=== PATIENT | female | born 1930 | race Asian ===

== ENCOUNTER 2016-11-26 03:41 | Inpatient (IN) | payer MEDICARE, OTHER ==
[2016-11-26] VITALS (13 sets, daily range): BP systolic 96–208; BP diastolic 40–76
[~2016-11-26] VITALS: Ht 144.8 cm; Wt 47.6 kg
[~2016-11-26 03:41] MED LIST: AMLO10TA4 PO; ASPI-630 PO; CARV12.52 PO; DULO30CA2 PO; FAMO20TA5 PO; FERR159T3 PO; HYDR-2762 PO; INSU100V31 SQ; INSU100V8 SQ; MULT-18 PO; Nitrofurantoin Monohyd/M-Cryst PO; OXYC10TA57 PO; SIMV20TA3 PO
[2016-11-26] MEDS ORDERED: HYDROmorphone 2 MG/ML VIAL IV ONE (04:30)
[2016-11-26] MEDS ORDERED: ONDANSETRON PF 4 MG/2 ML VIAL. IV ONE (04:30)
[2016-11-26] MEDS ORDERED: IV NORMAL SALINE 1000ML BAG 1,000 ML IV ONE (04:30)
[2016-11-26] MEDS ORDERED: ONDANSETRON PF 4 MG/2 ML VIAL. IV PRN ×2 (04:45→09:45)
[2016-11-26] MEDS: MORPHINE SULFATE 4 MG/ML DISP.SYRIN. IV PRN ×2 (05:22→07:47)
--- NOTE | 2016-11-26 05:45 | PHYS DOC ---
Past Medical History Past Medical History: Cancer, CHF, Diabetes-Type II, High Cholesterol, Hypertension, FL, TIA Additional Past Medical Histor: Breast CA; carotid artery occlusion; crushed vertebrae Past Surgical History: Appendectomy, Cholecystectomy, Coronary Bypass Surgery, Other Additional Past Surgical Histo: left mastectomy; carotid sx Alcohol Use: None Drug Use: None Adult General Chief Complaint Chief Complaint: MECHANICAL FALL HPI HPI Patient is a 86 year old [f__sex] who presents with [] Review of Systems Review of Systems Constitutional: Denies fever or chills [] Eyes: Denies change in visual acuity, redness, or eye pain [] HENT: Denies nasal congestion or sore throat [] Respiratory: Denies cough or shortness of breath [] Cardiovascular: No additional information not addressed in HPI [] GI: Denies abdominal pain, nausea, vomiting, bloody stools or diarrhea [] : Denies dysuria or hematuria [] Musculoskeletal: Denies back pain or joint pain [] Integument: Denies rash or skin lesions [] Neurologic: Denies headache, focal weakness or sensory changes [] Endocrine: Denies polyuria or polydipsia [] Allergies Allergies Allergies Coded Allergies Type Severity Reaction Last Updated Verified fentanyl Allergy Intermediate 11/26/16 No Physical Exam Physical Exam Constitutional: Well developed, well nourished, no acute distress, non-toxic appearance. [] HENT: Normocephalic, atraumatic, bilateral external ears normal, oropharynx moist, no oral exudates, nose normal. [] Eyes: PERRLA, EOMI, conjunctiva normal, no discharge. [] Neck: Normal range of motion, no tenderness, supple, no stridor. [] Cardiovascular:Heart rate regular rhythm, no murmur [] Lungs & Thorax: Bilateral breath sounds clear to auscultation [] Abdomen: Bowel sounds normal, soft, no tenderness, no masses, no pulsatile masses. [] Skin: Warm, dry, no erythema, no rash. [] Back: No tenderness, no CVA tenderness. [] Extremities: No tenderness, no cyanosis, no clubbing, ROM intact, no edema. [] Neurologic: Alert and oriented X 3, normal motor function, normal sensory function, no focal deficits noted. [] Psychologic: Affect normal, judgement normal, mood normal. [] Current Patient Data Vital Signs Vital Signs Date Time Temp Pulse Resp B/P (MAP) Pulse Ox O2 Delivery O2 Flow Rate FiO2 11/26/16 03:44 98.0 64 16 197/84 (121) 93 Room Air 98.0 EKG EKG [] Radiology/Procedures Radiology/Procedures [] Course & Med Decision Making Course & Med Decision Making Pertinent Labs and Imaging studies reviewed. (See chart for details) [] Dragon Disclaimer Dragon Disclaimer This electronic medical record was generated, in whole or in part, using a voice recognition dictation system. Departure Departure Impression: Primary Impression: Closed right hip fracture Disposition: ADMITTED INPATIENT Admitting Physician: Other (reusch) Condition: STABLE Referrals: LUCY RASMUSSEN APRN (PCP) Problem Qualifiers Primary Impression: Closed right hip fracture Encounter type: initial encounter Qualified Codes: S72.001A - Fracture of unspecified part of neck of right femur, initial encounter for closed fracture MIKEY DE LEON MD Nov 26, 2016 05:45
[2016-11-26 05:52] LABS: BASO # 0.1 x10^3/uL (0.0-0.2); BASO % 1 % (0-3); EOS % 2 % (0-3); HEMATOCRIT 31.5 % (36.0-47.0); HEMOGLOBIN 10.8 g/dL (12.0-15.5); LYMPH # 1.2 x10^3/uL (1.0-4.8); LYMPH % 8 % (24-48); MEAN CORPUSCULAR HEMOGLOBIN 33 pg (25-35); MEAN CORPUSCULAR HGB CONC 34 g/dL (31-37); MEAN CORPUSCULAR VOLUME 96 fL (79-100); MONO % 5 % (0-9); NEUT % 85 % (31-73); PLATELET COUNT 222 x10^3/uL (140-400); RED BLOOD COUNT 3.29 x10^6/uL (3.50-5.40); RED CELL DISTRIBUTION WIDTH 14.1 % (11.5-14.5); WHITE BLOOD COUNT 15.5 x10^3/uL (4.0-11.0)
[2016-11-26 06:04] LABS: CALCIUM 9.2 mg/dL (8.5-10.1); CREATININE 1.2 mg/dL (0.6-1.0); GFR 42.8; POTASSIUM 4.1 mmol/L (3.5-5.1)
[2016-11-26 06:09] LABS: ALBUMIN 3.3 g/dL (3.4-5.0); ALBUMIN/GLOBULIN RATIO 0.9 (1.0-1.7); TOTAL BILIRUBIN 0.3 mg/dL (0.2-1.0); TOTAL PROTEIN 6.9 g/dL (6.4-8.2)
--- NOTE | 2016-11-26 06:27 | ACF ---
Admit Criteria Forms Admit Criteria Forms Admit Criteria Forms MUSCULOSKELETAL DISEASE GRG Clinical Indications for Admission to Inpatient Care (Place 'X' for any and all applicable criteria): Hospital admission is needed for appropriate care of the patient because of 1 or more of the following: [X]I. Fracture, dislocation, or other musculoskeletal injury requiring inpatient care(medical) as indicated by 1 or more of the following(4)(5)(6)(7) [ ]a) Vertebral fracture requiring observation for instability or neurologic compromise (8) [ ]b) Compartment syndrome (proven or cannot be ruled out during observation level of care) (9) [ ]c) Limb-threatening injury [ ]d) Major injury requiring inpatient stabilization such as traction initiation or external fixation before internal fixation or closure of complex or open fracture [ ]e) Major injury requiring inpatient treatment after emergency or observation level care (as appropriate) [X]f) Severe pain requiring acute inpatient management [ ]g) Injury with suspicion of abuse or neglect (eg., child, dependent elderly) [ ]II. Newly diagnosed or suspected bone, joint, or orthopedic device infection (e.g., osteomyelitis, septic arthritis) needing 1 or more of the following(1)(2)(3) [ ]a) IV antibiotics that cannot be initiated in other than inpatient setting (e.g., patient too unstable or home infusion not available) [ ]b) Device removal or replacement [ ]c) Bone or soft tissue debridement [ ]d) Joint drainage (drain placement or repetitive aspirations) [ ]III. Severe rheumatologic disease (e.g., systemic lupus erythematosus, rheumatoid arthritis) with complications or comorbidities (Also use Optimal Recovery Care Criteria or General Recovery Criteria as appropriate on the basis of predominant condition), including 1 or more of the following( 10)(11)(12)(13) [ ]a) Severe infection (e.g., EQUIPMENT SERVICE TECHNICIAN infection, sepsis) (14) [ ]b) Respiratory complications, including 1 or more of the following : [ ]i) Pleural effusion with respiratory compromise [ ]ii) Pulmonary hypertension with congestive failure [ ]iii) Respiratory failure [ ]iv) Pulmonary hemorrhage (15) [ ]c) Hematologic disease, including 1 or more of the following: [ ]i) Coagulopathy with bleeding [ ]ii) Thrombosis with hypercoagulable state [ ]iii) Thrombotic thrombocytopenic purpura [ ]d) Cerebritis with seizures, psychosis, or other severe abnormalities [ ]e) Vertebral destruction with monitoring needed for cervical myelopathy& possible respiratory compromise [ ]f) Exacerbation that requires inpatient treatment (e.g., intravenous immunosuppression) (16) [ ]g) Acute renal failure [ ]h) Cerebritis with seizures, psychosis, Altered mental status, or other neurologic abnormalities [ ]i) Pericardial effusion with tamponade [ ]j) Vertebral destruction, with monitoring needed for cervical myelopathy and possible respiratory compromise [ ]IV. Severe vasculitis with complications or comorbidities (Also use Optimal Recovery Care Criteria General Recovery Criteria as appropriate on the basis of predominant condition), including 1 or more of the following(11)(12)(17)(18)(19)(20) [ ]a) Exacerbation that requires inpatient treatment (e.g., intravenous immunosuppression) (19)(21) [ ]b) Pulmonary hemorrhage (15) [ ]c) EQUIPMENT SERVICE TECHNICIAN vasculitis with seizures, psychosis, Altered mental status that is severe or persistent, or other severe abnormalities (22) [ ]d) Cerebral infarction [ ]e) Gastrointestinal ischemia [ ]f) Gangrene or threatened amputation [ ]g) Renal failure (16) [ ]h) Other significant complications of vasculitis ( eg., tissue or organ ischemia, organ dysfunction ) [ ]V. Severe myopathy as indicated by 1 or more of the following (28)(29) [ ]a) New onset of airway compromise or inability to swallow [ ]b) Respiratory deterioration with observation needed for impending respiratory failure [ ]c) Exacerbation that requires inpatient treatment (e.g., intravenous immunosuppression) [ ]. Severe crystal gout (arthropathy) indicated by 1 or more of the following (23)(24) [ ]a) Severe pain requiring acute inpatient management [ ]b) Exacerbation that requires inpatient treatment (e.g., intravenous treatment) [ ]VII.Rhabdomyolysis and 1 or more of the following (25)(26)(27) [ ]a) Acute renal failure [ ]b) Need for intravenous hydration after emergency or observation level care (as appropriate) [ ]c) Inability to maintain oral hydration [ ]d) Change in mental status [ ]e) Electrolyte abnormality that remains after emergency or observation level care (as appropriate) [ ]VIII Post amputation complication, as indicated by ANY ONE of the following [ ]a) Infection [ ]b) Dehiscence [ ]c) Myodesis failure [ ]IX. Severe pain requiring acute inpatient management due to musculoskeletal condition [ ]X. Musculoskeletal Disease and ALL of the following: [ ]a) Symptom or finding for which emergency and observation care have failed or are not considered appropriate (Use General Criteria: Observation Care as appropriate) [ ]b) Presence of ANY ONE of the following [ ]i) A General Admission Criteria [ ]ii) A Pediatric General Admission Criteria The original [facility] content created by [facility] has been revised. The portions of the content which have been revised are identified through the use of italic text or in bold, and [facility] has neither reviewed nor approved the modified material. All other unmodified content is copyright [facility]. Please see references footnoted in the original [facility] edition 2016 JODY ROWE Nov 26, 2016 06:26
[2016-11-26] MEDS ORDERED: CALC1TAB75 PO (06:28)
[2016-11-26] MEDS ORDERED: HYDR40TA PO (06:28)
[2016-11-26] MEDS ORDERED: DOCU-150 PO (06:28)
[2016-11-26] MEDS ORDERED: FAMO20TA5 PO (06:28)
--- NOTE | 2016-11-26 07:25 | RAD ---
EXAM: Chest one view. HISTORY: Trauma, chest pain. COMPARISON: 06/21/2014. FINDINGS: A frontal view of the chest is obtained. There is a mass or focal infiltrate in the left suprahilar region measuring 4.3 x 3.1 cm. This was not seen previously. Linear opacities in the bases indicate atelectasis or scarring. There are changes of coronary artery bypass grafting. There are changes of left axillary lymph node dissection. Surgical clips are also seen in the right upper quadrant. Vertebroplasty changes are noted at multiple levels. There are atherosclerotic calcifications of the aorta. There is no pneumothorax or pleural effusion. The heart is not enlarged. IMPRESSION: 1. 4.3 cm left suprahilar mass versus focal infiltrate. CT of the chest could further evaluate if the diagnosis is not already known.
--- NOTE | 2016-11-26 07:31 | RAD ---
EXAM: Frontal pelvis with 2V right hip. HISTORY: Right hip pain after trauma. COMPARISON: None. FINDINGS: There is a medially angulated comminuted fracture of the intertrochanteric femur. The femoral head remains located. Joint spaces are maintained. More distally, there are changes of internal fixation of a chronic healed distal femoral fracture with a lateral plate fixed by screws. On the left, there is coxa vara which may be developmental reflect a chronic insufficiency lesion. Joint spaces of the left hip are maintained. Osteopenia is moderate to severe. There is a superior plate compression fracture at L5. Sacroiliac osteoarthritis is mild to moderate on the right greater than left. There is a stent in the right superficial femoral artery. Another is suspected in the left common iliac artery. Atherosclerotic calcifications are noted. IMPRESSION: 1. Medially angulated comminuted right intertrochanteric femur. 2. L5 superior plate compression fracture 3. Correlate for a chronic insufficiency lesion resulting in coxa vara on the left left.
[2016-11-26] MEDS: CALCIUM CARB/VIT D3 500/200 TABLET. PO SCH ×2 (08:00→17:00)
--- NOTE | 2016-11-26 08:09 | RAD ---
EXAM: Right femur 2 views. HISTORY: Fracture. COMPARISON: 03/07/2010. FINDINGS: Refer to the pelvis/hip examination for description of the right intertrochanteric fracture. More distally, there are changes of chronic healed distal femoral metaphyseal fracture fixed by a lateral plate and screws. There are multiple nonunified small butterfly fragments about the old fracture defect. Multiple screw tracks project within the more proximal diaphysis. There is chondrocalcinosis of the medial meniscus. The joint spaces of the right knee appear maintained for patient age. Osteopenia is at least moderate. A stent is noted in the superficial femoral artery. Vascular clips and atherosclerotic calcifications are also noted. IMPRESSION: 1. Medially angulated comminuted fracture of the right intertrochanteric femur. 2. Internal fixation of a chronic healed distal femoral fracture.
[2016-11-26] MEDS: CARVEDILOL 12.5 MG TABLET. PO SCH ×2 (08:13→17:00)
[2016-11-26] MEDS: INSULIN ASPART 300 UNITS/3 ML INSULN.PEN SQ SCH ×3 (08:20→17:00)
[2016-11-26] MEDS: DULoxetine HCL 30 MG CAPSULE.DR PO SCH (08:29)
[2016-11-26] MEDS: ASPIRIN CHEWABLE 81 MG TABLET. PO SCH (08:29)
[2016-11-26] MEDS ORDERED: IV RINGERS,LACTATED 1000ML 1,000 ML IV SCH (09:44)
[2016-11-26] MEDS ORDERED: MORPHINE SULFATE 2 MG/ML DISP.SYRIN. IV PRN (09:45)
[2016-11-26] MEDS ORDERED: PROCHLORPERAZINE 10 MG/2 ML VIAL. IV PRN (09:45)
[2016-11-26] MEDS ORDERED: HYDROmorphone 2 MG/ML VIAL IV PRN (09:45)
[2016-11-26] MEDS ORDERED: LIDOCAINE 1% 1 ML SYRINGE. ID PRN (09:45)
[2016-11-26] MEDS ORDERED: CONTRAST GIVEN MC PRN (11:15)
[2016-11-26] MEDS ORDERED: IOHEXOL 300 MG/ML 75 ML VIAL IV ONE ×2 (11:30)
[2016-11-26] MEDS: DOCUSATE SODIUM 100 MG CAPSULE. PO SCH (11:46)
[2016-11-26] MEDS ORDERED: HYDROCODONE BITARTRATE PO SCH (12:00)
--- NOTE | 2016-11-26 12:12 | RAD ---
EXAM: CT OF THE CHEST WITH INTRAVENOUS CONTRAST. HISTORY: Lung mass. TECHNIQUE: Computed tomography of the chest was performed after the intravenous administration of 75 mL Omnipaque 300. COMPARISON: 02/21/2010. FINDINGS: Images of the upper abdomen reveal changes of cholecystectomy. The common duct is moderately dilated at 13 mm. There is no clear distal obstructing lesion. An inferior vena cava filter is noted. A small cyst is noted in the left kidney. Bone windows reveal no suspicious lesions. There are multiple chronic right rib fractures. There are multiple vertebroplasty changes. Retropulsion at L1 results in at least mild central canal stenosis. There is a mass in the suprahilar left upper lobe that measures 4.2 x 2.8 cm. This is concerning for primary bronchogenic carcinoma. Uncalcified nodules measure 4 mm in the right lower lobe and 3 mm in the left lower lobe. The right lower lobe nodule has been stable chronically and is benign. The left lower lobe nodule is indeterminate. There is mild atelectasis/scarring elsewhere. There are no pathologically enlarged mediastinal or axillary lymph nodes. Changes of left axillary lymph node dissection and mastectomy are noted. There is no pleural or pericardial effusion. The heart is not enlarged. There are atherosclerotic calcifications of the coronary arteries. Aortic valve calcifications are noted. There is mild distal esophageal wall thickening. IMPRESSION: 1. 4.2 cm left upper lobe mass concerning for primary bronchogenic carcinoma. No evidence of metastatic disease. 2. A 3 mm uncalcified nodule in the left lower lobe is indeterminate. 3. Moderate extrahepatic biliary dilatation status post cholecystectomy. Correlate for cholestasis to assess significance. 4. Correlate for distal esophagitis. *One or more of the following individualized dose reduction techniques were utilized for this examination: 1. Automated exposure control. 2. Adjustment of the mA and/or kV according to patient size. 3. Use of iterative reconstruction technique.
--- NOTE | 2016-11-26 13:14 | PDOC2 ---
PIERRE AHN 11/26/16 1314: CONSULT Date of Consult Date of Consult DATE: 11/26/16 TIME: 12:30 Reason for Consult Reason for Consult: right hip fracture Referring Physician Referring Physician: Dr. Hopper Identification/Chief Complaint Chief Complaint right hip pain Source Source: Chart review, Patient History of Present Illness Reason for Visit: Mrs. Serrano is an 86 year old female patient admitted with a right hip fracture. She is a very poor historian and can't quite tell me what happened. She says she was holding her cat yesterday and somehow fell. She is now complaining of right hip pain with any movement. She cannot provide an accurate medical history , so the chart was reviewed. Past Medical History Cardiovascular: CAD, HTN, FL, Hyperlipidemia, Other Pulmonary: COPD CENTRAL NERVOUS SYSTEM: TIA GI: Constipation Heme/Onc: Anemia NOS, Cancer (breast) Psych: No pertinent hx Musculoskeletal: low back pain, Osteoarthritis, Other Rheumatologic: No pertinent hx Infectious disease: No pertinent hx Renal/: Chronic renal insuff Endocrine: Diabetes, Hyperparathyroidism, Osteoporosis, Other Past Surgical History Past Surgical History: Appendectomy, Cholecystectomy, CABG, Mastectomy (left), Hysterectomy, Other (carotid sx) Family History Family History: Coronary Artery Disease Social History No ALCOHOL: none Drugs: None Lives: with Family Domestic Violence: Neg Current Problem List Problem List Problems Medical Problems: (1) Closed right hip fracture Status: Acute Current Medications Current Medications Current Medications Ondansetron HCl (Zofran) 4 mg 1X ONCE IV Last administered on 11/26/16 04:30 ; Start 11/26/16 at 04:30; Stop 11/26/16 at 04:31; Status DC Sodium Chloride 1,000 ml @ 1,000 mls/hr 1X ONCE IV Last administered on 04:30; Start 11/26/16 at 04:30; Stop 11/26/16 at 05:29; Status DC Hydromorphone HCl (Dilaudid) 0.5 mg 1X ONCE IV Last administered on 11/26/16 04:30; Start 11/26/16 at 04:30; Stop 11/26/16 at 04:31; Status DC Ondansetron HCl (Zofran) 4 mg PRN Q8HRS PRN IV NAUSEA/VOMITING; Start 11/26/16 at 04:45; Stop 11/27/16 at 04:44 Morphine Sulfate 4 mg PRN Q2HR PRN IV SEVERE PAIN Last administered on 07:47; Start 11/26/16 at 04:45; Stop 11/27/16 at 04:44 Aspirin (Children'S Aspirin) 81 mg DAILY PO ; Start 11/26/16 at 09:00 Carvedilol (Coreg) 12.5 mg BIDWMEALS PO Last administered on 11/26/16 08:13; Start 11/26/16 at 08:00 Docusate Sodium (Colace) 100 mg DAILYWLUN PO ; Start 11/26/16 at 12:00 Duloxetine HCl (Cymbalta) 30 mg DAILY PO ; Start 11/26/16 at 09:00 Famotidine (Pepcid) 20 mg HS PO ; Start 11/26/16 at 21:00 Insulin Aspart (NovoLOG) 8 units TIDAC SQ Last administered on 11/26/16 08:20 ; Start 11/26/16 at 08:00 Simvastatin (Zocor) 20 mg QHS PO ; Start 11/26/16 at 21:00 Calcium/Vitamin D (Oscal D 500mg/ 200uts) 1 tab BIDWMEALS PO ; Start 11/26/16 at 08:00 Non-Formulary Medication 50 mg DAILYWLUN PO ; Start 11/26/16 at 12:00; Status UNV Ondansetron HCl (Zofran) 4 mg PRN Q6HRS PRN IV NAUSEA/VOMITING; Start 11/26/16 at 09:45; Stop 11/27/16 at 09:44 Morphine Sulfate 1 mg PRN Q10MIN PRN IV SEVERE PAIN; Start 11/26/16 at 09:45; Stop 11/27/16 at 09:44 Ringer's Solution 1,000 ml @ 30 mls/hr Q24H IV ; Start 11/26/16 at 09:44; Stop 11/26/16 at 21:43 Lidocaine HCl 2 ml PRN 1X PRN ID PRIOR TO IV START; Start 11/26/16 at 09:45; Stop 11/27/16 at 09:44 Hydromorphone HCl (Dilaudid) 0.5 mg PRN Q10MIN PRN IV SEV PAIN, Second choice; Start 11/26/16 at 09:45; Stop 11/27/16 at 09:44 Prochlorperazine Edisylate (Compazine) 5 mg PACU PRN PRN IV NAUSEA, MRX1; Start 11/26/16 at 09:45; Stop 11/27/16 at 09:44 Iohexol (Omnipaque 300 Mg/ml) 50 ml 1X ONCE IV ; Start 11/26/16 at 11:30; Stop 11/26/16 at 11:31; Status DC Iohexol (Omnipaque 300 Mg/ml) 60 ml 1X ONCE IV Last administered on 11/26/16t 11:28; Start 11/26/16 at 11:30; Stop 11/26/16 at 11:31; Status DC Info (Do NOT chart on this entry -- for MONITORING) 1 each PRN DAILY PRN MC SEE COMMENTS; Start 11/26/16 at 11:15; Stop 11/28/16 at 11:14 Active Scripts Active Reported Stool Softener (Docusate Sodium) 100 Mg Capsule 100 Mg PO DAILYWLUN Hysingla ER (Hydrocodone Bitartrate) 40 Mg Tab.er.24h 50 Mg PO DAILYWLUN Famotidine 20 Mg Tablet 20 Mg PO HS Calcium 600 + Vit D 200 Tablet (Calcium Carbonate/Vitamin D3) 1 Each Tablet 1 Each PO BID Novolog (Insulin Aspart) 100 Unit/1 Ml Vial 8 Unit SQ PRN PRN Simvastatin 20 Mg Tablet 1 Tab PO QHS Daily Vitamin (Multivitamin) 1 Each Tablet 1 Each PO Lantus (Insulin Glargine,Hum.rec.anlog) 100 Unit/1 Ml Vial 10 Unit SQ Cymbalta (Duloxetine Hcl) 30 Mg Capsule.dr 1 Cap PO DAILY Carvedilol 12.5 Mg Tablet 1 Tab PO BID Aspirin 81 Mg Tab.chew 1 Tab PO DAILY Allergies Allergies: Coded Allergies: fentanyl (Unverified Allergy, Intermediate, 11/26/16) Physical Exam General: Alert, Oriented X3, Cooperative, No acute distress HEENT: Atraumatic, EOMI Lungs: Normal air movement Heart: Regular rate Abdomen: Soft Extremities: No clubbing, No cyanosis, Normal pulses Skin: No breakdown, No significant lesion Neuro: Sensation intact, Other Psych/Mental Status: Mood NL, Other (poor historian) MUSCULOSKELETAL: Abnormal exam of right (hip), Other (No abrasion, lesion, or ecchymosis over right hip. Right hip is tender to palpation over fracture. The leg is shortened and externally rotate. No tenderness at the knee. Calf soft and nontender with a negative Ayad's sign. Good dorsiflexion and plantarflexion with no sign of neurovascular injury. Peripheral pulses and light touch sensation intact.) Vitals VITALS Vital Signs Date Time Temp Pulse Resp B/P (MAP) Pulse Ox O2 Delivery O2 Flow Rate FiO2 11/26/16 11:00 98.3 82 18 182/61 (101) 100 Nasal Cannula 2.0 98.3 Labs Labs Laboratory Tests Test 11/26/16 05:15 11/26/16 07:56 White Blood Count 15.5 x10^3/uL (4.0-11.0) Red Blood Count 3.29 x10^6/uL (3.50-5.40) Hemoglobin 10.8 g/dL (12.0-15.5) Hematocrit 31.5 % (36.0-47.0) Mean Corpuscular Volume 96 fL (79-100) Mean Corpuscular Hemoglobin 33 pg (25-35) Mean Corpuscular Hemoglobin Concent 34 g/dL (31-37) Red Cell Distribution Width 14.1 % (11.5-14.5) Platelet Count 222 x10^3/uL (140-400) Neutrophils (%) (Auto) 85 % (31-73) Lymphocytes (%) (Auto) 8 % (24-48) Monocytes (%) (Auto) 5 % (0-9) Eosinophils (%) (Auto) 2 % (0-3) Basophils (%) (Auto) 1 % (0-3) Neutrophils # (Auto) 13.2 x10^3uL (1.8-7.7) Lymphocytes # (Auto) 1.2 x10^3/uL (1.0-4.8) Monocytes # (Auto) 0.7 x10^3/uL (0.0-1.1) Eosinophils # (Auto) 0.2 x10^3/uL (0.0-0.7) Basophils # (Auto) 0.1 x10^3/uL (0.0-0.2) Prothrombin Time 13.0 SEC (11.7-14.0) Prothromb Time International Ratio 1.0 (0.8-1.1) Sodium Level 136 mmol/L (136-145) Potassium Level 4.1 mmol/L (3.5-5.1) Chloride Level 102 mmol/L (98-107) Carbon Dioxide Level 25 mmol/L (21-32) Anion Gap 9 (6-14) Blood Urea Nitrogen 44 mg/dL (7-20) Creatinine 1.2 mg/dL (0.6-1.0) Estimated GFR (Cockcroft-Gault) 42.8 BUN/Creatinine Ratio 37 (6-20) Glucose Level 236 mg/dL (70-99) Calcium Level 9.2 mg/dL (8.5-10.1) Total Bilirubin 0.3 mg/dL (0.2-1.0) Aspartate Amino Transf (AST/SGOT) 25 U/L (15-37) Alanine Aminotransferase (ALT/SGPT) 25 U/L (14-59) Alkaline Phosphatase 60 U/L (46-116) Total Protein 6.9 g/dL (6.4-8.2) Albumin 3.3 g/dL (3.4-5.0) Albumin/Globulin Ratio 0.9 (1.0-1.7) Glucose (Fingerstick) 251 mg/dL (70-99) Laboratory Tests Test 11/26/16 05:15 11/26/16 07:56 White Blood Count 15.5 x10^3/uL (4.0-11.0) Red Blood Count 3.29 x10^6/uL (3.50-5.40) Hemoglobin 10.8 g/dL (12.0-15.5) Hematocrit 31.5 % (36.0-47.0) Mean Corpuscular Volume 96 fL (79-100) Mean Corpuscular Hemoglobin 33 pg (25-35) Mean Corpuscular Hemoglobin Concent 34 g/dL (31-37) Red Cell Distribution Width 14.1 % (11.5-14.5) Platelet Count 222 x10^3/uL (140-400) Neutrophils (%) (Auto) 85 % (31-73) Lymphocytes (%) (Auto) 8 % (24-48) Monocytes (%) (Auto) 5 % (0-9) Eosinophils (%) (Auto) 2 % (0-3) Basophils (%) (Auto) 1 % (0-3) Neutrophils # (Auto) 13.2 x10^3uL (1.8-7.7) Lymphocytes # (Auto) 1.2 x10^3/uL (1.0-4.8) Monocytes # (Auto) 0.7 x10^3/uL (0.0-1.1) Eosinophils # (Auto) 0.2 x10^3/uL (0.0-0.7) Basophils # (Auto) 0.1 x10^3/uL (0.0-0.2) Prothrombin Time 13.0 SEC (11.7-14.0) Prothromb Time International Ratio 1.0 (0.8-1.1) Sodium Level 136 mmol/L (136-145) Potassium Level 4.1 mmol/L (3.5-5.1) Chloride Level 102 mmol/L (98-107) Carbon Dioxide Level 25 mmol/L (21-32) Anion Gap 9 (6-14) Blood Urea Nitrogen 44 mg/dL (7-20) Creatinine 1.2 mg/dL (0.6-1.0) Estimated GFR (Cockcroft-Gault) 42.8 BUN/Creatinine Ratio 37 (6-20) Glucose Level 236 mg/dL (70-99) Calcium Level 9.2 mg/dL (8.5-10.1) Total Bilirubin 0.3 mg/dL (0.2-1.0) Aspartate Amino Transf (AST/SGOT) 25 U/L (15-37) Alanine Aminotransferase (ALT/SGPT) 25 U/L (14-59) Alkaline Phosphatase 60 U/L (46-116) Total Protein 6.9 g/dL (6.4-8.2) Albumin 3.3 g/dL (3.4-5.0) Albumin/Globulin Ratio 0.9 (1.0-1.7) Glucose (Fingerstick) 251 mg/dL (70-99) Images Images Right hip and leg xrays reviewed. There is a right intertrochanteric femur fracture seen. There is an old, healed distal femoral fracture with plate and screw fixation. Joint spaces maintained. Compression fracture at L5. Stent in right femoral artery. Assessment/Plan Assessment/Plan Right intertrochanteric femur fracture. Dr. Walden recommended right hip gamma nail. I explained the procedure and risks and benefits of surgery to the patient. Due to patient's mental status, she is unable to give consent. Her , Meng, is her DPOA and will be here this afternoon to give consent. NPO. Plan for surgery today at 3pm. GAYATRI WALDEN MD 11/26/16 2016: CONSULT Allergies Allergies: Coded Allergies: fentanyl (Unverified Allergy, Intermediate, 11/26/16) Assessment/Plan Assessment/Plan Agree with above. I saw and examined the patient myself. Her rle was shortened and externally rotated. She did not speak to me, the history was obtained from her . She appeared comfortable. grossly moved her toes. Plan for gamma nail right hip. PIERRE AHN Nov 26, 2016 13:14 GAYATRI WALDEN MD Nov 26, 2016 20:16
[2016-11-26] MEDS ORDERED: DEXTROSE 50% 25 GM / 50ML DISP.SYRIN. IV PRN (13:15)
--- NOTE | 2016-11-26 13:41 | PDOC1 ---
History and Physical Date of Admission Date of Admission 11/25/16 Identification/Chief Complaint Chief Complaint fall Problems: Source Source: Caregiver, Chart review, Patient History of Present Illness History of Present Illness 86yo F, mild dementia. was sent yesterday by EMS post fall. Pt is demented, not easy to get history, and son at bedside to contribute history. Pt uses a walker to walk, tried to hold up her cat from the floor of her bedroom yesterday. The cat knocked her down to the ground. denies syncope. Pt could not get up and called EMS. PT FEEls RIGHT HIP pain, otherwise no fever, chills, sob, cough. said she has been sleeping a lot recently. CXR showed a lung mass, right hip fx and L5 fx on XR. Past Medical History Cardiovascular: CAD, HTN, DE, Hyperlipidemia, Other Pulmonary: COPD CENTRAL NERVOUS SYSTEM: TIA GI: Constipation Heme/Onc: Anemia NOS, Cancer Psych: No pertinent hx Rheumatologic: No pertinent hx Infectious disease: No pertinent hx Renal/: Chronic renal insuff Endocrine: Diabetes, Hyperparathyroidism, Osteoporosis, Other Past Surgical History Past Surgical History: Appendectomy, Cholecystectomy, CABG, Mastectomy, Hysterectomy, Other Family History Family History: Coronary Artery Disease Social History Smoke: No ALCOHOL: none Drugs: None Current Problem List Problem List Problems Medical Problems: (1) Closed right hip fracture Status: Acute Current Medications Current Medications Current Medications Medications (Trade) Dose Ordered Sig/Deisy Start Time Stop Time Status Last Admin Dose Admin Aspirin (Children'S Aspirin) 81 mg DAILY 11/26/16 09:00 Calcium/Vitamin D (Oscal D 500mg/ 200uts) 1 tab BIDWMEALS 11/26/16 08:00 Carvedilol (Coreg) 12.5 mg BIDWMEALS 11/26/16 08:00 11/26/16 08:13 12.5 MG Docusate Sodium (Colace) 100 mg DAILYWLUN 11/26/16 12:00 Duloxetine HCl (Cymbalta) 30 mg DAILY 11/26/16 09:00 Famotidine (Pepcid) 20 mg HS 11/26/16 21:00 Hydromorphone HCl (Dilaudid) 0.5 mg PRN Q10MIN PRN 11/26/16 09:45 11/27/16 09:44 Info (Do NOT chart on this entry -- for MONITORING) 1 each PRN DAILY PRN 11/26/16 11:15 11/28/16 11:14 Insulin Aspart (NovoLOG) 8 units TIDAC 11/26/16 08:00 11/26/16 08:20 8 UNITS Iohexol (Omnipaque 300 Mg/ml) 60 ml 1X ONCE 11/26/16 11:30 11/26/16 11:31 DC 11/26/16 11:28 60 ML Lidocaine HCl 2 ml PRN 1X PRN 11/26/16 09:45 11/27/16 09:44 Morphine Sulfate 1 mg PRN Q10MIN PRN 11/26/16 09:45 11/27/16 09:44 Non-Formulary Medication 50 mg DAILYWLUN 11/26/16 12:00 UNV Ondansetron HCl (Zofran) 4 mg PRN Q6HRS PRN 11/26/16 09:45 11/27/16 09:44 Prochlorperazine Edisylate (Compazine) 5 mg PACU PRN PRN 11/26/16 09:45 11/27/16 09:44 Ringer's Solution 1,000 ml @ 30 mls/hr Q24H 11/26/16 09:44 11/26/16 21:43 Simvastatin (Zocor) 20 mg QHS 11/26/16 21:00 Sodium Chloride 1,000 ml @ 1,000 mls/hr 1X ONCE 11/26/16 04:30 11/26/16 05:29 DC 11/26/16 04:30 1,000 MLS/HR Allergies Allergies Allergies Coded Allergies Type Severity Reaction Last Updated Verified fentanyl Allergy Intermediate 11/26/16 No ROS Review of System CONSTITUTIONAL: No fever or chills EYES: No recent changes SKIN: No rash or itching CARDIOVASCULAR: No chest pain, syncope, palpitations, or edema RESPIRATORY: No SOB or cough GASTROINTESTINAL: No nausea, vomiting or abdominal pain NEUROLOGICAL: No headaches or weakness ENDOCRINE: No cold or heat intolerance GENITOURINARY: No urgency or frequency of urination MUSCULOSKELETAL: No back pain or joint pain LYMPHATICS: No enlarged lymph nodes PSYCHIATRIC: No anxiety or depression Physical Exam Physical Exam GEN.: No apparent distress. Alert and oriented x2, to person, kept saying in [place]. HEENT: Head is normocephalic, atraumatic NECK: Supple. LUNGS: Clear to auscultation. HEART: RRR, S1, S2 present. Peripheral pulses intact ABDOMEN: Soft, nontender. Positive bowel sounds. EXTREMITIES: Without any cyanosis. NEUROLOGIC: Normal speech, normal tone PSYCHIATRIC: Normal affect, normal mood. SKIN: No ulcerations Vitals Vitals Vital Signs Date Time Temp Pulse Resp B/P (MAP) Pulse Ox O2 Delivery O2 Flow Rate FiO2 11/26/16 11:00 98.3 82 18 182/61 (101) 100 Nasal Cannula 2.0 98.3 Labs Labs Laboratory Tests Test 11/26/16 05:15 11/26/16 07:56 White Blood Count 15.5 x10^3/uL (4.0-11.0) Red Blood Count 3.29 x10^6/uL (3.50-5.40) Hemoglobin 10.8 g/dL (12.0-15.5) Hematocrit 31.5 % (36.0-47.0) Mean Corpuscular Volume 96 fL (79-100) Mean Corpuscular Hemoglobin 33 pg (25-35) Mean Corpuscular Hemoglobin Concent 34 g/dL (31-37) Red Cell Distribution Width 14.1 % (11.5-14.5) Platelet Count 222 x10^3/uL (140-400) Neutrophils (%) (Auto) 85 % (31-73) Lymphocytes (%) (Auto) 8 % (24-48) Monocytes (%) (Auto) 5 % (0-9) Eosinophils (%) (Auto) 2 % (0-3) Basophils (%) (Auto) 1 % (0-3) Neutrophils # (Auto) 13.2 x10^3uL (1.8-7.7) Lymphocytes # (Auto) 1.2 x10^3/uL (1.0-4.8) Monocytes # (Auto) 0.7 x10^3/uL (0.0-1.1) Eosinophils # (Auto) 0.2 x10^3/uL (0.0-0.7) Basophils # (Auto) 0.1 x10^3/uL (0.0-0.2) Prothrombin Time 13.0 SEC (11.7-14.0) Prothromb Time International Ratio 1.0 (0.8-1.1) Sodium Level 136 mmol/L (136-145) Potassium Level 4.1 mmol/L (3.5-5.1) Chloride Level 102 mmol/L (98-107) Carbon Dioxide Level 25 mmol/L (21-32) Anion Gap 9 (6-14) Blood Urea Nitrogen 44 mg/dL (7-20) Creatinine 1.2 mg/dL (0.6-1.0) Estimated GFR (Cockcroft-Gault) 42.8 BUN/Creatinine Ratio 37 (6-20) Glucose Level 236 mg/dL (70-99) Calcium Level 9.2 mg/dL (8.5-10.1) Total Bilirubin 0.3 mg/dL (0.2-1.0) Aspartate Amino Transf (AST/SGOT) 25 U/L (15-37) Alanine Aminotransferase (ALT/SGPT) 25 U/L (14-59) Alkaline Phosphatase 60 U/L (46-116) Total Protein 6.9 g/dL (6.4-8.2) Albumin 3.3 g/dL (3.4-5.0) Albumin/Globulin Ratio 0.9 (1.0-1.7) Glucose (Fingerstick) 251 mg/dL (70-99) Laboratory Tests Test 11/26/16 05:15 11/26/16 07:56 White Blood Count 15.5 x10^3/uL (4.0-11.0) Red Blood Count 3.29 x10^6/uL (3.50-5.40) Hemoglobin 10.8 g/dL (12.0-15.5) Hematocrit 31.5 % (36.0-47.0) Mean Corpuscular Volume 96 fL (79-100) Mean Corpuscular Hemoglobin 33 pg (25-35) Mean Corpuscular Hemoglobin Concent 34 g/dL (31-37) Red Cell Distribution Width 14.1 % (11.5-14.5) Platelet Count 222 x10^3/uL (140-400) Neutrophils (%) (Auto) 85 % (31-73) Lymphocytes (%) (Auto) 8 % (24-48) Monocytes (%) (Auto) 5 % (0-9) Eosinophils (%) (Auto) 2 % (0-3) Basophils (%) (Auto) 1 % (0-3) Neutrophils # (Auto) 13.2 x10^3uL (1.8-7.7) Lymphocytes # (Auto) 1.2 x10^3/uL (1.0-4.8) Monocytes # (Auto) 0.7 x10^3/uL (0.0-1.1) Eosinophils # (Auto) 0.2 x10^3/uL (0.0-0.7) Basophils # (Auto) 0.1 x10^3/uL (0.0-0.2) Prothrombin Time 13.0 SEC (11.7-14.0) Prothromb Time International Ratio 1.0 (0.8-1.1) Sodium Level 136 mmol/L (136-145) Potassium Level 4.1 mmol/L (3.5-5.1) Chloride Level 102 mmol/L (98-107) Carbon Dioxide Level 25 mmol/L (21-32) Anion Gap 9 (6-14) Blood Urea Nitrogen 44 mg/dL (7-20) Creatinine 1.2 mg/dL (0.6-1.0) Estimated GFR (Cockcroft-Gault) 42.8 BUN/Creatinine Ratio 37 (6-20) Glucose Level 236 mg/dL (70-99) Calcium Level 9.2 mg/dL (8.5-10.1) Total Bilirubin 0.3 mg/dL (0.2-1.0) Aspartate Amino Transf (AST/SGOT) 25 U/L (15-37) Alanine Aminotransferase (ALT/SGPT) 25 U/L (14-59) Alkaline Phosphatase 60 U/L (46-116) Total Protein 6.9 g/dL (6.4-8.2) Albumin 3.3 g/dL (3.4-5.0) Albumin/Globulin Ratio 0.9 (1.0-1.7) Glucose (Fingerstick) 251 mg/dL (70-99) VTE Prophylaxis Ordered VTE Prophylaxis Devices: No VTE Pharmacological Prophylaxi: Yes Assessment/Plan Assessment/Plan 1. traumatic closed right hip fx post fall 2. left lung Mass 3. h/o CAD with CABG 4. THN 5. DM2 6. HLD 7. H/O BCa post mastectomy , chemo, and RT 8. leukocytosis, reactive 9. normacytic anemia 10. CKD3 11. mild malnution plan: will get sx from ortho will get CT chest , pulm consult cont home meds PAT consult dr. trent consult levemir 10u qhs, SSI PTOT dvt ppx from EMMIE Lima MD Nov 26, 2016 13:41
[2016-11-26] MEDS ORDERED: BUPIVACAINE-EPI 0.25%-1:200000 50 ML VIAL. ONE (16:10)
--- NOTE | 2016-11-26 16:28 | PDOC ---
PULMONARY PROGRESS NOTES Vitals Vital Signs Date Time Temp Pulse Resp B/P (MAP) Pulse Ox O2 Delivery O2 Flow Rate FiO2 11/26/16 11:00 98.3 82 18 182/61 (101) 100 Nasal Cannula 2.0 98.3 Labs Laboratory Tests Test 11/26/16 05:15 11/26/16 06:00 11/26/16 07:56 White Blood Count 15.5 x10^3/uL (4.0-11.0) Red Blood Count 3.29 x10^6/uL (3.50-5.40) Hemoglobin 10.8 g/dL (12.0-15.5) Hematocrit 31.5 % (36.0-47.0) Mean Corpuscular Volume 96 fL (79-100) Mean Corpuscular Hemoglobin 33 pg (25-35) Mean Corpuscular Hemoglobin Concent 34 g/dL (31-37) Red Cell Distribution Width 14.1 % (11.5-14.5) Platelet Count 222 x10^3/uL (140-400) Neutrophils (%) (Auto) 85 % (31-73) Lymphocytes (%) (Auto) 8 % (24-48) Monocytes (%) (Auto) 5 % (0-9) Eosinophils (%) (Auto) 2 % (0-3) Basophils (%) (Auto) 1 % (0-3) Neutrophils # (Auto) 13.2 x10^3uL (1.8-7.7) Lymphocytes # (Auto) 1.2 x10^3/uL (1.0-4.8) Monocytes # (Auto) 0.7 x10^3/uL (0.0-1.1) Eosinophils # (Auto) 0.2 x10^3/uL (0.0-0.7) Basophils # (Auto) 0.1 x10^3/uL (0.0-0.2) Prothrombin Time 13.0 SEC (11.7-14.0) Prothromb Time International Ratio 1.0 (0.8-1.1) Sodium Level 136 mmol/L (136-145) Potassium Level 4.1 mmol/L (3.5-5.1) Chloride Level 102 mmol/L (98-107) Carbon Dioxide Level 25 mmol/L (21-32) Anion Gap 9 (6-14) Blood Urea Nitrogen 44 mg/dL (7-20) Creatinine 1.2 mg/dL (0.6-1.0) Estimated GFR (Cockcroft-Gault) 42.8 BUN/Creatinine Ratio 37 (6-20) Glucose Level 236 mg/dL (70-99) Calcium Level 9.2 mg/dL (8.5-10.1) Total Bilirubin 0.3 mg/dL (0.2-1.0) Aspartate Amino Transf (AST/SGOT) 25 U/L (15-37) Alanine Aminotransferase (ALT/SGPT) 25 U/L (14-59) Alkaline Phosphatase 60 U/L (46-116) Total Protein 6.9 g/dL (6.4-8.2) Albumin 3.3 g/dL (3.4-5.0) Albumin/Globulin Ratio 0.9 (1.0-1.7) Nasal Screen MRSA (PCR) Negative (Negative) Glucose (Fingerstick) 251 mg/dL (70-99) Laboratory Tests Test 11/26/16 05:15 11/26/16 06:00 11/26/16 07:56 White Blood Count 15.5 x10^3/uL (4.0-11.0) Red Blood Count 3.29 x10^6/uL (3.50-5.40) Hemoglobin 10.8 g/dL (12.0-15.5) Hematocrit 31.5 % (36.0-47.0) Mean Corpuscular Volume 96 fL (79-100) Mean Corpuscular Hemoglobin 33 pg (25-35) Mean Corpuscular Hemoglobin Concent 34 g/dL (31-37) Red Cell Distribution Width 14.1 % (11.5-14.5) Platelet Count 222 x10^3/uL (140-400) Neutrophils (%) (Auto) 85 % (31-73) Lymphocytes (%) (Auto) 8 % (24-48) Monocytes (%) (Auto) 5 % (0-9) Eosinophils (%) (Auto) 2 % (0-3) Basophils (%) (Auto) 1 % (0-3) Neutrophils # (Auto) 13.2 x10^3uL (1.8-7.7) Lymphocytes # (Auto) 1.2 x10^3/uL (1.0-4.8) Monocytes # (Auto) 0.7 x10^3/uL (0.0-1.1) Eosinophils # (Auto) 0.2 x10^3/uL (0.0-0.7) Basophils # (Auto) 0.1 x10^3/uL (0.0-0.2) Prothrombin Time 13.0 SEC (11.7-14.0) Prothromb Time International Ratio 1.0 (0.8-1.1) Sodium Level 136 mmol/L (136-145) Potassium Level 4.1 mmol/L (3.5-5.1) Chloride Level 102 mmol/L (98-107) Carbon Dioxide Level 25 mmol/L (21-32) Anion Gap 9 (6-14) Blood Urea Nitrogen 44 mg/dL (7-20) Creatinine 1.2 mg/dL (0.6-1.0) Estimated GFR (Cockcroft-Gault) 42.8 BUN/Creatinine Ratio 37 (6-20) Glucose Level 236 mg/dL (70-99) Calcium Level 9.2 mg/dL (8.5-10.1) Total Bilirubin 0.3 mg/dL (0.2-1.0) Aspartate Amino Transf (AST/SGOT) 25 U/L (15-37) Alanine Aminotransferase (ALT/SGPT) 25 U/L (14-59) Alkaline Phosphatase 60 U/L (46-116) Total Protein 6.9 g/dL (6.4-8.2) Albumin 3.3 g/dL (3.4-5.0) Albumin/Globulin Ratio 0.9 (1.0-1.7) Nasal Screen MRSA (PCR) Negative (Negative) Glucose (Fingerstick) 251 mg/dL (70-99) Medications Active Scripts Medications Dose Route/Sig Max Daily Dose Days Date Category Stool Softener (Docusate Sodium) 100 Mg Capsule 100 Mg PO DAILYWLUN 11/26/16 Reported Hysingla ER (Hydrocodone Bitartrate) 40 Mg Tab.er.24h 50 Mg PO DAILYWLUN 11/26/16 Reported Famotidine 20 Mg Tablet 20 Mg PO HS 11/26/16 Reported Calcium 600 + Vit D 200 Tablet (Calcium Carbonate/Vitamin D3) 1 Each Tablet 1 Each PO BID 11/26/16 Reported Novolog (Insulin Aspart) 100 Unit/1 Ml Vial 8 Unit SQ PRN PRN 06/20/14 Reported Simvastatin 20 Mg Tablet 1 Tab PO QHS 06/20/14 Reported Daily Vitamin (Multivitamin) 1 Each Tablet 1 Each PO 06/20/14 Reported Lantus (Insulin Glargine,Hum.rec.anlog) 100 Unit/1 Ml Vial 10 Unit SQ 06/20/14 Reported Cymbalta (Duloxetine Hcl) 30 Mg Capsule.dr 1 Cap PO DAILY 06/20/14 Reported Carvedilol 12.5 Mg Tablet 1 Tab PO BID 06/20/14 Reported Aspirin 81 Mg Tab.chew 1 Tab PO DAILY 06/20/14 Reported Impression . NOTE DICTATED FNA IN FUTURE MADHURI CARRERA MD Nov 26, 2016 16:28
[2016-11-26] MEDS ORDERED: LIDOCAINE 2% PF Vial for OR 5 ML VIAL. ONE (17:45)
[2016-11-26] MEDS ORDERED: DEXAMETHASONE SOD PHOS 20 MG/5 ML VIAL. ONE (17:45)
[2016-11-26] MEDS ORDERED: PROPOFOL 20 ML IV ONE (17:45)
[2016-11-26] MEDS ORDERED: SEVOFLURANE > 120 MINUTES. IH ONE (17:45)
[2016-11-26] MEDS ORDERED: ONDANSETRON PF 4 MG/2 ML VIAL. ONE (17:45)
[2016-11-26] MEDS ORDERED: PHENYLEPHRINE in 0.9% NACL PF 1 MG/10 ML DISP.SYRIN. IV ONE (19:34)
[2016-11-26] MEDS ORDERED: LABETALOL 20 MG/4 ML DISP.SYRIN. ONE (20:21)
--- NOTE | 2016-11-26 20:21 | PDOC ---
BRIEF OPERATIVE NOTE Date: Nov 26, 2016 Pre-Op Diagnosis Right IT FX Post-Op Diagnosis Right IT FX Procedure Performed Right IM Nail Surgeon Bibi Walden M.D. Field Appraiser Iron Rowland PA-C Blood Loss 50cc Findings None Complications None Additional Remarks None [facility] Nov 26, 2016 20:21
--- NOTE | 2016-11-26 20:22 | PDOC4 ---
Operative Note Operative Note DATE OF PROCEDURE: 11/26/2016 PRE-OP~DIAGNOSIS: Closed Right Intertrochanteric hip fracture, S72.921A POST-OP~DIAGNOSIS: same Operative Procedure performed: Treatment of right intertrochanteric femur fracture with an intramedullary nail, CPT 74955 SURGEON: Bibi Franks MD MEDICAL PHYSICIST: Gene Rowland ANESTHESIA: general ESTIMATED BLOOD LOSS: 50 cc SPECIMENS OBTAINED: none IMPLANTS: Joel gamma 3 trochanteric nail 11 x 180 mm x 120 degrees, 10.5 x 70 mm lag screw, 5 x 40 mm distal locking screw. COMPLICATIONS: none INDICATIONS: The patient is an 86 year old female who fell sustaining an intertrochanteric hip fracture. The patient and I and the patient's family discussed the risks and benefits and alternatives of treatment. The alternative for treatment is bedrest until the fracture feels well, which is generally not well tolerated due to the risks of bedsores, blood clots, pneumonia, and deconditioning. I recommended intramedullary nailing, and I talked to them about the potential risks of this including risks of bleeding, infection, blood clots, malunion, nonunion, hardware failure, or other potential surgical or anesthetic complications. All of their questions were answered about surgery and they desired to proceed. A written consent was obtained. OPERATIVE PROCEDURE: The patient was identified in the preoperative holding area. The correct hip was marked by myself. The patient was taken to the operating room, where they were placed under general anesthesia. Preoperative antibiotics were given IV. The HANA table was used and the well leg was placed in a padded lithotomy leg quintero, while the foot of the fractured leg was placed in a well padded traction foot boot. My surveyor's assistant was essential for positioning. A time-out procedure was performed. The image intensifier was used, and a preliminary reduction was obtained at the fracture site. The hip area was prepped and draped in the normal sterile fashion with chloraprep and an ioban shower curtain style drape. 4 blue sterile OR towels were applied to the leg with krystle prior to the ioban drape being placed. An incision was made over the superior aspect of the greater trochanter. A guide pin was placed at the tip of the greater trochanter and a starting awl was used to open the proximal canal. A ball tipped guidewire was then placed in the canal, and the fracture remained adequately reduced. The femur was reamed 2 mm over the size of the nail to a 13 mm reamer to approximately the level of the femur just past the lesser trochanter. The proximal piece was reamed with the 15 mm opening reamer. The intramedullary nail was attached to a guide and then was placed down the canal and positioned appropriately using the image intensifier. The nail ended just proximal to the first screw for the distal femoral locking plate. Using the targeting guide, a second incision was placed on the lateral aspect of the femur and a guide pin was placed into the center of the femoral head under fluoroscopic guidance. The guide wire was measured and the tunnel was reamed for an appropriate length lag screw under fluoroscopy , ensuring not to puncture the femoral head. The lag screw was placed, and approximately 10mm of compression was obtained after releasing traction from the HANA table, watching the fracture compress under image intensification. A proximal locking screw was then placed in the lag screw. Finally, a distal cross lock screw was placed using the triple sleeve device through the guide. Screw position and length were confirmed with the image intensifier. Satisfactory reduction and fixation were confirmed using the image intensifier in multiple planes. Copius irrigation was used and the incision was closed in layers with 0-vicryl for the fascia where possible, and 3-0 monocryl interrupted buried for skin. 30 cc of 0.25% marcaine with epi was injected for pain relief into the incisions. A sterile dressing was applied and the patient was gently transferred from the fracture table back to the OR bed. The patient' s leg length and rotation were checked prior to extubation. The patient was awaken in the OR and was transferred to the PACU in stable condition. Plan: The patient can be wbat on her rle PT/OT dvt ppx pain control bowel regimen BIBI FRANKS MD Nov 26, 2016 20:22
[2016-11-26] MEDS: SIMVASTATIN 20 MG TABLET PO SCH (21:00)
[2016-11-26] MEDS: FAMOTIDINE 20 MG TABLET. PO SCH (21:00)
[2016-11-26] MEDS: INSULIN DETEMIR 300 UNITS/3 ML INSULN.PEN. SQ SCH (23:24)
[2016-11-26] MEDS: traMADol 50 MG TABLET PO PRN (23:30)
[2016-11-26] MEDS: ACETAMINOPHEN 325 MG TABLET. PO PRN (23:30)
[2016-11-27] VITALS (28 sets, daily range): BP systolic 88–165; BP diastolic 29–88
[2016-11-27] MEDS: MORPHINE SULFATE 2 MG/ML DISP.SYRIN. IV PRN ×2 (01:59→19:10)
--- NOTE | 2016-11-27 05:37 | CONS ---
DATE OF CONSULTATION: 11/26/2016 ATTENDING PHYSICIAN: Dr. Pastor. REASON FOR CONSULTATION: The patient is seen in pulmonary consultation at the request of Dr. Pastor for abnormal chest x-ray. HISTORY OF PRESENT ILLNESS: The patient is an 86-year-old that presented after a fall at home. She is currently scheduled for repair of a right intertrochanteric femur fracture. Portable workup included a chest x-ray, which revealed a mass. The mass was confirmed with a CT of the chest, I personally reviewed the CT, there was a 4.2 cm left upper lobe mass, there was a 3 mm ____ nodule in the left lower lobe. The patient reports no progressive dyspnea, tachypnea. She reports no hemoptysis. She smoked in the past. PAST MEDICAL HISTORY: Remarkable for coronary artery disease, hypertension, myocardial infarction, hyperlipidemia, COPD, breast cancer, osteoporosis, diabetes, hyperparathyroidism. PAST SURGICAL HISTORY: Status post appendectomy, cholecystectomy, CABG, mastectomy on the left, hysterectomy. FAMILY HISTORY: Coronary artery disease. SOCIAL HISTORY: She quit smoking approximately 10 years ago. REVIEW OF SYSTEMS: As indicated above. Otherwise, other systems were reviewed and negative. PHYSICAL EXAMINATION: GENERAL: The patient was in no respiratory distress. VITAL SIGNS: Stable. O2 saturation was greater than 92%, currently on 2 liters. HEENT: Eyes, the sclerae were nonicteric. NECK: Jugular venous distention was not elevated. No lymphadenopathy. CHEST: Full expansion. LUNGS: Adequate airway flow, no wheezes. CARDIOVASCULAR: Regular rate and rhythm with S1, S2, no S3. ABDOMEN: Soft, nontender, nondistended. EXTREMITIES: No clubbing or cyanosis. No pitting edema. NEUROLOGIC: The patient was awake, alert, following commands. A detailed neuro exam was not performed. LABORATORY DATA: Reviewed. White count is 15,000, hemoglobin 10, hematocrit of 31, platelet count was noted. Chest x-ray and CT as indicated above. INR was 1.0. Electrolytes were noted. BUN and creatinine were elevated. IMPRESSION: 1. Left upper lobe mass. 2. Recent fall suffering a fracture of the right intertrochanteric area. 3. Coronary artery disease with previous coronary artery bypass grafting. 4. History of breast cancer. 5. Tobacco dependence in remission. 6. Underlying chronic obstructive pulmonary disease. 7. Multiple other comorbidities as indicated above. PLAN: The patient is scheduled to undergo repair of her hip, I have discussed the findings of the left upper lobe mass with both the patient and the family, they wished to proceed with a diagnostic fine needle aspiration. We will consult interventional radiologist. There is certainly the risk of a pneumothorax. I do appreciate the privilege in sharing in the patient's care. MADHURI CARRERA MD DR: PHILLIP/danny JOB#: [id number] / [id number]
[2016-11-27 05:51] LABS: BASO % 1 % (0-3); EOS % 0 % (0-3); HEMOGLOBIN 7.6 g/dL (12.0-15.5); LYMPH # 0.5 x10^3/uL (1.0-4.8); LYMPH % 8 % (24-48); MEAN CORPUSCULAR HEMOGLOBIN 32 pg (25-35); MEAN CORPUSCULAR HGB CONC 33 g/dL (31-37); MEAN CORPUSCULAR VOLUME 98 fL (79-100); MONO % 3 % (0-9); NEUT % 89 % (31-73); PLATELET COUNT 146 x10^3/uL (140-400); RED BLOOD COUNT 2.35 x10^6/uL (3.50-5.40); RED CELL DISTRIBUTION WIDTH 14.4 % (11.5-14.5); WHITE BLOOD COUNT 7.2 x10^3/uL (4.0-11.0)
[2016-11-27 06:08] LABS: CALCIUM 8.6 mg/dL (8.5-10.1); CREATININE 1.2 mg/dL (0.6-1.0); GFR 42.8; POTASSIUM 4.3 mmol/L (3.5-5.1)
[2016-11-27] MEDS: CALCIUM CARB/VIT D3 500/200 TABLET. PO SCH ×2 (08:00→17:00)
[2016-11-27] MEDS: CARVEDILOL 12.5 MG TABLET. PO SCH (08:00)
[2016-11-27] MEDS: INSULIN ASPART 300 UNITS/3 ML INSULN.PEN SQ SCH ×3 (08:00→17:00)
--- NOTE | 2016-11-27 08:42 | RAD ---
EXAM: Right hip 2 views. HISTORY: Fracture fixation. COMPARISON: None. FINDINGS: There are changes of internal fixation of a right femoral intertrochanteric fracture with antegrade intramedullary nail fixed proximally by an angulated screw in the femoral neck and distally traversing a screw. Alignment is near-anatomic. The joint spaces of the right hip are maintained. Soft tissue gas is noted. There are also changes of internal fixation of a chronic healed distal femoral fracture. A right superficial femoral artery stent and atherosclerotic calcifications are noted. Another stent in the left external iliac artery is partially visualized. IMPRESSION: 1. Internal fixation of a right femoral intertrochanteric fracture in near-anatomic alignment.
[2016-11-27] MEDS: ASPIRIN CHEWABLE 81 MG TABLET. PO SCH (09:00)
[2016-11-27] MEDS: DULoxetine HCL 30 MG CAPSULE.DR PO SCH (09:00)
--- NOTE | 2016-11-27 09:37 | EKG ---
[facility] [address] [place] [address] Test Date: 2016-11-26 Test Time: 04:46:45 Pat Name: CONCETTA GAMBLE Department: Room: Gender: F Car Runner: : 1930 Requested By: MIKEY DE LEON Order Number: [id number] Reading MD: Roddy Manuel Measurements Intervals [place] Rate: 68 P: 59 CT: 178 QRS: 51 QRSD: 82 T: 73 QT: 432 QTc: 465 Interpretive Statements SINUS RHYTHM CONSISTENT WITH ANTEROSEPTAL INFARCT Electronically Signed On 11-27-2016 9:36:39 CDT by Roddy Manuel
--- NOTE | 2016-11-27 09:59 | PDOC ---
PULMONARY PROGRESS NOTES Subjective WEAK NO SOA Vitals Vital Signs Date Time Temp Pulse Resp B/P (MAP) Pulse Ox O2 Delivery O2 Flow Rate FiO2 11/27/16 07:00 98.2 66 16 88/33 (51) 97 Nasal Cannula 2.0 98.2 General: Alert Lungs: Clear Cardiovascular: S1 Abdomen: Soft Neuro Exam: Alert Extremities: No Edema Labs Laboratory Tests Test 11/26/16 05:15 11/26/16 06:00 11/26/16 07:56 11/26/16 12:15 White Blood Count 15.5 x10^3/uL (4.0-11.0) Red Blood Count 3.29 x10^6/uL (3.50-5.40) Hemoglobin 10.8 g/dL (12.0-15.5) Hematocrit 31.5 % (36.0-47.0) Mean Corpuscular Volume 96 fL (79-100) Mean Corpuscular Hemoglobin 33 pg (25-35) Mean Corpuscular Hemoglobin Concent 34 g/dL (31-37) Red Cell Distribution Width 14.1 % (11.5-14.5) Platelet Count 222 x10^3/uL (140-400) Neutrophils (%) (Auto) 85 % (31-73) Lymphocytes (%) (Auto) 8 % (24-48) Monocytes (%) (Auto) 5 % (0-9) Eosinophils (%) (Auto) 2 % (0-3) Basophils (%) (Auto) 1 % (0-3) Neutrophils # (Auto) 13.2 x10^3uL (1.8-7.7) Lymphocytes # (Auto) 1.2 x10^3/uL (1.0-4.8) Monocytes # (Auto) 0.7 x10^3/uL (0.0-1.1) Eosinophils # (Auto) 0.2 x10^3/uL (0.0-0.7) Basophils # (Auto) 0.1 x10^3/uL (0.0-0.2) Prothrombin Time 13.0 SEC (11.7-14.0) Prothromb Time International Ratio 1.0 (0.8-1.1) Sodium Level 136 mmol/L (136-145) Potassium Level 4.1 mmol/L (3.5-5.1) Chloride Level 102 mmol/L (98-107) Carbon Dioxide Level 25 mmol/L (21-32) Anion Gap 9 (6-14) Blood Urea Nitrogen 44 mg/dL (7-20) Creatinine 1.2 mg/dL (0.6-1.0) Estimated GFR (Cockcroft-Gault) 42.8 BUN/Creatinine Ratio 37 (6-20) Glucose Level 236 mg/dL (70-99) Calcium Level 9.2 mg/dL (8.5-10.1) Total Bilirubin 0.3 mg/dL (0.2-1.0) Aspartate Amino Transf (AST/SGOT) 25 U/L (15-37) Alanine Aminotransferase (ALT/SGPT) 25 U/L (14-59) Alkaline Phosphatase 60 U/L (46-116) Total Protein 6.9 g/dL (6.4-8.2) Albumin 3.3 g/dL (3.4-5.0) Albumin/Globulin Ratio 0.9 (1.0-1.7) Nasal Screen MRSA (PCR) Negative (Negative) Glucose (Fingerstick) 251 mg/dL (70-99) 93 mg/dL (70-99) Test 11/26/16 16:27 11/26/16 20:22 11/26/16 22:30 11/27/16 05:00 Glucose (Fingerstick) 90 mg/dL (70-99) 141 mg/dL (70-99) 205 mg/dL (70-99) White Blood Count 7.2 x10^3/uL (4.0-11.0) Red Blood Count 2.35 x10^6/uL (3.50-5.40) Hemoglobin 7.6 g/dL (12.0-15.5) Hematocrit 23.0 % (36.0-47.0) Mean Corpuscular Volume 98 fL (79-100) Mean Corpuscular Hemoglobin 32 pg (25-35) Mean Corpuscular Hemoglobin Concent 33 g/dL (31-37) Red Cell Distribution Width 14.4 % (11.5-14.5) Platelet Count 146 x10^3/uL (140-400) Neutrophils (%) (Auto) 89 % (31-73) Lymphocytes (%) (Auto) 8 % (24-48) Monocytes (%) (Auto) 3 % (0-9) Eosinophils (%) (Auto) 0 % (0-3) Basophils (%) (Auto) 1 % (0-3) Neutrophils # (Auto) 6.4 x10^3uL (1.8-7.7) Lymphocytes # (Auto) 0.5 x10^3/uL (1.0-4.8) Monocytes # (Auto) 0.2 x10^3/uL (0.0-1.1) Eosinophils # (Auto) 0.0 x10^3/uL (0.0-0.7) Basophils # (Auto) 0.0 x10^3/uL (0.0-0.2) Sodium Level 139 mmol/L (136-145) Potassium Level 4.3 mmol/L (3.5-5.1) Chloride Level 106 mmol/L (98-107) Carbon Dioxide Level 24 mmol/L (21-32) Anion Gap 9 (6-14) Blood Urea Nitrogen 31 mg/dL (7-20) Creatinine 1.2 mg/dL (0.6-1.0) Estimated GFR (Cockcroft-Gault) 42.8 Glucose Level 220 mg/dL (70-99) Calcium Level 8.6 mg/dL (8.5-10.1) Test 11/27/16 07:06 Glucose (Fingerstick) 204 mg/dL (70-99) Laboratory Tests Test 11/26/16 12:15 11/26/16 16:27 11/26/16 20:22 11/26/16 22:30 Glucose (Fingerstick) 93 mg/dL (70-99) 90 mg/dL (70-99) 141 mg/dL (70-99) 205 mg/dL (70-99) Test 11/27/16 05:00 11/27/16 07:06 White Blood Count 7.2 x10^3/uL (4.0-11.0) Red Blood Count 2.35 x10^6/uL (3.50-5.40) Hemoglobin 7.6 g/dL (12.0-15.5) Hematocrit 23.0 % (36.0-47.0) Mean Corpuscular Volume 98 fL (79-100) Mean Corpuscular Hemoglobin 32 pg (25-35) Mean Corpuscular Hemoglobin Concent 33 g/dL (31-37) Red Cell Distribution Width 14.4 % (11.5-14.5) Platelet Count 146 x10^3/uL (140-400) Neutrophils (%) (Auto) 89 % (31-73) Lymphocytes (%) (Auto) 8 % (24-48) Monocytes (%) (Auto) 3 % (0-9) Eosinophils (%) (Auto) 0 % (0-3) Basophils (%) (Auto) 1 % (0-3) Neutrophils # (Auto) 6.4 x10^3uL (1.8-7.7) Lymphocytes # (Auto) 0.5 x10^3/uL (1.0-4.8) Monocytes # (Auto) 0.2 x10^3/uL (0.0-1.1) Eosinophils # (Auto) 0.0 x10^3/uL (0.0-0.7) Basophils # (Auto) 0.0 x10^3/uL (0.0-0.2) Sodium Level 139 mmol/L (136-145) Potassium Level 4.3 mmol/L (3.5-5.1) Chloride Level 106 mmol/L (98-107) Carbon Dioxide Level 24 mmol/L (21-32) Anion Gap 9 (6-14) Blood Urea Nitrogen 31 mg/dL (7-20) Creatinine 1.2 mg/dL (0.6-1.0) Estimated GFR (Cockcroft-Gault) 42.8 Glucose Level 220 mg/dL (70-99) Calcium Level 8.6 mg/dL (8.5-10.1) Glucose (Fingerstick) 204 mg/dL (70-99) Medications Active Scripts Medications Dose Route/Sig Max Daily Dose Days Date Category Stool Softener (Docusate Sodium) 100 Mg Capsule 100 Mg PO DAILYWLUN 11/26/16 Reported Hysingla ER (Hydrocodone Bitartrate) 40 Mg Tab.er.24h 50 Mg PO DAILYWLUN 11/26/16 Reported Famotidine 20 Mg Tablet 20 Mg PO HS 11/26/16 Reported Calcium 600 + Vit D 200 Tablet (Calcium Carbonate/Vitamin D3) 1 Each Tablet 1 Each PO BID 11/26/16 Reported Novolog (Insulin Aspart) 100 Unit/1 Ml Vial 8 Unit SQ PRN PRN 06/20/14 Reported Simvastatin 20 Mg Tablet 1 Tab PO QHS 06/20/14 Reported Daily Vitamin (Multivitamin) 1 Each Tablet 1 Each PO 06/20/14 Reported Lantus (Insulin Glargine,Hum.rec.anlog) 100 Unit/1 Ml Vial 10 Unit SQ 06/20/14 Reported Cymbalta (Duloxetine Hcl) 30 Mg Capsule. 1 Cap PO DAILY 06/20/14 Reported Carvedilol 12.5 Mg Tablet 1 Tab PO BID 06/20/14 Reported Aspirin 81 Mg Tab.chew 1 Tab PO DAILY 06/20/14 Reported Impression . 1. Large Left upper lobe mass. 2. Recent fall suffering a fracture of the right intertrochanteric area. 3. Coronary artery disease with previous coronary artery bypass grafting. 4. History of breast cancer. 5. Tobacco dependence in remission. 6. Underlying chronic obstructive pulmonary disease. 7. Multiple other comorbidities as indicated above. Plan . 1. s/p repair of her right hip, 2. Dr Villatoro have discussed the findings of the left upper lobe mass with both the patient and the family, 3. Family want to proceed with biopsy 4. interventional radiologist consulted. There is certainly the risk of a pneumothorax. SHON ELY MD Nov 27, 2016 09:59
[2016-11-27] MEDS: DOCUSATE SODIUM 100 MG CAPSULE. PO SCH (12:00)
[2016-11-27] MEDS ORDERED: LIDOCAINE 1% / SOD BICARB 8.4% 20 ML VIAL. IJ ONE ×2 (12:19→13:30)
[2016-11-27] MEDS ORDERED: fentaNYL PF VIAL 100 MCG/2 ML VIAL ONE (12:30)
[2016-11-27] MEDS ORDERED: MIDAZOLAM HCL/PF 2 MG/2 ML VIAL. ONE (12:30)
--- NOTE | 2016-11-27 13:00 | PDOC ---
PROGRESS NOTES Chief Complaint Chief Complaint 1. traumatic closed right hip fx post fall S/P NAIL fixation on 11/26 2. left lung Mass on CT 3. h/o CAD with CABG 4. HTN 5. DM2 6. HLD 7. H/O BCa post mastectomy , chemo, and RT 8. leukocytosis, reactive 9. normacytic anemia. worse post op 10. CKD3 11. mild malnution plan: fu with pulm, ortho. IR for lung mass bx 11/27 ct chest done cont home meds PAT consult pending dr. trent consult levemir 10u qhs, SSI PTOT dvt ppx from tmr SW for rehab 2u PRBC on 11/27 History of Present Illness History of Present Illness feels tired, not good Hb 7.6 post op IR today for lung mass bx Vitals Vitals Vital Signs Date Time Temp Pulse Resp B/P (MAP) Pulse Ox O2 Delivery O2 Flow Rate FiO2 11/27/16 11:00 98.0 64 16 107/35 (59) 100 Nasal Cannula 2.0 98.0 Physical Exam General: Alert, Oriented X3, Cooperative, No acute distress Heart: Regular rate Lungs: Clear Abdomen: Soft Extremities: No clubbing, No cyanosis, Normal pulses Skin: No breakdown, No significant lesion Labs LABS Laboratory Tests Test 11/26/16 16:27 11/26/16 20:22 11/26/16 22:30 11/27/16 05:00 Glucose (Fingerstick) 90 mg/dL (70-99) 141 mg/dL (70-99) 205 mg/dL (70-99) White Blood Count 7.2 x10^3/uL (4.0-11.0) Red Blood Count 2.35 x10^6/uL (3.50-5.40) Hemoglobin 7.6 g/dL (12.0-15.5) Hematocrit 23.0 % (36.0-47.0) Mean Corpuscular Volume 98 fL (79-100) Mean Corpuscular Hemoglobin 32 pg (25-35) Mean Corpuscular Hemoglobin Concent 33 g/dL (31-37) Red Cell Distribution Width 14.4 % (11.5-14.5) Platelet Count 146 x10^3/uL (140-400) Neutrophils (%) (Auto) 89 % (31-73) Lymphocytes (%) (Auto) 8 % (24-48) Monocytes (%) (Auto) 3 % (0-9) Eosinophils (%) (Auto) 0 % (0-3) Basophils (%) (Auto) 1 % (0-3) Neutrophils # (Auto) 6.4 x10^3uL (1.8-7.7) Lymphocytes # (Auto) 0.5 x10^3/uL (1.0-4.8) Monocytes # (Auto) 0.2 x10^3/uL (0.0-1.1) Eosinophils # (Auto) 0.0 x10^3/uL (0.0-0.7) Basophils # (Auto) 0.0 x10^3/uL (0.0-0.2) Sodium Level 139 mmol/L (136-145) Potassium Level 4.3 mmol/L (3.5-5.1) Chloride Level 106 mmol/L (98-107) Carbon Dioxide Level 24 mmol/L (21-32) Anion Gap 9 (6-14) Blood Urea Nitrogen 31 mg/dL (7-20) Creatinine 1.2 mg/dL (0.6-1.0) Estimated GFR (Cockcroft-Gault) 42.8 Glucose Level 220 mg/dL (70-99) Calcium Level 8.6 mg/dL (8.5-10.1) Test 11/27/16 07:06 11/27/16 11:48 Glucose (Fingerstick) 204 mg/dL (70-99) 164 mg/dL (70-99) Review of Systems Review of Systems no fever, chills, sob or chest pain Assessment and Plan Assessmemt and Plan Problems Medical Problems: (1) Closed right hip fracture Status: Acute Problems: Comment Review of Relevant I have reviewed the following items alysha (where applicable) has been applied. Labs Laboratory Tests Test 11/26/16 05:15 11/26/16 06:00 11/26/16 07:56 11/26/16 12:15 White Blood Count 15.5 x10^3/uL (4.0-11.0) Red Blood Count 3.29 x10^6/uL (3.50-5.40) Hemoglobin 10.8 g/dL (12.0-15.5) Hematocrit 31.5 % (36.0-47.0) Mean Corpuscular Volume 96 fL (79-100) Mean Corpuscular Hemoglobin 33 pg (25-35) Mean Corpuscular Hemoglobin Concent 34 g/dL (31-37) Red Cell Distribution Width 14.1 % (11.5-14.5) Platelet Count 222 x10^3/uL (140-400) Neutrophils (%) (Auto) 85 % (31-73) Lymphocytes (%) (Auto) 8 % (24-48) Monocytes (%) (Auto) 5 % (0-9) Eosinophils (%) (Auto) 2 % (0-3) Basophils (%) (Auto) 1 % (0-3) Neutrophils # (Auto) 13.2 x10^3uL (1.8-7.7) Lymphocytes # (Auto) 1.2 x10^3/uL (1.0-4.8) Monocytes # (Auto) 0.7 x10^3/uL (0.0-1.1) Eosinophils # (Auto) 0.2 x10^3/uL (0.0-0.7) Basophils # (Auto) 0.1 x10^3/uL (0.0-0.2) Prothrombin Time 13.0 SEC (11.7-14.0) Prothromb Time International Ratio 1.0 (0.8-1.1) Sodium Level 136 mmol/L (136-145) Potassium Level 4.1 mmol/L (3.5-5.1) Chloride Level 102 mmol/L (98-107) Carbon Dioxide Level 25 mmol/L (21-32) Anion Gap 9 (6-14) Blood Urea Nitrogen 44 mg/dL (7-20) Creatinine 1.2 mg/dL (0.6-1.0) Estimated GFR (Cockcroft-Gault) 42.8 BUN/Creatinine Ratio 37 (6-20) Glucose Level 236 mg/dL (70-99) Calcium Level 9.2 mg/dL (8.5-10.1) Total Bilirubin 0.3 mg/dL (0.2-1.0) Aspartate Amino Transf (AST/SGOT) 25 U/L (15-37) Alanine Aminotransferase (ALT/SGPT) 25 U/L (14-59) Alkaline Phosphatase 60 U/L (46-116) Total Protein 6.9 g/dL (6.4-8.2) Albumin 3.3 g/dL (3.4-5.0) Albumin/Globulin Ratio 0.9 (1.0-1.7) Nasal Screen MRSA (PCR) Negative (Negative) Glucose (Fingerstick) 251 mg/dL (70-99) 93 mg/dL (70-99) Test 11/26/16 16:27 11/26/16 20:22 11/26/16 22:30 11/27/16 05:00 Glucose (Fingerstick) 90 mg/dL (70-99) 141 mg/dL (70-99) 205 mg/dL (70-99) White Blood Count 7.2 x10^3/uL (4.0-11.0) Red Blood Count 2.35 x10^6/uL (3.50-5.40) Hemoglobin 7.6 g/dL (12.0-15.5) Hematocrit 23.0 % (36.0-47.0) Mean Corpuscular Volume 98 fL (79-100) Mean Corpuscular Hemoglobin 32 pg (25-35) Mean Corpuscular Hemoglobin Concent 33 g/dL (31-37) Red Cell Distribution Width 14.4 % (11.5-14.5) Platelet Count 146 x10^3/uL (140-400) Neutrophils (%) (Auto) 89 % (31-73) Lymphocytes (%) (Auto) 8 % (24-48) Monocytes (%) (Auto) 3 % (0-9) Eosinophils (%) (Auto) 0 % (0-3) Basophils (%) (Auto) 1 % (0-3) Neutrophils # (Auto) 6.4 x10^3uL (1.8-7.7) Lymphocytes # (Auto) 0.5 x10^3/uL (1.0-4.8) Monocytes # (Auto) 0.2 x10^3/uL (0.0-1.1) Eosinophils # (Auto) 0.0 x10^3/uL (0.0-0.7) Basophils # (Auto) 0.0 x10^3/uL (0.0-0.2) Sodium Level 139 mmol/L (136-145) Potassium Level 4.3 mmol/L (3.5-5.1) Chloride Level 106 mmol/L (98-107) Carbon Dioxide Level 24 mmol/L (21-32) Anion Gap 9 (6-14) Blood Urea Nitrogen 31 mg/dL (7-20) Creatinine 1.2 mg/dL (0.6-1.0) Estimated GFR (Cockcroft-Gault) 42.8 Glucose Level 220 mg/dL (70-99) Calcium Level 8.6 mg/dL (8.5-10.1) Test 11/27/16 07:06 11/27/16 11:48 Glucose (Fingerstick) 204 mg/dL (70-99) 164 mg/dL (70-99) Laboratory Tests Test 11/26/16 16:27 11/26/16 20:22 11/26/16 22:30 11/27/16 05:00 Glucose (Fingerstick) 90 mg/dL (70-99) 141 mg/dL (70-99) 205 mg/dL (70-99) White Blood Count 7.2 x10^3/uL (4.0-11.0) Red Blood Count 2.35 x10^6/uL (3.50-5.40) Hemoglobin 7.6 g/dL (12.0-15.5) Hematocrit 23.0 % (36.0-47.0) Mean Corpuscular Volume 98 fL (79-100) Mean Corpuscular Hemoglobin 32 pg (25-35) Mean Corpuscular Hemoglobin Concent 33 g/dL (31-37) Red Cell Distribution Width 14.4 % (11.5-14.5) Platelet Count 146 x10^3/uL (140-400) Neutrophils (%) (Auto) 89 % (31-73) Lymphocytes (%) (Auto) 8 % (24-48) Monocytes (%) (Auto) 3 % (0-9) Eosinophils (%) (Auto) 0 % (0-3) Basophils (%) (Auto) 1 % (0-3) Neutrophils # (Auto) 6.4 x10^3uL (1.8-7.7) Lymphocytes # (Auto) 0.5 x10^3/uL (1.0-4.8) Monocytes # (Auto) 0.2 x10^3/uL (0.0-1.1) Eosinophils # (Auto) 0.0 x10^3/uL (0.0-0.7) Basophils # (Auto) 0.0 x10^3/uL (0.0-0.2) Sodium Level 139 mmol/L (136-145) Potassium Level 4.3 mmol/L (3.5-5.1) Chloride Level 106 mmol/L (98-107) Carbon Dioxide Level 24 mmol/L (21-32) Anion Gap 9 (6-14) Blood Urea Nitrogen 31 mg/dL (7-20) Creatinine 1.2 mg/dL (0.6-1.0) Estimated GFR (Cockcroft-Gault) 42.8 Glucose Level 220 mg/dL (70-99) Calcium Level 8.6 mg/dL (8.5-10.1) Test 11/27/16 07:06 11/27/16 11:48 Glucose (Fingerstick) 204 mg/dL (70-99) 164 mg/dL (70-99) Medications Current Medications Ondansetron HCl (Zofran) 4 mg 1X ONCE IV Last administered on 11/26/16 04:30 ; Start 11/26/16 at 04:30; Stop 11/26/16 at 04:31; Status DC Sodium Chloride 1,000 ml @ 1,000 mls/hr 1X ONCE IV Last administered on 04:30; Start 11/26/16 at 04:30; Stop 11/26/16 at 05:29; Status DC Hydromorphone HCl (Dilaudid) 0.5 mg 1X ONCE IV Last administered on 11/26/16 04:30; Start 11/26/16 at 04:30; Stop 11/26/16 at 04:31; Status DC Ondansetron HCl (Zofran) 4 mg PRN Q8HRS PRN IV NAUSEA/VOMITING; Start 11/26/16 at 04:45; Stop 11/27/16 at 04:44; Status DC Morphine Sulfate 4 mg PRN Q2HR PRN IV SEVERE PAIN Last administered on 07:47; Start 11/26/16 at 04:45; Stop 11/27/16 at 04:44; Status DC Aspirin (Children'S Aspirin) 81 mg DAILY PO ; Start 11/26/16 at 09:00 Carvedilol (Coreg) 12.5 mg BIDWMEALS PO Last administered on 11/26/16 08:13; Start 11/26/16 at 08:00; Stop 11/27/16 at 09:53; Status DC Docusate Sodium (Colace) 100 mg DAILYWLUN PO ; Start 11/26/16 at 12:00 Duloxetine HCl (Cymbalta) 30 mg DAILY PO ; Start 11/26/16 at 09:00 Famotidine (Pepcid) 20 mg HS PO ; Start 11/26/16 at 21:00 Insulin Aspart (NovoLOG) 8 units TIDAC SQ Last administered on 11/26/16 08:20 ; Start 11/26/16 at 08:00; Stop 11/26/16 at 13:16; Status DC Simvastatin (Zocor) 20 mg QHS PO ; Start 11/26/16 at 21:00 Calcium/Vitamin D (Oscal D 500mg/ 200uts) 1 tab BIDWMEALS PO ; Start 11/26/16 at 08:00 Non-Formulary Medication 50 mg DAILYWLUN PO ; Start 11/26/16 at 12:00; Stop 06/02 at 17:18; Status DC Ondansetron HCl (Zofran) 4 mg PRN Q6HRS PRN IV NAUSEA/VOMITING; Start 11/26/16 at 09:45; Stop 11/27/16 at 09:44; Status DC Morphine Sulfate 1 mg PRN Q10MIN PRN IV SEVERE PAIN Last administered on 21:12; Start 11/26/16 at 09:45; Stop 11/27/16 at 09:44; Status DC Ringer's Solution 1,000 ml @ 30 mls/hr Q24H IV Last administered on 11/26/16 16:41; Start 11/26/16 at 09:44; Stop 11/26/16 at 21:43; Status DC Lidocaine HCl 2 ml PRN 1X PRN ID PRIOR TO IV START; Start 11/26/16 at 09:45; Stop 11/27/16 at 09:44; Status DC Hydromorphone HCl (Dilaudid) 0.5 mg PRN Q10MIN PRN IV SEV PAIN, Second choice; Start 11/26/16 at 09:45; Stop 11/27/16 at 09:44; Status DC Prochlorperazine Edisylate (Compazine) 5 mg PACU PRN PRN IV NAUSEA, MRX1; Start 11/26/16 at 09:45; Stop 11/27/16 at 09:44; Status DC Iohexol (Omnipaque 300 Mg/ml) 50 ml 1X ONCE IV ; Start 11/26/16 at 11:30; Stop 11/26/16 at 11:31; Status DC Iohexol (Omnipaque 300 Mg/ml) 60 ml 1X ONCE IV Last administered on 11/26/16 11:28; Start 11/26/16 at 11:30; Stop 11/26/16 at 11:31; Status DC Info (Do NOT chart on this entry -- for MONITORING) 1 each PRN DAILY PRN MC SEE COMMENTS; Start 11/26/16 at 11:15; Stop 11/28/16 at 11:14 Insulin Detemir (Levemir) 10 units QHS SQ Last administered on 11/26/16 23:24 ; Start 11/26/16 at 21:00 Insulin Aspart (NovoLOG) 0-9 UNITS TIDWMEALS SQ ; Start 11/26/16 at 17:00 Dextrose (Dextrose 50%-Water Syringe) 12.5 gm PRN Q15MIN PRN IV SEE COMMENTS; Start 11/26/16 at 13:15 Acetaminophen (Tylenol) 650 mg PRN Q6HRS PRN PO FEVER Last administered on 11/26 23:30; Start 11/26/16 at 13:15 Ondansetron HCl (Zofran) 4 mg PRN Q6HRS PRN IV NAUSEA/VOMITING; Start 11/26/16 at 13:15 Morphine Sulfate 2 mg PRN Q2HR PRN IV PAIN Last administered on 11/27/16 01:59 ; Start 11/26/16 at 13:15 Tramadol HCl (Ultram) 50 mg PRN Q6HRS PRN PO PAIN Last administered on 23:30; Start 11/26/16 at 13:15 Hydralazine HCl (Apresoline) 10 mg PRN Q4HRS PRN IVP ELEVATED BP, SEE COMMENTS ; Start 11/26/16 at 13:15 Docusate Sodium (Colace) 100 mg PRN DAILY PRN PO CONSTIPATION; Start 11/26/16 at 13:15 Bupivacaine HCl/ Epinephrine Bitart (Marcaine-Epi 0.25%-[id number]) 50 ml STK-MED ONCE .ROUTE Last administered on 11/26/16t 19:25; Start 11/26/16 at 16:10; Stop 11/26/16 at 16:11; Status DC Sevoflurane (Ultane) 90 ml STK-MED ONCE IH ; Start 11/26/16 at 17:45; Stop 11/26 at 17:46; Status DC Propofol 20 ml @ As Directed STK-MED ONCE IV ; Start 11/26/16 at 17:45; Stop 06/02 at 17:46; Status DC Dexamethasone Sodium Phosphate (Decadron) 20 mg STK-MED ONCE .ROUTE ; Start 06/02 at 17:45; Stop 11/26/16 at 17:46; Status DC Ondansetron HCl (Zofran) 4 mg STK-MED ONCE .ROUTE ; Start 11/26/16 at 17:45; Stop 11/26/16 at 17:46; Status DC Lidocaine HCl (Lidocaine Pf 2% Vial) 5 ml STK-MED ONCE .ROUTE ; Start 11/26/16 at 17:45; Stop 11/26/16 at 17:46; Status DC Cefazolin Sodium 50 ml @ As Directed STK-MED ONCE IV ; Start 11/26/16 at 18:40; Stop 11/26/16 at 18:41; Status DC Phenylephrine HCl 1 mg STK-MED ONCE IV ; Start 11/26/16 at 19:34; Stop 11/26/16 at 19:35; Status DC Labetalol HCl (Normodyne) 20 mg STK-MED ONCE .ROUTE ; Start 11/26/16 at 20:21; Stop 11/26/16 at 20:22; Status DC Carvedilol (Coreg) 3.125 mg BIDWMEALS PO ; Start 11/27/16 at 17:00 Lidocaine/Sodium Bicarbonate (Buffered Lidocaine 1%) 20 ml STK-MED ONCE IJ ; Start 11/27/16 at 12:19; Stop 11/27/16 at 12:20; Status DC Fentanyl Citrate (Fentanyl 2ml Vial) 100 mcg STK-MED ONCE .ROUTE ; Start at 12:30; Stop 11/27/16 at 12:31; Status DC Midazolam HCl (Versed) 2 mg STK-MED ONCE .ROUTE ; Start 11/27/16 at 12:30; Stop 11/27/16 at 12:31; Status DC Active Scripts Active Reported Stool Softener (Docusate Sodium) 100 Mg Capsule 100 Mg PO DAILYWLUN Hysingla ER (Hydrocodone Bitartrate) 40 Mg Tab.er.24h 50 Mg PO DAILYWLUN Famotidine 20 Mg Tablet 20 Mg PO HS Calcium 600 + Vit D 200 Tablet (Calcium Carbonate/Vitamin D3) 1 Each Tablet 1 Each PO BID Novolog (Insulin Aspart) 100 Unit/1 Ml Vial 8 Unit SQ PRN PRN Simvastatin 20 Mg Tablet 1 Tab PO QHS Daily Vitamin (Multivitamin) 1 Each Tablet 1 Each PO Lantus (Insulin Glargine,Hum.rec.anlog) 100 Unit/1 Ml Vial 10 Unit SQ Cymbalta (Duloxetine Hcl) 30 Mg Capsule.dr 1 Cap PO DAILY Carvedilol 12.5 Mg Tablet 1 Tab PO BID Aspirin 81 Mg Tab.chew 1 Tab PO DAILY Vitals/I & O Vital Sign - Last 24 Hours 11/26/16 11/26/16 11/26/16 11/26/16 15:00 16:29 20:17 20:17 Temp 98.3 99.1 98.9 98.3 99.1 98.9 Pulse 76 74 67 Resp 18 12 12 B/P (MAP) 96/40 (58) 117/48 176/72 Pulse Ox 100 100 100 O2 Delivery Nasal Cannula Nasal Cannula Mask Simple Mask O2 Flow Rate 2.0 2 10 10 11/26/16 11/26/16 11/26/16 11/26/16 20:32 20:47 20:55 21:10 Pulse 66 70 69 70 Resp 14 18 18 16 B/P (MAP) 185/67 193/67 186/63 193/68 Pulse Ox 100 100 100 100 O2 Delivery Simple Mask Nasal Cannula Nasal Cannula Nasal Cannula O2 Flow Rate 10 2 2 2 11/26/16 11/26/16 11/26/16 11/26/16 21:12 21:15 21:32 21:43 Pulse 71 75 Resp 18 16 B/P (MAP) 165/62 141/57 (85) Pulse Ox 100 100 100 O2 Delivery Nasal Cannula Nasal Cannula Room Air O2 Flow Rate 2.0 2 11/26/16 11/26/16 11/26/16 11/26/16 21:56 21:58 22:13 22:32 Pulse 77 79 79 B/P (MAP) 166/63 (97) 169/55 (93) 139/54 (82) Pulse Ox 100 O2 Delivery Room Air 11/26/16 11/26/16 11/26/16 11/27/16 22:58 23:00 23:28 00:28 Pulse 76 75 76 72 Resp 16 B/P (MAP) 129/49 (75) 139/54 (82) 113/51 (71) 102/42 (62) Pulse Ox 100 O2 Delivery Room Air 11/27/16 11/27/16 11/27/16 11/27/16 00:53 01:28 01:59 03:00 Temp 96.3 96.3 Pulse 71 74 Resp 16 16 B/P (MAP) 104/43 (63) 105/43 (63) Pulse Ox 100 O2 Delivery Room Air Nasal Cannula O2 Flow Rate 2.0 11/27/16 11/27/16 11/27/16 11/27/16 03:02 07:00 08:00 11:00 Temp 98.2 98.0 98.2 98.0 Pulse 66 64 Resp 18 16 16 B/P (MAP) 88/33 (51) 107/35 (59) Pulse Ox 97 100 O2 Delivery Nasal Cannula Nasal Cannula Nasal Cannula Nasal Cannula O2 Flow Rate 2.0 2.0 2.0 2.0 Intake and Output 11/26/16 11/26/16 11/27/16 15:00 23:00 07:00 Intake Total 0 ml Output Total 775 ml Balance -775 ml 0 ml EMMIE PIZANO MD Nov 27, 2016 12:59
[2016-11-27] MEDS ORDERED: MORPHINE SULFATE 10 MG/ML VIAL. ONE (13:07)
[2016-11-27 13:13] LABS: PLT ESTIMATE ADEQUATE (ADEQUATE)
[2016-11-27] MEDS ORDERED: MIDAZOLAM HCL/PF 2 MG/2 ML VIAL. IV ONE ×2 (13:30→15:30)
[2016-11-27] MEDS ORDERED: MORPHINE SULFATE 10 MG/ML VIAL. IV ONE ×2 (13:30→15:30)
--- NOTE | 2016-11-27 13:45 | PDOC ---
MODERATE SEDATION ASSESSMENT RISKS/ALTERNATIVES Risks/Alternatives Risks and alternatives of this type of sedation and procedure discussed with: RISK/ALTERNATIVES: Patient H & P ON CHART H & P H & P on chart and reviewed for co-morbid conditions and appropriate labs. H&P ON CHART: Yes STATUS PREG STATUS ASSESSED: N/A MEDS/ALLERGIES REVIEWED Meds/Allergies Reviewed Medications and Allergies including time and route of recently administered narcotics and sedatives. MEDS/ALLERGIES REVIEWED: Yes ASA RATING ASA RATING: III AIRWAY ASSESSMENT Airway Assessment Airway patency, oral function limitations, presence of caps, crowns, dentures, partials, and ability to extend neck assessed. AIRWAY ASSESSMENT: Yes MALLAMPATI SCORE MALLAMPATI SCORE: II PRE-SEDATION ASSESSMENT PRE-SEDATION ASSESSMENT: Yes WESLEY MCKEON MD Nov 27, 2016 13:45
--- NOTE | 2016-11-27 13:51 | PDOC ---
Exam Division Human Resources Manager Division Human Resources Manager Meghna Ui Lead Developer Ui Lead Developer Kvng Ramsey Pre-Procedure Diagnosis Pre-Procedure Diagnosis 86 YO smoker with COPD and with large, 4 cm noncalcific left upper lobe lung mass---? bronchogenic carcinoma Post-Procedure Diagnosis Post-Procedure Diagnosis Same Procedure Performed Procedure Performed CT guided left lung mass bx Type of Anesthesia Type of Anesthesia Local + mod sedation Estimated Blood Loss EBL: Trace Specimens Specimans 4 18G core bx to path in formalin Condition of Patient Condition of Patient Stable. Immediate post bx CT images revealed post bx contusion + very minimal, asymptomatic post bx Ptx. Disposition Disposition From IR/CT return to [facility] for recovery. 1 hr post bx insp/exp CXR requested to exclude Ptx progression. F/u with [facility] and Pulmonary. Full report to follow. WESLEY MCKEON MD Nov 27, 2016 13:51
--- NOTE | 2016-11-27 15:04 | RAD ---
Portable AP inspiration and expiration chest radiograph 11/27/2016 Clinical history: Post left lung biopsy. Portable AP erect inspiration and expiration digital chest radiographs were obtained. Comparison is made to the patient's CT scan of the chest dated 11/26/2016. The patient is status post CABG procedure. Surgical clips overlie the left axilla. Multilevel kyphoplasty is seen involving the thoracic and visualized lumbar vertebral bodies. A 4 cm mass is seen involving the left upper lobe, unchanged. There is a small to moderate sized left pneumothorax. No acute pulmonary infiltrate or pleural effusion is seen. The cardiac silhouette is borderline enlarged. Atherosclerotic calcification of the thoracic aorta is seen. The osseous structures are unchanged. Impression: Small to moderate sized left pneumothorax.
[2016-11-27] MEDS ORDERED: LIDOCAINE 2% 20 ML VIAL. IJ ONE (15:30)
--- NOTE | 2016-11-27 16:07 | PDOC ---
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 Type of Anesthesia Type of Anesthesia Local + Mod sedation. Estimated Blood Loss EBL: Trace Drain/Tubes Drains/Tubes 10F locking pigtail left chest tube---to PleurEvac Condition of Patient Condition of Patient No change. No apparent complication. Disposition Disposition From IR return to 430. Left chest tube to wall suction at -20 cm H2O. Repeat Insp/exp CXR in AM. Chest tube management per Dr Melgoza. Full report to follow. WESLEY MCKEON MD Nov 27, 2016 16:07
--- NOTE | 2016-11-27 16:47 | RAD ---
CT-guided left lung mass biopsy Indication: 86-year-old female smoker with COPD and with a large, noncalcified left upper lobe lung mass. 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 Image guided lung mass biopsy has been requested by pulmonary. Anesthesia: 20 minutes moderate sedation was provided utilizing a total of 1 mg Versed and 1 mg morphine sulfate. The patient was appropriately monitored by a qualified independent observer throughout the time of moderate sedation. Consent: The procedure was explained in its entirety to the patient and/or the patient's designated disability representative by a member of the treatment team. This included a discussion of risks and benefits and acceptable alternatives to the procedure, as well as expected consequences of no treatment at all. Discussion of risks included, but was not limited to, those that are most frequent and those that are rare, but possibly severe or life-threatening, as well as the possibility of unforeseen complications. Procedure: Informed consent was obtained from the patient. She was placed supine on the CT scanner. Preliminary noncontrast CT images confirmed the presence of a lobulated, noncalcified, 4 cm lung mass within left upper lobe. A left anterior skin site suitable for CT-guided biopsy was selected and marked. That area was prepped and draped in the usual sterile fashion. Conscious sedation was provided with IV Versed and morphine sulfate. Using aseptic technique, local anesthesia, and CT guidance, a 17-gauge guide needle was successfully introduced into the patient's left upper lobe lung mass. A total of 4 18-gauge core biopsy samples were then obtained. Biopsy material was submitted in formalin to pathology. The biopsy guide needle was removed and a sterile dressing was applied. Patient tolerated the procedure well without apparent complication, apart from a very minimal, asymptomatic immediate postbiopsy pneumothorax identified on completion CT images. A follow-up aspiration/expiration chest x-ray will be obtained to confirm or exclude pneumothorax progression. Impression: CT-guided left lung mass biopsy, as described. Minimal immediate postbiopsy asymptomatic pneumothorax. A 1 hour post biopsy inspiration/expiration chest x-ray will be obtained to confirm or exclude progression in pneumothorax. If significant pneumothorax progression is demonstrated, the patient will be returned to IR for CT-guided chest tube insertion.. PQRS Compliance Statement: One or more of the following individualized dose reduction techniques was utilized for this procedure: 1. Automated exposure control. 2. Adjustment of MA and/or KV according to patient size. 3. Iterative reconstruction technique.
--- NOTE | 2016-11-27 16:54 | RAD ---
CT-guided left chest tube insertion Indication: Enlarging post lung biopsy left pneumothorax, identified on inspiration/expiration chest x-ray. Referring head and neck surgeon was contacted. Chest tube insertion was considered indicated. Anesthesia: 22 minutes moderate sedation was provided utilizing a total of 2 mg Versed and 3 mg morphine sulfate. The patient was appropriately monitored by a qualified independent observer throughout the time of moderate sedation. Consent: The procedure was explained in its entirety to the patient and/or the patient's designated risk control representative by a member of the treatment team. This included a discussion of risks and benefits and acceptable alternatives to the procedure, as well as expected consequences of no treatment at all. Discussion of risks included, but was not limited to, those that are most frequent and those that are rare, but possibly severe or life-threatening, as well as the possibility of unforeseen complications. Procedure: Informed consent was obtained from the patient. She was placed supine on the CT scanner. Preliminary noncontrast CT images confirmed the presence of a moderate left pneumothorax, with significant progression since immediate postbiopsy CT images. A skin site suitable for CT-guided chest tube insertion was selected and marked along lateral aspect of lower left hemithorax. That area was prepped and draped in usual sterile fashion. Moderate sedation was provided with IV Versed and morphine sulfate. Using aseptic technique, local anesthesia, and CT guidance, a small micropuncture sheath was successfully introduced into low left lateral pleural space. The micropuncture sheath was removed over a guidewire. The percutaneous tract was dilated and a 10 [place] locking pigtail chest tube was easily introduced. Completion CT images documented satisfactory position of the chest tube, which was connected to Pleur-evac, and was secured at the skin exit site utilizing suture and sterile dressing. Patient tolerated the procedure well without apparent complication. Impression: Successful, uneventful CT-guided insertion of a 10 Mohawk locking pigtail left thoracostomy tube, as described. PQRS Compliance Statement: One or more of the following individualized dose reduction techniques was utilized for this procedure: 1. Automated exposure control. 2. Adjustment of MA and/or KV according to patient size. 3. Iterative reconstruction technique.
[2016-11-27] MEDS: CARVEDILOL 3.125 MG TABLET. PO SCH (17:00)
--- NOTE | 2016-11-27 17:01 | PDOC ---
PROGRESS NOTES Subjective Subjective Problems overnight: No acute issues Objective Vital Signs Vital Signs Date Time Temp Pulse Resp B/P (MAP) Pulse Ox O2 Delivery O2 Flow Rate FiO2 11/27/16 15:50 78 14 100 Nasal Cannula 2.0 11/27/16 14:55 97.8 121/44 97.8 Physical Exam Patient is alert today. Her right hip dressings are intact although there is a new approx 2cm superficial laceration anterior and proximal to the surgical site which is no longer bleeding. There is no erythema or drainage from surgical sites. Patient DNVI and pedal pulses equal. Labs Laboratory Tests Test 11/26/16 05:15 11/26/16 06:00 11/26/16 07:56 11/26/16 12:15 White Blood Count 15.5 x10^3/uL (4.0-11.0) Red Blood Count 3.29 x10^6/uL (3.50-5.40) Hemoglobin 10.8 g/dL (12.0-15.5) Hematocrit 31.5 % (36.0-47.0) Mean Corpuscular Volume 96 fL (79-100) Mean Corpuscular Hemoglobin 33 pg (25-35) Mean Corpuscular Hemoglobin Concent 34 g/dL (31-37) Red Cell Distribution Width 14.1 % (11.5-14.5) Platelet Count 222 x10^3/uL (140-400) Neutrophils (%) (Auto) 85 % (31-73) Lymphocytes (%) (Auto) 8 % (24-48) Monocytes (%) (Auto) 5 % (0-9) Eosinophils (%) (Auto) 2 % (0-3) Basophils (%) (Auto) 1 % (0-3) Neutrophils # (Auto) 13.2 x10^3uL (1.8-7.7) Lymphocytes # (Auto) 1.2 x10^3/uL (1.0-4.8) Monocytes # (Auto) 0.7 x10^3/uL (0.0-1.1) Eosinophils # (Auto) 0.2 x10^3/uL (0.0-0.7) Basophils # (Auto) 0.1 x10^3/uL (0.0-0.2) Prothrombin Time 13.0 SEC (11.7-14.0) Prothromb Time International Ratio 1.0 (0.8-1.1) Sodium Level 136 mmol/L (136-145) Potassium Level 4.1 mmol/L (3.5-5.1) Chloride Level 102 mmol/L (98-107) Carbon Dioxide Level 25 mmol/L (21-32) Anion Gap 9 (6-14) Blood Urea Nitrogen 44 mg/dL (7-20) Creatinine 1.2 mg/dL (0.6-1.0) Estimated GFR (Cockcroft-Gault) 42.8 BUN/Creatinine Ratio 37 (6-20) Glucose Level 236 mg/dL (70-99) Calcium Level 9.2 mg/dL (8.5-10.1) Total Bilirubin 0.3 mg/dL (0.2-1.0) Aspartate Amino Transf (AST/SGOT) 25 U/L (15-37) Alanine Aminotransferase (ALT/SGPT) 25 U/L (14-59) Alkaline Phosphatase 60 U/L (46-116) Total Protein 6.9 g/dL (6.4-8.2) Albumin 3.3 g/dL (3.4-5.0) Albumin/Globulin Ratio 0.9 (1.0-1.7) Nasal Screen MRSA (PCR) Negative (Negative) Glucose (Fingerstick) 251 mg/dL (70-99) 93 mg/dL (70-99) Test 11/26/16 16:27 11/26/16 20:22 11/26/16 22:30 11/27/16 05:00 Glucose (Fingerstick) 90 mg/dL (70-99) 141 mg/dL (70-99) 205 mg/dL (70-99) White Blood Count 7.2 x10^3/uL (4.0-11.0) Red Blood Count 2.35 x10^6/uL (3.50-5.40) Hemoglobin 7.6 g/dL (12.0-15.5) Hematocrit 23.0 % (36.0-47.0) Mean Corpuscular Volume 98 fL (79-100) Mean Corpuscular Hemoglobin 32 pg (25-35) Mean Corpuscular Hemoglobin Concent 33 g/dL (31-37) Red Cell Distribution Width 14.4 % (11.5-14.5) Platelet Count 146 x10^3/uL (140-400) Neutrophils (%) (Auto) 89 % (31-73) Lymphocytes (%) (Auto) 8 % (24-48) Monocytes (%) (Auto) 3 % (0-9) Eosinophils (%) (Auto) 0 % (0-3) Basophils (%) (Auto) 1 % (0-3) Neutrophils # (Auto) 6.4 x10^3uL (1.8-7.7) Lymphocytes # (Auto) 0.5 x10^3/uL (1.0-4.8) Monocytes # (Auto) 0.2 x10^3/uL (0.0-1.1) Eosinophils # (Auto) 0.0 x10^3/uL (0.0-0.7) Basophils # (Auto) 0.0 x10^3/uL (0.0-0.2) Segmented Neutrophils % 82 % (35-66) Band Neutrophils % 8 % (0-9) Lymphocytes % 9 % (24-48) Monocytes % 1 % (0-10) Platelet Estimate Adequate (ADEQUATE) Sodium Level 139 mmol/L (136-145) Potassium Level 4.3 mmol/L (3.5-5.1) Chloride Level 106 mmol/L (98-107) Carbon Dioxide Level 24 mmol/L (21-32) Anion Gap 9 (6-14) Blood Urea Nitrogen 31 mg/dL (7-20) Creatinine 1.2 mg/dL (0.6-1.0) Estimated GFR (Cockcroft-Gault) 42.8 Glucose Level 220 mg/dL (70-99) Calcium Level 8.6 mg/dL (8.5-10.1) 25-Hydroxy Vitamin D Total 45.2 ng/mL (30.0-100.0) Test 11/27/16 07:06 11/27/16 11:48 Glucose (Fingerstick) 204 mg/dL (70-99) 164 mg/dL (70-99) Laboratory Tests Test 11/26/16 20:22 11/26/16 22:30 11/27/16 05:00 11/27/16 07:06 Glucose (Fingerstick) 141 mg/dL (70-99) 205 mg/dL (70-99) 204 mg/dL (70-99) White Blood Count 7.2 x10^3/uL (4.0-11.0) Red Blood Count 2.35 x10^6/uL (3.50-5.40) Hemoglobin 7.6 g/dL (12.0-15.5) Hematocrit 23.0 % (36.0-47.0) Mean Corpuscular Volume 98 fL (79-100) Mean Corpuscular Hemoglobin 32 pg (25-35) Mean Corpuscular Hemoglobin Concent 33 g/dL (31-37) Red Cell Distribution Width 14.4 % (11.5-14.5) Platelet Count 146 x10^3/uL (140-400) Neutrophils (%) (Auto) 89 % (31-73) Lymphocytes (%) (Auto) 8 % (24-48) Monocytes (%) (Auto) 3 % (0-9) Eosinophils (%) (Auto) 0 % (0-3) Basophils (%) (Auto) 1 % (0-3) Neutrophils # (Auto) 6.4 x10^3uL (1.8-7.7) Lymphocytes # (Auto) 0.5 x10^3/uL (1.0-4.8) Monocytes # (Auto) 0.2 x10^3/uL (0.0-1.1) Eosinophils # (Auto) 0.0 x10^3/uL (0.0-0.7) Basophils # (Auto) 0.0 x10^3/uL (0.0-0.2) Segmented Neutrophils % 82 % (35-66) Band Neutrophils % 8 % (0-9) Lymphocytes % 9 % (24-48) Monocytes % 1 % (0-10) Platelet Estimate Adequate (ADEQUATE) Sodium Level 139 mmol/L (136-145) Potassium Level 4.3 mmol/L (3.5-5.1) Chloride Level 106 mmol/L (98-107) Carbon Dioxide Level 24 mmol/L (21-32) Anion Gap 9 (6-14) Blood Urea Nitrogen 31 mg/dL (7-20) Creatinine 1.2 mg/dL (0.6-1.0) Estimated GFR (Cockcroft-Gault) 42.8 Glucose Level 220 mg/dL (70-99) Calcium Level 8.6 mg/dL (8.5-10.1) 25-Hydroxy Vitamin D Total 45.2 ng/mL (30.0-100.0) Test 11/27/16 11:48 Glucose (Fingerstick) 164 mg/dL (70-99) Assessment Assessment POD# 1, S/P Right IT fracture nailing Problems: (1) Closed right hip fracture Plan Plan of Care Continue with SCDs as well as plan for PT/OT. Ackerman may be removed. Will place nursing order to provide care for new superficial laceration. Problem Qualifiers (1) Closed right hip fracture: Encounter type: subsequent encounter Fracture healing: with routine healing Qualified Codes: S72.001D - Fracture of unspecified part of neck of right femur , subsequent encounter for closed fracture with routine healing IRON RUIZ PAC Nov 27, 2016 17:01
[2016-11-27] MEDS: traMADol 50 MG TABLET PO PRN (19:34)
[2016-11-27] MEDS: SIMVASTATIN 20 MG TABLET PO SCH (22:00)
[2016-11-27] MEDS: FAMOTIDINE 20 MG TABLET. PO SCH (22:00)
[2016-11-27] MEDS: ACETAMINOPHEN 325 MG TABLET. PO PRN (22:00)
[2016-11-27] MEDS: INSULIN DETEMIR 300 UNITS/3 ML INSULN.PEN. SQ SCH (22:05)
[2016-11-28] MEDS: MORPHINE SULFATE 2 MG/ML DISP.SYRIN. IV PRN ×4 (00:38→17:04)
--- NOTE | 2016-11-28 01:29 | CONS ---
DATE OF CONSULTATION: 11/27/2016 ATTENDING PHYSICIAN: Dr. Page. The patient was seen at the request of Dr. Pastor for rehab evaluation. She is in room 430. HISTORY OF PRESENT ILLNESS: This is an 86-year-old female with mild dementia, was admitted through the Emergency Room after she fell at home using a walker and tried to hold up her cat from the floor of her bedroom yesterday, cat ____ her down to the ground. The patient could not get up and she was found with intertrochanteric fracture right femur and had a right hip nailing done on 11/26/2016 and she complains of pain in her right hip area, refuses any therapy. Follow up this morning, the patient was also scheduled for lung biopsy as chest x-ray and CT scans revealed lung mass. The patient with known coronary artery disease, hypertension, myocardial infarction, hyperlipidemia, chronic obstructive pulmonary disease, transient ischemic attack, chronic constipation, anemia, carcinoma, chronic renal insufficiency, diabetes mellitus, hyperparathyroidism, osteoporosis, status post appendectomy, cholecystectomy, coronary artery bypass graft, mastectomy, hysterectomy. Family history of coronary artery disease. SOCIAL HISTORY: The patient lives with her family. The patient apparently has been sleeping a lot recently as per her . ALLERGIES: SHE IS KNOWN ALLERGIC TO [place]. PHYSICAL EXAMINATION: Today revealed an elderly female, she is alert, oriented to place and person, follows commands appropriately, moves all 4 extremities voluntarily. The patient had edema of her right hip and thigh area, dressing in place, no discharge noted. She complains of pain with any attempt at movement of her right hip. She had surgical scar over both knees. The patient had overall 4/5 grade muscle strength and deep tendon reflexes are absent at both knees and ankles and she had equal perception of touch and pinprick sensation bilaterally. No significant tenderness to palpation over thoracic or lumbar spine area or sacroiliac joint area. She requires help with bed mobility. I have not tested her ambulation skills at present time. ASSESSMENT: Mobility and self-care limitation in a patient with a recent fall, onset 11/25/2016 with fracture intertrochanteric of the right femur, status post nailing with postop pain. The patient also with lung mass being evaluated also with history of coronary artery disease, hypertension, myocardial infarction, hyperlipidemia, chronic obstructive pulmonary disease, carcinoma of breast; status post mastectomy, coronary artery bypass graft, bilateral knee surgeries, cholecystectomy, appendectomy, hysterectomy, diabetes mellitus, peripheral neuropathy, hyperparathyroidism, osteoporosis, chronic renal insufficiency. RECOMMENDATIONS: Agree with the plan for physical therapy and occupational therapy to get her up as she can tolerate and to longterm care unit when she is medically stable. Dr. Pastor, I appreciate asking me to participate in the care of this interesting patient. I will be glad to follow her with you as needed for her rehabilitation. OZZY KENDALL MD DR: JR/danny JOB#: [id number] / [id number]
[2016-11-28 03:45] VITALS: BP 103/39
[2016-11-28 06:53] LABS: BASO % 1 % (0-3); EOS % 2 % (0-3); HEMATOCRIT 31.5 % (36.0-47.0); HEMOGLOBIN 10.8 g/dL (12.0-15.5); LYMPH # 1.2 x10^3/uL (1.0-4.8); LYMPH % 14 % (24-48); MEAN CORPUSCULAR HEMOGLOBIN 31 pg (25-35); MEAN CORPUSCULAR HGB CONC 34 g/dL (31-37); MEAN CORPUSCULAR VOLUME 92 fL (79-100); MONO % 9 % (0-9); NEUT % 75 % (31-73); PLATELET COUNT 133 x10^3/uL (140-400); RED BLOOD COUNT 3.44 x10^6/uL (3.50-5.40); RED CELL DISTRIBUTION WIDTH 16.9 % (11.5-14.5); WHITE BLOOD COUNT 8.8 x10^3/uL (4.0-11.0)
[2016-11-28 07:00] VITALS: BP 136/54
[2016-11-28 07:25] LABS: CALCIUM 8.6 mg/dL (8.5-10.1); CREATININE 1.1 mg/dL (0.6-1.0); GFR 47.3; POTASSIUM 3.6 mmol/L (3.5-5.1)
[2016-11-28] MEDS: INSULIN ASPART 300 UNITS/3 ML INSULN.PEN SQ SCH ×3 (07:34→16:58)
[2016-11-28] MEDS: ASPIRIN CHEWABLE 81 MG TABLET. PO SCH (08:21)
[2016-11-28] MEDS: CALCIUM CARB/VIT D3 500/200 TABLET. PO SCH ×2 (08:21→17:04)
[2016-11-28] MEDS: DULoxetine HCL 30 MG CAPSULE.DR PO SCH (08:21)
[2016-11-28] MEDS: CARVEDILOL 3.125 MG TABLET. PO SCH ×2 (08:22→17:03)
[2016-11-28 11:00] VITALS: BP 132/48
--- NOTE | 2016-11-28 11:00 | PDOC ---
PROGRESS NOTES Subjective Subjective She admits continued pain right hip with movement. Objective Objective Vital Signs Date Time Temp Pulse Resp B/P (MAP) Pulse Ox O2 Delivery O2 Flow Rate FiO2 11/28/16 08:22 84 136/54 11/28/16 08:17 16 Room Air 11/28/16 07:00 97.9 92 2.0 97.9 Intake and Output 11/28/16 07:00 Intake Total 520 ml Output Total 1160 ml Balance -640 ml Intake Oral 450 ml Blood Product IV Normal Saline Flush 70 ml Output Urine Total 1145 ml Chest Tube Drainage Total 15 ml Physical Exam Physical Exam She is supine in bed and seems to be more awake and comfortable but still protecting her right hip and she had chest tube in place after lung biopsy. Assessment Assessment Problems Medical Problems: (1) Closed right hip fracture Status: Acute Plan Plan of Care To continue present physical and occupational therapy follow up as tolerated. Comment Review of Relevant I have reviewed the following items alysha (where applicable) has been applied. Labs Laboratory Tests Test 11/26/16 12:15 11/26/16 16:27 11/26/16 20:22 11/26/16 22:30 Glucose (Fingerstick) 93 mg/dL (70-99) 90 mg/dL (70-99) 141 mg/dL (70-99) 205 mg/dL (70-99) Test 11/27/16 05:00 11/27/16 07:06 11/27/16 11:48 11/27/16 17:07 White Blood Count 7.2 x10^3/uL (4.0-11.0) Red Blood Count 2.35 x10^6/uL (3.50-5.40) Hemoglobin 7.6 g/dL (12.0-15.5) Hematocrit 23.0 % (36.0-47.0) Mean Corpuscular Volume 98 fL (79-100) Mean Corpuscular Hemoglobin 32 pg (25-35) Mean Corpuscular Hemoglobin Concent 33 g/dL (31-37) Red Cell Distribution Width 14.4 % (11.5-14.5) Platelet Count 146 x10^3/uL (140-400) Neutrophils (%) (Auto) 89 % (31-73) Lymphocytes (%) (Auto) 8 % (24-48) Monocytes (%) (Auto) 3 % (0-9) Eosinophils (%) (Auto) 0 % (0-3) Basophils (%) (Auto) 1 % (0-3) Neutrophils # (Auto) 6.4 x10^3uL (1.8-7.7) Lymphocytes # (Auto) 0.5 x10^3/uL (1.0-4.8) Monocytes # (Auto) 0.2 x10^3/uL (0.0-1.1) Eosinophils # (Auto) 0.0 x10^3/uL (0.0-0.7) Basophils # (Auto) 0.0 x10^3/uL (0.0-0.2) Segmented Neutrophils % 82 % (35-66) Band Neutrophils % 8 % (0-9) Lymphocytes % 9 % (24-48) Monocytes % 1 % (0-10) Platelet Estimate Adequate (ADEQUATE) Sodium Level 139 mmol/L (136-145) Potassium Level 4.3 mmol/L (3.5-5.1) Chloride Level 106 mmol/L (98-107) Carbon Dioxide Level 24 mmol/L (21-32) Anion Gap 9 (6-14) Blood Urea Nitrogen 31 mg/dL (7-20) Creatinine 1.2 mg/dL (0.6-1.0) Estimated GFR (Cockcroft-Gault) 42.8 Glucose Level 220 mg/dL (70-99) Calcium Level 8.6 mg/dL (8.5-10.1) 25-Hydroxy Vitamin D Total 45.2 ng/mL (30.0-100.0) Glucose (Fingerstick) 204 mg/dL (70-99) 164 mg/dL (70-99) 129 mg/dL (70-99) Test 11/28/16 05:50 11/28/16 07:02 White Blood Count 8.8 x10^3/uL (4.0-11.0) Red Blood Count 3.44 x10^6/uL (3.50-5.40) Hemoglobin 10.8 g/dL (12.0-15.5) Hematocrit 31.5 % (36.0-47.0) Mean Corpuscular Volume 92 fL (79-100) Mean Corpuscular Hemoglobin 31 pg (25-35) Mean Corpuscular Hemoglobin Concent 34 g/dL (31-37) Red Cell Distribution Width 16.9 % (11.5-14.5) Platelet Count 133 x10^3/uL (140-400) Neutrophils (%) (Auto) 75 % (31-73) Lymphocytes (%) (Auto) 14 % (24-48) Monocytes (%) (Auto) 9 % (0-9) Eosinophils (%) (Auto) 2 % (0-3) Basophils (%) (Auto) 1 % (0-3) Neutrophils # (Auto) 6.6 x10^3uL (1.8-7.7) Lymphocytes # (Auto) 1.2 x10^3/uL (1.0-4.8) Monocytes # (Auto) 0.8 x10^3/uL (0.0-1.1) Eosinophils # (Auto) 0.2 x10^3/uL (0.0-0.7) Basophils # (Auto) 0.0 x10^3/uL (0.0-0.2) Sodium Level 138 mmol/L (136-145) Potassium Level 3.6 mmol/L (3.5-5.1) Chloride Level 106 mmol/L (98-107) Carbon Dioxide Level 26 mmol/L (21-32) Anion Gap 6 (6-14) Blood Urea Nitrogen 27 mg/dL (7-20) Creatinine 1.1 mg/dL (0.6-1.0) Estimated GFR (Cockcroft-Gault) 47.3 Glucose Level 96 mg/dL (70-99) Calcium Level 8.6 mg/dL (8.5-10.1) Glucose (Fingerstick) 90 mg/dL (70-99) Laboratory Tests Test 11/27/16 11:48 11/27/16 17:07 11/28/16 05:50 11/28/16 07:02 Glucose (Fingerstick) 164 mg/dL (70-99) 129 mg/dL (70-99) 90 mg/dL (70-99) White Blood Count 8.8 x10^3/uL (4.0-11.0) Red Blood Count 3.44 x10^6/uL (3.50-5.40) Hemoglobin 10.8 g/dL (12.0-15.5) Hematocrit 31.5 % (36.0-47.0) Mean Corpuscular Volume 92 fL (79-100) Mean Corpuscular Hemoglobin 31 pg (25-35) Mean Corpuscular Hemoglobin Concent 34 g/dL (31-37) Red Cell Distribution Width 16.9 % (11.5-14.5) Platelet Count 133 x10^3/uL (140-400) Neutrophils (%) (Auto) 75 % (31-73) Lymphocytes (%) (Auto) 14 % (24-48) Monocytes (%) (Auto) 9 % (0-9) Eosinophils (%) (Auto) 2 % (0-3) Basophils (%) (Auto) 1 % (0-3) Neutrophils # (Auto) 6.6 x10^3uL (1.8-7.7) Lymphocytes # (Auto) 1.2 x10^3/uL (1.0-4.8) Monocytes # (Auto) 0.8 x10^3/uL (0.0-1.1) Eosinophils # (Auto) 0.2 x10^3/uL (0.0-0.7) Basophils # (Auto) 0.0 x10^3/uL (0.0-0.2) Sodium Level 138 mmol/L (136-145) Potassium Level 3.6 mmol/L (3.5-5.1) Chloride Level 106 mmol/L (98-107) Carbon Dioxide Level 26 mmol/L (21-32) Anion Gap 6 (6-14) Blood Urea Nitrogen 27 mg/dL (7-20) Creatinine 1.1 mg/dL (0.6-1.0) Estimated GFR (Cockcroft-Gault) 47.3 Glucose Level 96 mg/dL (70-99) Calcium Level 8.6 mg/dL (8.5-10.1) Medications Current Medications Ondansetron HCl (Zofran) 4 mg 1X ONCE IV Last administered on 11/26/16 04:30 ; Start 11/26/16 at 04:30; Stop 11/26/16 at 04:31; Status DC Sodium Chloride 1,000 ml @ 1,000 mls/hr 1X ONCE IV Last administered on 04:30; Start 11/26/16 at 04:30; Stop 11/26/16 at 05:29; Status DC Hydromorphone HCl (Dilaudid) 0.5 mg 1X ONCE IV Last administered on 11/26/16 04:30; Start 11/26/16 at 04:30; Stop 11/26/16 at 04:31; Status DC Ondansetron HCl (Zofran) 4 mg PRN Q8HRS PRN IV NAUSEA/VOMITING; Start 11/26/16 at 04:45; Stop 11/27/16 at 04:44; Status DC Morphine Sulfate 4 mg PRN Q2HR PRN IV SEVERE PAIN Last administered on 07:47; Start 11/26/16 at 04:45; Stop 11/27/16 at 04:44; Status DC Aspirin (Children'S Aspirin) 81 mg DAILY PO Last administered on 11/28/16 08: 21; Start 11/26/16 at 09:00 Carvedilol (Coreg) 12.5 mg BIDWMEALS PO Last administered on 11/26/16 08:13; Start 11/26/16 at 08:00; Stop 11/27/16 at 09:53; Status DC Docusate Sodium (Colace) 100 mg DAILYWLUN PO ; Start 11/26/16 at 12:00 Duloxetine HCl (Cymbalta) 30 mg DAILY PO Last administered on 11/28/16 08:21; Start 11/26/16 at 09:00 Famotidine (Pepcid) 20 mg HS PO Last administered on 11/27/16 22:00; Start 06/02 at 21:00 Insulin Aspart (NovoLOG) 8 units TIDAC SQ Last administered on 11/26/16 08:20 ; Start 11/26/16 at 08:00; Stop 11/26/16 at 13:16; Status DC Simvastatin (Zocor) 20 mg QHS PO Last administered on 11/27/16 22:00; Start at 21:00 Calcium/Vitamin D (Oscal D 500mg/ 200uts) 1 tab BIDWMEALS PO Last administered on 11/28/16 08:21; Start 11/26/16 at 08:00 Non-Formulary Medication 50 mg DAILYWLUN PO ; Start 11/26/16 at 12:00; Stop 06/02 at 17:18; Status DC Ondansetron HCl (Zofran) 4 mg PRN Q6HRS PRN IV NAUSEA/VOMITING; Start 11/26/16 at 09:45; Stop 11/27/16 at 09:44; Status DC Morphine Sulfate 1 mg PRN Q10MIN PRN IV SEVERE PAIN Last administered on 21:12; Start 11/26/16 at 09:45; Stop 11/27/16 at 09:44; Status DC Ringer's Solution 1,000 ml @ 30 mls/hr Q24H IV Last administered on 11/26/16 16:41; Start 11/26/16 at 09:44; Stop 11/26/16 at 21:43; Status DC Lidocaine HCl 2 ml PRN 1X PRN ID PRIOR TO IV START; Start 11/26/16 at 09:45; Stop 11/27/16 at 09:44; Status DC Hydromorphone HCl (Dilaudid) 0.5 mg PRN Q10MIN PRN IV SEV PAIN, Second choice; Start 11/26/16 at 09:45; Stop 11/27/16 at 09:44; Status DC Prochlorperazine Edisylate (Compazine) 5 mg PACU PRN PRN IV NAUSEA, MRX1; Start 11/26/16 at 09:45; Stop 11/27/16 at 09:44; Status DC Iohexol (Omnipaque 300 Mg/ml) 50 ml 1X ONCE IV ; Start 11/26/16 at 11:30; Stop 11/26/16 at 11:31; Status DC Iohexol (Omnipaque 300 Mg/ml) 60 ml 1X ONCE IV Last administered on 11/26/16 11:28; Start 11/26/16 at 11:30; Stop 11/26/16 at 11:31; Status DC Info (Do NOT chart on this entry -- for MONITORING) 1 each PRN DAILY PRN MC SEE COMMENTS; Start 11/26/16 at 11:15; Stop 11/28/16 at 11:14 Insulin Detemir (Levemir) 10 units QHS SQ Last administered on 11/27/16 22:05 ; Start 11/26/16 at 21:00 Insulin Aspart (NovoLOG) 0-9 UNITS TIDWMEALS SQ ; Start 11/26/16 at 17:00 Dextrose (Dextrose 50%-Water Syringe) 12.5 gm PRN Q15MIN PRN IV SEE COMMENTS; Start 11/26/16 at 13:15 Acetaminophen (Tylenol) 650 mg PRN Q6HRS PRN PO FEVER Last administered on 11/27 22:00; Start 11/26/16 at 13:15 Ondansetron HCl (Zofran) 4 mg PRN Q6HRS PRN IV NAUSEA/VOMITING; Start 11/26/16 at 13:15 Morphine Sulfate 2 mg PRN Q2HR PRN IV PAIN Last administered on 11/28/16 08:17 ; Start 11/26/16 at 13:15 Tramadol HCl (Ultram) 50 mg PRN Q6HRS PRN PO PAIN Last administered on 19:34; Start 11/26/16 at 13:15 Hydralazine HCl (Apresoline) 10 mg PRN Q4HRS PRN IVP ELEVATED BP, SEE COMMENTS ; Start 11/26/16 at 13:15 Docusate Sodium (Colace) 100 mg PRN DAILY PRN PO CONSTIPATION; Start 11/26/16 at 13:15 Bupivacaine HCl/ Epinephrine Bitart (Marcaine-Epi 0.25%-[id number]) 50 ml STK-MED ONCE .ROUTE Last administered on 11/26/16 19:25; Start 11/26/16 at 16:10; Stop 11/26/16 at 16:11; Status DC Sevoflurane (Ultane) 90 ml STK-MED ONCE IH ; Start 11/26/16 at 17:45; Stop 11/26 at 17:46; Status DC Propofol 20 ml @ As Directed STK-MED ONCE IV ; Start 11/26/16 at 17:45; Stop 06/02 at 17:46; Status DC Dexamethasone Sodium Phosphate (Decadron) 20 mg STK-MED ONCE .ROUTE ; Start 06/02 at 17:45; Stop 11/26/16 at 17:46; Status DC Ondansetron HCl (Zofran) 4 mg STK-MED ONCE .ROUTE ; Start 11/26/16 at 17:45; Stop 11/26/16 at 17:46; Status DC Lidocaine HCl (Lidocaine Pf 2% Vial) 5 ml STK-MED ONCE .ROUTE ; Start 11/26/16 at 17:45; Stop 11/26/16 at 17:46; Status DC Cefazolin Sodium 50 ml @ As Directed STK-MED ONCE IV ; Start 11/26/16 at 18:40; Stop 11/26/16 at 18:41; Status DC Phenylephrine HCl 1 mg STK-MED ONCE IV ; Start 11/26/16 at 19:34; Stop 11/26/16 at 19:35; Status DC Labetalol HCl (Normodyne) 20 mg STK-MED ONCE .ROUTE ; Start 11/26/16 at 20:21; Stop 11/26/16 at 20:22; Status DC Carvedilol (Coreg) 3.125 mg BIDWMEALS PO Last administered on 11/28/16 08:22; Start 11/27/16 at 17:00 Lidocaine/Sodium Bicarbonate (Buffered Lidocaine 1%) 20 ml STK-MED ONCE IJ ; Start 11/27/16 at 12:19; Stop 11/27/16 at 12:20; Status DC Fentanyl Citrate (Fentanyl 2ml Vial) 100 mcg STK-MED ONCE .ROUTE ; Start at 12:30; Stop 11/27/16 at 12:31; Status DC Midazolam HCl (Versed) 2 mg STK-MED ONCE .ROUTE ; Start 11/27/16 at 12:30; Stop 11/27/16 at 12:31; Status DC Enoxaparin Sodium (Lovenox 30mg Syringe) 30 mg Q24H SQ ; Start 11/28/16 at 10:00 Morphine Sulfate 10 mg STK-MED ONCE .ROUTE ; Start 11/27/16 at 13:07; Stop 11/27 at 13:08; Status DC Lidocaine/Sodium Bicarbonate (Buffered Lidocaine 1%) 20 ml 1X ONCE IJ Last administered on 11/27/16 13:29; Start 11/27/16 at 13:30; Stop 11/27/16 at 13:31 ; Status DC Midazolam HCl (Versed) 2 mg 1X ONCE IV Last administered on 11/27/16 13:30; Start 11/27/16 at 13:30; Stop 11/27/16 at 13:31; Status DC Morphine Sulfate 10 mg 1X ONCE IV Last administered on 11/27/16 13:30; Start 11/27/16 at 13:30; Stop 11/27/16 at 13:31; Status DC Midazolam HCl (Versed) 2 mg 1X ONCE IV Last administered on 11/27/16 15:30; Start 11/27/16 at 15:30; Stop 11/27/16 at 15:34; Status DC Lidocaine HCl 20 ml 1X ONCE IJ Last administered on 11/27/16 15:30; Start at 15:30; Stop 11/27/16 at 15:34; Status DC Morphine Sulfate 10 mg 1X ONCE IV Last administered on 11/27/16 15:30; Start 11/27/16 at 15:30; Stop 11/27/16 at 15:34; Status DC Active Scripts Active Reported Stool Softener (Docusate Sodium) 100 Mg Capsule 100 Mg PO DAILYWLUN Hysingla ER (Hydrocodone Bitartrate) 40 Mg Tab.er.24h 50 Mg PO DAILYWLUN Famotidine 20 Mg Tablet 20 Mg PO HS Calcium 600 + Vit D 200 Tablet (Calcium Carbonate/Vitamin D3) 1 Each Tablet 1 Each PO BID Novolog (Insulin Aspart) 100 Unit/1 Ml Vial 8 Unit SQ PRN PRN Simvastatin 20 Mg Tablet 1 Tab PO QHS Daily Vitamin (Multivitamin) 1 Each Tablet 1 Each PO Lantus (Insulin Glargine,Hum.rec.anlog) 100 Unit/1 Ml Vial 10 Unit SQ Cymbalta (Duloxetine Hcl) 30 Mg Capsule.dr 1 Cap PO DAILY Carvedilol 12.5 Mg Tablet 1 Tab PO BID Aspirin 81 Mg Tab.chew 1 Tab PO DAILY Vitals/I & O Vital Sign - Last 24 Hours 11/27/16 11/27/16 11/27/16 11/27/16 11:00 13:10 13:15 13:20 Temp 98.0 98.0 Pulse 64 72 70 72 Resp 16 16 14 14 B/P (MAP) 107/35 (59) Pulse Ox 100 98 96 100 O2 Delivery Nasal Cannula Nasal Cannula Nasal Cannula Nasal Cannula O2 Flow Rate 2.0 2.0 2.0 2.0 11/27/16 11/27/16 11/27/16 11/27/16 13:30 13:31 14:55 15:10 Temp 97.8 98.0 97.8 98.0 Pulse 75 69 70 Resp 16 16 16 16 B/P (MAP) 121/44 108/38 Pulse Ox 100 100 O2 Delivery Nasal Cannula Nasal Cannula O2 Flow Rate 2.0 2.0 11/27/16 11/27/16 11/27/16 11/27/16 15:28 15:30 15:33 15:38 Pulse 78 78 62 Resp 16 16 16 16 Pulse Ox 100 97 97 O2 Delivery Nasal Cannula Nasal Cannula Nasal Cannula O2 Flow Rate 2.0 2.0 2.0 11/27/16 11/27/16 11/27/16 11/27/16 15:50 16:10 16:15 16:30 Temp 97.7 97.7 97.7 97.7 Pulse 78 83 75 83 Resp 14 18 18 18 B/P (MAP) 127/31 127/44 (71) 127/31 (63) Pulse Ox 100 100 99 O2 Delivery Nasal Cannula Nasal Cannula Room Air O2 Flow Rate 2.0 2.0 11/27/16 11/27/16 11/27/16 11/27/16 16:45 17:00 17:10 17:30 Temp 97.7 97.9 98.1 97.7 97.9 98.1 Pulse 78 75 75 78 Resp 18 18 18 18 B/P (MAP) 114/40 (64) 100/32 (54) 127/44 119/29 (59) Pulse Ox 95 100 100 O2 Delivery Nasal Cannula Nasal Cannula Nasal Cannula O2 Flow Rate 2.0 2.0 2.0 11/27/16 11/27/16 11/27/16 11/27/16 18:00 18:30 18:44 19:00 Temp 97.7 98.0 98.1 97.7 98.0 98.1 Pulse 77 78 74 100 Resp 18 18 18 18 B/P (MAP) 113/37 (62) 113/37 108/33 101/44 Pulse Ox 100 O2 Delivery Nasal Cannula 11/27/16 11/27/16 11/27/16 11/27/16 19:10 20:00 20:00 21:25 Temp 98.2 98.2 Pulse 74 Resp 18 18 18 B/P (MAP) 165/88 O2 Delivery Nasal Cannula Room Air Nasal Cannula O2 Flow Rate 2.0 1.0 11/27/16 11/28/16 11/28/16 11/28/16 23:08 00:38 01:15 03:45 Temp 98.2 98.3 98.2 98.3 Pulse 81 73 Resp 18 18 18 18 B/P (MAP) 122/43 (69) 103/39 (60) Pulse Ox 96 91 O2 Delivery Room Air Room Air Room Air Room Air 11/28/16 11/28/16 11/28/16 11/28/16 07:00 07:50 08:17 08:22 Temp 97.9 97.9 Pulse 84 84 Resp 18 16 B/P (MAP) 136/54 (81) 136/54 Pulse Ox 92 O2 Delivery Nasal Cannula Room Air Room Air O2 Flow Rate 2.0 Intake and Output 11/27/16 11/27/16 11/28/16 15:00 23:00 07:00 Intake Total 10 ml 60 ml 450 ml Output Total 245 ml 915 ml Balance 10 ml -185 ml -465 ml OZZY KENDALL MD Nov 28, 2016 11:00
--- NOTE | 2016-11-28 11:51 | PDOC ---
PROGRESS NOTES Chief Complaint Chief Complaint 1. traumatic closed right hip fx post fall S/P NAIL fixation on 11/26 2. left lung Mass on CT, bx 11/27. path pending 3. h/o CAD with CABG 4. HTN 5. DM2 6. HLD 7. H/O BCa post mastectomy , chemo, and RT 8. leukocytosis, reactive 9. normacytic anemia. worse post op 10. CKD3 11. mild malnution 12. left side pneumothorax post ct guided bx on 11/27, chest tube placed plan: fu with pulm, ortho. IR for lung mass bx 11/27, then chest tube ct chest done cont home meds PAT consult pending dr. trent consulted, no intervention for L5 fx levemir 10u qhs, SSI PTOT dvt ppx from tmr SW for rehab 2u PRBC on 11/27 History of Present Illness History of Present Illness Hb 7.6 post op, 2u PRBC 11/27 IR 11/27 for lung mass bx, GOT Pneumothorax and then chest tube in feels better on 11/28 Vitals Vitals Vital Signs Date Time Temp Pulse Resp B/P (MAP) Pulse Ox O2 Delivery O2 Flow Rate FiO2 11/28/16 08:22 84 136/54 11/28/16 08:17 16 Room Air 11/28/16 07:00 97.9 92 2.0 97.9 Physical Exam Physical Exam left side pigtail chest tube, mild drainage, no air leaking General: Alert, Oriented X3, Cooperative, No acute distress Heart: Regular rate Lungs: Clear Abdomen: Soft Extremities: No clubbing, No cyanosis, Normal pulses Skin: No breakdown, No significant lesion Labs LABS Laboratory Tests Test 11/27/16 17:07 11/28/16 05:50 11/28/16 07:02 Glucose (Fingerstick) 129 mg/dL (70-99) 90 mg/dL (70-99) White Blood Count 8.8 x10^3/uL (4.0-11.0) Red Blood Count 3.44 x10^6/uL (3.50-5.40) Hemoglobin 10.8 g/dL (12.0-15.5) Hematocrit 31.5 % (36.0-47.0) Mean Corpuscular Volume 92 fL (79-100) Mean Corpuscular Hemoglobin 31 pg (25-35) Mean Corpuscular Hemoglobin Concent 34 g/dL (31-37) Red Cell Distribution Width 16.9 % (11.5-14.5) Platelet Count 133 x10^3/uL (140-400) Neutrophils (%) (Auto) 75 % (31-73) Lymphocytes (%) (Auto) 14 % (24-48) Monocytes (%) (Auto) 9 % (0-9) Eosinophils (%) (Auto) 2 % (0-3) Basophils (%) (Auto) 1 % (0-3) Neutrophils # (Auto) 6.6 x10^3uL (1.8-7.7) Lymphocytes # (Auto) 1.2 x10^3/uL (1.0-4.8) Monocytes # (Auto) 0.8 x10^3/uL (0.0-1.1) Eosinophils # (Auto) 0.2 x10^3/uL (0.0-0.7) Basophils # (Auto) 0.0 x10^3/uL (0.0-0.2) Sodium Level 138 mmol/L (136-145) Potassium Level 3.6 mmol/L (3.5-5.1) Chloride Level 106 mmol/L (98-107) Carbon Dioxide Level 26 mmol/L (21-32) Anion Gap 6 (6-14) Blood Urea Nitrogen 27 mg/dL (7-20) Creatinine 1.1 mg/dL (0.6-1.0) Estimated GFR (Cockcroft-Gault) 47.3 Glucose Level 96 mg/dL (70-99) Calcium Level 8.6 mg/dL (8.5-10.1) Review of Systems Review of Systems no fever, chills, sob or chest pain Assessment and Plan Assessmemt and Plan Problems Medical Problems: (1) Closed right hip fracture Status: Acute Problems: Comment Review of Relevant I have reviewed the following items alysha (where applicable) has been applied. Labs Laboratory Tests Test 11/26/16 12:15 11/26/16 16:27 11/26/16 20:22 11/26/16 22:30 Glucose (Fingerstick) 93 mg/dL (70-99) 90 mg/dL (70-99) 141 mg/dL (70-99) 205 mg/dL (70-99) Test 11/27/16 05:00 11/27/16 07:06 11/27/16 11:48 11/27/16 17:07 White Blood Count 7.2 x10^3/uL (4.0-11.0) Red Blood Count 2.35 x10^6/uL (3.50-5.40) Hemoglobin 7.6 g/dL (12.0-15.5) Hematocrit 23.0 % (36.0-47.0) Mean Corpuscular Volume 98 fL (79-100) Mean Corpuscular Hemoglobin 32 pg (25-35) Mean Corpuscular Hemoglobin Concent 33 g/dL (31-37) Red Cell Distribution Width 14.4 % (11.5-14.5) Platelet Count 146 x10^3/uL (140-400) Neutrophils (%) (Auto) 89 % (31-73) Lymphocytes (%) (Auto) 8 % (24-48) Monocytes (%) (Auto) 3 % (0-9) Eosinophils (%) (Auto) 0 % (0-3) Basophils (%) (Auto) 1 % (0-3) Neutrophils # (Auto) 6.4 x10^3uL (1.8-7.7) Lymphocytes # (Auto) 0.5 x10^3/uL (1.0-4.8) Monocytes # (Auto) 0.2 x10^3/uL (0.0-1.1) Eosinophils # (Auto) 0.0 x10^3/uL (0.0-0.7) Basophils # (Auto) 0.0 x10^3/uL (0.0-0.2) Segmented Neutrophils % 82 % (35-66) Band Neutrophils % 8 % (0-9) Lymphocytes % 9 % (24-48) Monocytes % 1 % (0-10) Platelet Estimate Adequate (ADEQUATE) Sodium Level 139 mmol/L (136-145) Potassium Level 4.3 mmol/L (3.5-5.1) Chloride Level 106 mmol/L (98-107) Carbon Dioxide Level 24 mmol/L (21-32) Anion Gap 9 (6-14) Blood Urea Nitrogen 31 mg/dL (7-20) Creatinine 1.2 mg/dL (0.6-1.0) Estimated GFR (Cockcroft-Gault) 42.8 Glucose Level 220 mg/dL (70-99) Calcium Level 8.6 mg/dL (8.5-10.1) 25-Hydroxy Vitamin D Total 45.2 ng/mL (30.0-100.0) Glucose (Fingerstick) 204 mg/dL (70-99) 164 mg/dL (70-99) 129 mg/dL (70-99) Test 11/28/16 05:50 11/28/16 07:02 White Blood Count 8.8 x10^3/uL (4.0-11.0) Red Blood Count 3.44 x10^6/uL (3.50-5.40) Hemoglobin 10.8 g/dL (12.0-15.5) Hematocrit 31.5 % (36.0-47.0) Mean Corpuscular Volume 92 fL (79-100) Mean Corpuscular Hemoglobin 31 pg (25-35) Mean Corpuscular Hemoglobin Concent 34 g/dL (31-37) Red Cell Distribution Width 16.9 % (11.5-14.5) Platelet Count 133 x10^3/uL (140-400) Neutrophils (%) (Auto) 75 % (31-73) Lymphocytes (%) (Auto) 14 % (24-48) Monocytes (%) (Auto) 9 % (0-9) Eosinophils (%) (Auto) 2 % (0-3) Basophils (%) (Auto) 1 % (0-3) Neutrophils # (Auto) 6.6 x10^3uL (1.8-7.7) Lymphocytes # (Auto) 1.2 x10^3/uL (1.0-4.8) Monocytes # (Auto) 0.8 x10^3/uL (0.0-1.1) Eosinophils # (Auto) 0.2 x10^3/uL (0.0-0.7) Basophils # (Auto) 0.0 x10^3/uL (0.0-0.2) Sodium Level 138 mmol/L (136-145) Potassium Level 3.6 mmol/L (3.5-5.1) Chloride Level 106 mmol/L (98-107) Carbon Dioxide Level 26 mmol/L (21-32) Anion Gap 6 (6-14) Blood Urea Nitrogen 27 mg/dL (7-20) Creatinine 1.1 mg/dL (0.6-1.0) Estimated GFR (Cockcroft-Gault) 47.3 Glucose Level 96 mg/dL (70-99) Calcium Level 8.6 mg/dL (8.5-10.1) Glucose (Fingerstick) 90 mg/dL (70-99) Laboratory Tests Test 11/27/16 17:07 11/28/16 05:50 11/28/16 07:02 Glucose (Fingerstick) 129 mg/dL (70-99) 90 mg/dL (70-99) White Blood Count 8.8 x10^3/uL (4.0-11.0) Red Blood Count 3.44 x10^6/uL (3.50-5.40) Hemoglobin 10.8 g/dL (12.0-15.5) Hematocrit 31.5 % (36.0-47.0) Mean Corpuscular Volume 92 fL (79-100) Mean Corpuscular Hemoglobin 31 pg (25-35) Mean Corpuscular Hemoglobin Concent 34 g/dL (31-37) Red Cell Distribution Width 16.9 % (11.5-14.5) Platelet Count 133 x10^3/uL (140-400) Neutrophils (%) (Auto) 75 % (31-73) Lymphocytes (%) (Auto) 14 % (24-48) Monocytes (%) (Auto) 9 % (0-9) Eosinophils (%) (Auto) 2 % (0-3) Basophils (%) (Auto) 1 % (0-3) Neutrophils # (Auto) 6.6 x10^3uL (1.8-7.7) Lymphocytes # (Auto) 1.2 x10^3/uL (1.0-4.8) Monocytes # (Auto) 0.8 x10^3/uL (0.0-1.1) Eosinophils # (Auto) 0.2 x10^3/uL (0.0-0.7) Basophils # (Auto) 0.0 x10^3/uL (0.0-0.2) Sodium Level 138 mmol/L (136-145) Potassium Level 3.6 mmol/L (3.5-5.1) Chloride Level 106 mmol/L (98-107) Carbon Dioxide Level 26 mmol/L (21-32) Anion Gap 6 (6-14) Blood Urea Nitrogen 27 mg/dL (7-20) Creatinine 1.1 mg/dL (0.6-1.0) Estimated GFR (Cockcroft-Gault) 47.3 Glucose Level 96 mg/dL (70-99) Calcium Level 8.6 mg/dL (8.5-10.1) Medications Current Medications Ondansetron HCl (Zofran) 4 mg 1X ONCE IV Last administered on 11/26/16 04:30 ; Start 11/26/16 at 04:30; Stop 11/26/16 at 04:31; Status DC Sodium Chloride 1,000 ml @ 1,000 mls/hr 1X ONCE IV Last administered on 04:30; Start 11/26/16 at 04:30; Stop 11/26/16 at 05:29; Status DC Hydromorphone HCl (Dilaudid) 0.5 mg 1X ONCE IV Last administered on 11/26/16 04:30; Start 11/26/16 at 04:30; Stop 11/26/16 at 04:31; Status DC Ondansetron HCl (Zofran) 4 mg PRN Q8HRS PRN IV NAUSEA/VOMITING; Start 11/26/16 at 04:45; Stop 11/27/16 at 04:44; Status DC Morphine Sulfate 4 mg PRN Q2HR PRN IV SEVERE PAIN Last administered on 07:47; Start 11/26/16 at 04:45; Stop 11/27/16 at 04:44; Status DC Aspirin (Children'S Aspirin) 81 mg DAILY PO Last administered on 11/28/16 08: 21; Start 11/26/16 at 09:00 Carvedilol (Coreg) 12.5 mg BIDWMEALS PO Last administered on 11/26/16 08:13; Start 11/26/16 at 08:00; Stop 11/27/16 at 09:53; Status DC Docusate Sodium (Colace) 100 mg DAILYWLUN PO ; Start 11/26/16 at 12:00 Duloxetine HCl (Cymbalta) 30 mg DAILY PO Last administered on 11/28/16 08:21; Start 11/26/16 at 09:00 Famotidine (Pepcid) 20 mg HS PO Last administered on 11/27/16 22:00; Start 06/02 at 21:00 Insulin Aspart (NovoLOG) 8 units TIDAC SQ Last administered on 11/26/16 08:20 ; Start 11/26/16 at 08:00; Stop 11/26/16 at 13:16; Status DC Simvastatin (Zocor) 20 mg QHS PO Last administered on 11/27/16 22:00; Start at 21:00 Calcium/Vitamin D (Oscal D 500mg/ 200uts) 1 tab BIDWMEALS PO Last administered on 11/28/16 08:21; Start 11/26/16 at 08:00 Non-Formulary Medication 50 mg DAILYWLUN PO ; Start 11/26/16 at 12:00; Stop 06/02 at 17:18; Status DC Ondansetron HCl (Zofran) 4 mg PRN Q6HRS PRN IV NAUSEA/VOMITING; Start 11/26/16 at 09:45; Stop 11/27/16 at 09:44; Status DC Morphine Sulfate 1 mg PRN Q10MIN PRN IV SEVERE PAIN Last administered on 21:12; Start 11/26/16 at 09:45; Stop 11/27/16 at 09:44; Status DC Ringer's Solution 1,000 ml @ 30 mls/hr Q24H IV Last administered on 11/26/16 16:41; Start 11/26/16 at 09:44; Stop 11/26/16 at 21:43; Status DC Lidocaine HCl 2 ml PRN 1X PRN ID PRIOR TO IV START; Start 11/26/16 at 09:45; Stop 11/27/16 at 09:44; Status DC Hydromorphone HCl (Dilaudid) 0.5 mg PRN Q10MIN PRN IV SEV PAIN, Second choice; Start 11/26/16 at 09:45; Stop 11/27/16 at 09:44; Status DC Prochlorperazine Edisylate (Compazine) 5 mg PACU PRN PRN IV NAUSEA, MRX1; Start 11/26/16 at 09:45; Stop 11/27/16 at 09:44; Status DC Iohexol (Omnipaque 300 Mg/ml) 50 ml 1X ONCE IV ; Start 11/26/16 at 11:30; Stop 11/26/16 at 11:31; Status DC Iohexol (Omnipaque 300 Mg/ml) 60 ml 1X ONCE IV Last administered on 11/26/16 11:28; Start 11/26/16 at 11:30; Stop 11/26/16 at 11:31; Status DC Info (Do NOT chart on this entry -- for MONITORING) 1 each PRN DAILY PRN MC SEE COMMENTS; Start 11/26/16 at 11:15; Stop 11/28/16 at 11:14; Status DC Insulin Detemir (Levemir) 10 units QHS SQ Last administered on 11/27/16 22:05 ; Start 11/26/16 at 21:00 Insulin Aspart (NovoLOG) 0-9 UNITS TIDWMEALS SQ ; Start 11/26/16 at 17:00 Dextrose (Dextrose 50%-Water Syringe) 12.5 gm PRN Q15MIN PRN IV SEE COMMENTS; Start 11/26/16 at 13:15 Acetaminophen (Tylenol) 650 mg PRN Q6HRS PRN PO FEVER Last administered on 11/27 22:00; Start 11/26/16 at 13:15 Ondansetron HCl (Zofran) 4 mg PRN Q6HRS PRN IV NAUSEA/VOMITING; Start 11/26/16 at 13:15 Morphine Sulfate 2 mg PRN Q2HR PRN IV PAIN Last administered on 11/28/16 08:17 ; Start 11/26/16 at 13:15 Tramadol HCl (Ultram) 50 mg PRN Q6HRS PRN PO PAIN Last administered on 19:34; Start 11/26/16 at 13:15 Hydralazine HCl (Apresoline) 10 mg PRN Q4HRS PRN IVP ELEVATED BP, SEE COMMENTS ; Start 11/26/16 at 13:15 Docusate Sodium (Colace) 100 mg PRN DAILY PRN PO CONSTIPATION; Start 11/26/16 at 13:15 Bupivacaine HCl/ Epinephrine Bitart (Marcaine-Epi 0.25%-[id number]) 50 ml STK-MED ONCE .ROUTE Last administered on 6/12/17at 19:25; Start 11/26/16 at 16:10; Stop 11/26/16 at 16:11; Status DC Sevoflurane (Ultane) 90 ml STK-MED ONCE IH ; Start 11/26/16 at 17:45; Stop 11/26 at 17:46; Status DC Propofol 20 ml @ As Directed STK-MED ONCE IV ; Start 11/26/16 at 17:45; Stop 06/02 at 17:46; Status DC Dexamethasone Sodium Phosphate (Decadron) 20 mg STK-MED ONCE .ROUTE ; Start 06/02 at 17:45; Stop 11/26/16 at 17:46; Status DC Ondansetron HCl (Zofran) 4 mg STK-MED ONCE .ROUTE ; Start 11/26/16 at 17:45; Stop 11/26/16 at 17:46; Status DC Lidocaine HCl (Lidocaine Pf 2% Vial) 5 ml STK-MED ONCE .ROUTE ; Start 11/26/16 at 17:45; Stop 11/26/16 at 17:46; Status DC Cefazolin Sodium 50 ml @ As Directed STK-MED ONCE IV ; Start 11/26/16 at 18:40; Stop 11/26/16 at 18:41; Status DC Phenylephrine HCl 1 mg STK-MED ONCE IV ; Start 11/26/16 at 19:34; Stop 11/26/16 at 19:35; Status DC Labetalol HCl (Normodyne) 20 mg STK-MED ONCE .ROUTE ; Start 11/26/16 at 20:21; Stop 11/26/16 at 20:22; Status DC Carvedilol (Coreg) 3.125 mg BIDWMEALS PO Last administered on 11/28/16t 08:22; Start 11/27/16 at 17:00 Lidocaine/Sodium Bicarbonate (Buffered Lidocaine 1%) 20 ml STK-MED ONCE IJ ; Start 11/27/16 at 12:19; Stop 11/27/16 at 12:20; Status DC Fentanyl Citrate (Fentanyl 2ml Vial) 100 mcg STK-MED ONCE .ROUTE ; Start at 12:30; Stop 11/27/16 at 12:31; Status DC Midazolam HCl (Versed) 2 mg STK-MED ONCE .ROUTE ; Start 11/27/16 at 12:30; Stop 11/27/16 at 12:31; Status DC Enoxaparin Sodium (Lovenox 30mg Syringe) 30 mg Q24H SQ ; Start 11/28/16 at 10:00 Morphine Sulfate 10 mg STK-MED ONCE .ROUTE ; Start 11/27/16 at 13:07; Stop 11/27 at 13:08; Status DC Lidocaine/Sodium Bicarbonate (Buffered Lidocaine 1%) 20 ml 1X ONCE IJ Last administered on 11/27/16 13:29; Start 11/27/16 at 13:30; Stop 11/27/16 at 13:31 ; Status DC Midazolam HCl (Versed) 2 mg 1X ONCE IV Last administered on 11/27/16 13:30; Start 11/27/16 at 13:30; Stop 11/27/16 at 13:31; Status DC Morphine Sulfate 10 mg 1X ONCE IV Last administered on 11/27/16 13:30; Start 11/27/16 at 13:30; Stop 11/27/16 at 13:31; Status DC Midazolam HCl (Versed) 2 mg 1X ONCE IV Last administered on 11/27/16 15:30; Start 11/27/16 at 15:30; Stop 11/27/16 at 15:34; Status DC Lidocaine HCl 20 ml 1X ONCE IJ Last administered on 11/27/16 15:30; Start at 15:30; Stop 11/27/16 at 15:34; Status DC Morphine Sulfate 10 mg 1X ONCE IV Last administered on 11/27/16 15:30; Start 11/27/16 at 15:30; Stop 11/27/16 at 15:34; Status DC Active Scripts Active Reported Stool Softener (Docusate Sodium) 100 Mg Capsule 100 Mg PO DAILYWLUN Hysingla ER (Hydrocodone Bitartrate) 40 Mg Tab.er.24h 50 Mg PO DAILYWLUN Famotidine 20 Mg Tablet 20 Mg PO HS Calcium 600 + Vit D 200 Tablet (Calcium Carbonate/Vitamin D3) 1 Each Tablet 1 Each PO BID Novolog (Insulin Aspart) 100 Unit/1 Ml Vial 8 Unit SQ PRN PRN Simvastatin 20 Mg Tablet 1 Tab PO QHS Daily Vitamin (Multivitamin) 1 Each Tablet 1 Each PO Lantus (Insulin Glargine,Hum.rec.anlog) 100 Unit/1 Ml Vial 10 Unit SQ Cymbalta (Duloxetine Hcl) 30 Mg Capsule.dr 1 Cap PO DAILY Carvedilol 12.5 Mg Tablet 1 Tab PO BID Aspirin 81 Mg Tab.chew 1 Tab PO DAILY Vitals/I & O Vital Sign - Last 24 Hours 11/27/16 11/27/16 11/27/16 11/27/16 13:10 13:15 13:20 13:30 Pulse 72 70 72 Resp 16 14 14 16 Pulse Ox 98 96 100 100 O2 Delivery Nasal Cannula Nasal Cannula Nasal Cannula Nasal Cannula O2 Flow Rate 2.0 2.0 2.0 2.0 11/27/16 11/27/16 11/27/16 11/27/16 13:31 14:55 15:10 15:28 Temp 97.8 98.0 97.8 98.0 Pulse 75 69 70 78 Resp 16 16 16 16 B/P (MAP) 121/44 108/38 Pulse Ox 100 O2 Delivery Nasal Cannula O2 Flow Rate 2.0 11/27/16 11/27/16 11/27/16 11/27/16 15:30 15:33 15:38 15:50 Pulse 78 62 78 Resp 16 16 16 14 Pulse Ox 100 97 97 100 O2 Delivery Nasal Cannula Nasal Cannula Nasal Cannula Nasal Cannula O2 Flow Rate 2.0 2.0 2.0 2.0 11/27/16 11/27/16 11/27/16 11/27/16 16:10 16:15 16:30 16:45 Temp 97.7 97.7 97.7 97.7 97.7 97.7 Pulse 83 75 83 78 Resp 18 18 18 18 B/P (MAP) 127/31 127/44 (71) 127/31 (63) 114/40 (64) Pulse Ox 100 99 95 O2 Delivery Nasal Cannula Room Air Nasal Cannula O2 Flow Rate 2.0 2.0 11/27/16 11/27/16 11/27/16 11/27/16 17:00 17:10 17:30 18:00 Temp 97.9 98.1 97.9 98.1 Pulse 75 75 78 77 Resp 18 18 18 18 B/P (MAP) 100/32 (54) 127/44 119/29 (59) 113/37 (62) Pulse Ox 100 100 100 O2 Delivery Nasal Cannula Nasal Cannula Nasal Cannula O2 Flow Rate 2.0 2.0 11/27/16 11/27/16 11/27/16 11/27/16 18:30 18:44 19:00 19:10 Temp 97.7 98.0 98.1 97.7 98.0 98.1 Pulse 78 74 100 Resp 18 18 18 18 B/P (MAP) 113/37 108/33 101/44 O2 Delivery Nasal Cannula O2 Flow Rate 2.0 11/27/16 11/27/16 11/27/16 11/27/16 20:00 20:00 21:25 23:08 Temp 98.2 98.2 98.2 98.2 Pulse 74 81 Resp 18 B/P (MAP) 165/88 122/43 (69) Pulse Ox 96 O2 Delivery Room Air Nasal Cannula Room Air O2 Flow Rate 1.0 11/28/16 11/28/16 11/28/16 11/28/16 00:38 01:15 03:45 07:00 Temp 98.3 97.9 98.3 97.9 Pulse 73 84 Resp 18 B/P (MAP) 103/39 (60) 136/54 (81) Pulse Ox 91 92 O2 Delivery Room Air Room Air Room Air Nasal Cannula O2 Flow Rate 2.0 11/28/16 11/28/16 11/28/16 07:50 08:17 08:22 Pulse 84 Resp 16 B/P (MAP) 136/54 O2 Delivery Room Air Room Air Intake and Output 11/27/16 11/27/16 11/28/16 15:00 23:00 07:00 Intake Total 10 ml 60 ml 450 ml Output Total 245 ml 915 ml Balance 10 ml -185 ml -465 ml EMMIE PIZANO MD Nov 28, 2016 11:51
[2016-11-28] MEDS: ENOXAPARIN 30 MG/0.3 ML SYRINGE. SQ SCH (11:55)
[2016-11-28] MEDS: DOCUSATE SODIUM 100 MG CAPSULE. PO PRN (11:55)
--- NOTE | 2016-11-28 11:56 | PDOC ---
PULMONARY PROGRESS NOTES Subjective S/P CT GUIDED LEFT LUNG BIOPSY SMALL LEFT PTX, CHEST TUBE IN PLACE NO SOA Vitals Vital Signs Date Time Temp Pulse Resp B/P (MAP) Pulse Ox O2 Delivery O2 Flow Rate FiO2 11/28/16 08:22 84 136/54 11/28/16 08:17 16 Room Air 11/28/16 07:00 97.9 92 2.0 97.9 General: Alert, No acute distress Lungs: Other (decrease bs) Cardiovascular: S1 Abdomen: Soft Neuro Exam: Alert Extremities: No Edema Labs Laboratory Tests Test 11/26/16 12:15 11/26/16 16:27 11/26/16 20:22 11/26/16 22:30 Glucose (Fingerstick) 93 mg/dL (70-99) 90 mg/dL (70-99) 141 mg/dL (70-99) 205 mg/dL (70-99) Test 11/27/16 05:00 11/27/16 07:06 11/27/16 11:48 11/27/16 17:07 White Blood Count 7.2 x10^3/uL (4.0-11.0) Red Blood Count 2.35 x10^6/uL (3.50-5.40) Hemoglobin 7.6 g/dL (12.0-15.5) Hematocrit 23.0 % (36.0-47.0) Mean Corpuscular Volume 98 fL (79-100) Mean Corpuscular Hemoglobin 32 pg (25-35) Mean Corpuscular Hemoglobin Concent 33 g/dL (31-37) Red Cell Distribution Width 14.4 % (11.5-14.5) Platelet Count 146 x10^3/uL (140-400) Neutrophils (%) (Auto) 89 % (31-73) Lymphocytes (%) (Auto) 8 % (24-48) Monocytes (%) (Auto) 3 % (0-9) Eosinophils (%) (Auto) 0 % (0-3) Basophils (%) (Auto) 1 % (0-3) Neutrophils # (Auto) 6.4 x10^3uL (1.8-7.7) Lymphocytes # (Auto) 0.5 x10^3/uL (1.0-4.8) Monocytes # (Auto) 0.2 x10^3/uL (0.0-1.1) Eosinophils # (Auto) 0.0 x10^3/uL (0.0-0.7) Basophils # (Auto) 0.0 x10^3/uL (0.0-0.2) Segmented Neutrophils % 82 % (35-66) Band Neutrophils % 8 % (0-9) Lymphocytes % 9 % (24-48) Monocytes % 1 % (0-10) Platelet Estimate Adequate (ADEQUATE) Sodium Level 139 mmol/L (136-145) Potassium Level 4.3 mmol/L (3.5-5.1) Chloride Level 106 mmol/L (98-107) Carbon Dioxide Level 24 mmol/L (21-32) Anion Gap 9 (6-14) Blood Urea Nitrogen 31 mg/dL (7-20) Creatinine 1.2 mg/dL (0.6-1.0) Estimated GFR (Cockcroft-Gault) 42.8 Glucose Level 220 mg/dL (70-99) Calcium Level 8.6 mg/dL (8.5-10.1) 25-Hydroxy Vitamin D Total 45.2 ng/mL (30.0-100.0) Glucose (Fingerstick) 204 mg/dL (70-99) 164 mg/dL (70-99) 129 mg/dL (70-99) Test 11/28/16 05:50 11/28/16 07:02 White Blood Count 8.8 x10^3/uL (4.0-11.0) Red Blood Count 3.44 x10^6/uL (3.50-5.40) Hemoglobin 10.8 g/dL (12.0-15.5) Hematocrit 31.5 % (36.0-47.0) Mean Corpuscular Volume 92 fL (79-100) Mean Corpuscular Hemoglobin 31 pg (25-35) Mean Corpuscular Hemoglobin Concent 34 g/dL (31-37) Red Cell Distribution Width 16.9 % (11.5-14.5) Platelet Count 133 x10^3/uL (140-400) Neutrophils (%) (Auto) 75 % (31-73) Lymphocytes (%) (Auto) 14 % (24-48) Monocytes (%) (Auto) 9 % (0-9) Eosinophils (%) (Auto) 2 % (0-3) Basophils (%) (Auto) 1 % (0-3) Neutrophils # (Auto) 6.6 x10^3uL (1.8-7.7) Lymphocytes # (Auto) 1.2 x10^3/uL (1.0-4.8) Monocytes # (Auto) 0.8 x10^3/uL (0.0-1.1) Eosinophils # (Auto) 0.2 x10^3/uL (0.0-0.7) Basophils # (Auto) 0.0 x10^3/uL (0.0-0.2) Sodium Level 138 mmol/L (136-145) Potassium Level 3.6 mmol/L (3.5-5.1) Chloride Level 106 mmol/L (98-107) Carbon Dioxide Level 26 mmol/L (21-32) Anion Gap 6 (6-14) Blood Urea Nitrogen 27 mg/dL (7-20) Creatinine 1.1 mg/dL (0.6-1.0) Estimated GFR (Cockcroft-Gault) 47.3 Glucose Level 96 mg/dL (70-99) Calcium Level 8.6 mg/dL (8.5-10.1) Glucose (Fingerstick) 90 mg/dL (70-99) Laboratory Tests Test 11/27/16 17:07 11/28/16 05:50 11/28/16 07:02 Glucose (Fingerstick) 129 mg/dL (70-99) 90 mg/dL (70-99) White Blood Count 8.8 x10^3/uL (4.0-11.0) Red Blood Count 3.44 x10^6/uL (3.50-5.40) Hemoglobin 10.8 g/dL (12.0-15.5) Hematocrit 31.5 % (36.0-47.0) Mean Corpuscular Volume 92 fL (79-100) Mean Corpuscular Hemoglobin 31 pg (25-35) Mean Corpuscular Hemoglobin Concent 34 g/dL (31-37) Red Cell Distribution Width 16.9 % (11.5-14.5) Platelet Count 133 x10^3/uL (140-400) Neutrophils (%) (Auto) 75 % (31-73) Lymphocytes (%) (Auto) 14 % (24-48) Monocytes (%) (Auto) 9 % (0-9) Eosinophils (%) (Auto) 2 % (0-3) Basophils (%) (Auto) 1 % (0-3) Neutrophils # (Auto) 6.6 x10^3uL (1.8-7.7) Lymphocytes # (Auto) 1.2 x10^3/uL (1.0-4.8) Monocytes # (Auto) 0.8 x10^3/uL (0.0-1.1) Eosinophils # (Auto) 0.2 x10^3/uL (0.0-0.7) Basophils # (Auto) 0.0 x10^3/uL (0.0-0.2) Sodium Level 138 mmol/L (136-145) Potassium Level 3.6 mmol/L (3.5-5.1) Chloride Level 106 mmol/L (98-107) Carbon Dioxide Level 26 mmol/L (21-32) Anion Gap 6 (6-14) Blood Urea Nitrogen 27 mg/dL (7-20) Creatinine 1.1 mg/dL (0.6-1.0) Estimated GFR (Cockcroft-Gault) 47.3 Glucose Level 96 mg/dL (70-99) Calcium Level 8.6 mg/dL (8.5-10.1) Medications Active Scripts Medications Dose Route/Sig Max Daily Dose Days Date Category Stool Softener (Docusate Sodium) 100 Mg Capsule 100 Mg PO DAILYWLUN 11/26/16 Reported Hysingla ER (Hydrocodone Bitartrate) 40 Mg Tab.er.24h 50 Mg PO DAILYWLUN 11/26/16 Reported Famotidine 20 Mg Tablet 20 Mg PO HS 11/26/16 Reported Calcium 600 + Vit D 200 Tablet (Calcium Carbonate/Vitamin D3) 1 Each Tablet 1 Each PO BID 11/26/16 Reported Novolog (Insulin Aspart) 100 Unit/1 Ml Vial 8 Unit SQ PRN PRN 06/20/14 Reported Simvastatin 20 Mg Tablet 1 Tab PO QHS 06/20/14 Reported Daily Vitamin (Multivitamin) 1 Each Tablet 1 Each PO 06/20/14 Reported Lantus (Insulin Glargine,Hum.rec.anlog) 100 Unit/1 Ml Vial 10 Unit SQ 06/20/14 Reported Cymbalta (Duloxetine Hcl) 30 Mg Capsule.dr 1 Cap PO DAILY 06/20/14 Reported Carvedilol 12.5 Mg Tablet 1 Tab PO BID 06/20/14 Reported Aspirin 81 Mg Tab.chew 1 Tab PO DAILY 06/20/14 Reported Impression . 1. Large Left upper lobe mass. s/p ct guided biopsy 2. Recent fall suffering a fracture of the right intertrochanteric area. 3. Coronary artery disease with previous coronary artery bypass grafting. 4. History of breast cancer. 5. Tobacco dependence in remission. 6. Underlying chronic obstructive pulmonary disease. 7. Multiple other comorbidities as indicated above. 8. PTX, post biopsy. s/p left chest tube Plan . 1. s/p repair of her right hip, 2. d/w path. 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 Poor performance status. will consult opinion from medical/radiation oncology 4. follow cxr. no air leak. may take chest tube out in am d/w [facility] SHON ELY MD Nov 28, 2016 11:56
--- NOTE | 2016-11-28 12:27 | PATHOLOGY ---
PATHOLOGY REPORT * * * * * * * * FINAL DIAGNOSIS: Lung tissue, left lung mass, CT-guided biopsy: - POORLY DIFFERENTIATED SQUAMOUS CELL CARCINOMA. SEE COMMENT. COMMENT: Sections of the left lung mass CT-guided biopsy show extensive replacement of lung parenchyma by a malignant epithelial neoplasm. The malignant cells are present in irregular solid nests within a chronically inflamed and reactive desmoplastic stroma focally containing bronchial cartilage and bronchial mucosa.. The malignant cells have a polygonal shape with fairly well demarcated cell borders. The malignant cells have variable amounts of pale eosinophilic cytoplasm, and possess enlarged, rounded to ovoid hyperchromatic nuclei sometimes containing prominent nucleoli. There is focal marked nuclear pleomorphism. Tumor cells focally contain more abundant amounts of densely eosinophilic keratinized cytoplasm. There are focal dyskeratotic cells. Mitotic figures are present. The morphologic findings are supportive of the diagnosis of poorly differentiated squamous cell carcinoma. The case is also examined by Dr. Aniket Young, who concurs with the diagnosis. The results are reported to on 11/28/2016 at 10:11 a.m. REPORT ELECTRONICALLY SIGNED BY: Juanito Jaimes M.D. DATE/TIME: 11/28/2016 12:22 * * * * * * * * GROSS PATHOLOGY: Received in formalin labeled "Concetta Gamble, left lung biopsy," are multiple fragmented needle cores of hernandez soft tissue ranging from 0.3 to 1.4 cm in length, which are submitted entirely in cassette A1. ([facility]; 11/27/16) INITIAL CPT CODE(S): A; 41258 Professional services performed by [facility] at [address] [address] Technical services performed by [facility] at [address] [place] [address]. SPECIMEN(S) RECEIVED: A.Left lung mass CLINICAL HISTORY: Large 4cm left lung mass, smoker, ? bronch ca? PATIENT: CONCETTA GAMBLE /AGE: 3 1930 (Age: 86) PATIENT #: [id number] ALT CASE #: SPECIMEN COLLECTION DATE: 11/27/2016 SPECIMEN RECEIVED DATE: 11/27/2016 [facility] - [address] [place] [address] - PHONE: [phone] * * * END OF REPORT * * *
--- NOTE | 2016-11-28 13:31 | PDOC ---
PROGRESS NOTES Subjective Subjective Problems overnight: None. Patient does complain of more pain today than yesterday. Objective Vital Signs Vital Signs Date Time Temp Pulse Resp B/P (MAP) Pulse Ox O2 Delivery O2 Flow Rate FiO2 11/28/16 11:56 18 Room Air 11/28/16 11:00 97.7 92 132/48 (76) 90 97.7 11/28/16 07:00 2.0 Physical Exam Dressings clean dry and intact, steri strips in place. Distal pulses full and equal. Distal sensation intact and grossly moves feet and toes. Labs Laboratory Tests Test 11/26/16 16:27 11/26/16 20:22 11/26/16 22:30 11/27/16 05:00 Glucose (Fingerstick) 90 mg/dL (70-99) 141 mg/dL (70-99) 205 mg/dL (70-99) White Blood Count 7.2 x10^3/uL (4.0-11.0) Red Blood Count 2.35 x10^6/uL (3.50-5.40) Hemoglobin 7.6 g/dL (12.0-15.5) Hematocrit 23.0 % (36.0-47.0) Mean Corpuscular Volume 98 fL (79-100) Mean Corpuscular Hemoglobin 32 pg (25-35) Mean Corpuscular Hemoglobin Concent 33 g/dL (31-37) Red Cell Distribution Width 14.4 % (11.5-14.5) Platelet Count 146 x10^3/uL (140-400) Neutrophils (%) (Auto) 89 % (31-73) Lymphocytes (%) (Auto) 8 % (24-48) Monocytes (%) (Auto) 3 % (0-9) Eosinophils (%) (Auto) 0 % (0-3) Basophils (%) (Auto) 1 % (0-3) Neutrophils # (Auto) 6.4 x10^3uL (1.8-7.7) Lymphocytes # (Auto) 0.5 x10^3/uL (1.0-4.8) Monocytes # (Auto) 0.2 x10^3/uL (0.0-1.1) Eosinophils # (Auto) 0.0 x10^3/uL (0.0-0.7) Basophils # (Auto) 0.0 x10^3/uL (0.0-0.2) Segmented Neutrophils % 82 % (35-66) Band Neutrophils % 8 % (0-9) Lymphocytes % 9 % (24-48) Monocytes % 1 % (0-10) Platelet Estimate Adequate (ADEQUATE) Sodium Level 139 mmol/L (136-145) Potassium Level 4.3 mmol/L (3.5-5.1) Chloride Level 106 mmol/L (98-107) Carbon Dioxide Level 24 mmol/L (21-32) Anion Gap 9 (6-14) Blood Urea Nitrogen 31 mg/dL (7-20) Creatinine 1.2 mg/dL (0.6-1.0) Estimated GFR (Cockcroft-Gault) 42.8 Glucose Level 220 mg/dL (70-99) Calcium Level 8.6 mg/dL (8.5-10.1) 25-Hydroxy Vitamin D Total 45.2 ng/mL (30.0-100.0) Test 11/27/16 07:06 11/27/16 11:48 11/27/16 17:07 11/28/16 05:50 Glucose (Fingerstick) 204 mg/dL (70-99) 164 mg/dL (70-99) 129 mg/dL (70-99) White Blood Count 8.8 x10^3/uL (4.0-11.0) Red Blood Count 3.44 x10^6/uL (3.50-5.40) Hemoglobin 10.8 g/dL (12.0-15.5) Hematocrit 31.5 % (36.0-47.0) Mean Corpuscular Volume 92 fL (79-100) Mean Corpuscular Hemoglobin 31 pg (25-35) Mean Corpuscular Hemoglobin Concent 34 g/dL (31-37) Red Cell Distribution Width 16.9 % (11.5-14.5) Platelet Count 133 x10^3/uL (140-400) Neutrophils (%) (Auto) 75 % (31-73) Lymphocytes (%) (Auto) 14 % (24-48) Monocytes (%) (Auto) 9 % (0-9) Eosinophils (%) (Auto) 2 % (0-3) Basophils (%) (Auto) 1 % (0-3) Neutrophils # (Auto) 6.6 x10^3uL (1.8-7.7) Lymphocytes # (Auto) 1.2 x10^3/uL (1.0-4.8) Monocytes # (Auto) 0.8 x10^3/uL (0.0-1.1) Eosinophils # (Auto) 0.2 x10^3/uL (0.0-0.7) Basophils # (Auto) 0.0 x10^3/uL (0.0-0.2) Sodium Level 138 mmol/L (136-145) Potassium Level 3.6 mmol/L (3.5-5.1) Chloride Level 106 mmol/L (98-107) Carbon Dioxide Level 26 mmol/L (21-32) Anion Gap 6 (6-14) Blood Urea Nitrogen 27 mg/dL (7-20) Creatinine 1.1 mg/dL (0.6-1.0) Estimated GFR (Cockcroft-Gault) 47.3 Glucose Level 96 mg/dL (70-99) Calcium Level 8.6 mg/dL (8.5-10.1) Test 11/28/16 07:02 11/28/16 11:57 Glucose (Fingerstick) 90 mg/dL (70-99) 206 mg/dL (70-99) Laboratory Tests Test 11/27/16 17:07 11/28/16 05:50 11/28/16 07:02 11/28/16 11:57 Glucose (Fingerstick) 129 mg/dL (70-99) 90 mg/dL (70-99) 206 mg/dL (70-99) White Blood Count 8.8 x10^3/uL (4.0-11.0) Red Blood Count 3.44 x10^6/uL (3.50-5.40) Hemoglobin 10.8 g/dL (12.0-15.5) Hematocrit 31.5 % (36.0-47.0) Mean Corpuscular Volume 92 fL (79-100) Mean Corpuscular Hemoglobin 31 pg (25-35) Mean Corpuscular Hemoglobin Concent 34 g/dL (31-37) Red Cell Distribution Width 16.9 % (11.5-14.5) Platelet Count 133 x10^3/uL (140-400) Neutrophils (%) (Auto) 75 % (31-73) Lymphocytes (%) (Auto) 14 % (24-48) Monocytes (%) (Auto) 9 % (0-9) Eosinophils (%) (Auto) 2 % (0-3) Basophils (%) (Auto) 1 % (0-3) Neutrophils # (Auto) 6.6 x10^3uL (1.8-7.7) Lymphocytes # (Auto) 1.2 x10^3/uL (1.0-4.8) Monocytes # (Auto) 0.8 x10^3/uL (0.0-1.1) Eosinophils # (Auto) 0.2 x10^3/uL (0.0-0.7) Basophils # (Auto) 0.0 x10^3/uL (0.0-0.2) Sodium Level 138 mmol/L (136-145) Potassium Level 3.6 mmol/L (3.5-5.1) Chloride Level 106 mmol/L (98-107) Carbon Dioxide Level 26 mmol/L (21-32) Anion Gap 6 (6-14) Blood Urea Nitrogen 27 mg/dL (7-20) Creatinine 1.1 mg/dL (0.6-1.0) Estimated GFR (Cockcroft-Gault) 47.3 Glucose Level 96 mg/dL (70-99) Calcium Level 8.6 mg/dL (8.5-10.1) Imaging Plain films reveal post operative right hip nailing in good placement. Assessment Assessment POD# 2, S/P Right hip intertrochanteric nailing Problems: (1) Closed right hip fracture Plan Plan of Care Continue post operative care as planned with pain control, DVT prophylaxis with SCDs, bowel regimen and get patient moving with physical therapy/ot. Problem Qualifiers (1) Closed right hip fracture: Encounter type: initial encounter Qualified Codes: S72.001A - Fracture of unspecified part of neck of right femur, initial encounter for closed fracture IRON RUIZ PAC Nov 28, 2016 13:31
--- NOTE | 2016-11-28 13:35 | RAD ---
Portable chest, 2 views, 11/28/2016: History: Pleural drain placement Inspiration and expiration AP views of the chest were obtained and compared to a study from 11/27/2016. A pigtail pleural drain has been placed on the left. The previously seen left-sided pneumothorax has decreased in size. There is a small residual pneumothorax in the left apex. The patient's known left mid lung mass is unchanged. There are scattered parenchymal scars. There is no evidence of pleural fluid. The heart size is normal. IMPRESSION: 1. The left-sided pneumothorax has decreased in size status post left pleural drain placement. 2. No other significant interval change.
[2016-11-28] MEDS ORDERED: IOHEXOL 300 MG/ML 75 ML VIAL IV ONE ×2 (14:00→15:15)
[2016-11-28] MEDS ORDERED: CONTRAST GIVEN MC PRN ×2 (14:00→15:15)
[2016-11-28 15:00] VITALS: BP 177/76
--- NOTE | 2016-11-28 15:56 | PDOC ---
Provider Note Provider Note Onc consult dictated- [id number] SCCa of LATOYA, noncalcified nodule in LLL unclear etiology, incidentally noted on preoperative CXR, asymptomatic R femur fx s/p repair Unclear baseline functional status Plan: - Stage CT A/P, head - If localized disease, defer surgical candidacy to CTS, consideration of RT w/ Dr. Lim if PS improves - Chemo not recommended due to toxicity, low benefit. She does not want it anyway. D/W Dr. Lim. JANN ALATORRE DO Nov 28, 2016 15:56
--- NOTE | 2016-11-28 16:01 | RAD ---
CT of the head with and without contrast, 11/28/2016: History: Lung cancer staging Multidetector CT imaging was performed prior to and following an IV bolus injection of iodinated contrast material. There is moderate cerebral and cerebellar atrophy. There is a small old infarct in the left frontoparietal region. There are mild deep white matter lucencies bilaterally compatible with chronic ischemic change. There is no evidence of intracranial hemorrhage or mass effect. The postcontrast scans show no area of abnormal enhancement. IMPRESSION: 1. Cerebral and cerebellar atrophy. 2. Small left frontal lobe infarct. 3. Mild chronic ischemic change in the deep white matter bilaterally. 4. No CT evidence of intracranial metastatic disease. PQRS Compliance Statement: One or more of the following individualized dose reduction techniques were utilized for this examination: 1. Automated exposure control 2. Adjustment of the mA and/or kV according to patient size 3. Use of iterative reconstruction technique
--- NOTE | 2016-11-28 16:14 | RAD ---
CT of the abdomen and pelvis with contrast, 11/28/2016: History: Cancer staging Multidetector CT imaging was performed following an IV bolus injection of iodinated contrast material. No oral contrast material was administered as requested. Comparison is made to a study from 06/20/2014. A left pleural drain is in place. There is mild atelectasis in the posterior costophrenic angles bilaterally. The gallbladder is surgically absent. There is mild prominence of the central intrahepatic bile ducts and the common bile duct, presumably on a postcholecystectomy basis. No hepatic mass is identified. The pancreas is unremarkable. The spleen is not enlarged. There is bilateral renal cortical scarring. There appear to be 2 small probable cysts in the left kidney, although not clearly defined due to streak artifacts related to the patient's arms. The kidneys show no evidence of obstruction. No adrenal abnormality is detected. There is extensive aortoiliac calcific plaquing. Coronary artery calcifications are also present. An inferior vena cava filter is in place. No abdominal or pelvic adenopathy is seen. A Ackerman catheter is present in the collapsed urinary bladder. Artifacts arising from a right hip fixation device degrade image quality in the lower pelvis. The bowel loops are not dilated. No free fluid or free air is evident in the abdomen or pelvis. There are multiple old lumbar and lower thoracic vertebral compression fractures with vertebroplasty changes at multiple levels. There are postsurgical changes at the right hip with moderate streaky edema and gas collections in the soft tissues secondary to the recent hip pinning. IMPRESSION: 1. Miscellaneous chronic findings as described above. 2. Recent right hip pinning. 3. No CT evidence of metastatic disease in the abdomen or pelvis. PQRS Compliance Statement: One or more of the following individualized dose reduction techniques were utilized for this examination: 1. Automated exposure control 2. Adjustment of the mA and/or kV according to patient size 3. Use of iterative reconstruction technique
--- NOTE | 2016-11-28 18:13 | PDOC2 ---
PALLIATIVE CARE Palliative Care Note Palliative Care Patient seen at [address] Pastor to address Code Status Diagnosis; R hip fracture; post hip nailing. Lung mass --bx. squamous cell carcinoma. Received permission from patient to meet with and son to discuss plan of care Met with patient's Meng, emeka Brenner. patient has 2 children . Discussed above diagnosis; Family would like to wait on decisions about code status until they have all the information/alternatives concerning lung cancer Will meet again when more information available. EDWIN PHILLIPS Nov 28, 2016 18:13
[2016-11-28 19:00] VITALS: BP 151/65
[2016-11-28] MEDS: SIMVASTATIN 20 MG TABLET PO SCH (21:00)
[2016-11-28] MEDS: INSULIN DETEMIR 300 UNITS/3 ML INSULN.PEN. SQ SCH (21:00)
[2016-11-28] MEDS: FAMOTIDINE 20 MG TABLET. PO SCH (21:00)
[2016-11-28 23:32] VITALS: BP 172/68
[2016-11-29] VITALS (8 sets, daily range): BP systolic 153–230; BP diastolic 63–117
[2016-11-29] MEDS: traMADol 50 MG TABLET PO PRN ×2 (03:33→18:41)
--- NOTE | 2016-11-29 03:43 | CONS ---
DATE OF CONSULTATION: 11/28/2016 REFERRING PROVIDER: Dr. Melgoza. REASON FOR CONSULTATION: Lung cancer. HISTORY OF PRESENT ILLNESS: The patient is an 86-year-old female who recently fell when she was apparently tripped by her cat. She presented with a right hip fracture and has since undergone surgical repair; however, preoperative chest x-ray revealed a left-sided lung mass. CT of chest confirmed a 4.2-cm left upper lung mass with no other obvious adenopathy. There was also a 3-mm noncalcified left lower lung nodule as well. The of the larger mass biopsy did confirm poorly-differentiated squamous cell carcinoma. She is a very poor historian, but it sounds like she was asymptomatic from this preoperatively. She has had some chronic intermittent headaches. I cannot gain an accurate assessment of her baseline functional status. Per family, sometimes she can sleep for multiple days, but then have more energy and be reasonably active at home. PAST MEDICAL HISTORY: Heart disease, status post PA, hypertension, hyperlipidemia, COPD, possible dementia, TIA, diabetes, osteoporosis, breast cancer in the 1980s, hyperparathyroidism. PAST SURGICAL HISTORY: Appendectomy, cholecystectomy, CABG, left mastectomy, hysterectomy, chest tube placement. FAMILY HISTORY: Heart disease. SOCIAL HISTORY: . She previously smoked for 50 plus years, several packs a day and quit possibly 10 years ago, though she and her family cannot decide on these statistics. ALLERGIES: FENTANYL. CURRENT MEDICATIONS: Lovenox, Coreg, Levemir, simvastatin, Pepcid, NovoLog, Colace, hydralazine, tramadol, Zofran, morphine, Tylenol, Cymbalta, Children's Aspirin, Os-Arthur plus D. REVIEW OF SYSTEMS: Very difficult to obtain in this patient. Ten-point review of systems attempted and significant mostly for headaches, occasional cough, but nothing significant. New right hip pain following her recent fracture and repair. PHYSICAL EXAMINATION: VITAL SIGNS: Temperature 98.2, pulse 90, respiratory rate 18, blood pressure 177/76, O2 95% on room air. GENERAL: She is alert and oriented. She is not in any distress at this time. HEENT: Extraocular muscles are intact. Sclerae are without icterus. Mucous membranes are moist. CARDIOVASCULAR: Heart is regular in rhythm and rate. LUNGS: Clear to auscultation bilaterally. ABDOMEN: Soft and nontender. EXTREMITIES: No edema. Dressings in place on right femur. NEUROLOGIC: Very poor historian, but no focal deficits. IMAGING AND LABORATORY DATA: Hip x-ray did confirm a fracture of her right femur. Chest x-ray and CT of chest with a left lung mass as reviewed above. CBC relatively overall unremarkable in addition to unremarkable CMP. ASSESSMENT AND PLAN: The patient is an 86-year-old female with the following medical problems: 1. Incidentally-noted poorly-differentiated squamous cell of the left upper lung, possibly [id number]; however, if the left lower lung nodule appears to be involved, she may have more advanced stage 3 disease. I defer surgical candidacy to Dr. Breen, Cardiothoracic Surgery. However, I cannot gather that she has an excellent performance status at this time fit for surgery. I have discussed her case with Dr. Lim. We agree that she needs to recover first from her recent hip fracture surgery and see how well her performance status is in the future. She will be a very poor candidate for chemotherapy and I recommend against this. We should get baseline CT of abdomen/pelvis and CT of head scans for further staging. If not a surgical candidate, Dr. Lim plans to consider radiation if she does prove to have localized disease and improves her performance status. Otherwise, he would follow with ongoing CT imaging. Overall, it appears she was asymptomatic from this incidentally-noted lung cancer, and therefore, given her advanced age, questionable performance status, and comorbidities, a conservative approach would likely be most warranted. 2. Recent right hip fracture, status post repair. 3. Possible baseline dementia. She is indeed an extremely poor historian and I cannot gather that she has a very good performance status. We will certainly need to declare herself fit for future treatment in the future. She and her family voiced understanding. Thank you for allowing me to participate in her care. Discussed with Dr. Lim. ADDENDUM: CT A/P and head returned negative for metastatic disease. JANN ALATORRE DO DR: JAZZMINE/danny JOB#: [id number] / [id number] AKOSUA
[2016-11-29] MEDS: ONDANSETRON PF 4 MG/2 ML VIAL. IV PRN ×2 (05:18→11:18)
[2016-11-29] MEDS: hydrALAZINE 20 MG/ML VIAL. IVP PRN ×2 (05:20→12:10)
[2016-11-29 07:42] LABS: BASO % 0 % (0-3); EOS % 0 % (0-3); HEMATOCRIT 36.2 % (36.0-47.0); HEMOGLOBIN 11.9 g/dL (12.0-15.5); LYMPH # 0.7 x10^3/uL (1.0-4.8); LYMPH % 5 % (24-48); MEAN CORPUSCULAR HEMOGLOBIN 30 pg (25-35); MEAN CORPUSCULAR HGB CONC 33 g/dL (31-37); MEAN CORPUSCULAR VOLUME 92 fL (79-100); MONO % 4 % (0-9); NEUT % 91 % (31-73); PLATELET COUNT 172 x10^3/uL (140-400); RED BLOOD COUNT 3.93 x10^6/uL (3.50-5.40); RED CELL DISTRIBUTION WIDTH 16.2 % (11.5-14.5); WHITE BLOOD COUNT 14.4 x10^3/uL (4.0-11.0)
[2016-11-29 07:56] LABS: CALCIUM 8.8 mg/dL (8.5-10.1); GFR 52.8; POTASSIUM 3.5 mmol/L (3.5-5.1)
[2016-11-29] MEDS: DULoxetine HCL 30 MG CAPSULE.DR PO SCH (08:38)
[2016-11-29] MEDS: CALCIUM CARB/VIT D3 500/200 TABLET. PO SCH ×2 (08:38→18:41)
[2016-11-29] MEDS: CARVEDILOL 12.5 MG TABLET. PO SCH ×2 (08:38→18:41)
[2016-11-29] MEDS: ASPIRIN CHEWABLE 81 MG TABLET. PO SCH (08:38)
[2016-11-29] MEDS: ENOXAPARIN 30 MG/0.3 ML SYRINGE. SQ SCH (08:39)
[2016-11-29] MEDS: INSULIN ASPART 300 UNITS/3 ML INSULN.PEN SQ SCH ×3 (08:51→18:44)
--- NOTE | 2016-11-29 08:51 | RAD ---
Portable chest, 11/29/2016: History: Follow-up pneumothorax Comparison is made to yesterday's study. A left pleural drain remains in place. There is a small left apical pneumothorax which has decreased in size since yesterday's study. Again noted is a left upper chest mass. There are scattered parenchymal scars. No new pulmonary abnormality is seen. No significant pleural fluid is evident. The heart size is unchanged. IMPRESSION: Interval decrease in size of the small left apical pneumothorax.
--- NOTE | 2016-11-29 08:53 | PDOC ---
PULMONARY PROGRESS NOTES Subjective S/P CT GUIDED LEFT LUNG BIOPSY SMALL LEFT PTX, CHEST TUBE IN PLACE NO SOA Vitals Vital Signs Date Time Temp Pulse Resp B/P (MAP) Pulse Ox O2 Delivery O2 Flow Rate FiO2 11/29/16 05:58 72 188/74 (112) 11/29/16 04:35 90 Room Air 11/29/16 03:00 98.5 18 98.5 11/28/16 07:00 2.0 General: Alert, No acute distress Lungs: Other (decrease bs) Cardiovascular: S1 Abdomen: Soft Neuro Exam: Alert Extremities: No Edema Labs Laboratory Tests Test 11/27/16 11:48 11/27/16 17:07 11/28/16 05:50 11/28/16 07:02 Glucose (Fingerstick) 164 mg/dL (70-99) 129 mg/dL (70-99) 90 mg/dL (70-99) White Blood Count 8.8 x10^3/uL (4.0-11.0) Red Blood Count 3.44 x10^6/uL (3.50-5.40) Hemoglobin 10.8 g/dL (12.0-15.5) Hematocrit 31.5 % (36.0-47.0) Mean Corpuscular Volume 92 fL (79-100) Mean Corpuscular Hemoglobin 31 pg (25-35) Mean Corpuscular Hemoglobin Concent 34 g/dL (31-37) Red Cell Distribution Width 16.9 % (11.5-14.5) Platelet Count 133 x10^3/uL (140-400) Neutrophils (%) (Auto) 75 % (31-73) Lymphocytes (%) (Auto) 14 % (24-48) Monocytes (%) (Auto) 9 % (0-9) Eosinophils (%) (Auto) 2 % (0-3) Basophils (%) (Auto) 1 % (0-3) Neutrophils # (Auto) 6.6 x10^3uL (1.8-7.7) Lymphocytes # (Auto) 1.2 x10^3/uL (1.0-4.8) Monocytes # (Auto) 0.8 x10^3/uL (0.0-1.1) Eosinophils # (Auto) 0.2 x10^3/uL (0.0-0.7) Basophils # (Auto) 0.0 x10^3/uL (0.0-0.2) Sodium Level 138 mmol/L (136-145) Potassium Level 3.6 mmol/L (3.5-5.1) Chloride Level 106 mmol/L (98-107) Carbon Dioxide Level 26 mmol/L (21-32) Anion Gap 6 (6-14) Blood Urea Nitrogen 27 mg/dL (7-20) Creatinine 1.1 mg/dL (0.6-1.0) Estimated GFR (Cockcroft-Gault) 47.3 Glucose Level 96 mg/dL (70-99) Calcium Level 8.6 mg/dL (8.5-10.1) Test 11/28/16 11:57 11/28/16 16:34 11/28/16 20:47 11/29/16 07:30 Glucose (Fingerstick) 206 mg/dL (70-99) 133 mg/dL (70-99) 190 mg/dL (70-99) White Blood Count 14.4 x10^3/uL (4.0-11.0) Red Blood Count 3.93 x10^6/uL (3.50-5.40) Hemoglobin 11.9 g/dL (12.0-15.5) Hematocrit 36.2 % (36.0-47.0) Mean Corpuscular Volume 92 fL (79-100) Mean Corpuscular Hemoglobin 30 pg (25-35) Mean Corpuscular Hemoglobin Concent 33 g/dL (31-37) Red Cell Distribution Width 16.2 % (11.5-14.5) Platelet Count 172 x10^3/uL (140-400) Neutrophils (%) (Auto) 91 % (31-73) Lymphocytes (%) (Auto) 5 % (24-48) Monocytes (%) (Auto) 4 % (0-9) Eosinophils (%) (Auto) 0 % (0-3) Basophils (%) (Auto) 0 % (0-3) Neutrophils # (Auto) 13.1 x10^3uL (1.8-7.7) Lymphocytes # (Auto) 0.7 x10^3/uL (1.0-4.8) Monocytes # (Auto) 0.5 x10^3/uL (0.0-1.1) Eosinophils # (Auto) 0.0 x10^3/uL (0.0-0.7) Basophils # (Auto) 0.0 x10^3/uL (0.0-0.2) Sodium Level 129 mmol/L (136-145) Potassium Level 3.5 mmol/L (3.5-5.1) Chloride Level 93 mmol/L (98-107) Carbon Dioxide Level 26 mmol/L (21-32) Anion Gap 10 (6-14) Blood Urea Nitrogen 18 mg/dL (7-20) Creatinine 1.0 mg/dL (0.6-1.0) Estimated GFR (Cockcroft-Gault) 52.8 Glucose Level 308 mg/dL (70-99) Calcium Level 8.8 mg/dL (8.5-10.1) Laboratory Tests Test 11/28/16 11:57 11/28/16 16:34 11/28/16 20:47 11/29/16 07:30 Glucose (Fingerstick) 206 mg/dL (70-99) 133 mg/dL (70-99) 190 mg/dL (70-99) White Blood Count 14.4 x10^3/uL (4.0-11.0) Red Blood Count 3.93 x10^6/uL (3.50-5.40) Hemoglobin 11.9 g/dL (12.0-15.5) Hematocrit 36.2 % (36.0-47.0) Mean Corpuscular Volume 92 fL (79-100) Mean Corpuscular Hemoglobin 30 pg (25-35) Mean Corpuscular Hemoglobin Concent 33 g/dL (31-37) Red Cell Distribution Width 16.2 % (11.5-14.5) Platelet Count 172 x10^3/uL (140-400) Neutrophils (%) (Auto) 91 % (31-73) Lymphocytes (%) (Auto) 5 % (24-48) Monocytes (%) (Auto) 4 % (0-9) Eosinophils (%) (Auto) 0 % (0-3) Basophils (%) (Auto) 0 % (0-3) Neutrophils # (Auto) 13.1 x10^3uL (1.8-7.7) Lymphocytes # (Auto) 0.7 x10^3/uL (1.0-4.8) Monocytes # (Auto) 0.5 x10^3/uL (0.0-1.1) Eosinophils # (Auto) 0.0 x10^3/uL (0.0-0.7) Basophils # (Auto) 0.0 x10^3/uL (0.0-0.2) Sodium Level 129 mmol/L (136-145) Potassium Level 3.5 mmol/L (3.5-5.1) Chloride Level 93 mmol/L (98-107) Carbon Dioxide Level 26 mmol/L (21-32) Anion Gap 10 (6-14) Blood Urea Nitrogen 18 mg/dL (7-20) Creatinine 1.0 mg/dL (0.6-1.0) Estimated GFR (Cockcroft-Gault) 52.8 Glucose Level 308 mg/dL (70-99) Calcium Level 8.8 mg/dL (8.5-10.1) Medications Active Scripts Medications Dose Route/Sig Max Daily Dose Days Date Category Stool Softener (Docusate Sodium) 100 Mg Capsule 100 Mg PO DAILYWLUN 11/26/16 Reported Hysingla ER (Hydrocodone Bitartrate) 40 Mg Tab.er.24h 50 Mg PO DAILYWLUN 11/26/16 Reported Famotidine 20 Mg Tablet 20 Mg PO HS 11/26/16 Reported Calcium 600 + Vit D 200 Tablet (Calcium Carbonate/Vitamin D3) 1 Each Tablet 1 Each PO BID 11/26/16 Reported Novolog (Insulin Aspart) 100 Unit/1 Ml Vial 8 Unit SQ PRN PRN 06/20/14 Reported Simvastatin 20 Mg Tablet 1 Tab PO QHS 06/20/14 Reported Daily Vitamin (Multivitamin) 1 Each Tablet 1 Each PO 06/20/14 Reported Lantus (Insulin Glargine,Hum.rec.anlog) 100 Unit/1 Ml Vial 10 Unit SQ 06/20/14 Reported Cymbalta (Duloxetine Hcl) 30 Mg Capsule.dr 1 Cap PO DAILY 06/20/14 Reported Carvedilol 12.5 Mg Tablet 1 Tab PO BID 06/20/14 Reported Aspirin 81 Mg Tab.chew 1 Tab PO DAILY 06/20/14 Reported Impression . 1. Large Left upper lobe mass. s/p ct guided biopsy, SQUAMOUS CELL 2. Recent fall suffering a fracture of the right intertrochanteric area. 3. Coronary artery disease with previous coronary artery bypass grafting. 4. History of breast cancer. 5. Tobacco dependence in remission. 6. Underlying chronic obstructive pulmonary disease. 7. Multiple other comorbidities as indicated above. 8. PTX, post biopsy. s/p left chest tube Plan . 1. s/p repair of her right hip, 2. d/w path. 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 Poor performance status. Appreciate medical/radiation oncology consults 4. follow cxr. no air leak. PTX reduced to 5%. may take chest tube out in am after clamping SHON ELY MD Nov 29, 2016 08:53
--- NOTE | 2016-11-29 10:49 | PDOC ---
PROGRESS NOTES Subjective Subjective Problems overnight: No new problems from an orthopedic standpoint. Objective Vital Signs Vital Signs Date Time Temp Pulse Resp B/P (MAP) Pulse Ox O2 Delivery O2 Flow Rate FiO2 11/29/16 08:38 72 188/74 11/29/16 07:00 95.2 20 98 Room Air 95.2 11/28/16 07:00 2.0 Physical Exam Patient awake but uncomfortable today due to pain in her chest from the chest tube and she is very nauseated. Incision sites still covered with steri strips, clean dry and intact with no drainage or surrounding erythema. Patient has full pedal pulses, sensation and grossly moves toes and feet. Labs Laboratory Tests Test 11/27/16 11:48 11/27/16 17:07 11/28/16 05:50 11/28/16 07:02 Glucose (Fingerstick) 164 mg/dL (70-99) 129 mg/dL (70-99) 90 mg/dL (70-99) White Blood Count 8.8 x10^3/uL (4.0-11.0) Red Blood Count 3.44 x10^6/uL (3.50-5.40) Hemoglobin 10.8 g/dL (12.0-15.5) Hematocrit 31.5 % (36.0-47.0) Mean Corpuscular Volume 92 fL (79-100) Mean Corpuscular Hemoglobin 31 pg (25-35) Mean Corpuscular Hemoglobin Concent 34 g/dL (31-37) Red Cell Distribution Width 16.9 % (11.5-14.5) Platelet Count 133 x10^3/uL (140-400) Neutrophils (%) (Auto) 75 % (31-73) Lymphocytes (%) (Auto) 14 % (24-48) Monocytes (%) (Auto) 9 % (0-9) Eosinophils (%) (Auto) 2 % (0-3) Basophils (%) (Auto) 1 % (0-3) Neutrophils # (Auto) 6.6 x10^3uL (1.8-7.7) Lymphocytes # (Auto) 1.2 x10^3/uL (1.0-4.8) Monocytes # (Auto) 0.8 x10^3/uL (0.0-1.1) Eosinophils # (Auto) 0.2 x10^3/uL (0.0-0.7) Basophils # (Auto) 0.0 x10^3/uL (0.0-0.2) Sodium Level 138 mmol/L (136-145) Potassium Level 3.6 mmol/L (3.5-5.1) Chloride Level 106 mmol/L (98-107) Carbon Dioxide Level 26 mmol/L (21-32) Anion Gap 6 (6-14) Blood Urea Nitrogen 27 mg/dL (7-20) Creatinine 1.1 mg/dL (0.6-1.0) Estimated GFR (Cockcroft-Gault) 47.3 Glucose Level 96 mg/dL (70-99) Calcium Level 8.6 mg/dL (8.5-10.1) Test 11/28/16 11:57 11/28/16 16:34 11/28/16 20:47 11/29/16 07:30 Glucose (Fingerstick) 206 mg/dL (70-99) 133 mg/dL (70-99) 190 mg/dL (70-99) White Blood Count 14.4 x10^3/uL (4.0-11.0) Red Blood Count 3.93 x10^6/uL (3.50-5.40) Hemoglobin 11.9 g/dL (12.0-15.5) Hematocrit 36.2 % (36.0-47.0) Mean Corpuscular Volume 92 fL (79-100) Mean Corpuscular Hemoglobin 30 pg (25-35) Mean Corpuscular Hemoglobin Concent 33 g/dL (31-37) Red Cell Distribution Width 16.2 % (11.5-14.5) Platelet Count 172 x10^3/uL (140-400) Neutrophils (%) (Auto) 91 % (31-73) Lymphocytes (%) (Auto) 5 % (24-48) Monocytes (%) (Auto) 4 % (0-9) Eosinophils (%) (Auto) 0 % (0-3) Basophils (%) (Auto) 0 % (0-3) Neutrophils # (Auto) 13.1 x10^3uL (1.8-7.7) Lymphocytes # (Auto) 0.7 x10^3/uL (1.0-4.8) Monocytes # (Auto) 0.5 x10^3/uL (0.0-1.1) Eosinophils # (Auto) 0.0 x10^3/uL (0.0-0.7) Basophils # (Auto) 0.0 x10^3/uL (0.0-0.2) Sodium Level 129 mmol/L (136-145) Potassium Level 3.5 mmol/L (3.5-5.1) Chloride Level 93 mmol/L (98-107) Carbon Dioxide Level 26 mmol/L (21-32) Anion Gap 10 (6-14) Blood Urea Nitrogen 18 mg/dL (7-20) Creatinine 1.0 mg/dL (0.6-1.0) Estimated GFR (Cockcroft-Gault) 52.8 Glucose Level 308 mg/dL (70-99) Calcium Level 8.8 mg/dL (8.5-10.1) Test 11/29/16 08:45 Glucose (Fingerstick) 321 mg/dL (70-99) Laboratory Tests Test 11/28/16 11:57 11/28/16 16:34 11/28/16 20:47 11/29/16 07:30 Glucose (Fingerstick) 206 mg/dL (70-99) 133 mg/dL (70-99) 190 mg/dL (70-99) White Blood Count 14.4 x10^3/uL (4.0-11.0) Red Blood Count 3.93 x10^6/uL (3.50-5.40) Hemoglobin 11.9 g/dL (12.0-15.5) Hematocrit 36.2 % (36.0-47.0) Mean Corpuscular Volume 92 fL (79-100) Mean Corpuscular Hemoglobin 30 pg (25-35) Mean Corpuscular Hemoglobin Concent 33 g/dL (31-37) Red Cell Distribution Width 16.2 % (11.5-14.5) Platelet Count 172 x10^3/uL (140-400) Neutrophils (%) (Auto) 91 % (31-73) Lymphocytes (%) (Auto) 5 % (24-48) Monocytes (%) (Auto) 4 % (0-9) Eosinophils (%) (Auto) 0 % (0-3) Basophils (%) (Auto) 0 % (0-3) Neutrophils # (Auto) 13.1 x10^3uL (1.8-7.7) Lymphocytes # (Auto) 0.7 x10^3/uL (1.0-4.8) Monocytes # (Auto) 0.5 x10^3/uL (0.0-1.1) Eosinophils # (Auto) 0.0 x10^3/uL (0.0-0.7) Basophils # (Auto) 0.0 x10^3/uL (0.0-0.2) Sodium Level 129 mmol/L (136-145) Potassium Level 3.5 mmol/L (3.5-5.1) Chloride Level 93 mmol/L (98-107) Carbon Dioxide Level 26 mmol/L (21-32) Anion Gap 10 (6-14) Blood Urea Nitrogen 18 mg/dL (7-20) Creatinine 1.0 mg/dL (0.6-1.0) Estimated GFR (Cockcroft-Gault) 52.8 Glucose Level 308 mg/dL (70-99) Calcium Level 8.8 mg/dL (8.5-10.1) Test 11/29/16 08:45 Glucose (Fingerstick) 321 mg/dL (70-99) Assessment Assessment POD# 3, S/P Right intertrochanteric fracture nailing Problems: Plan Plan of Care Continue PT/OT with weight bearing as tolerated Pain control: current order is hydrocodone, continue pain control as appropriate DVT prophylaxis: Continue use of SCDs. Bowel regimen: Patient currently taking docusate. Continue bowel regimen as needed for regular stooling. IRON RUIZ PAC Nov 29, 2016 10:49
--- NOTE | 2016-11-29 10:55 | PDOC ---
PROGRESS NOTES Subjective Subjective She c/o nausea this AM. Objective Objective Vital Signs Date Time Temp Pulse Resp B/P (MAP) Pulse Ox O2 Delivery O2 Flow Rate FiO2 11/29/16 08:38 72 188/74 11/29/16 07:00 95.2 20 98 Room Air 95.2 11/28/16 07:00 2.0 Intake and Output 11/29/16 07:00 Intake Total 300 ml Output Total 2400 ml Balance -2100 ml Intake Oral 300 ml Output Urine Total 2400 ml Physical Exam Physical Exam She is supine in bed and continues with painfully limited right hip ROM. Assessment Assessment Problems Medical Problems: (1) Closed right hip fracture Status: Acute Plan Plan of Care To continue present physical and occupational therapy follow up as she can tolerate. Comment Review of Relevant I have reviewed the following items alysha (where applicable) has been applied. Labs Laboratory Tests Test 11/27/16 11:48 11/27/16 17:07 11/28/16 05:50 11/28/16 07:02 Glucose (Fingerstick) 164 mg/dL (70-99) 129 mg/dL (70-99) 90 mg/dL (70-99) White Blood Count 8.8 x10^3/uL (4.0-11.0) Red Blood Count 3.44 x10^6/uL (3.50-5.40) Hemoglobin 10.8 g/dL (12.0-15.5) Hematocrit 31.5 % (36.0-47.0) Mean Corpuscular Volume 92 fL (79-100) Mean Corpuscular Hemoglobin 31 pg (25-35) Mean Corpuscular Hemoglobin Concent 34 g/dL (31-37) Red Cell Distribution Width 16.9 % (11.5-14.5) Platelet Count 133 x10^3/uL (140-400) Neutrophils (%) (Auto) 75 % (31-73) Lymphocytes (%) (Auto) 14 % (24-48) Monocytes (%) (Auto) 9 % (0-9) Eosinophils (%) (Auto) 2 % (0-3) Basophils (%) (Auto) 1 % (0-3) Neutrophils # (Auto) 6.6 x10^3uL (1.8-7.7) Lymphocytes # (Auto) 1.2 x10^3/uL (1.0-4.8) Monocytes # (Auto) 0.8 x10^3/uL (0.0-1.1) Eosinophils # (Auto) 0.2 x10^3/uL (0.0-0.7) Basophils # (Auto) 0.0 x10^3/uL (0.0-0.2) Sodium Level 138 mmol/L (136-145) Potassium Level 3.6 mmol/L (3.5-5.1) Chloride Level 106 mmol/L (98-107) Carbon Dioxide Level 26 mmol/L (21-32) Anion Gap 6 (6-14) Blood Urea Nitrogen 27 mg/dL (7-20) Creatinine 1.1 mg/dL (0.6-1.0) Estimated GFR (Cockcroft-Gault) 47.3 Glucose Level 96 mg/dL (70-99) Calcium Level 8.6 mg/dL (8.5-10.1) Test 11/28/16 11:57 11/28/16 16:34 11/28/16 20:47 11/29/16 07:30 Glucose (Fingerstick) 206 mg/dL (70-99) 133 mg/dL (70-99) 190 mg/dL (70-99) White Blood Count 14.4 x10^3/uL (4.0-11.0) Red Blood Count 3.93 x10^6/uL (3.50-5.40) Hemoglobin 11.9 g/dL (12.0-15.5) Hematocrit 36.2 % (36.0-47.0) Mean Corpuscular Volume 92 fL (79-100) Mean Corpuscular Hemoglobin 30 pg (25-35) Mean Corpuscular Hemoglobin Concent 33 g/dL (31-37) Red Cell Distribution Width 16.2 % (11.5-14.5) Platelet Count 172 x10^3/uL (140-400) Neutrophils (%) (Auto) 91 % (31-73) Lymphocytes (%) (Auto) 5 % (24-48) Monocytes (%) (Auto) 4 % (0-9) Eosinophils (%) (Auto) 0 % (0-3) Basophils (%) (Auto) 0 % (0-3) Neutrophils # (Auto) 13.1 x10^3uL (1.8-7.7) Lymphocytes # (Auto) 0.7 x10^3/uL (1.0-4.8) Monocytes # (Auto) 0.5 x10^3/uL (0.0-1.1) Eosinophils # (Auto) 0.0 x10^3/uL (0.0-0.7) Basophils # (Auto) 0.0 x10^3/uL (0.0-0.2) Sodium Level 129 mmol/L (136-145) Potassium Level 3.5 mmol/L (3.5-5.1) Chloride Level 93 mmol/L (98-107) Carbon Dioxide Level 26 mmol/L (21-32) Anion Gap 10 (6-14) Blood Urea Nitrogen 18 mg/dL (7-20) Creatinine 1.0 mg/dL (0.6-1.0) Estimated GFR (Cockcroft-Gault) 52.8 Glucose Level 308 mg/dL (70-99) Calcium Level 8.8 mg/dL (8.5-10.1) Test 11/29/16 08:45 Glucose (Fingerstick) 321 mg/dL (70-99) Laboratory Tests Test 11/28/16 11:57 11/28/16 16:34 11/28/16 20:47 11/29/16 07:30 Glucose (Fingerstick) 206 mg/dL (70-99) 133 mg/dL (70-99) 190 mg/dL (70-99) White Blood Count 14.4 x10^3/uL (4.0-11.0) Red Blood Count 3.93 x10^6/uL (3.50-5.40) Hemoglobin 11.9 g/dL (12.0-15.5) Hematocrit 36.2 % (36.0-47.0) Mean Corpuscular Volume 92 fL (79-100) Mean Corpuscular Hemoglobin 30 pg (25-35) Mean Corpuscular Hemoglobin Concent 33 g/dL (31-37) Red Cell Distribution Width 16.2 % (11.5-14.5) Platelet Count 172 x10^3/uL (140-400) Neutrophils (%) (Auto) 91 % (31-73) Lymphocytes (%) (Auto) 5 % (24-48) Monocytes (%) (Auto) 4 % (0-9) Eosinophils (%) (Auto) 0 % (0-3) Basophils (%) (Auto) 0 % (0-3) Neutrophils # (Auto) 13.1 x10^3uL (1.8-7.7) Lymphocytes # (Auto) 0.7 x10^3/uL (1.0-4.8) Monocytes # (Auto) 0.5 x10^3/uL (0.0-1.1) Eosinophils # (Auto) 0.0 x10^3/uL (0.0-0.7) Basophils # (Auto) 0.0 x10^3/uL (0.0-0.2) Sodium Level 129 mmol/L (136-145) Potassium Level 3.5 mmol/L (3.5-5.1) Chloride Level 93 mmol/L (98-107) Carbon Dioxide Level 26 mmol/L (21-32) Anion Gap 10 (6-14) Blood Urea Nitrogen 18 mg/dL (7-20) Creatinine 1.0 mg/dL (0.6-1.0) Estimated GFR (Cockcroft-Gault) 52.8 Glucose Level 308 mg/dL (70-99) Calcium Level 8.8 mg/dL (8.5-10.1) Test 11/29/16 08:45 Glucose (Fingerstick) 321 mg/dL (70-99) Medications Current Medications Ondansetron HCl (Zofran) 4 mg 1X ONCE IV Last administered on 11/26/16 04:30 ; Start 11/26/16 at 04:30; Stop 11/26/16 at 04:31; Status DC Sodium Chloride 1,000 ml @ 1,000 mls/hr 1X ONCE IV Last administered on 04:30; Start 11/26/16 at 04:30; Stop 11/26/16 at 05:29; Status DC Hydromorphone HCl (Dilaudid) 0.5 mg 1X ONCE IV Last administered on 11/26/16 04:30; Start 11/26/16 at 04:30; Stop 11/26/16 at 04:31; Status DC Ondansetron HCl (Zofran) 4 mg PRN Q8HRS PRN IV NAUSEA/VOMITING; Start 11/26/16 at 04:45; Stop 11/27/16 at 04:44; Status DC Morphine Sulfate 4 mg PRN Q2HR PRN IV SEVERE PAIN Last administered on 07:47; Start 11/26/16 at 04:45; Stop 11/27/16 at 04:44; Status DC Aspirin (Children'S Aspirin) 81 mg DAILY PO Last administered on 11/29/16 08: 38; Start 11/26/16 at 09:00 Carvedilol (Coreg) 12.5 mg BIDWMEALS PO Last administered on 11/26/16 08:13; Start 11/26/16 at 08:00; Stop 11/27/16 at 09:53; Status DC Docusate Sodium (Colace) 100 mg DAILYWLUN PO ; Start 11/26/16 at 12:00; Stop at 11:49; Status DC Duloxetine HCl (Cymbalta) 30 mg DAILY PO Last administered on 11/29/16 08:38; Start 11/26/16 at 09:00 Famotidine (Pepcid) 20 mg HS PO Last administered on 11/28/16 21:00; Start 06/02 at 21:00 Insulin Aspart (NovoLOG) 8 units TIDAC SQ Last administered on 11/26/16 08:20 ; Start 11/26/16 at 08:00; Stop 11/26/16 at 13:16; Status DC Simvastatin (Zocor) 20 mg QHS PO Last administered on 11/28/16 21:00; Start at 21:00 Calcium/Vitamin D (Oscal D 500mg/ 200uts) 1 tab BIDWMEALS PO Last administered on 11/29/16 08:38; Start 11/26/16 at 08:00 Non-Formulary Medication 50 mg DAILYWLUN PO ; Start 11/26/16 at 12:00; Stop 06/02 at 17:18; Status DC Ondansetron HCl (Zofran) 4 mg PRN Q6HRS PRN IV NAUSEA/VOMITING; Start 11/26/16 at 09:45; Stop 11/27/16 at 09:44; Status DC Morphine Sulfate 1 mg PRN Q10MIN PRN IV SEVERE PAIN Last administered on 21:12; Start 11/26/16 at 09:45; Stop 11/27/16 at 09:44; Status DC Ringer's Solution 1,000 ml @ 30 mls/hr Q24H IV Last administered on 11/26/16 16:41; Start 11/26/16 at 09:44; Stop 11/26/16 at 21:43; Status DC Lidocaine HCl 2 ml PRN 1X PRN ID PRIOR TO IV START; Start 11/26/16 at 09:45; Stop 11/27/16 at 09:44; Status DC Hydromorphone HCl (Dilaudid) 0.5 mg PRN Q10MIN PRN IV SEV PAIN, Second choice; Start 11/26/16 at 09:45; Stop 11/27/16 at 09:44; Status DC Prochlorperazine Edisylate (Compazine) 5 mg PACU PRN PRN IV NAUSEA, MRX1; Start 11/26/16 at 09:45; Stop 11/27/16 at 09:44; Status DC Iohexol (Omnipaque 300 Mg/ml) 50 ml 1X ONCE IV ; Start 11/26/16 at 11:30; Stop 11/26/16 at 11:31; Status DC Iohexol (Omnipaque 300 Mg/ml) 60 ml 1X ONCE IV Last administered on 11/26/16 11:28; Start 11/26/16 at 11:30; Stop 11/26/16 at 11:31; Status DC Info (Do NOT chart on this entry -- for MONITORING) 1 each PRN DAILY PRN MC SEE COMMENTS; Start 11/26/16 at 11:15; Stop 11/28/16 at 11:14; Status DC Insulin Detemir (Levemir) 10 units QHS SQ Last administered on 11/28/16 21:00 ; Start 11/26/16 at 21:00 Insulin Aspart (NovoLOG) 0-9 UNITS TIDWMEALS SQ Last administered on 11/29/16 08:51; Start 11/26/16 at 17:00 Dextrose (Dextrose 50%-Water Syringe) 12.5 gm PRN Q15MIN PRN IV SEE COMMENTS; Start 11/26/16 at 13:15 Acetaminophen (Tylenol) 650 mg PRN Q6HRS PRN PO FEVER Last administered on 11/27 22:00; Start 11/26/16 at 13:15 Ondansetron HCl (Zofran) 4 mg PRN Q6HRS PRN IV NAUSEA/VOMITING Last administered on 11/29/16 05:18; Start 11/26/16 at 13:15 Morphine Sulfate 2 mg PRN Q2HR PRN IV PAIN Last administered on 11/28/16 17:04 ; Start 11/26/16 at 13:15 Tramadol HCl (Ultram) 50 mg PRN Q6HRS PRN PO PAIN Last administered on 03:33; Start 11/26/16 at 13:15 Hydralazine HCl (Apresoline) 10 mg PRN Q4HRS PRN IVP ELEVATED BP, SEE COMMENTS Last administered on 11/29/16 05:20; Start 11/26/16 at 13:15 Docusate Sodium (Colace) 100 mg PRN DAILY PRN PO CONSTIPATION Last administered on 11/28/16 11:55; Start 11/26/16 at 13:15 Bupivacaine HCl/ Epinephrine Bitart (Marcaine-Epi 0.25%-[id number]) 50 ml STK-MED ONCE .ROUTE Last administered on 11/26/16 19:25; Start 11/26/16 at 16:10; Stop 11/26/16 at 16:11; Status DC Sevoflurane (Ultane) 90 ml STK-MED ONCE IH ; Start 11/26/16 at 17:45; Stop 11/26 at 17:46; Status DC Propofol 20 ml @ As Directed STK-MED ONCE IV ; Start 11/26/16 at 17:45; Stop 06/02 at 17:46; Status DC Dexamethasone Sodium Phosphate (Decadron) 20 mg STK-MED ONCE .ROUTE ; Start 06/02 at 17:45; Stop 11/26/16 at 17:46; Status DC Ondansetron HCl (Zofran) 4 mg STK-MED ONCE .ROUTE ; Start 11/26/16 at 17:45; Stop 11/26/16 at 17:46; Status DC Lidocaine HCl (Lidocaine Pf 2% Vial) 5 ml STK-MED ONCE .ROUTE ; Start 11/26/16 at 17:45; Stop 11/26/16 at 17:46; Status DC Cefazolin Sodium 50 ml @ As Directed STK-MED ONCE IV ; Start 11/26/16 at 18:40; Stop 11/26/16 at 18:41; Status DC Phenylephrine HCl 1 mg STK-MED ONCE IV ; Start 11/26/16 at 19:34; Stop 11/26/16 at 19:35; Status DC Labetalol HCl (Normodyne) 20 mg STK-MED ONCE .ROUTE ; Start 11/26/16 at 20:21; Stop 11/26/16 at 20:22; Status DC Carvedilol (Coreg) 3.125 mg BIDWMEALS PO Last administered on 11/28/16 17:03; Start 11/27/16 at 17:00; Stop 11/29/16 at 07:56; Status DC Lidocaine/Sodium Bicarbonate (Buffered Lidocaine 1%) 20 ml STK-MED ONCE IJ ; Start 11/27/16 at 12:19; Stop 11/27/16 at 12:20; Status DC Fentanyl Citrate (Fentanyl 2ml Vial) 100 mcg STK-MED ONCE .ROUTE ; Start at 12:30; Stop 11/27/16 at 12:31; Status DC Midazolam HCl (Versed) 2 mg STK-MED ONCE .ROUTE ; Start 11/27/16 at 12:30; Stop 11/27/16 at 12:31; Status DC Enoxaparin Sodium (Lovenox 30mg Syringe) 30 mg Q24H SQ Last administered on 08:39; Start 11/28/16 at 10:00 Morphine Sulfate 10 mg STK-MED ONCE .ROUTE ; Start 11/27/16 at 13:07; Stop 11/27 at 13:08; Status DC Lidocaine/Sodium Bicarbonate (Buffered Lidocaine 1%) 20 ml 1X ONCE IJ Last administered on 11/27/16 13:29; Start 11/27/16 at 13:30; Stop 11/27/16 at 13:31 ; Status DC Midazolam HCl (Versed) 2 mg 1X ONCE IV Last administered on 11/27/16 13:30; Start 11/27/16 at 13:30; Stop 11/27/16 at 13:31; Status DC Morphine Sulfate 10 mg 1X ONCE IV Last administered on 11/27/16 13:30; Start 11/27/16 at 13:30; Stop 11/27/16 at 13:31; Status DC Midazolam HCl (Versed) 2 mg 1X ONCE IV Last administered on 11/27/16 15:30; Start 11/27/16 at 15:30; Stop 11/27/16 at 15:34; Status DC Lidocaine HCl 20 ml 1X ONCE IJ Last administered on 11/27/16 15:30; Start at 15:30; Stop 11/27/16 at 15:34; Status DC Morphine Sulfate 10 mg 1X ONCE IV Last administered on 11/27/16 15:30; Start 11/27/16 at 15:30; Stop 11/27/16 at 15:34; Status DC Iohexol (Omnipaque 300 Mg/ml) 60 ml 1X ONCE IV Last administered on 11/28/16 15:46; Start 11/28/16 at 14:00; Stop 11/28/16 at 14:01; Status DC Info (Do NOT chart on this entry -- for MONITORING) 1 each PRN DAILY PRN MC SEE COMMENTS; Start 11/28/16 at 14:00; Stop 11/30/16 at 13:59 Iohexol (Omnipaque 300 Mg/ml) 60 ml 1X ONCE IV ; Start 11/28/16 at 15:15; Stop 11/28/16 at 15:16; Status DC Info (Do NOT chart on this entry -- for MONITORING) 1 each PRN DAILY PRN MC SEE COMMENTS; Start 11/28/16 at 15:15; Stop 11/30/16 at 15:14 Carvedilol (Coreg) 12.5 mg BIDWMEALS PO Last administered on 11/29/16 08:38; Start 11/29/16 at 08:00 Active Scripts Active Reported Stool Softener (Docusate Sodium) 100 Mg Capsule 100 Mg PO DAILYWLUN Hysingla ER (Hydrocodone Bitartrate) 40 Mg Tab.er.24h 50 Mg PO DAILYWLUN Famotidine 20 Mg Tablet 20 Mg PO HS Calcium 600 + Vit D 200 Tablet (Calcium Carbonate/Vitamin D3) 1 Each Tablet 1 Each PO BID Novolog (Insulin Aspart) 100 Unit/1 Ml Vial 8 Unit SQ PRN PRN Simvastatin 20 Mg Tablet 1 Tab PO QHS Daily Vitamin (Multivitamin) 1 Each Tablet 1 Each PO Lantus (Insulin Glargine,Hum.rec.anlog) 100 Unit/1 Ml Vial 10 Unit SQ Cymbalta (Duloxetine Hcl) 30 Mg Capsule. 1 Cap PO DAILY Carvedilol 12.5 Mg Tablet 1 Tab PO BID Aspirin 81 Mg Tab.chew 1 Tab PO DAILY Vitals/I & O Vital Sign - Last 24 Hours 11/28/16 11/28/16 11/28/16 11/28/16 11:00 11:56 12:30 15:00 Temp 97.7 98.2 97.7 98.2 Pulse 92 90 Resp 18 18 18 18 B/P (MAP) 132/48 (76) 177/76 (109) Pulse Ox 90 95 O2 Delivery Room Air Room Air Room Air Room Air 11/28/16 11/28/16 11/28/16 11/28/16 17:03 17:04 19:00 20:10 Temp 98.1 98.1 Pulse 90 90 Resp 18 18 B/P (MAP) 177/76 151/65 (93) Pulse Ox 91 O2 Delivery Room Air Room Air Room Air 11/28/16 11/29/16 11/29/16 11/29/16 23:32 03:00 03:33 04:35 Temp 97.7 98.5 97.7 98.5 Pulse 91 95 Resp 18 18 B/P (MAP) 172/68 (102) 153/117 (129) Pulse Ox 90 91 90 90 O2 Delivery Room Air Room Air Room Air Room Air 11/29/16 11/29/16 11/29/16 11/29/16 05:00 05:20 05:58 07:00 Temp 95.2 95.2 Pulse 79 95 72 78 Resp 20 B/P (MAP) 230/87 (134) 230/87 188/74 (112) 196/86 (122) Pulse Ox 98 O2 Delivery Room Air 11/29/16 08:38 Pulse 72 B/P (MAP) 188/74 Intake and Output 11/28/16 11/28/16 11/29/16 15:00 23:00 07:00 Intake Total 300 ml Output Total 600 ml 1800 ml Balance -600 ml -1500 ml OZZY KENDALL MD Nov 29, 2016 10:55
[2016-11-29 11:09] LABS: % BASOS 1 % (0-3); PLT ESTIMATE ADEQUATE (ADEQUATE)
[2016-11-29] MEDS: MORPHINE SULFATE 2 MG/ML DISP.SYRIN. IV PRN (11:18)
--- NOTE | 2016-11-29 12:21 | CONS ---
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 She has just undergone a CT-guided biopsy on 08/27/2016 results of which is still pending. She has recently experienced a fall resulting in an intratrochanteric right hip fracture and underwent open reduction internal fixation of the right hip on 11/26/2016. We were asked to see her regarding the role of radiation therapy in her care. ICD 10 C34.12 HISTORY OF PRESENT ILLNESS: The patient is an 86-year-old woman who recently tripped while managing her care at home and fell on her right hip resulting in a right intertrochanteric femur fracture. Initial evaluation at that time with screening CXR revealed a left lung mass. CT scan of the chest revealed a 4.2 cm left upper lobe mass with no mediastinal or hilar adenopathy. There were 2 tiny left lower and right lower lobe nodules measuring 3 and 4 mm respectively of indeterminate significance. She underwent open reduction and internal fixation of right intertrochanteric femur fracture on 11/26/2016. This occurred without complications. On 11/27/2016, she underwent CT-guided needle biopsy of the mass in her left lung, the result of the biopsy is still pending. Biopsy procedure was complicated by pneumothorax requiring chest tube placement. Prior to her femur fracture, she was marginally functional at home living independently with assistance of her . She had no significant shortness of breath, cough or chest pain. PAST MEDICAL HISTORY: Remarkable for coronary artery disease. She has had an [place] in the past followed by coronary artery bypass graft surgery. She has had a cerebrovascular accident in the past as well as bilateral carotid endarterectomies. In addition, she has had appendectomy, cholecystectomy, left mastectomy followed by chemotherapy for primary cancer of the breast details of which are not available, and hysterectomy. She has a history of COPD, hypertension, hyperlipidemia, diabetes mellitus, hyperparathyroidism. dementia. FAMILY HISTORY: Unremarkable for malignancy. SOCIAL HISTORY: for the second time. She was previously , at this time for 32 years. She grew up in [place] and an [place] in the [employer]. She has 4 children all of them live here. She smoked a pack a day for potentially 30 years, quit many years ago. Worked at [employer]. PHYSICAL EXAMINATION: GENERAL: Revealed a pleasant, conversant woman, in no acute distress. HEENT: Showed no scleral icterus. LYMPH NODES: She had no palpable cervical or supraclavicular adenopathy. LUNGS: Clear. HEART: Regular. No murmur or gallop. ABDOMEN: Revealed no hepatomegaly, mass or tenderness. Right hip incision was closed. EXTREMITIES: Revealed no clubbing, cyanosis or edema. NEUROLOGIC: She had no focal neurologic deficits. LABORATORY STUDIES: Hemoglobin 10.8, white count 8800, platelet count 133,000. Chemistry panel was within normal limits. Creatinine 1.1. ASSESSMENT AND PLAN: In summary, my impression is that of stage 1 (T1N0M0) bronchogenic carcinoma of the left upper lobe. She is currently recovering from recent right traumatic hip fracture which required open reduction and internal fixation. She is not yet ambulatory as she is resistant to standing at this time. She had biopsy of her lung cancer with result still pending. This was complicated by pneumothorax with subsequent chest tube placement. She has no symptoms from her lung carcinoma. She requires recovery from her hip fracture and subsequent surgery, in addition chest tube removal following stabilization of pneumothorax. In the event she shows good recovery from her hip fracture and has returned to her base level of performance, she may be a candidate for treatment of her primary lung cancer. In light of her age and comorbidities, she is a poor candidate for surgical resection and as a result, I would recommend radiation, possibly in combination with chemotherapy as the treatment of choice with a final outcome also dependent on the outcome of her biopsy. In the event she has ongoing diminished performance status following this hospitalization, I would recommend ongoing observation without intervention with a chest x-ray every 3 months. The patient has been seen by Dr. Jann Taylor who will pursue completion of her staging evaluation. I discussed this in detail with the patient's family and we will anticipate assessing her approximately 1 month from her hospitalization to assess her recovery from her fracture and subsequent surgical intervention. Thank you for allowing us to participate in her evaluation. ROMERO MORALEZ MD DR: BONNIE/danny JOB#: [id number] / [id number] JANN Mckenzie SHANNON MD Perra, Michael SISILLO, SABATO MD [facility]
--- NOTE | 2016-11-29 12:50 | PDOC ---
PROGRESS NOTES Chief Complaint Chief Complaint 1. traumatic closed right hip fx post fall S/P NAIL fixation on 11/26 2. left lung Mass on CT, bx 11/27. poorly differrentiated squamous cell Ca 3. h/o CAD with CABG 4. HTN 5. DM2 6. HLD 7. H/O BCa post mastectomy , chemo, and RT 8. leukocytosis, reactive 9. normacytic anemia. worse post op 10. CKD3 11. mild malnution 12. left side pneumothorax post ct guided bx on 11/27, chest tube placed 13. hyponatremia with low po intake likely plan: fu with pulm, ortho. IR for lung mass bx 11/27, then chest tube ct chest done, CT abd pelvis, head neg for mets cont home meds PAT consult dr. trent consulted, no intervention for L5 fx levemir 10u qhs, SSI PTOT dvt ppx from tmr SW for rehab 2u PRBC on 11/27 IVF NS 75cc/h onco consulted, no chemo, RT consulted, possible RT in 1 month History of Present Illness History of Present Illness Hb 7.6 post op, 2u PRBC 11/27 IR 11/27 for lung mass bx, GOT Pneumothorax and then chest tube in feels better on 11/28, worse on 11/29 with N/V Vitals Vitals Vital Signs Date Time Temp Pulse Resp B/P (MAP) Pulse Ox O2 Delivery O2 Flow Rate FiO2 11/29/16 12:10 83 201/76 11/29/16 12:00 16 Room Air 11/29/16 11:00 97.4 94 97.4 11/28/16 07:00 2.0 Physical Exam Physical Exam left side pigtail chest tube, mild drainage, no air leaking General: Alert, Oriented X3, Cooperative, No acute distress Heart: Regular rate Lungs: Other (decrease bs) Abdomen: Soft Extremities: No clubbing, No cyanosis, Normal pulses Skin: No breakdown, No significant lesion Labs LABS Laboratory Tests Test 11/28/16 16:34 11/28/16 20:47 11/29/16 07:30 11/29/16 08:45 Glucose (Fingerstick) 133 mg/dL (70-99) 190 mg/dL (70-99) 321 mg/dL (70-99) White Blood Count 14.4 x10^3/uL (4.0-11.0) Red Blood Count 3.93 x10^6/uL (3.50-5.40) Hemoglobin 11.9 g/dL (12.0-15.5) Hematocrit 36.2 % (36.0-47.0) Mean Corpuscular Volume 92 fL (79-100) Mean Corpuscular Hemoglobin 30 pg (25-35) Mean Corpuscular Hemoglobin Concent 33 g/dL (31-37) Red Cell Distribution Width 16.2 % (11.5-14.5) Platelet Count 172 x10^3/uL (140-400) Neutrophils (%) (Auto) 91 % (31-73) Lymphocytes (%) (Auto) 5 % (24-48) Monocytes (%) (Auto) 4 % (0-9) Eosinophils (%) (Auto) 0 % (0-3) Basophils (%) (Auto) 0 % (0-3) Neutrophils # (Auto) 13.1 x10^3uL (1.8-7.7) Lymphocytes # (Auto) 0.7 x10^3/uL (1.0-4.8) Monocytes # (Auto) 0.5 x10^3/uL (0.0-1.1) Eosinophils # (Auto) 0.0 x10^3/uL (0.0-0.7) Basophils # (Auto) 0.0 x10^3/uL (0.0-0.2) Segmented Neutrophils % 93 % (35-66) Band Neutrophils % 1 % (0-9) Lymphocytes % 2 % (24-48) Monocytes % 3 % (0-10) Basophils % 1 % (0-3) Platelet Estimate Adequate (ADEQUATE) Sodium Level 129 mmol/L (136-145) Potassium Level 3.5 mmol/L (3.5-5.1) Chloride Level 93 mmol/L (98-107) Carbon Dioxide Level 26 mmol/L (21-32) Anion Gap 10 (6-14) Blood Urea Nitrogen 18 mg/dL (7-20) Creatinine 1.0 mg/dL (0.6-1.0) Estimated GFR (Cockcroft-Gault) 52.8 Glucose Level 308 mg/dL (70-99) Calcium Level 8.8 mg/dL (8.5-10.1) Test 11/29/16 11:10 Glucose (Fingerstick) 262 mg/dL (70-99) Review of Systems Review of Systems no fever, chills, sob or chest pain Assessment and Plan Assessmemt and Plan Problems Medical Problems: (1) Closed right hip fracture Status: Acute Problems: Comment Review of Relevant I have reviewed the following items alysha (where applicable) has been applied. Labs Laboratory Tests Test 11/27/16 17:07 11/28/16 05:50 11/28/16 07:02 11/28/16 11:57 Glucose (Fingerstick) 129 mg/dL (70-99) 90 mg/dL (70-99) 206 mg/dL (70-99) White Blood Count 8.8 x10^3/uL (4.0-11.0) Red Blood Count 3.44 x10^6/uL (3.50-5.40) Hemoglobin 10.8 g/dL (12.0-15.5) Hematocrit 31.5 % (36.0-47.0) Mean Corpuscular Volume 92 fL (79-100) Mean Corpuscular Hemoglobin 31 pg (25-35) Mean Corpuscular Hemoglobin Concent 34 g/dL (31-37) Red Cell Distribution Width 16.9 % (11.5-14.5) Platelet Count 133 x10^3/uL (140-400) Neutrophils (%) (Auto) 75 % (31-73) Lymphocytes (%) (Auto) 14 % (24-48) Monocytes (%) (Auto) 9 % (0-9) Eosinophils (%) (Auto) 2 % (0-3) Basophils (%) (Auto) 1 % (0-3) Neutrophils # (Auto) 6.6 x10^3uL (1.8-7.7) Lymphocytes # (Auto) 1.2 x10^3/uL (1.0-4.8) Monocytes # (Auto) 0.8 x10^3/uL (0.0-1.1) Eosinophils # (Auto) 0.2 x10^3/uL (0.0-0.7) Basophils # (Auto) 0.0 x10^3/uL (0.0-0.2) Sodium Level 138 mmol/L (136-145) Potassium Level 3.6 mmol/L (3.5-5.1) Chloride Level 106 mmol/L (98-107) Carbon Dioxide Level 26 mmol/L (21-32) Anion Gap 6 (6-14) Blood Urea Nitrogen 27 mg/dL (7-20) Creatinine 1.1 mg/dL (0.6-1.0) Estimated GFR (Cockcroft-Gault) 47.3 Glucose Level 96 mg/dL (70-99) Calcium Level 8.6 mg/dL (8.5-10.1) Test 11/28/16 16:34 11/28/16 20:47 11/29/16 07:30 11/29/16 08:45 Glucose (Fingerstick) 133 mg/dL (70-99) 190 mg/dL (70-99) 321 mg/dL (70-99) White Blood Count 14.4 x10^3/uL (4.0-11.0) Red Blood Count 3.93 x10^6/uL (3.50-5.40) Hemoglobin 11.9 g/dL (12.0-15.5) Hematocrit 36.2 % (36.0-47.0) Mean Corpuscular Volume 92 fL (79-100) Mean Corpuscular Hemoglobin 30 pg (25-35) Mean Corpuscular Hemoglobin Concent 33 g/dL (31-37) Red Cell Distribution Width 16.2 % (11.5-14.5) Platelet Count 172 x10^3/uL (140-400) Neutrophils (%) (Auto) 91 % (31-73) Lymphocytes (%) (Auto) 5 % (24-48) Monocytes (%) (Auto) 4 % (0-9) Eosinophils (%) (Auto) 0 % (0-3) Basophils (%) (Auto) 0 % (0-3) Neutrophils # (Auto) 13.1 x10^3uL (1.8-7.7) Lymphocytes # (Auto) 0.7 x10^3/uL (1.0-4.8) Monocytes # (Auto) 0.5 x10^3/uL (0.0-1.1) Eosinophils # (Auto) 0.0 x10^3/uL (0.0-0.7) Basophils # (Auto) 0.0 x10^3/uL (0.0-0.2) Segmented Neutrophils % 93 % (35-66) Band Neutrophils % 1 % (0-9) Lymphocytes % 2 % (24-48) Monocytes % 3 % (0-10) Basophils % 1 % (0-3) Platelet Estimate Adequate (ADEQUATE) Sodium Level 129 mmol/L (136-145) Potassium Level 3.5 mmol/L (3.5-5.1) Chloride Level 93 mmol/L (98-107) Carbon Dioxide Level 26 mmol/L (21-32) Anion Gap 10 (6-14) Blood Urea Nitrogen 18 mg/dL (7-20) Creatinine 1.0 mg/dL (0.6-1.0) Estimated GFR (Cockcroft-Gault) 52.8 Glucose Level 308 mg/dL (70-99) Calcium Level 8.8 mg/dL (8.5-10.1) Test 11/29/16 11:10 Glucose (Fingerstick) 262 mg/dL (70-99) Laboratory Tests Test 11/28/16 16:34 11/28/16 20:47 11/29/16 07:30 11/29/16 08:45 Glucose (Fingerstick) 133 mg/dL (70-99) 190 mg/dL (70-99) 321 mg/dL (70-99) White Blood Count 14.4 x10^3/uL (4.0-11.0) Red Blood Count 3.93 x10^6/uL (3.50-5.40) Hemoglobin 11.9 g/dL (12.0-15.5) Hematocrit 36.2 % (36.0-47.0) Mean Corpuscular Volume 92 fL (79-100) Mean Corpuscular Hemoglobin 30 pg (25-35) Mean Corpuscular Hemoglobin Concent 33 g/dL (31-37) Red Cell Distribution Width 16.2 % (11.5-14.5) Platelet Count 172 x10^3/uL (140-400) Neutrophils (%) (Auto) 91 % (31-73) Lymphocytes (%) (Auto) 5 % (24-48) Monocytes (%) (Auto) 4 % (0-9) Eosinophils (%) (Auto) 0 % (0-3) Basophils (%) (Auto) 0 % (0-3) Neutrophils # (Auto) 13.1 x10^3uL (1.8-7.7) Lymphocytes # (Auto) 0.7 x10^3/uL (1.0-4.8) Monocytes # (Auto) 0.5 x10^3/uL (0.0-1.1) Eosinophils # (Auto) 0.0 x10^3/uL (0.0-0.7) Basophils # (Auto) 0.0 x10^3/uL (0.0-0.2) Segmented Neutrophils % 93 % (35-66) Band Neutrophils % 1 % (0-9) Lymphocytes % 2 % (24-48) Monocytes % 3 % (0-10) Basophils % 1 % (0-3) Platelet Estimate Adequate (ADEQUATE) Sodium Level 129 mmol/L (136-145) Potassium Level 3.5 mmol/L (3.5-5.1) Chloride Level 93 mmol/L (98-107) Carbon Dioxide Level 26 mmol/L (21-32) Anion Gap 10 (6-14) Blood Urea Nitrogen 18 mg/dL (7-20) Creatinine 1.0 mg/dL (0.6-1.0) Estimated GFR (Cockcroft-Gault) 52.8 Glucose Level 308 mg/dL (70-99) Calcium Level 8.8 mg/dL (8.5-10.1) Test 11/29/16 11:10 Glucose (Fingerstick) 262 mg/dL (70-99) Medications Current Medications Ondansetron HCl (Zofran) 4 mg 1X ONCE IV Last administered on 11/26/16 04:30 ; Start 11/26/16 at 04:30; Stop 11/26/16 at 04:31; Status DC Sodium Chloride 1,000 ml @ 1,000 mls/hr 1X ONCE IV Last administered on 04:30; Start 11/26/16 at 04:30; Stop 11/26/16 at 05:29; Status DC Hydromorphone HCl (Dilaudid) 0.5 mg 1X ONCE IV Last administered on 11/26/16 04:30; Start 11/26/16 at 04:30; Stop 11/26/16 at 04:31; Status DC Ondansetron HCl (Zofran) 4 mg PRN Q8HRS PRN IV NAUSEA/VOMITING; Start 11/26/16 at 04:45; Stop 11/27/16 at 04:44; Status DC Morphine Sulfate 4 mg PRN Q2HR PRN IV SEVERE PAIN Last administered on 07:47; Start 11/26/16 at 04:45; Stop 11/27/16 at 04:44; Status DC Aspirin (Children'S Aspirin) 81 mg DAILY PO Last administered on 11/29/16 08: 38; Start 11/26/16 at 09:00 Carvedilol (Coreg) 12.5 mg BIDWMEALS PO Last administered on 11/26/16 08:13; Start 11/26/16 at 08:00; Stop 11/27/16 at 09:53; Status DC Docusate Sodium (Colace) 100 mg DAILYWLUN PO ; Start 11/26/16 at 12:00; Stop at 11:49; Status DC Duloxetine HCl (Cymbalta) 30 mg DAILY PO Last administered on 11/29/16 08:38; Start 11/26/16 at 09:00 Famotidine (Pepcid) 20 mg HS PO Last administered on 11/28/16 21:00; Start 06/02 at 21:00 Insulin Aspart (NovoLOG) 8 units TIDAC SQ Last administered on 11/26/16 08:20 ; Start 11/26/16 at 08:00; Stop 11/26/16 at 13:16; Status DC Simvastatin (Zocor) 20 mg QHS PO Last administered on 11/28/16 21:00; Start at 21:00 Calcium/Vitamin D (Oscal D 500mg/ 200uts) 1 tab BIDWMEALS PO Last administered on 11/29/16 08:38; Start 11/26/16 at 08:00 Non-Formulary Medication 50 mg DAILYWLUN PO ; Start 11/26/16 at 12:00; Stop 06/02 at 17:18; Status DC Ondansetron HCl (Zofran) 4 mg PRN Q6HRS PRN IV NAUSEA/VOMITING; Start 11/26/16 at 09:45; Stop 11/27/16 at 09:44; Status DC Morphine Sulfate 1 mg PRN Q10MIN PRN IV SEVERE PAIN Last administered on 21:12; Start 11/26/16 at 09:45; Stop 11/27/16 at 09:44; Status DC Ringer's Solution 1,000 ml @ 30 mls/hr Q24H IV Last administered on 11/26/16 16:41; Start 11/26/16 at 09:44; Stop 11/26/16 at 21:43; Status DC Lidocaine HCl 2 ml PRN 1X PRN ID PRIOR TO IV START; Start 11/26/16 at 09:45; Stop 11/27/16 at 09:44; Status DC Hydromorphone HCl (Dilaudid) 0.5 mg PRN Q10MIN PRN IV SEV PAIN, Second choice; Start 11/26/16 at 09:45; Stop 11/27/16 at 09:44; Status DC Prochlorperazine Edisylate (Compazine) 5 mg PACU PRN PRN IV NAUSEA, MRX1; Start 11/26/16 at 09:45; Stop 11/27/16 at 09:44; Status DC Iohexol (Omnipaque 300 Mg/ml) 50 ml 1X ONCE IV ; Start 11/26/16 at 11:30; Stop 11/26/16 at 11:31; Status DC Iohexol (Omnipaque 300 Mg/ml) 60 ml 1X ONCE IV Last administered on 11/26/16 11:28; Start 11/26/16 at 11:30; Stop 11/26/16 at 11:31; Status DC Info (Do NOT chart on this entry -- for MONITORING) 1 each PRN DAILY PRN MC SEE COMMENTS; Start 11/26/16 at 11:15; Stop 11/28/16 at 11:14; Status DC Insulin Detemir (Levemir) 10 units QHS SQ Last administered on 11/28/16 21:00 ; Start 11/26/16 at 21:00 Insulin Aspart (NovoLOG) 0-9 UNITS TIDWMEALS SQ Last administered on 11/29/16 11:25; Start 11/26/16 at 17:00 Dextrose (Dextrose 50%-Water Syringe) 12.5 gm PRN Q15MIN PRN IV SEE COMMENTS; Start 11/26/16 at 13:15 Acetaminophen (Tylenol) 650 mg PRN Q6HRS PRN PO FEVER Last administered on 11/27 22:00; Start 11/26/16 at 13:15 Ondansetron HCl (Zofran) 4 mg PRN Q6HRS PRN IV NAUSEA/VOMITING Last administered on 11/29/16 11:18; Start 11/26/16 at 13:15 Morphine Sulfate 2 mg PRN Q2HR PRN IV PAIN Last administered on 11/29/16 11:18 ; Start 11/26/16 at 13:15 Tramadol HCl (Ultram) 50 mg PRN Q6HRS PRN PO PAIN Last administered on 03:33; Start 11/26/16 at 13:15 Hydralazine HCl (Apresoline) 10 mg PRN Q4HRS PRN IVP ELEVATED BP, SEE COMMENTS Last administered on 11/29/16 12:10; Start 11/26/16 at 13:15 Docusate Sodium (Colace) 100 mg PRN DAILY PRN PO CONSTIPATION Last administered on 11/28/16 11:55; Start 11/26/16 at 13:15 Bupivacaine HCl/ Epinephrine Bitart (Marcaine-Epi 0.25%-1:206123) 50 ml STK-MED ONCE .ROUTE Last administered on 11/26/16 19:25; Start 11/26/16 at 16:10; Stop 11/26/16 at 16:11; Status DC Sevoflurane (Ultane) 90 ml STK-MED ONCE IH ; Start 11/26/16 at 17:45; Stop 11/26 at 17:46; Status DC Propofol 20 ml @ As Directed STK-MED ONCE IV ; Start 11/26/16 at 17:45; Stop 06/02 at 17:46; Status DC Dexamethasone Sodium Phosphate (Decadron) 20 mg STK-MED ONCE .ROUTE ; Start 06/02 at 17:45; Stop 11/26/16 at 17:46; Status DC Ondansetron HCl (Zofran) 4 mg STK-MED ONCE .ROUTE ; Start 11/26/16 at 17:45; Stop 11/26/16 at 17:46; Status DC Lidocaine HCl (Lidocaine Pf 2% Vial) 5 ml STK-MED ONCE .ROUTE ; Start 11/26/16 at 17:45; Stop 11/26/16 at 17:46; Status DC Cefazolin Sodium 50 ml @ As Directed STK-MED ONCE IV ; Start 11/26/16 at 18:40; Stop 11/26/16 at 18:41; Status DC Phenylephrine HCl 1 mg STK-MED ONCE IV ; Start 11/26/16 at 19:34; Stop 11/26/16 at 19:35; Status DC Labetalol HCl (Normodyne) 20 mg STK-MED ONCE .ROUTE ; Start 11/26/16 at 20:21; Stop 11/26/16 at 20:22; Status DC Carvedilol (Coreg) 3.125 mg BIDWMEALS PO Last administered on 11/28/16 17:03; Start 11/27/16 at 17:00; Stop 11/29/16 at 07:56; Status DC Lidocaine/Sodium Bicarbonate (Buffered Lidocaine 1%) 20 ml STK-MED ONCE IJ ; Start 11/27/16 at 12:19; Stop 11/27/16 at 12:20; Status DC Fentanyl Citrate (Fentanyl 2ml Vial) 100 mcg STK-MED ONCE .ROUTE ; Start at 12:30; Stop 11/27/16 at 12:31; Status DC Midazolam HCl (Versed) 2 mg STK-MED ONCE .ROUTE ; Start 11/27/16 at 12:30; Stop 11/27/16 at 12:31; Status DC Enoxaparin Sodium (Lovenox 30mg Syringe) 30 mg Q24H SQ Last administered on 08:39; Start 11/28/16 at 10:00 Morphine Sulfate 10 mg STK-MED ONCE .ROUTE ; Start 11/27/16 at 13:07; Stop 11/27 at 13:08; Status DC Lidocaine/Sodium Bicarbonate (Buffered Lidocaine 1%) 20 ml 1X ONCE IJ Last administered on 11/27/16 13:29; Start 11/27/16 at 13:30; Stop 11/27/16 at 13:31 ; Status DC Midazolam HCl (Versed) 2 mg 1X ONCE IV Last administered on 11/27/16 13:30; Start 11/27/16 at 13:30; Stop 11/27/16 at 13:31; Status DC Morphine Sulfate 10 mg 1X ONCE IV Last administered on 11/27/16 13:30; Start 11/27/16 at 13:30; Stop 11/27/16 at 13:31; Status DC Midazolam HCl (Versed) 2 mg 1X ONCE IV Last administered on 11/27/16 15:30; Start 11/27/16 at 15:30; Stop 11/27/16 at 15:34; Status DC Lidocaine HCl 20 ml 1X ONCE IJ Last administered on 11/27/16 15:30; Start at 15:30; Stop 11/27/16 at 15:34; Status DC Morphine Sulfate 10 mg 1X ONCE IV Last administered on 11/27/16 15:30; Start 11/27/16 at 15:30; Stop 11/27/16 at 15:34; Status DC Iohexol (Omnipaque 300 Mg/ml) 60 ml 1X ONCE IV Last administered on 11/28/16 15:46; Start 11/28/16 at 14:00; Stop 11/28/16 at 14:01; Status DC Info (Do NOT chart on this entry -- for MONITORING) 1 each PRN DAILY PRN MC SEE COMMENTS; Start 11/28/16 at 14:00; Stop 11/30/16 at 13:59 Iohexol (Omnipaque 300 Mg/ml) 60 ml 1X ONCE IV ; Start 11/28/16 at 15:15; Stop 11/28/16 at 15:16; Status DC Info (Do NOT chart on this entry -- for MONITORING) 1 each PRN DAILY PRN MC SEE COMMENTS; Start 11/28/16 at 15:15; Stop 11/30/16 at 15:14 Carvedilol (Coreg) 12.5 mg BIDWMEALS PO Last administered on 11/29/16 08:38; Start 11/29/16 at 08:00 Active Scripts Active Reported Stool Softener (Docusate Sodium) 100 Mg Capsule 100 Mg PO DAILYWLUN Hysingla ER (Hydrocodone Bitartrate) 40 Mg Tab.er.24h 50 Mg PO DAILYWLUN Famotidine 20 Mg Tablet 20 Mg PO HS Calcium 600 + Vit D 200 Tablet (Calcium Carbonate/Vitamin D3) 1 Each Tablet 1 Each PO BID Novolog (Insulin Aspart) 100 Unit/1 Ml Vial 8 Unit SQ PRN PRN Simvastatin 20 Mg Tablet 1 Tab PO QHS Daily Vitamin (Multivitamin) 1 Each Tablet 1 Each PO Lantus (Insulin Glargine,Hum.rec.anlog) 100 Unit/1 Ml Vial 10 Unit SQ Cymbalta (Duloxetine Hcl) 30 Mg Capsule.dr 1 Cap PO DAILY Carvedilol 12.5 Mg Tablet 1 Tab PO BID Aspirin 81 Mg Tab.chew 1 Tab PO DAILY Vitals/I & O Vital Sign - Last 24 Hours 11/28/16 11/28/16 11/28/16 11/28/16 15:00 17:03 17:04 19:00 Temp 98.2 98.1 98.2 98.1 Pulse 90 90 90 Resp 18 18 18 B/P (MAP) 177/76 (109) 177/76 151/65 (93) Pulse Ox 95 91 O2 Delivery Room Air Room Air Room Air 11/28/16 11/28/16 11/29/16 11/29/16 20:10 23:32 03:00 03:33 Temp 97.7 98.5 97.7 98.5 Pulse 91 95 Resp 18 18 B/P (MAP) 172/68 (102) 153/117 (129) Pulse Ox 90 91 90 O2 Delivery Room Air Room Air Room Air Room Air 11/29/16 11/29/16 11/29/16 11/29/16 04:35 05:00 05:20 05:58 Pulse 79 95 72 B/P (MAP) 230/87 (134) 230/87 188/74 (112) Pulse Ox 90 O2 Delivery Room Air 11/29/16 11/29/16 11/29/16 11/29/16 07:00 08:00 08:38 11:00 Temp 95.2 97.4 95.2 97.4 Pulse 78 72 83 Resp 20 20 B/P (MAP) 196/86 (122) 188/74 201/76 (117) Pulse Ox 98 94 O2 Delivery Room Air Room Air Room Air 11/29/16 11/29/16 11/29/16 11:18 12:00 12:10 Pulse 83 Resp 18 16 B/P (MAP) 201/76 O2 Delivery Room Air Room Air Intake and Output 11/28/16 11/28/16 11/29/16 15:00 23:00 07:00 Intake Total 300 ml Output Total 600 ml 1800 ml Balance -600 ml -1500 ml EMMIE PIZANO MD Nov 29, 2016 12:50
--- NOTE | 2016-11-29 15:12 | PDOC2 ---
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 She is postop day 3 today after her right hip replacement. On preoperative chest x-ray she was found to have a large left upper lobe mass, which was confirmed on subsequent CT. She went on to have a percutaneous biopsy which confirmed a squamous cell carcinoma. The patient is demented, she is a poor historian with borderline functional status. I was consulted to consider the patient for a lung resection. Past Medical History Cardiovascular: CAD, HTN, MA, Hyperlipidemia, Other Pulmonary: COPD CENTRAL NERVOUS SYSTEM: TIA GI: Constipation Heme/Onc: Anemia NOS, Cancer (breast) Psych: No pertinent hx Musculoskeletal: low back pain, Osteoarthritis, Other Rheumatologic: No pertinent hx Infectious disease: No pertinent hx Renal/: Chronic renal insuff Endocrine: Diabetes, Hyperparathyroidism, Osteoporosis, Other Past Surgical History Past Surgical History: Appendectomy, Cholecystectomy, CABG, Mastectomy (left), Hysterectomy, Other (carotid sx) Family History Family History: Coronary Artery Disease Social History No ALCOHOL: none Drugs: None Lives: with Family Domestic Violence: Neg Current Problem List Problem List Problems Medical Problems: (1) Closed right hip fracture Status: Acute Current Medications Current Medications Current Medications Ondansetron HCl (Zofran) 4 mg 1X ONCE IV Last administered on 11/26/16 04:30 ; Start 11/26/16 at 04:30; Stop 11/26/16 at 04:31; Status DC Sodium Chloride 1,000 ml @ 1,000 mls/hr 1X ONCE IV Last administered on 04:30; Start 11/26/16 at 04:30; Stop 11/26/16 at 05:29; Status DC Hydromorphone HCl (Dilaudid) 0.5 mg 1X ONCE IV Last administered on 11/26/16 04:30; Start 11/26/16 at 04:30; Stop 11/26/16 at 04:31; Status DC Ondansetron HCl (Zofran) 4 mg PRN Q8HRS PRN IV NAUSEA/VOMITING; Start 11/26/16 at 04:45; Stop 11/27/16 at 04:44; Status DC Morphine Sulfate 4 mg PRN Q2HR PRN IV SEVERE PAIN Last administered on 07:47; Start 11/26/16 at 04:45; Stop 11/27/16 at 04:44; Status DC Aspirin (Children'S Aspirin) 81 mg DAILY PO Last administered on 11/29/16 08: 38; Start 11/26/16 at 09:00 Carvedilol (Coreg) 12.5 mg BIDWMEALS PO Last administered on 11/26/16 08:13; Start 11/26/16 at 08:00; Stop 11/27/16 at 09:53; Status DC Docusate Sodium (Colace) 100 mg DAILYWLUN PO ; Start 11/26/16 at 12:00; Stop at 11:49; Status DC Duloxetine HCl (Cymbalta) 30 mg DAILY PO Last administered on 11/29/16 08:38; Start 11/26/16 at 09:00 Famotidine (Pepcid) 20 mg HS PO Last administered on 11/28/16 21:00; Start 06/02 at 21:00 Insulin Aspart (NovoLOG) 8 units TIDAC SQ Last administered on 11/26/16 08:20 ; Start 11/26/16 at 08:00; Stop 11/26/16 at 13:16; Status DC Simvastatin (Zocor) 20 mg QHS PO Last administered on 11/28/16 21:00; Start at 21:00 Calcium/Vitamin D (Oscal D 500mg/ 200uts) 1 tab BIDWMEALS PO Last administered on 11/29/16 08:38; Start 11/26/16 at 08:00 Non-Formulary Medication 50 mg DAILYWLUN PO ; Start 11/26/16 at 12:00; Stop 06/02 at 17:18; Status DC Ondansetron HCl (Zofran) 4 mg PRN Q6HRS PRN IV NAUSEA/VOMITING; Start 11/26/16 at 09:45; Stop 11/27/16 at 09:44; Status DC Morphine Sulfate 1 mg PRN Q10MIN PRN IV SEVERE PAIN Last administered on 21:12; Start 11/26/16 at 09:45; Stop 11/27/16 at 09:44; Status DC Ringer's Solution 1,000 ml @ 30 mls/hr Q24H IV Last administered on 11/26/16 16:41; Start 11/26/16 at 09:44; Stop 11/26/16 at 21:43; Status DC Lidocaine HCl 2 ml PRN 1X PRN ID PRIOR TO IV START; Start 11/26/16 at 09:45; Stop 11/27/16 at 09:44; Status DC Hydromorphone HCl (Dilaudid) 0.5 mg PRN Q10MIN PRN IV SEV PAIN, Second choice; Start 11/26/16 at 09:45; Stop 11/27/16 at 09:44; Status DC Prochlorperazine Edisylate (Compazine) 5 mg PACU PRN PRN IV NAUSEA, MRX1; Start 11/26/16 at 09:45; Stop 11/27/16 at 09:44; Status DC Iohexol (Omnipaque 300 Mg/ml) 50 ml 1X ONCE IV ; Start 11/26/16 at 11:30; Stop 11/26/16 at 11:31; Status DC Iohexol (Omnipaque 300 Mg/ml) 60 ml 1X ONCE IV Last administered on 11/26/16 11:28; Start 11/26/16 at 11:30; Stop 11/26/16 at 11:31; Status DC Info (Do NOT chart on this entry -- for MONITORING) 1 each PRN DAILY PRN MC SEE COMMENTS; Start 11/26/16 at 11:15; Stop 11/28/16 at 11:14; Status DC Insulin Detemir (Levemir) 10 units QHS SQ Last administered on 11/28/16 21:00 ; Start 11/26/16 at 21:00 Insulin Aspart (NovoLOG) 0-9 UNITS TIDWMEALS SQ Last administered on 11/29/16 11:25; Start 11/26/16 at 17:00 Dextrose (Dextrose 50%-Water Syringe) 12.5 gm PRN Q15MIN PRN IV SEE COMMENTS; Start 11/26/16 at 13:15 Acetaminophen (Tylenol) 650 mg PRN Q6HRS PRN PO FEVER Last administered on 11/27 22:00; Start 11/26/16 at 13:15 Ondansetron HCl (Zofran) 4 mg PRN Q6HRS PRN IV NAUSEA/VOMITING Last administered on 11/29/16 11:18; Start 11/26/16 at 13:15 Morphine Sulfate 2 mg PRN Q2HR PRN IV PAIN Last administered on 11/29/16 11:18 ; Start 11/26/16 at 13:15 Tramadol HCl (Ultram) 50 mg PRN Q6HRS PRN PO PAIN Last administered on 03:33; Start 11/26/16 at 13:15 Hydralazine HCl (Apresoline) 10 mg PRN Q4HRS PRN IVP ELEVATED BP, SEE COMMENTS Last administered on 11/29/16 12:10; Start 11/26/16 at 13:15 Docusate Sodium (Colace) 100 mg PRN DAILY PRN PO CONSTIPATION Last administered on 11/28/16 11:55; Start 11/26/16 at 13:15 Bupivacaine HCl/ Epinephrine Bitart (Marcaine-Epi 0.25%-1:[id number]) 50 ml STK-MED ONCE .ROUTE Last administered on 11/26/16 19:25; Start 11/26/16 at 16:10; Stop 11/26/16 at 16:11; Status DC Sevoflurane (Ultane) 90 ml STK-MED ONCE IH ; Start 11/26/16 at 17:45; Stop 11/26 at 17:46; Status DC Propofol 20 ml @ As Directed STK-MED ONCE IV ; Start 11/26/16 at 17:45; Stop 06/02 at 17:46; Status DC Dexamethasone Sodium Phosphate (Decadron) 20 mg STK-MED ONCE .ROUTE ; Start 06/02 at 17:45; Stop 11/26/16 at 17:46; Status DC Ondansetron HCl (Zofran) 4 mg STK-MED ONCE .ROUTE ; Start 11/26/16 at 17:45; Stop 11/26/16 at 17:46; Status DC Lidocaine HCl (Lidocaine Pf 2% Vial) 5 ml STK-MED ONCE .ROUTE ; Start 11/26/16 at 17:45; Stop 11/26/16 at 17:46; Status DC Cefazolin Sodium 50 ml @ As Directed STK-MED ONCE IV ; Start 11/26/16 at 18:40; Stop 11/26/16 at 18:41; Status DC Phenylephrine HCl 1 mg STK-MED ONCE IV ; Start 11/26/16 at 19:34; Stop 11/26/16 at 19:35; Status DC Labetalol HCl (Normodyne) 20 mg STK-MED ONCE .ROUTE ; Start 11/26/16 at 20:21; Stop 11/26/16 at 20:22; Status DC Carvedilol (Coreg) 3.125 mg BIDWMEALS PO Last administered on 11/28/16 17:03; Start 11/27/16 at 17:00; Stop 11/29/16 at 07:56; Status DC Lidocaine/Sodium Bicarbonate (Buffered Lidocaine 1%) 20 ml STK-MED ONCE IJ ; Start 11/27/16 at 12:19; Stop 11/27/16 at 12:20; Status DC Fentanyl Citrate (Fentanyl 2ml Vial) 100 mcg STK-MED ONCE .ROUTE ; Start at 12:30; Stop 11/27/16 at 12:31; Status DC Midazolam HCl (Versed) 2 mg STK-MED ONCE .ROUTE ; Start 11/27/16 at 12:30; Stop 11/27/16 at 12:31; Status DC Enoxaparin Sodium (Lovenox 30mg Syringe) 30 mg Q24H SQ Last administered on 08:39; Start 11/28/16 at 10:00 Morphine Sulfate 10 mg STK-MED ONCE .ROUTE ; Start 11/27/16 at 13:07; Stop 11/27 at 13:08; Status DC Lidocaine/Sodium Bicarbonate (Buffered Lidocaine 1%) 20 ml 1X ONCE IJ Last administered on 11/27/16 13:29; Start 11/27/16 at 13:30; Stop 11/27/16 at 13:31 ; Status DC Midazolam HCl (Versed) 2 mg 1X ONCE IV Last administered on 11/27/16 13:30; Start 11/27/16 at 13:30; Stop 11/27/16 at 13:31; Status DC Morphine Sulfate 10 mg 1X ONCE IV Last administered on 11/27/16 13:30; Start 11/27/16 at 13:30; Stop 11/27/16 at 13:31; Status DC Midazolam HCl (Versed) 2 mg 1X ONCE IV Last administered on 11/27/16 15:30; Start 11/27/16 at 15:30; Stop 11/27/16 at 15:34; Status DC Lidocaine HCl 20 ml 1X ONCE IJ Last administered on 11/27/16 15:30; Start at 15:30; Stop 11/27/16 at 15:34; Status DC Morphine Sulfate 10 mg 1X ONCE IV Last administered on 11/27/16 15:30; Start 11/27/16 at 15:30; Stop 11/27/16 at 15:34; Status DC Iohexol (Omnipaque 300 Mg/ml) 60 ml 1X ONCE IV Last administered on 11/28/16 15:46; Start 11/28/16 at 14:00; Stop 11/28/16 at 14:01; Status DC Info (Do NOT chart on this entry -- for MONITORING) 1 each PRN DAILY PRN MC SEE COMMENTS; Start 11/28/16 at 14:00; Stop 11/30/16 at 13:59 Iohexol (Omnipaque 300 Mg/ml) 60 ml 1X ONCE IV ; Start 11/28/16 at 15:15; Stop 11/28/16 at 15:16; Status DC Info (Do NOT chart on this entry -- for MONITORING) 1 each PRN DAILY PRN MC SEE COMMENTS; Start 11/28/16 at 15:15; Stop 11/30/16 at 15:14 Carvedilol (Coreg) 12.5 mg BIDWMEALS PO Last administered on 11/29/16 08:38; Start 11/29/16 at 08:00 Sodium Chloride 1,000 ml @ 75 mls/hr [id number] IV ; Start 11/29/16 at 13:00 Active Scripts Active Reported Stool Softener (Docusate Sodium) 100 Mg Capsule 100 Mg PO DAILYWLUN Hysingla ER (Hydrocodone Bitartrate) 40 Mg Tab.er.24h 50 Mg PO DAILYWLUN Famotidine 20 Mg Tablet 20 Mg PO HS Calcium 600 + Vit D 200 Tablet (Calcium Carbonate/Vitamin D3) 1 Each Tablet 1 Each PO BID Novolog (Insulin Aspart) 100 Unit/1 Ml Vial 8 Unit SQ PRN PRN Simvastatin 20 Mg Tablet 1 Tab PO QHS Daily Vitamin (Multivitamin) 1 Each Tablet 1 Each PO Lantus (Insulin Glargine,Hum.rec.anlog) 100 Unit/1 Ml Vial 10 Unit SQ Cymbalta (Duloxetine Hcl) 30 Mg Capsule.dr 1 Cap PO DAILY Carvedilol 12.5 Mg Tablet 1 Tab PO BID Aspirin 81 Mg Tab.chew 1 Tab PO DAILY Allergies Allergies: Coded Allergies: fentanyl (Verified Allergy, Intermediate, 11/29/16) ROS Review of System Unable to perform, the patient has dementia and is a poor historian Physical Exam General: No acute distress, Other (dementia) HEENT: Atraumatic, EOMI Lungs: Clear to auscultation Heart: Regular rate, Normal S1, Normal S2 Abdomen: Soft, No tenderness Extremities: No edema Skin: No significant lesion Neuro: Other (unable to assess patient demented) MUSCULOSKELETAL: No deformity Vitals VITALS Vital Signs Date Time Temp Pulse Resp B/P (MAP) Pulse Ox O2 Delivery O2 Flow Rate FiO2 11/29/16 12:10 83 201/76 11/29/16 12:00 16 Room Air 11/29/16 11:00 97.4 94 97.4 11/28/16 07:00 2.0 Labs Labs Laboratory Tests Test 11/27/16 17:07 11/28/16 05:50 11/28/16 07:02 11/28/16 11:57 Glucose (Fingerstick) 129 mg/dL (70-99) 90 mg/dL (70-99) 206 mg/dL (70-99) White Blood Count 8.8 x10^3/uL (4.0-11.0) Red Blood Count 3.44 x10^6/uL (3.50-5.40) Hemoglobin 10.8 g/dL (12.0-15.5) Hematocrit 31.5 % (36.0-47.0) Mean Corpuscular Volume 92 fL (79-100) Mean Corpuscular Hemoglobin 31 pg (25-35) Mean Corpuscular Hemoglobin Concent 34 g/dL (31-37) Red Cell Distribution Width 16.9 % (11.5-14.5) Platelet Count 133 x10^3/uL (140-400) Neutrophils (%) (Auto) 75 % (31-73) Lymphocytes (%) (Auto) 14 % (24-48) Monocytes (%) (Auto) 9 % (0-9) Eosinophils (%) (Auto) 2 % (0-3) Basophils (%) (Auto) 1 % (0-3) Neutrophils # (Auto) 6.6 x10^3uL (1.8-7.7) Lymphocytes # (Auto) 1.2 x10^3/uL (1.0-4.8) Monocytes # (Auto) 0.8 x10^3/uL (0.0-1.1) Eosinophils # (Auto) 0.2 x10^3/uL (0.0-0.7) Basophils # (Auto) 0.0 x10^3/uL (0.0-0.2) Sodium Level 138 mmol/L (136-145) Potassium Level 3.6 mmol/L (3.5-5.1) Chloride Level 106 mmol/L (98-107) Carbon Dioxide Level 26 mmol/L (21-32) Anion Gap 6 (6-14) Blood Urea Nitrogen 27 mg/dL (7-20) Creatinine 1.1 mg/dL (0.6-1.0) Estimated GFR (Cockcroft-Gault) 47.3 Glucose Level 96 mg/dL (70-99) Calcium Level 8.6 mg/dL (8.5-10.1) Test 11/28/16 16:34 11/28/16 20:47 11/29/16 07:30 11/29/16 08:45 Glucose (Fingerstick) 133 mg/dL (70-99) 190 mg/dL (70-99) 321 mg/dL (70-99) White Blood Count 14.4 x10^3/uL (4.0-11.0) Red Blood Count 3.93 x10^6/uL (3.50-5.40) Hemoglobin 11.9 g/dL (12.0-15.5) Hematocrit 36.2 % (36.0-47.0) Mean Corpuscular Volume 92 fL (79-100) Mean Corpuscular Hemoglobin 30 pg (25-35) Mean Corpuscular Hemoglobin Concent 33 g/dL (31-37) Red Cell Distribution Width 16.2 % (11.5-14.5) Platelet Count 172 x10^3/uL (140-400) Neutrophils (%) (Auto) 91 % (31-73) Lymphocytes (%) (Auto) 5 % (24-48) Monocytes (%) (Auto) 4 % (0-9) Eosinophils (%) (Auto) 0 % (0-3) Basophils (%) (Auto) 0 % (0-3) Neutrophils # (Auto) 13.1 x10^3uL (1.8-7.7) Lymphocytes # (Auto) 0.7 x10^3/uL (1.0-4.8) Monocytes # (Auto) 0.5 x10^3/uL (0.0-1.1) Eosinophils # (Auto) 0.0 x10^3/uL (0.0-0.7) Basophils # (Auto) 0.0 x10^3/uL (0.0-0.2) Segmented Neutrophils % 93 % (35-66) Band Neutrophils % 1 % (0-9) Lymphocytes % 2 % (24-48) Monocytes % 3 % (0-10) Basophils % 1 % (0-3) Platelet Estimate Adequate (ADEQUATE) Sodium Level 129 mmol/L (136-145) Potassium Level 3.5 mmol/L (3.5-5.1) Chloride Level 93 mmol/L (98-107) Carbon Dioxide Level 26 mmol/L (21-32) Anion Gap 10 (6-14) Blood Urea Nitrogen 18 mg/dL (7-20) Creatinine 1.0 mg/dL (0.6-1.0) Estimated GFR (Cockcroft-Gault) 52.8 Glucose Level 308 mg/dL (70-99) Calcium Level 8.8 mg/dL (8.5-10.1) Test 11/29/16 11:10 Glucose (Fingerstick) 262 mg/dL (70-99) Laboratory Tests Test 11/28/16 16:34 11/28/16 20:47 11/29/16 07:30 11/29/16 08:45 Glucose (Fingerstick) 133 mg/dL (70-99) 190 mg/dL (70-99) 321 mg/dL (70-99) White Blood Count 14.4 x10^3/uL (4.0-11.0) Red Blood Count 3.93 x10^6/uL (3.50-5.40) Hemoglobin 11.9 g/dL (12.0-15.5) Hematocrit 36.2 % (36.0-47.0) Mean Corpuscular Volume 92 fL (79-100) Mean Corpuscular Hemoglobin 30 pg (25-35) Mean Corpuscular Hemoglobin Concent 33 g/dL (31-37) Red Cell Distribution Width 16.2 % (11.5-14.5) Platelet Count 172 x10^3/uL (140-400) Neutrophils (%) (Auto) 91 % (31-73) Lymphocytes (%) (Auto) 5 % (24-48) Monocytes (%) (Auto) 4 % (0-9) Eosinophils (%) (Auto) 0 % (0-3) Basophils (%) (Auto) 0 % (0-3) Neutrophils # (Auto) 13.1 x10^3uL (1.8-7.7) Lymphocytes # (Auto) 0.7 x10^3/uL (1.0-4.8) Monocytes # (Auto) 0.5 x10^3/uL (0.0-1.1) Eosinophils # (Auto) 0.0 x10^3/uL (0.0-0.7) Basophils # (Auto) 0.0 x10^3/uL (0.0-0.2) Segmented Neutrophils % 93 % (35-66) Band Neutrophils % 1 % (0-9) Lymphocytes % 2 % (24-48) Monocytes % 3 % (0-10) Basophils % 1 % (0-3) Platelet Estimate Adequate (ADEQUATE) Sodium Level 129 mmol/L (136-145) Potassium Level 3.5 mmol/L (3.5-5.1) Chloride Level 93 mmol/L (98-107) Carbon Dioxide Level 26 mmol/L (21-32) Anion Gap 10 (6-14) Blood Urea Nitrogen 18 mg/dL (7-20) Creatinine 1.0 mg/dL (0.6-1.0) Estimated GFR (Cockcroft-Gault) 52.8 Glucose Level 308 mg/dL (70-99) Calcium Level 8.8 mg/dL (8.5-10.1) Test 11/29/16 11:10 Glucose (Fingerstick) 262 mg/dL (70-99) Images Images 1. 4.2 cm left upper lobe mass concerning for primary bronchogenic carcinoma. No evidence of metastatic disease. 2. A 3 mm uncalcified nodule in the left lower lobe is indeterminate. 3. Moderate extrahepatic biliary dilatation status post cholecystectomy. Correlate for cholestasis to assess significance. 4. Correlate for distal esophagitis. Assessment/Plan Assessment/Plan 86-year-old female with multiple comorbidities, including dementia, ischemic heart disease status post CABG who presented after a mechanical fall sustaining a right hip fracture. She underwent a right hip replacement and is not postoperative day 3. On preoperative chest x-ray shows found to have a large left upper lobe mass which was confirmed on CT chest. Percutaneous biopsy confirmed squamous cell carcinoma poorly differentiated. CT of the head and abdomen has not demonstrated any distal disease and there are no pathologic lymph nodes in the mediastinum. She has not had a PET/CT. Based on her current workup she is a [id number], stage IIA. Nevertheless, the patient is a poor surgical candidate based on significant comorbidities, poor functional status, dementia and advanced age. In addition she has had a previous CABG and based on her CT she has a patent MENDOSA to the LAD. If she was to have a left upper lobectomy we would have to dissect the MENDOSA which would be sitting on the left lung. There is a chance that during this dissection the MENDOSA could be injured which would be fatal for this patient. For the above reasons, I do not recommend she undergoes a lung resection and I think she would be better served with SBRT. The was at the patient's bedside agrees with my assessment. GRAHAM LOPEZ MD Nov 29, 2016 15:12
--- NOTE | 2016-11-29 16:58 | PDOC2 ---
PALLIATIVE CARE Palliative Care Note Palliative Care Patient resting comfortably. Did not awaken. Notes and plans reviewed. Attempted to reach Meng/ to discuss code status and plans. No answer. Will attempt to meet tomorrow. EDWIN PHILLIPS Nov 29, 2016 16:58
[2016-11-29] MEDS: IV NORMAL SALINE 1000ML BAG 1,000 ML IV SCH (18:37)
[2016-11-29] MEDS: SIMVASTATIN 20 MG TABLET PO SCH (21:00)
[2016-11-29] MEDS: FAMOTIDINE 20 MG TABLET. PO SCH (21:00)
[2016-11-29] MEDS: INSULIN DETEMIR 300 UNITS/3 ML INSULN.PEN. SQ SCH (21:00)
[2016-11-30] MEDS: IV NORMAL SALINE 1000ML BAG 1,000 ML IV SCH ×2 (02:20→14:27)
[2016-11-30 03:00] VITALS: BP 179/79
[2016-11-30 07:00] VITALS: BP 201/77
--- NOTE | 2016-11-30 08:12 | RAD ---
Portable chest, 11/30/2016: History: Follow-up left pneumothorax Comparison is made to yesterday's study. The left pleural drain is unchanged. There is a tiny residual left apical pneumothorax. The patient's left upper chest mass is again noted. There are scattered parenchymal scars. No new pulmonary abnormality is seen. The heart size is normal. A coronary stent and/or calcifications are again noted. No pleural fluid is evident. IMPRESSION: 1. Tiny residual left apical pneumothorax. 2. No new abnormality is detected.
[2016-11-30] MEDS: ONDANSETRON PF 4 MG/2 ML VIAL. IV PRN ×2 (08:29→17:54)
[2016-11-30 08:43] LABS: BASO % 0 % (0-3); EOS % 0 % (0-3); HEMATOCRIT 30.8 % (36.0-47.0); HEMOGLOBIN 10.4 g/dL (12.0-15.5); LYMPH # 0.7 x10^3/uL (1.0-4.8); LYMPH % 6 % (24-48); MEAN CORPUSCULAR HEMOGLOBIN 31 pg (25-35); MEAN CORPUSCULAR HGB CONC 34 g/dL (31-37); MEAN CORPUSCULAR VOLUME 91 fL (79-100); MONO % 5 % (0-9); NEUT % 88 % (31-73); PLATELET COUNT 199 x10^3/uL (140-400); RED BLOOD COUNT 3.37 x10^6/uL (3.50-5.40); RED CELL DISTRIBUTION WIDTH 15.6 % (11.5-14.5); WHITE BLOOD COUNT 11.7 x10^3/uL (4.0-11.0)
[2016-11-30 08:56] LABS: CALCIUM 10.3 mg/dL (8.5-10.1); GFR 52.8; POTASSIUM 3.7 mmol/L (3.5-5.1)
--- NOTE | 2016-11-30 09:30 | PDOC ---
PROGRESS NOTES Subjective Subjective She continues with nausea. Objective Objective Vital Signs Date Time Temp Pulse Resp B/P (MAP) Pulse Ox O2 Delivery O2 Flow Rate FiO2 11/30/16 07:00 97.7 89 18 201/77 (118) 95 Room Air 97.7 11/28/16 07:00 2.0 Intake and Output 11/30/16 07:00 Intake Total 1350 ml Output Total 2147 ml Balance -797 ml Intake Oral 600 ml IV Total 750 ml Output Urine Total 2125 ml Chest Tube Drainage Total 22 ml Physical Exam Physical Exam She is awake and talking and following commands and still having pain on ROM of right hip.She had chest tube in place. Assessment Assessment Problems Medical Problems: (1) Closed right hip fracture Status: Acute Plan Plan of Care To continue physical and occupational therapy follow up as she can tolerate. Comment Review of Relevant I have reviewed the following items alysha (where applicable) has been applied. Labs Laboratory Tests Test 11/28/16 11:57 11/28/16 16:34 11/28/16 20:47 11/29/16 07:30 Glucose (Fingerstick) 206 mg/dL (70-99) 133 mg/dL (70-99) 190 mg/dL (70-99) White Blood Count 14.4 x10^3/uL (4.0-11.0) Red Blood Count 3.93 x10^6/uL (3.50-5.40) Hemoglobin 11.9 g/dL (12.0-15.5) Hematocrit 36.2 % (36.0-47.0) Mean Corpuscular Volume 92 fL (79-100) Mean Corpuscular Hemoglobin 30 pg (25-35) Mean Corpuscular Hemoglobin Concent 33 g/dL (31-37) Red Cell Distribution Width 16.2 % (11.5-14.5) Platelet Count 172 x10^3/uL (140-400) Neutrophils (%) (Auto) 91 % (31-73) Lymphocytes (%) (Auto) 5 % (24-48) Monocytes (%) (Auto) 4 % (0-9) Eosinophils (%) (Auto) 0 % (0-3) Basophils (%) (Auto) 0 % (0-3) Neutrophils # (Auto) 13.1 x10^3uL (1.8-7.7) Lymphocytes # (Auto) 0.7 x10^3/uL (1.0-4.8) Monocytes # (Auto) 0.5 x10^3/uL (0.0-1.1) Eosinophils # (Auto) 0.0 x10^3/uL (0.0-0.7) Basophils # (Auto) 0.0 x10^3/uL (0.0-0.2) Segmented Neutrophils % 93 % (35-66) Band Neutrophils % 1 % (0-9) Lymphocytes % 2 % (24-48) Monocytes % 3 % (0-10) Basophils % 1 % (0-3) Platelet Estimate Adequate (ADEQUATE) Sodium Level 129 mmol/L (136-145) Potassium Level 3.5 mmol/L (3.5-5.1) Chloride Level 93 mmol/L (98-107) Carbon Dioxide Level 26 mmol/L (21-32) Anion Gap 10 (6-14) Blood Urea Nitrogen 18 mg/dL (7-20) Creatinine 1.0 mg/dL (0.6-1.0) Estimated GFR (Cockcroft-Gault) 52.8 Glucose Level 308 mg/dL (70-99) Calcium Level 8.8 mg/dL (8.5-10.1) Test 11/29/16 08:45 11/29/16 11:10 11/29/16 16:17 11/29/16 20:47 Glucose (Fingerstick) 321 mg/dL (70-99) 262 mg/dL (70-99) 173 mg/dL (70-99) 169 mg/dL (70-99) Test 11/30/16 07:22 11/30/16 08:15 Glucose (Fingerstick) 210 mg/dL (70-99) White Blood Count 11.7 x10^3/uL (4.0-11.0) Red Blood Count 3.37 x10^6/uL (3.50-5.40) Hemoglobin 10.4 g/dL (12.0-15.5) Hematocrit 30.8 % (36.0-47.0) Mean Corpuscular Volume 91 fL (79-100) Mean Corpuscular Hemoglobin 31 pg (25-35) Mean Corpuscular Hemoglobin Concent 34 g/dL (31-37) Red Cell Distribution Width 15.6 % (11.5-14.5) Platelet Count 199 x10^3/uL (140-400) Neutrophils (%) (Auto) 88 % (31-73) Lymphocytes (%) (Auto) 6 % (24-48) Monocytes (%) (Auto) 5 % (0-9) Eosinophils (%) (Auto) 0 % (0-3) Basophils (%) (Auto) 0 % (0-3) Neutrophils # (Auto) 10.3 x10^3uL (1.8-7.7) Lymphocytes # (Auto) 0.7 x10^3/uL (1.0-4.8) Monocytes # (Auto) 0.6 x10^3/uL (0.0-1.1) Eosinophils # (Auto) 0.0 x10^3/uL (0.0-0.7) Basophils # (Auto) 0.0 x10^3/uL (0.0-0.2) Sodium Level 134 mmol/L (136-145) Potassium Level 3.7 mmol/L (3.5-5.1) Chloride Level 96 mmol/L (98-107) Carbon Dioxide Level 28 mmol/L (21-32) Anion Gap 10 (6-14) Blood Urea Nitrogen 30 mg/dL (7-20) Creatinine 1.0 mg/dL (0.6-1.0) Estimated GFR (Cockcroft-Gault) 52.8 Glucose Level 196 mg/dL (70-99) Calcium Level 10.3 mg/dL (8.5-10.1) Laboratory Tests Test 11/29/16 11:10 11/29/16 16:17 11/29/16 20:47 11/30/16 07:22 Glucose (Fingerstick) 262 mg/dL (70-99) 173 mg/dL (70-99) 169 mg/dL (70-99) 210 mg/dL (70-99) Test 11/30/16 08:15 White Blood Count 11.7 x10^3/uL (4.0-11.0) Red Blood Count 3.37 x10^6/uL (3.50-5.40) Hemoglobin 10.4 g/dL (12.0-15.5) Hematocrit 30.8 % (36.0-47.0) Mean Corpuscular Volume 91 fL (79-100) Mean Corpuscular Hemoglobin 31 pg (25-35) Mean Corpuscular Hemoglobin Concent 34 g/dL (31-37) Red Cell Distribution Width 15.6 % (11.5-14.5) Platelet Count 199 x10^3/uL (140-400) Neutrophils (%) (Auto) 88 % (31-73) Lymphocytes (%) (Auto) 6 % (24-48) Monocytes (%) (Auto) 5 % (0-9) Eosinophils (%) (Auto) 0 % (0-3) Basophils (%) (Auto) 0 % (0-3) Neutrophils # (Auto) 10.3 x10^3uL (1.8-7.7) Lymphocytes # (Auto) 0.7 x10^3/uL (1.0-4.8) Monocytes # (Auto) 0.6 x10^3/uL (0.0-1.1) Eosinophils # (Auto) 0.0 x10^3/uL (0.0-0.7) Basophils # (Auto) 0.0 x10^3/uL (0.0-0.2) Sodium Level 134 mmol/L (136-145) Potassium Level 3.7 mmol/L (3.5-5.1) Chloride Level 96 mmol/L (98-107) Carbon Dioxide Level 28 mmol/L (21-32) Anion Gap 10 (6-14) Blood Urea Nitrogen 30 mg/dL (7-20) Creatinine 1.0 mg/dL (0.6-1.0) Estimated GFR (Cockcroft-Gault) 52.8 Glucose Level 196 mg/dL (70-99) Calcium Level 10.3 mg/dL (8.5-10.1) Medications Current Medications Ondansetron HCl (Zofran) 4 mg 1X ONCE IV Last administered on 11/26/16 04:30 ; Start 11/26/16 at 04:30; Stop 11/26/16 at 04:31; Status DC Sodium Chloride 1,000 ml @ 1,000 mls/hr 1X ONCE IV Last administered on 04:30; Start 11/26/16 at 04:30; Stop 11/26/16 at 05:29; Status DC Hydromorphone HCl (Dilaudid) 0.5 mg 1X ONCE IV Last administered on 11/26/16 04:30; Start 11/26/16 at 04:30; Stop 11/26/16 at 04:31; Status DC Ondansetron HCl (Zofran) 4 mg PRN Q8HRS PRN IV NAUSEA/VOMITING; Start 11/26/16 at 04:45; Stop 11/27/16 at 04:44; Status DC Morphine Sulfate 4 mg PRN Q2HR PRN IV SEVERE PAIN Last administered on 07:47; Start 11/26/16 at 04:45; Stop 11/27/16 at 04:44; Status DC Aspirin (Children'S Aspirin) 81 mg DAILY PO Last administered on 11/29/16 08: 38; Start 11/26/16 at 09:00 Carvedilol (Coreg) 12.5 mg BIDWMEALS PO Last administered on 11/26/16 08:13; Start 11/26/16 at 08:00; Stop 11/27/16 at 09:53; Status DC Docusate Sodium (Colace) 100 mg DAILYWLUN PO ; Start 11/26/16 at 12:00; Stop at 11:49; Status DC Duloxetine HCl (Cymbalta) 30 mg DAILY PO Last administered on 11/29/16 08:38; Start 11/26/16 at 09:00 Famotidine (Pepcid) 20 mg HS PO Last administered on 11/28/16 21:00; Start 06/02 at 21:00 Insulin Aspart (NovoLOG) 8 units TIDAC SQ Last administered on 11/26/16 08:20 ; Start 11/26/16 at 08:00; Stop 11/26/16 at 13:16; Status DC Simvastatin (Zocor) 20 mg QHS PO Last administered on 11/28/16 21:00; Start at 21:00 Calcium/Vitamin D (Oscal D 500mg/ 200uts) 1 tab BIDWMEALS PO Last administered on 11/29/16 18:41; Start 11/26/16 at 08:00 Non-Formulary Medication 50 mg DAILYWLUN PO ; Start 11/26/16 at 12:00; Stop 06/02 at 17:18; Status DC Ondansetron HCl (Zofran) 4 mg PRN Q6HRS PRN IV NAUSEA/VOMITING; Start 11/26/16 at 09:45; Stop 11/27/16 at 09:44; Status DC Morphine Sulfate 1 mg PRN Q10MIN PRN IV SEVERE PAIN Last administered on 21:12; Start 11/26/16 at 09:45; Stop 11/27/16 at 09:44; Status DC Ringer's Solution 1,000 ml @ 30 mls/hr Q24H IV Last administered on 11/26/16 16:41; Start 11/26/16 at 09:44; Stop 11/26/16 at 21:43; Status DC Lidocaine HCl 2 ml PRN 1X PRN ID PRIOR TO IV START; Start 11/26/16 at 09:45; Stop 11/27/16 at 09:44; Status DC Hydromorphone HCl (Dilaudid) 0.5 mg PRN Q10MIN PRN IV SEV PAIN, Second choice; Start 11/26/16 at 09:45; Stop 11/27/16 at 09:44; Status DC Prochlorperazine Edisylate (Compazine) 5 mg PACU PRN PRN IV NAUSEA, MRX1; Start 11/26/16 at 09:45; Stop 11/27/16 at 09:44; Status DC Iohexol (Omnipaque 300 Mg/ml) 50 ml 1X ONCE IV ; Start 11/26/16 at 11:30; Stop 11/26/16 at 11:31; Status DC Iohexol (Omnipaque 300 Mg/ml) 60 ml 1X ONCE IV Last administered on 11/26/16 11:28; Start 11/26/16 at 11:30; Stop 11/26/16 at 11:31; Status DC Info (Do NOT chart on this entry -- for MONITORING) 1 each PRN DAILY PRN MC SEE COMMENTS; Start 11/26/16 at 11:15; Stop 11/28/16 at 11:14; Status DC Insulin Detemir (Levemir) 10 units QHS SQ Last administered on 11/28/16 21:00 ; Start 11/26/16 at 21:00 Insulin Aspart (NovoLOG) 0-9 UNITS TIDWMEALS SQ Last administered on 11/29/16 18:44; Start 11/26/16 at 17:00 Dextrose (Dextrose 50%-Water Syringe) 12.5 gm PRN Q15MIN PRN IV SEE COMMENTS; Start 11/26/16 at 13:15 Acetaminophen (Tylenol) 650 mg PRN Q6HRS PRN PO FEVER Last administered on 11/27 22:00; Start 11/26/16 at 13:15 Ondansetron HCl (Zofran) 4 mg PRN Q6HRS PRN IV NAUSEA/VOMITING Last administered on 11/30/16 08:29; Start 11/26/16 at 13:15 Morphine Sulfate 2 mg PRN Q2HR PRN IV PAIN Last administered on 11/29/16 11:18 ; Start 11/26/16 at 13:15 Tramadol HCl (Ultram) 50 mg PRN Q6HRS PRN PO PAIN Last administered on 18:41; Start 11/26/16 at 13:15 Hydralazine HCl (Apresoline) 10 mg PRN Q4HRS PRN IVP ELEVATED BP, SEE COMMENTS Last administered on 11/29/16 12:10; Start 11/26/16 at 13:15 Docusate Sodium (Colace) 100 mg PRN DAILY PRN PO CONSTIPATION Last administered on 11/28/16 11:55; Start 11/26/16 at 13:15 Bupivacaine HCl/ Epinephrine Bitart (Marcaine-Epi 0.25%-[id number]) 50 ml STK-MED ONCE .ROUTE Last administered on 11/26/16 19:25; Start 11/26/16 at 16:10; Stop 11/26/16 at 16:11; Status DC Sevoflurane (Ultane) 90 ml STK-MED ONCE IH ; Start 11/26/16 at 17:45; Stop 11/26 at 17:46; Status DC Propofol 20 ml @ As Directed STK-MED ONCE IV ; Start 11/26/16 at 17:45; Stop 06/02 at 17:46; Status DC Dexamethasone Sodium Phosphate (Decadron) 20 mg STK-MED ONCE .ROUTE ; Start 06/02 at 17:45; Stop 11/26/16 at 17:46; Status DC Ondansetron HCl (Zofran) 4 mg STK-MED ONCE .ROUTE ; Start 11/26/16 at 17:45; Stop 11/26/16 at 17:46; Status DC Lidocaine HCl (Lidocaine Pf 2% Vial) 5 ml STK-MED ONCE .ROUTE ; Start 11/26/16 at 17:45; Stop 11/26/16 at 17:46; Status DC Cefazolin Sodium 50 ml @ As Directed STK-MED ONCE IV ; Start 11/26/16 at 18:40; Stop 11/26/16 at 18:41; Status DC Phenylephrine HCl 1 mg STK-MED ONCE IV ; Start 11/26/16 at 19:34; Stop 11/26/16 at 19:35; Status DC Labetalol HCl (Normodyne) 20 mg STK-MED ONCE .ROUTE ; Start 11/26/16 at 20:21; Stop 11/26/16 at 20:22; Status DC Carvedilol (Coreg) 3.125 mg BIDWMEALS PO Last administered on 11/28/16 17:03; Start 11/27/16 at 17:00; Stop 11/29/16 at 07:56; Status DC Lidocaine/Sodium Bicarbonate (Buffered Lidocaine 1%) 20 ml STK-MED ONCE IJ ; Start 11/27/16 at 12:19; Stop 11/27/16 at 12:20; Status DC Fentanyl Citrate (Fentanyl 2ml Vial) 100 mcg STK-MED ONCE .ROUTE ; Start at 12:30; Stop 11/27/16 at 12:31; Status DC Midazolam HCl (Versed) 2 mg STK-MED ONCE .ROUTE ; Start 11/27/16 at 12:30; Stop 11/27/16 at 12:31; Status DC Enoxaparin Sodium (Lovenox 30mg Syringe) 30 mg Q24H SQ Last administered on 08:39; Start 11/28/16 at 10:00 Morphine Sulfate 10 mg STK-MED ONCE .ROUTE ; Start 11/27/16 at 13:07; Stop 11/27 at 13:08; Status DC Lidocaine/Sodium Bicarbonate (Buffered Lidocaine 1%) 20 ml 1X ONCE IJ Last administered on 11/27/16 13:29; Start 11/27/16 at 13:30; Stop 11/27/16 at 13:31 ; Status DC Midazolam HCl (Versed) 2 mg 1X ONCE IV Last administered on 11/27/16 13:30; Start 11/27/16 at 13:30; Stop 11/27/16 at 13:31; Status DC Morphine Sulfate 10 mg 1X ONCE IV Last administered on 11/27/16 13:30; Start 11/27/16 at 13:30; Stop 11/27/16 at 13:31; Status DC Midazolam HCl (Versed) 2 mg 1X ONCE IV Last administered on 11/27/16 15:30; Start 11/27/16 at 15:30; Stop 11/27/16 at 15:34; Status DC Lidocaine HCl 20 ml 1X ONCE IJ Last administered on 11/27/16 15:30; Start at 15:30; Stop 11/27/16 at 15:34; Status DC Morphine Sulfate 10 mg 1X ONCE IV Last administered on 11/27/16 15:30; Start 11/27/16 at 15:30; Stop 11/27/16 at 15:34; Status DC Iohexol (Omnipaque 300 Mg/ml) 60 ml 1X ONCE IV Last administered on 11/28/16 15:46; Start 11/28/16 at 14:00; Stop 11/28/16 at 14:01; Status DC Info (Do NOT chart on this entry -- for MONITORING) 1 each PRN DAILY PRN MC SEE COMMENTS; Start 11/28/16 at 14:00; Stop 11/29/16 at 15:19; Status DC Iohexol (Omnipaque 300 Mg/ml) 60 ml 1X ONCE IV ; Start 11/28/16 at 15:15; Stop 11/28/16 at 15:16; Status DC Info (Do NOT chart on this entry -- for MONITORING) 1 each PRN DAILY PRN MC SEE COMMENTS; Start 11/28/16 at 15:15; Stop 11/30/16 at 15:14 Carvedilol (Coreg) 12.5 mg BIDWMEALS PO Last administered on 11/29/16 18:41; Start 11/29/16 at 08:00 Sodium Chloride 1,000 ml @ 75 mls/hr [id number] IV Last administered on 6/15/ 17at 18:37; Start 11/29/16 at 13:00 Lisinopril (Prinivil) 10 mg DAILY PO ; Start 11/30/16 at 09:00 Active Scripts Active Reported Stool Softener (Docusate Sodium) 100 Mg Capsule 100 Mg PO DAILYWLUN Hysingla ER (Hydrocodone Bitartrate) 40 Mg Tab.er.24h 50 Mg PO DAILYWLUN Famotidine 20 Mg Tablet 20 Mg PO HS Calcium 600 + Vit D 200 Tablet (Calcium Carbonate/Vitamin D3) 1 Each Tablet 1 Each PO BID Novolog (Insulin Aspart) 100 Unit/1 Ml Vial 8 Unit SQ PRN PRN Simvastatin 20 Mg Tablet 1 Tab PO QHS Daily Vitamin (Multivitamin) 1 Each Tablet 1 Each PO Lantus (Insulin Glargine,Hum.rec.anlog) 100 Unit/1 Ml Vial 10 Unit SQ Cymbalta (Duloxetine Hcl) 30 Mg Capsule. 1 Cap PO DAILY Carvedilol 12.5 Mg Tablet 1 Tab PO BID Aspirin 81 Mg Tab.chew 1 Tab PO DAILY Vitals/I & O Vital Sign - Last 24 Hours 11/29/16 11/29/16 11/29/16 11/29/16 11:00 11:18 12:00 12:10 Temp 97.4 97.4 Pulse 83 83 Resp 20 18 16 B/P (MAP) 201/76 (117) 201/76 Pulse Ox 94 O2 Delivery Room Air Room Air Room Air 11/29/16 11/29/16 11/29/16 11/29/16 15:00 18:41 18:41 19:00 Temp 97.4 98.3 97.4 98.3 Pulse 79 73 91 Resp 20 16 18 B/P (MAP) 162/63 (96) 162/62 172/77 (108) Pulse Ox 94 95 O2 Delivery Room Air Room Air Room Air 11/29/16 11/29/16 11/29/16 11/30/16 19:45 20:30 23:00 03:00 Temp 98.1 98.1 98.1 98.1 Pulse 82 80 Resp 18 18 B/P (MAP) 164/65 (98) 179/79 (112) Pulse Ox 96 96 96 O2 Delivery Room Air Room Air Room Air Room Air 11/30/16 07:00 Temp 97.7 97.7 Pulse 89 Resp 18 B/P (MAP) 201/77 (118) Pulse Ox 95 O2 Delivery Room Air Intake and Output 11/29/16 11/29/16 11/30/16 15:00 23:00 07:00 Intake Total 1350 ml Output Total 1200 ml 947 ml Balance -1200 ml 403 ml OZZY KENDALL MD Nov 30, 2016 09:30
[2016-11-30] MEDS: CARVEDILOL 12.5 MG TABLET. PO SCH ×2 (09:39→17:53)
[2016-11-30] MEDS: traMADol 50 MG TABLET PO PRN (09:39)
[2016-11-30] MEDS: DULoxetine HCL 30 MG CAPSULE.DR PO SCH (09:40)
[2016-11-30] MEDS: LISINOPRIL 10 MG TABLET PO SCH (09:40)
[2016-11-30] MEDS: CALCIUM CARB/VIT D3 500/200 TABLET. PO SCH ×2 (09:40→17:52)
[2016-11-30] MEDS: ENOXAPARIN 30 MG/0.3 ML SYRINGE. SQ SCH (09:41)
[2016-11-30] MEDS: ASPIRIN CHEWABLE 81 MG TABLET. PO SCH (09:41)
[2016-11-30] MEDS: INSULIN ASPART 300 UNITS/3 ML INSULN.PEN SQ SCH ×3 (09:49→17:00)
--- NOTE | 2016-11-30 10:19 | PDOC ---
PROGRESS NOTES Subjective Subjective Problems overnight: None Objective Vital Signs Vital Signs Date Time Temp Pulse Resp B/P (MAP) Pulse Ox O2 Delivery O2 Flow Rate FiO2 11/30/16 09:40 89 201/77 11/30/16 09:39 Room Air 11/30/16 07:00 97.7 18 95 97.7 11/28/16 07:00 2.0 Physical Exam Patient alert and oriented. She was getting up with physical therapy when I came in the room. She admitted some pain when standing but I was able to visualize her transfer from bed to chair with help of PT/OT. Surgical site dressings visualized and were clean, dry and intact with no surrounding erythema or ecchymosis. Labs Laboratory Tests Test 11/28/16 11:57 11/28/16 16:34 11/28/16 20:47 11/29/16 07:30 Glucose (Fingerstick) 206 mg/dL (70-99) 133 mg/dL (70-99) 190 mg/dL (70-99) White Blood Count 14.4 x10^3/uL (4.0-11.0) Red Blood Count 3.93 x10^6/uL (3.50-5.40) Hemoglobin 11.9 g/dL (12.0-15.5) Hematocrit 36.2 % (36.0-47.0) Mean Corpuscular Volume 92 fL (79-100) Mean Corpuscular Hemoglobin 30 pg (25-35) Mean Corpuscular Hemoglobin Concent 33 g/dL (31-37) Red Cell Distribution Width 16.2 % (11.5-14.5) Platelet Count 172 x10^3/uL (140-400) Neutrophils (%) (Auto) 91 % (31-73) Lymphocytes (%) (Auto) 5 % (24-48) Monocytes (%) (Auto) 4 % (0-9) Eosinophils (%) (Auto) 0 % (0-3) Basophils (%) (Auto) 0 % (0-3) Neutrophils # (Auto) 13.1 x10^3uL (1.8-7.7) Lymphocytes # (Auto) 0.7 x10^3/uL (1.0-4.8) Monocytes # (Auto) 0.5 x10^3/uL (0.0-1.1) Eosinophils # (Auto) 0.0 x10^3/uL (0.0-0.7) Basophils # (Auto) 0.0 x10^3/uL (0.0-0.2) Segmented Neutrophils % 93 % (35-66) Band Neutrophils % 1 % (0-9) Lymphocytes % 2 % (24-48) Monocytes % 3 % (0-10) Basophils % 1 % (0-3) Platelet Estimate Adequate (ADEQUATE) Sodium Level 129 mmol/L (136-145) Potassium Level 3.5 mmol/L (3.5-5.1) Chloride Level 93 mmol/L (98-107) Carbon Dioxide Level 26 mmol/L (21-32) Anion Gap 10 (6-14) Blood Urea Nitrogen 18 mg/dL (7-20) Creatinine 1.0 mg/dL (0.6-1.0) Estimated GFR (Cockcroft-Gault) 52.8 Glucose Level 308 mg/dL (70-99) Calcium Level 8.8 mg/dL (8.5-10.1) Test 11/29/16 08:45 11/29/16 11:10 11/29/16 16:17 11/29/16 20:47 Glucose (Fingerstick) 321 mg/dL (70-99) 262 mg/dL (70-99) 173 mg/dL (70-99) 169 mg/dL (70-99) Test 11/30/16 07:22 11/30/16 08:15 Glucose (Fingerstick) 210 mg/dL (70-99) White Blood Count 11.7 x10^3/uL (4.0-11.0) Red Blood Count 3.37 x10^6/uL (3.50-5.40) Hemoglobin 10.4 g/dL (12.0-15.5) Hematocrit 30.8 % (36.0-47.0) Mean Corpuscular Volume 91 fL (79-100) Mean Corpuscular Hemoglobin 31 pg (25-35) Mean Corpuscular Hemoglobin Concent 34 g/dL (31-37) Red Cell Distribution Width 15.6 % (11.5-14.5) Platelet Count 199 x10^3/uL (140-400) Neutrophils (%) (Auto) 88 % (31-73) Lymphocytes (%) (Auto) 6 % (24-48) Monocytes (%) (Auto) 5 % (0-9) Eosinophils (%) (Auto) 0 % (0-3) Basophils (%) (Auto) 0 % (0-3) Neutrophils # (Auto) 10.3 x10^3uL (1.8-7.7) Lymphocytes # (Auto) 0.7 x10^3/uL (1.0-4.8) Monocytes # (Auto) 0.6 x10^3/uL (0.0-1.1) Eosinophils # (Auto) 0.0 x10^3/uL (0.0-0.7) Basophils # (Auto) 0.0 x10^3/uL (0.0-0.2) Sodium Level 134 mmol/L (136-145) Potassium Level 3.7 mmol/L (3.5-5.1) Chloride Level 96 mmol/L (98-107) Carbon Dioxide Level 28 mmol/L (21-32) Anion Gap 10 (6-14) Blood Urea Nitrogen 30 mg/dL (7-20) Creatinine 1.0 mg/dL (0.6-1.0) Estimated GFR (Cockcroft-Gault) 52.8 Glucose Level 196 mg/dL (70-99) Calcium Level 10.3 mg/dL (8.5-10.1) Laboratory Tests Test 11/29/16 11:10 11/29/16 16:17 11/29/16 20:47 11/30/16 07:22 Glucose (Fingerstick) 262 mg/dL (70-99) 173 mg/dL (70-99) 169 mg/dL (70-99) 210 mg/dL (70-99) Test 11/30/16 08:15 White Blood Count 11.7 x10^3/uL (4.0-11.0) Red Blood Count 3.37 x10^6/uL (3.50-5.40) Hemoglobin 10.4 g/dL (12.0-15.5) Hematocrit 30.8 % (36.0-47.0) Mean Corpuscular Volume 91 fL (79-100) Mean Corpuscular Hemoglobin 31 pg (25-35) Mean Corpuscular Hemoglobin Concent 34 g/dL (31-37) Red Cell Distribution Width 15.6 % (11.5-14.5) Platelet Count 199 x10^3/uL (140-400) Neutrophils (%) (Auto) 88 % (31-73) Lymphocytes (%) (Auto) 6 % (24-48) Monocytes (%) (Auto) 5 % (0-9) Eosinophils (%) (Auto) 0 % (0-3) Basophils (%) (Auto) 0 % (0-3) Neutrophils # (Auto) 10.3 x10^3uL (1.8-7.7) Lymphocytes # (Auto) 0.7 x10^3/uL (1.0-4.8) Monocytes # (Auto) 0.6 x10^3/uL (0.0-1.1) Eosinophils # (Auto) 0.0 x10^3/uL (0.0-0.7) Basophils # (Auto) 0.0 x10^3/uL (0.0-0.2) Sodium Level 134 mmol/L (136-145) Potassium Level 3.7 mmol/L (3.5-5.1) Chloride Level 96 mmol/L (98-107) Carbon Dioxide Level 28 mmol/L (21-32) Anion Gap 10 (6-14) Blood Urea Nitrogen 30 mg/dL (7-20) Creatinine 1.0 mg/dL (0.6-1.0) Estimated GFR (Cockcroft-Gault) 52.8 Glucose Level 196 mg/dL (70-99) Calcium Level 10.3 mg/dL (8.5-10.1) Assessment Assessment POD# 4, S/P Right intertrochanteric fracture nailing Problems: Plan Plan of Care Continue PT/OT with weight bearing as tolerated Pain control: current order is morphine and tramadol. Continue pain control as appropriate DVT prophylaxis: Continue use of SCDs, especially if patient continues to be mostly sedentary. Bowel regimen: Patient currently taking docusate. Continue bowel regimen as needed for regular stooling. IRON RUIZ PAC Nov 30, 2016 10:19
[2016-11-30 11:00] VITALS: BP 174/62
--- NOTE | 2016-11-30 11:55 | PDOC ---
PROGRESS NOTES Objective Objective Patient was seen in room 430. This is an 86 year old lady, who sustained right hip fracture and was admitted to [facility]. On work up she was also found to have left upper lobe mass, 4.2 cm in length and adenopathy, on ct scan. At present the patient is recuperating and will soon be moved [facility]. 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 I talked to the patient's and made him aware of the options. 1. keep pt. on observation with chest x-ray every three months, or after recovery, to treat LATOYA mass with localised Radiation since there are no lymph nodes seen on CT scan. In view of the above, we have given one month follow up appointment. Vital Signs Date Time Temp Pulse Resp B/P (MAP) Pulse Ox O2 Delivery O2 Flow Rate FiO2 11/30/16 09:40 89 201/77 11/30/16 09:39 Room Air 11/30/16 07:00 97.7 18 95 97.7 11/28/16 07:00 2.0 Intake and Output 11/30/16 07:00 Intake Total 1350 ml Output Total 2147 ml Balance -797 ml Intake Oral 600 ml IV Total 750 ml Output Urine Total 2125 ml Chest Tube Drainage Total 22 ml Assessment Assessment Problems Medical Problems: (1) Closed right hip fracture Status: Acute Comment Review of Relevant I have reviewed the following items alysha (where applicable) has been applied. Labs Laboratory Tests Test 11/28/16 11:57 11/28/16 16:34 11/28/16 20:47 11/29/16 07:30 Glucose (Fingerstick) 206 mg/dL (70-99) 133 mg/dL (70-99) 190 mg/dL (70-99) White Blood Count 14.4 x10^3/uL (4.0-11.0) Red Blood Count 3.93 x10^6/uL (3.50-5.40) Hemoglobin 11.9 g/dL (12.0-15.5) Hematocrit 36.2 % (36.0-47.0) Mean Corpuscular Volume 92 fL (79-100) Mean Corpuscular Hemoglobin 30 pg (25-35) Mean Corpuscular Hemoglobin Concent 33 g/dL (31-37) Red Cell Distribution Width 16.2 % (11.5-14.5) Platelet Count 172 x10^3/uL (140-400) Neutrophils (%) (Auto) 91 % (31-73) Lymphocytes (%) (Auto) 5 % (24-48) Monocytes (%) (Auto) 4 % (0-9) Eosinophils (%) (Auto) 0 % (0-3) Basophils (%) (Auto) 0 % (0-3) Neutrophils # (Auto) 13.1 x10^3uL (1.8-7.7) Lymphocytes # (Auto) 0.7 x10^3/uL (1.0-4.8) Monocytes # (Auto) 0.5 x10^3/uL (0.0-1.1) Eosinophils # (Auto) 0.0 x10^3/uL (0.0-0.7) Basophils # (Auto) 0.0 x10^3/uL (0.0-0.2) Segmented Neutrophils % 93 % (35-66) Band Neutrophils % 1 % (0-9) Lymphocytes % 2 % (24-48) Monocytes % 3 % (0-10) Basophils % 1 % (0-3) Platelet Estimate Adequate (ADEQUATE) Sodium Level 129 mmol/L (136-145) Potassium Level 3.5 mmol/L (3.5-5.1) Chloride Level 93 mmol/L (98-107) Carbon Dioxide Level 26 mmol/L (21-32) Anion Gap 10 (6-14) Blood Urea Nitrogen 18 mg/dL (7-20) Creatinine 1.0 mg/dL (0.6-1.0) Estimated GFR (Cockcroft-Gault) 52.8 Glucose Level 308 mg/dL (70-99) Calcium Level 8.8 mg/dL (8.5-10.1) Test 11/29/16 08:45 11/29/16 11:10 11/29/16 16:17 11/29/16 20:47 Glucose (Fingerstick) 321 mg/dL (70-99) 262 mg/dL (70-99) 173 mg/dL (70-99) 169 mg/dL (70-99) Test 11/30/16 07:22 11/30/16 08:15 11/30/16 11:02 Glucose (Fingerstick) 210 mg/dL (70-99) 208 mg/dL (70-99) White Blood Count 11.7 x10^3/uL (4.0-11.0) Red Blood Count 3.37 x10^6/uL (3.50-5.40) Hemoglobin 10.4 g/dL (12.0-15.5) Hematocrit 30.8 % (36.0-47.0) Mean Corpuscular Volume 91 fL (79-100) Mean Corpuscular Hemoglobin 31 pg (25-35) Mean Corpuscular Hemoglobin Concent 34 g/dL (31-37) Red Cell Distribution Width 15.6 % (11.5-14.5) Platelet Count 199 x10^3/uL (140-400) Neutrophils (%) (Auto) 88 % (31-73) Lymphocytes (%) (Auto) 6 % (24-48) Monocytes (%) (Auto) 5 % (0-9) Eosinophils (%) (Auto) 0 % (0-3) Basophils (%) (Auto) 0 % (0-3) Neutrophils # (Auto) 10.3 x10^3uL (1.8-7.7) Lymphocytes # (Auto) 0.7 x10^3/uL (1.0-4.8) Monocytes # (Auto) 0.6 x10^3/uL (0.0-1.1) Eosinophils # (Auto) 0.0 x10^3/uL (0.0-0.7) Basophils # (Auto) 0.0 x10^3/uL (0.0-0.2) Sodium Level 134 mmol/L (136-145) Potassium Level 3.7 mmol/L (3.5-5.1) Chloride Level 96 mmol/L (98-107) Carbon Dioxide Level 28 mmol/L (21-32) Anion Gap 10 (6-14) Blood Urea Nitrogen 30 mg/dL (7-20) Creatinine 1.0 mg/dL (0.6-1.0) Estimated GFR (Cockcroft-Gault) 52.8 Glucose Level 196 mg/dL (70-99) Calcium Level 10.3 mg/dL (8.5-10.1) Laboratory Tests Test 11/29/16 16:17 11/29/16 20:47 11/30/16 07:22 11/30/16 08:15 Glucose (Fingerstick) 173 mg/dL (70-99) 169 mg/dL (70-99) 210 mg/dL (70-99) White Blood Count 11.7 x10^3/uL (4.0-11.0) Red Blood Count 3.37 x10^6/uL (3.50-5.40) Hemoglobin 10.4 g/dL (12.0-15.5) Hematocrit 30.8 % (36.0-47.0) Mean Corpuscular Volume 91 fL (79-100) Mean Corpuscular Hemoglobin 31 pg (25-35) Mean Corpuscular Hemoglobin Concent 34 g/dL (31-37) Red Cell Distribution Width 15.6 % (11.5-14.5) Platelet Count 199 x10^3/uL (140-400) Neutrophils (%) (Auto) 88 % (31-73) Lymphocytes (%) (Auto) 6 % (24-48) Monocytes (%) (Auto) 5 % (0-9) Eosinophils (%) (Auto) 0 % (0-3) Basophils (%) (Auto) 0 % (0-3) Neutrophils # (Auto) 10.3 x10^3uL (1.8-7.7) Lymphocytes # (Auto) 0.7 x10^3/uL (1.0-4.8) Monocytes # (Auto) 0.6 x10^3/uL (0.0-1.1) Eosinophils # (Auto) 0.0 x10^3/uL (0.0-0.7) Basophils # (Auto) 0.0 x10^3/uL (0.0-0.2) Sodium Level 134 mmol/L (136-145) Potassium Level 3.7 mmol/L (3.5-5.1) Chloride Level 96 mmol/L (98-107) Carbon Dioxide Level 28 mmol/L (21-32) Anion Gap 10 (6-14) Blood Urea Nitrogen 30 mg/dL (7-20) Creatinine 1.0 mg/dL (0.6-1.0) Estimated GFR (Cockcroft-Gault) 52.8 Glucose Level 196 mg/dL (70-99) Calcium Level 10.3 mg/dL (8.5-10.1) Test 11/30/16 11:02 Glucose (Fingerstick) 208 mg/dL (70-99) Medications Current Medications Ondansetron HCl (Zofran) 4 mg 1X ONCE IV Last administered on 11/26/16 04:30 ; Start 11/26/16 at 04:30; Stop 11/26/16 at 04:31; Status DC Sodium Chloride 1,000 ml @ 1,000 mls/hr 1X ONCE IV Last administered on 04:30; Start 11/26/16 at 04:30; Stop 11/26/16 at 05:29; Status DC Hydromorphone HCl (Dilaudid) 0.5 mg 1X ONCE IV Last administered on 11/26/16 04:30; Start 11/26/16 at 04:30; Stop 11/26/16 at 04:31; Status DC Ondansetron HCl (Zofran) 4 mg PRN Q8HRS PRN IV NAUSEA/VOMITING; Start 11/26/16 at 04:45; Stop 11/27/16 at 04:44; Status DC Morphine Sulfate 4 mg PRN Q2HR PRN IV SEVERE PAIN Last administered on 07:47; Start 11/26/16 at 04:45; Stop 11/27/16 at 04:44; Status DC Aspirin (Children'S Aspirin) 81 mg DAILY PO Last administered on 11/30/16 09: 41; Start 11/26/16 at 09:00 Carvedilol (Coreg) 12.5 mg BIDWMEALS PO Last administered on 11/26/16 08:13; Start 11/26/16 at 08:00; Stop 11/27/16 at 09:53; Status DC Docusate Sodium (Colace) 100 mg DAILYWLUN PO ; Start 11/26/16 at 12:00; Stop at 11:49; Status DC Duloxetine HCl (Cymbalta) 30 mg DAILY PO Last administered on 11/30/16 09:40; Start 11/26/16 at 09:00 Famotidine (Pepcid) 20 mg HS PO Last administered on 11/28/16 21:00; Start 06/02 at 21:00 Insulin Aspart (NovoLOG) 8 units TIDAC SQ Last administered on 11/26/16 08:20 ; Start 11/26/16 at 08:00; Stop 11/26/16 at 13:16; Status DC Simvastatin (Zocor) 20 mg QHS PO Last administered on 11/28/16 21:00; Start at 21:00 Calcium/Vitamin D (Oscal D 500mg/ 200uts) 1 tab BIDWMEALS PO Last administered on 11/30/16 09:40; Start 11/26/16 at 08:00 Non-Formulary Medication 50 mg DAILYWLUN PO ; Start 11/26/16 at 12:00; Stop 06/02 at 17:18; Status DC Ondansetron HCl (Zofran) 4 mg PRN Q6HRS PRN IV NAUSEA/VOMITING; Start 11/26/16 at 09:45; Stop 11/27/16 at 09:44; Status DC Morphine Sulfate 1 mg PRN Q10MIN PRN IV SEVERE PAIN Last administered on 21:12; Start 11/26/16 at 09:45; Stop 11/27/16 at 09:44; Status DC Ringer's Solution 1,000 ml @ 30 mls/hr Q24H IV Last administered on 11/26/16 16:41; Start 11/26/16 at 09:44; Stop 11/26/16 at 21:43; Status DC Lidocaine HCl 2 ml PRN 1X PRN ID PRIOR TO IV START; Start 11/26/16 at 09:45; Stop 11/27/16 at 09:44; Status DC Hydromorphone HCl (Dilaudid) 0.5 mg PRN Q10MIN PRN IV SEV PAIN, Second choice; Start 11/26/16 at 09:45; Stop 11/27/16 at 09:44; Status DC Prochlorperazine Edisylate (Compazine) 5 mg PACU PRN PRN IV NAUSEA, MRX1; Start 11/26/16 at 09:45; Stop 11/27/16 at 09:44; Status DC Iohexol (Omnipaque 300 Mg/ml) 50 ml 1X ONCE IV ; Start 11/26/16 at 11:30; Stop 11/26/16 at 11:31; Status DC Iohexol (Omnipaque 300 Mg/ml) 60 ml 1X ONCE IV Last administered on 11/26/16 11:28; Start 11/26/16 at 11:30; Stop 11/26/16 at 11:31; Status DC Info (Do NOT chart on this entry -- for MONITORING) 1 each PRN DAILY PRN MC SEE COMMENTS; Start 11/26/16 at 11:15; Stop 11/28/16 at 11:14; Status DC Insulin Detemir (Levemir) 10 units QHS SQ Last administered on 11/28/16 21:00 ; Start 11/26/16 at 21:00 Insulin Aspart (NovoLOG) 0-9 UNITS TIDWMEALS SQ Last administered on 11/30/16 09:49; Start 11/26/16 at 17:00 Dextrose (Dextrose 50%-Water Syringe) 12.5 gm PRN Q15MIN PRN IV SEE COMMENTS; Start 11/26/16 at 13:15 Acetaminophen (Tylenol) 650 mg PRN Q6HRS PRN PO FEVER Last administered on 11/27 22:00; Start 11/26/16 at 13:15 Ondansetron HCl (Zofran) 4 mg PRN Q6HRS PRN IV NAUSEA/VOMITING Last administered on 11/30/16 08:29; Start 11/26/16 at 13:15 Morphine Sulfate 2 mg PRN Q2HR PRN IV PAIN Last administered on 11/29/16 11:18 ; Start 11/26/16 at 13:15 Tramadol HCl (Ultram) 50 mg PRN Q6HRS PRN PO PAIN Last administered on 09:39; Start 11/26/16 at 13:15 Hydralazine HCl (Apresoline) 10 mg PRN Q4HRS PRN IVP ELEVATED BP, SEE COMMENTS Last administered on 11/29/16 12:10; Start 11/26/16 at 13:15 Docusate Sodium (Colace) 100 mg PRN DAILY PRN PO CONSTIPATION Last administered on 11/28/16 11:55; Start 11/26/16 at 13:15 Bupivacaine HCl/ Epinephrine Bitart (Marcaine-Epi 0.25%-1:[id number]) 50 ml STK-MED ONCE .ROUTE Last administered on 6/12/17at 19:25; Start 11/26/16 at 16:10; Stop 11/26/16 at 16:11; Status DC Sevoflurane (Ultane) 90 ml STK-MED ONCE IH ; Start 11/26/16 at 17:45; Stop 11/26 at 17:46; Status DC Propofol 20 ml @ As Directed STK-MED ONCE IV ; Start 11/26/16 at 17:45; Stop 06/02 at 17:46; Status DC Dexamethasone Sodium Phosphate (Decadron) 20 mg STK-MED ONCE .ROUTE ; Start 06/02 at 17:45; Stop 11/26/16 at 17:46; Status DC Ondansetron HCl (Zofran) 4 mg STK-MED ONCE .ROUTE ; Start 11/26/16 at 17:45; Stop 11/26/16 at 17:46; Status DC Lidocaine HCl (Lidocaine Pf 2% Vial) 5 ml STK-MED ONCE .ROUTE ; Start 11/26/16 at 17:45; Stop 11/26/16 at 17:46; Status DC Cefazolin Sodium 50 ml @ As Directed STK-MED ONCE IV ; Start 11/26/16 at 18:40; Stop 11/26/16 at 18:41; Status DC Phenylephrine HCl 1 mg STK-MED ONCE IV ; Start 11/26/16 at 19:34; Stop 11/26/16 at 19:35; Status DC Labetalol HCl (Normodyne) 20 mg STK-MED ONCE .ROUTE ; Start 11/26/16 at 20:21; Stop 11/26/16 at 20:22; Status DC Carvedilol (Coreg) 3.125 mg BIDWMEALS PO Last administered on 11/28/16t 17:03; Start 11/27/16 at 17:00; Stop 11/29/16 at 07:56; Status DC Lidocaine/Sodium Bicarbonate (Buffered Lidocaine 1%) 20 ml STK-MED ONCE IJ ; Start 11/27/16 at 12:19; Stop 11/27/16 at 12:20; Status DC Fentanyl Citrate (Fentanyl 2ml Vial) 100 mcg STK-MED ONCE .ROUTE ; Start at 12:30; Stop 11/27/16 at 12:31; Status DC Midazolam HCl (Versed) 2 mg STK-MED ONCE .ROUTE ; Start 11/27/16 at 12:30; Stop 11/27/16 at 12:31; Status DC Enoxaparin Sodium (Lovenox 30mg Syringe) 30 mg Q24H SQ Last administered on 09:41; Start 11/28/16 at 10:00 Morphine Sulfate 10 mg STK-MED ONCE .ROUTE ; Start 11/27/16 at 13:07; Stop 11/27 at 13:08; Status DC Lidocaine/Sodium Bicarbonate (Buffered Lidocaine 1%) 20 ml 1X ONCE IJ Last administered on 11/27/16 13:29; Start 11/27/16 at 13:30; Stop 11/27/16 at 13:31 ; Status DC Midazolam HCl (Versed) 2 mg 1X ONCE IV Last administered on 11/27/16 13:30; Start 11/27/16 at 13:30; Stop 11/27/16 at 13:31; Status DC Morphine Sulfate 10 mg 1X ONCE IV Last administered on 11/27/16 13:30; Start 11/27/16 at 13:30; Stop 11/27/16 at 13:31; Status DC Midazolam HCl (Versed) 2 mg 1X ONCE IV Last administered on 11/27/16 15:30; Start 11/27/16 at 15:30; Stop 11/27/16 at 15:34; Status DC Lidocaine HCl 20 ml 1X ONCE IJ Last administered on 11/27/16 15:30; Start at 15:30; Stop 11/27/16 at 15:34; Status DC Morphine Sulfate 10 mg 1X ONCE IV Last administered on 11/27/16 15:30; Start 11/27/16 at 15:30; Stop 11/27/16 at 15:34; Status DC Iohexol (Omnipaque 300 Mg/ml) 60 ml 1X ONCE IV Last administered on 11/28/16 15:46; Start 11/28/16 at 14:00; Stop 11/28/16 at 14:01; Status DC Info (Do NOT chart on this entry -- for MONITORING) 1 each PRN DAILY PRN MC SEE COMMENTS; Start 11/28/16 at 14:00; Stop 11/29/16 at 15:19; Status DC Iohexol (Omnipaque 300 Mg/ml) 60 ml 1X ONCE IV ; Start 11/28/16 at 15:15; Stop 11/28/16 at 15:16; Status DC Info (Do NOT chart on this entry -- for MONITORING) 1 each PRN DAILY PRN MC SEE COMMENTS; Start 11/28/16 at 15:15; Stop 11/30/16 at 15:14 Carvedilol (Coreg) 12.5 mg BIDWMEALS PO Last administered on 11/30/16 09:39; Start 11/29/16 at 08:00 Sodium Chloride 1,000 ml @ 75 mls/hr [id number] IV Last administered on 18:37; Start 11/29/16 at 13:00 Lisinopril (Prinivil) 10 mg DAILY PO Last administered on 11/30/16 09:40; Start 11/30/16 at 09:00 Active Scripts Active Reported Stool Softener (Docusate Sodium) 100 Mg Capsule 100 Mg PO DAILYWLUN Hysingla ER (Hydrocodone Bitartrate) 40 Mg Tab.er.24h 50 Mg PO DAILYWLUN Famotidine 20 Mg Tablet 20 Mg PO HS Calcium 600 + Vit D 200 Tablet (Calcium Carbonate/Vitamin D3) 1 Each Tablet 1 Each PO BID Novolog (Insulin Aspart) 100 Unit/1 Ml Vial 8 Unit SQ PRN PRN Simvastatin 20 Mg Tablet 1 Tab PO QHS Daily Vitamin (Multivitamin) 1 Each Tablet 1 Each PO Lantus (Insulin Glargine,Hum.rec.anlog) 100 Unit/1 Ml Vial 10 Unit SQ Cymbalta (Duloxetine Hcl) 30 Mg Capsule. 1 Cap PO DAILY Carvedilol 12.5 Mg Tablet 1 Tab PO BID Aspirin 81 Mg Tab.chew 1 Tab PO DAILY Vitals/I & O Vital Sign - Last 24 Hours 11/29/16 11/29/16 11/29/16 11/29/16 12:00 12:10 15:00 18:41 Temp 97.4 97.4 Pulse 83 79 Resp 16 20 16 B/P (MAP) 201/76 162/63 (96) Pulse Ox 94 O2 Delivery Room Air Room Air Room Air 11/29/16 11/29/16 11/29/16 11/29/16 18:41 19:00 19:45 20:30 Temp 98.3 98.3 Pulse 73 91 Resp 18 B/P (MAP) 162/62 172/77 (108) Pulse Ox 95 96 O2 Delivery Room Air Room Air Room Air 11/29/16 11/30/16 11/30/16 11/30/16 23:00 03:00 07:00 09:39 Temp 98.1 98.1 97.7 98.1 98.1 97.7 Pulse 82 80 89 Resp 18 18 18 B/P (MAP) 164/65 (98) 179/79 (112) 201/77 (118) Pulse Ox 96 96 95 O2 Delivery Room Air Room Air Room Air Room Air 11/30/16 11/30/16 09:39 09:40 Pulse 89 89 B/P (MAP) 201/77 201/77 Intake and Output 11/29/16 11/29/16 11/30/16 15:00 23:00 07:00 Intake Total 1350 ml Output Total 1200 ml 947 ml Balance -1200 ml 403 ml CLARE DELGADO MD Nov 30, 2016 11:55
--- NOTE | 2016-11-30 11:58 | PDOC ---
PROGRESS NOTES Chief Complaint Chief Complaint 1. traumatic closed right hip fx post fall S/P NAIL fixation on 11/26 2. left lung Mass on CT, bx 11/27. poorly differrentiated squamous cell Ca 3. h/o CAD with CABG 4. HTN uncontrolled 5. DM2 6. HLD 7. H/O BCa post mastectomy , chemo, and RT 8. leukocytosis, reactive 9. normacytic anemia. worse post op 10. CKD3 11. mild malnution 12. left side pneumothorax post ct guided bx on 11/27, chest tube placed . hyponatremia with low po intake likely plan: fu with pulm, ortho. IR for lung mass bx 11/27, then chest tube ct chest done, CT abd pelvis, head neg for mets cont home meds PAT consult dr. trent consulted, no intervention for L5 fx levemir 10u qhs, SSI PTOT dvt ppx SW for rehab 2u PRBC on 11/27 IVF NS 75cc/h onco consulted, no chemo, RT consulted, possible RT in 1 month add lisinopril 10mg daily clamp chest tube today, waiting to remove it by pulm hopefully tmr, then dc to rehab on Saturday History of Present Illness History of Present Illness Hb 7.6 post op, 2u PRBC 11/27 IR 11/27 for lung mass bx, GOT Pneumothorax and then chest tube in feels better on 11/28, worse on 11/29 with N/V, sleepy on 11/30 CXR better Vitals Vitals Vital Signs Date Time Temp Pulse Resp B/P (MAP) Pulse Ox O2 Delivery O2 Flow Rate FiO2 11/30/16 09:40 89 201/77 11/30/16 09:39 Room Air 11/30/16 07:00 97.7 18 95 97.7 Physical Exam Physical Exam left side pigtail chest tube, mild drainage, no air leaking General: No acute distress, Other (dementia) Heart: Regular rate, Normal S1, Normal S2 Lungs: Other (decrease bs) Abdomen: Soft, No tenderness Extremities: No edema Skin: No significant lesion Labs LABS Laboratory Tests Test 11/29/16 16:17 11/29/16 20:47 11/30/16 07:22 11/30/16 08:15 Glucose (Fingerstick) 173 mg/dL (70-99) 169 mg/dL (70-99) 210 mg/dL (70-99) White Blood Count 11.7 x10^3/uL (4.0-11.0) Red Blood Count 3.37 x10^6/uL (3.50-5.40) Hemoglobin 10.4 g/dL (12.0-15.5) Hematocrit 30.8 % (36.0-47.0) Mean Corpuscular Volume 91 fL (79-100) Mean Corpuscular Hemoglobin 31 pg (25-35) Mean Corpuscular Hemoglobin Concent 34 g/dL (31-37) Red Cell Distribution Width 15.6 % (11.5-14.5) Platelet Count 199 x10^3/uL (140-400) Neutrophils (%) (Auto) 88 % (31-73) Lymphocytes (%) (Auto) 6 % (24-48) Monocytes (%) (Auto) 5 % (0-9) Eosinophils (%) (Auto) 0 % (0-3) Basophils (%) (Auto) 0 % (0-3) Neutrophils # (Auto) 10.3 x10^3uL (1.8-7.7) Lymphocytes # (Auto) 0.7 x10^3/uL (1.0-4.8) Monocytes # (Auto) 0.6 x10^3/uL (0.0-1.1) Eosinophils # (Auto) 0.0 x10^3/uL (0.0-0.7) Basophils # (Auto) 0.0 x10^3/uL (0.0-0.2) Sodium Level 134 mmol/L (136-145) Potassium Level 3.7 mmol/L (3.5-5.1) Chloride Level 96 mmol/L (98-107) Carbon Dioxide Level 28 mmol/L (21-32) Anion Gap 10 (6-14) Blood Urea Nitrogen 30 mg/dL (7-20) Creatinine 1.0 mg/dL (0.6-1.0) Estimated GFR (Cockcroft-Gault) 52.8 Glucose Level 196 mg/dL (70-99) Calcium Level 10.3 mg/dL (8.5-10.1) Test 11/30/16 11:02 Glucose (Fingerstick) 208 mg/dL (70-99) Review of Systems Review of Systems no fever, chills, sob or chest pain Assessment and Plan Assessmemt and Plan Problems Medical Problems: (1) Closed right hip fracture Status: Acute Problems: Comment Review of Relevant I have reviewed the following items alysha (where applicable) has been applied. Labs Laboratory Tests Test 11/28/16 16:34 11/28/16 20:47 11/29/16 07:30 11/29/16 08:45 Glucose (Fingerstick) 133 mg/dL (70-99) 190 mg/dL (70-99) 321 mg/dL (70-99) White Blood Count 14.4 x10^3/uL (4.0-11.0) Red Blood Count 3.93 x10^6/uL (3.50-5.40) Hemoglobin 11.9 g/dL (12.0-15.5) Hematocrit 36.2 % (36.0-47.0) Mean Corpuscular Volume 92 fL (79-100) Mean Corpuscular Hemoglobin 30 pg (25-35) Mean Corpuscular Hemoglobin Concent 33 g/dL (31-37) Red Cell Distribution Width 16.2 % (11.5-14.5) Platelet Count 172 x10^3/uL (140-400) Neutrophils (%) (Auto) 91 % (31-73) Lymphocytes (%) (Auto) 5 % (24-48) Monocytes (%) (Auto) 4 % (0-9) Eosinophils (%) (Auto) 0 % (0-3) Basophils (%) (Auto) 0 % (0-3) Neutrophils # (Auto) 13.1 x10^3uL (1.8-7.7) Lymphocytes # (Auto) 0.7 x10^3/uL (1.0-4.8) Monocytes # (Auto) 0.5 x10^3/uL (0.0-1.1) Eosinophils # (Auto) 0.0 x10^3/uL (0.0-0.7) Basophils # (Auto) 0.0 x10^3/uL (0.0-0.2) Segmented Neutrophils % 93 % (35-66) Band Neutrophils % 1 % (0-9) Lymphocytes % 2 % (24-48) Monocytes % 3 % (0-10) Basophils % 1 % (0-3) Platelet Estimate Adequate (ADEQUATE) Sodium Level 129 mmol/L (136-145) Potassium Level 3.5 mmol/L (3.5-5.1) Chloride Level 93 mmol/L (98-107) Carbon Dioxide Level 26 mmol/L (21-32) Anion Gap 10 (6-14) Blood Urea Nitrogen 18 mg/dL (7-20) Creatinine 1.0 mg/dL (0.6-1.0) Estimated GFR (Cockcroft-Gault) 52.8 Glucose Level 308 mg/dL (70-99) Calcium Level 8.8 mg/dL (8.5-10.1) Test 11/29/16 11:10 11/29/16 16:17 11/29/16 20:47 11/30/16 07:22 Glucose (Fingerstick) 262 mg/dL (70-99) 173 mg/dL (70-99) 169 mg/dL (70-99) 210 mg/dL (70-99) Test 11/30/16 08:15 11/30/16 11:02 White Blood Count 11.7 x10^3/uL (4.0-11.0) Red Blood Count 3.37 x10^6/uL (3.50-5.40) Hemoglobin 10.4 g/dL (12.0-15.5) Hematocrit 30.8 % (36.0-47.0) Mean Corpuscular Volume 91 fL (79-100) Mean Corpuscular Hemoglobin 31 pg (25-35) Mean Corpuscular Hemoglobin Concent 34 g/dL (31-37) Red Cell Distribution Width 15.6 % (11.5-14.5) Platelet Count 199 x10^3/uL (140-400) Neutrophils (%) (Auto) 88 % (31-73) Lymphocytes (%) (Auto) 6 % (24-48) Monocytes (%) (Auto) 5 % (0-9) Eosinophils (%) (Auto) 0 % (0-3) Basophils (%) (Auto) 0 % (0-3) Neutrophils # (Auto) 10.3 x10^3uL (1.8-7.7) Lymphocytes # (Auto) 0.7 x10^3/uL (1.0-4.8) Monocytes # (Auto) 0.6 x10^3/uL (0.0-1.1) Eosinophils # (Auto) 0.0 x10^3/uL (0.0-0.7) Basophils # (Auto) 0.0 x10^3/uL (0.0-0.2) Sodium Level 134 mmol/L (136-145) Potassium Level 3.7 mmol/L (3.5-5.1) Chloride Level 96 mmol/L (98-107) Carbon Dioxide Level 28 mmol/L (21-32) Anion Gap 10 (6-14) Blood Urea Nitrogen 30 mg/dL (7-20) Creatinine 1.0 mg/dL (0.6-1.0) Estimated GFR (Cockcroft-Gault) 52.8 Glucose Level 196 mg/dL (70-99) Calcium Level 10.3 mg/dL (8.5-10.1) Glucose (Fingerstick) 208 mg/dL (70-99) Laboratory Tests Test 11/29/16 16:17 11/29/16 20:47 11/30/16 07:22 11/30/16 08:15 Glucose (Fingerstick) 173 mg/dL (70-99) 169 mg/dL (70-99) 210 mg/dL (70-99) White Blood Count 11.7 x10^3/uL (4.0-11.0) Red Blood Count 3.37 x10^6/uL (3.50-5.40) Hemoglobin 10.4 g/dL (12.0-15.5) Hematocrit 30.8 % (36.0-47.0) Mean Corpuscular Volume 91 fL (79-100) Mean Corpuscular Hemoglobin 31 pg (25-35) Mean Corpuscular Hemoglobin Concent 34 g/dL (31-37) Red Cell Distribution Width 15.6 % (11.5-14.5) Platelet Count 199 x10^3/uL (140-400) Neutrophils (%) (Auto) 88 % (31-73) Lymphocytes (%) (Auto) 6 % (24-48) Monocytes (%) (Auto) 5 % (0-9) Eosinophils (%) (Auto) 0 % (0-3) Basophils (%) (Auto) 0 % (0-3) Neutrophils # (Auto) 10.3 x10^3uL (1.8-7.7) Lymphocytes # (Auto) 0.7 x10^3/uL (1.0-4.8) Monocytes # (Auto) 0.6 x10^3/uL (0.0-1.1) Eosinophils # (Auto) 0.0 x10^3/uL (0.0-0.7) Basophils # (Auto) 0.0 x10^3/uL (0.0-0.2) Sodium Level 134 mmol/L (136-145) Potassium Level 3.7 mmol/L (3.5-5.1) Chloride Level 96 mmol/L (98-107) Carbon Dioxide Level 28 mmol/L (21-32) Anion Gap 10 (6-14) Blood Urea Nitrogen 30 mg/dL (7-20) Creatinine 1.0 mg/dL (0.6-1.0) Estimated GFR (Cockcroft-Gault) 52.8 Glucose Level 196 mg/dL (70-99) Calcium Level 10.3 mg/dL (8.5-10.1) Test 11/30/16 11:02 Glucose (Fingerstick) 208 mg/dL (70-99) Medications Current Medications Ondansetron HCl (Zofran) 4 mg 1X ONCE IV Last administered on 11/26/16 04:30 ; Start 11/26/16 at 04:30; Stop 11/26/16 at 04:31; Status DC Sodium Chloride 1,000 ml @ 1,000 mls/hr 1X ONCE IV Last administered on 04:30; Start 11/26/16 at 04:30; Stop 11/26/16 at 05:29; Status DC Hydromorphone HCl (Dilaudid) 0.5 mg 1X ONCE IV Last administered on 11/26/16 04:30; Start 11/26/16 at 04:30; Stop 11/26/16 at 04:31; Status DC Ondansetron HCl (Zofran) 4 mg PRN Q8HRS PRN IV NAUSEA/VOMITING; Start 11/26/16 at 04:45; Stop 11/27/16 at 04:44; Status DC Morphine Sulfate 4 mg PRN Q2HR PRN IV SEVERE PAIN Last administered on 07:47; Start 11/26/16 at 04:45; Stop 11/27/16 at 04:44; Status DC Aspirin (Children'S Aspirin) 81 mg DAILY PO Last administered on 11/30/16 09: 41; Start 11/26/16 at 09:00 Carvedilol (Coreg) 12.5 mg BIDWMEALS PO Last administered on 11/26/16 08:13; Start 11/26/16 at 08:00; Stop 11/27/16 at 09:53; Status DC Docusate Sodium (Colace) 100 mg DAILYWLUN PO ; Start 11/26/16 at 12:00; Stop at 11:49; Status DC Duloxetine HCl (Cymbalta) 30 mg DAILY PO Last administered on 11/30/16 09:40; Start 11/26/16 at 09:00 Famotidine (Pepcid) 20 mg HS PO Last administered on 11/28/16 21:00; Start 06/02 at 21:00 Insulin Aspart (NovoLOG) 8 units TIDAC SQ Last administered on 11/26/16 08:20 ; Start 11/26/16 at 08:00; Stop 11/26/16 at 13:16; Status DC Simvastatin (Zocor) 20 mg QHS PO Last administered on 11/28/16 21:00; Start at 21:00 Calcium/Vitamin D (Oscal D 500mg/ 200uts) 1 tab BIDWMEALS PO Last administered on 11/30/16 09:40; Start 11/26/16 at 08:00 Non-Formulary Medication 50 mg DAILYWLUN PO ; Start 11/26/16 at 12:00; Stop 06/02 at 17:18; Status DC Ondansetron HCl (Zofran) 4 mg PRN Q6HRS PRN IV NAUSEA/VOMITING; Start 11/26/16 at 09:45; Stop 11/27/16 at 09:44; Status DC Morphine Sulfate 1 mg PRN Q10MIN PRN IV SEVERE PAIN Last administered on 21:12; Start 11/26/16 at 09:45; Stop 11/27/16 at 09:44; Status DC Ringer's Solution 1,000 ml @ 30 mls/hr Q24H IV Last administered on 11/26/16 16:41; Start 11/26/16 at 09:44; Stop 11/26/16 at 21:43; Status DC Lidocaine HCl 2 ml PRN 1X PRN ID PRIOR TO IV START; Start 11/26/16 at 09:45; Stop 11/27/16 at 09:44; Status DC Hydromorphone HCl (Dilaudid) 0.5 mg PRN Q10MIN PRN IV SEV PAIN, Second choice; Start 11/26/16 at 09:45; Stop 11/27/16 at 09:44; Status DC Prochlorperazine Edisylate (Compazine) 5 mg PACU PRN PRN IV NAUSEA, MRX1; Start 11/26/16 at 09:45; Stop 11/27/16 at 09:44; Status DC Iohexol (Omnipaque 300 Mg/ml) 50 ml 1X ONCE IV ; Start 11/26/16 at 11:30; Stop 11/26/16 at 11:31; Status DC Iohexol (Omnipaque 300 Mg/ml) 60 ml 1X ONCE IV Last administered on 11/26/16 11:28; Start 11/26/16 at 11:30; Stop 11/26/16 at 11:31; Status DC Info (Do NOT chart on this entry -- for MONITORING) 1 each PRN DAILY PRN MC SEE COMMENTS; Start 11/26/16 at 11:15; Stop 11/28/16 at 11:14; Status DC Insulin Detemir (Levemir) 10 units QHS SQ Last administered on 11/28/16 21:00 ; Start 11/26/16 at 21:00 Insulin Aspart (NovoLOG) 0-9 UNITS TIDWMEALS SQ Last administered on 11/30/16 09:49; Start 11/26/16 at 17:00 Dextrose (Dextrose 50%-Water Syringe) 12.5 gm PRN Q15MIN PRN IV SEE COMMENTS; Start 11/26/16 at 13:15 Acetaminophen (Tylenol) 650 mg PRN Q6HRS PRN PO FEVER Last administered on 11/27 22:00; Start 11/26/16 at 13:15 Ondansetron HCl (Zofran) 4 mg PRN Q6HRS PRN IV NAUSEA/VOMITING Last administered on 11/30/16 08:29; Start 11/26/16 at 13:15 Morphine Sulfate 2 mg PRN Q2HR PRN IV PAIN Last administered on 11/29/16 11:18 ; Start 11/26/16 at 13:15 Tramadol HCl (Ultram) 50 mg PRN Q6HRS PRN PO PAIN Last administered on 09:39; Start 11/26/16 at 13:15 Hydralazine HCl (Apresoline) 10 mg PRN Q4HRS PRN IVP ELEVATED BP, SEE COMMENTS Last administered on 11/29/16 12:10; Start 11/26/16 at 13:15 Docusate Sodium (Colace) 100 mg PRN DAILY PRN PO CONSTIPATION Last administered on 11/28/16 11:55; Start 11/26/16 at 13:15 Bupivacaine HCl/ Epinephrine Bitart (Marcaine-Epi 0.25%-[id number]) 50 ml STK-MED ONCE .ROUTE Last administered on 11/26/16 19:25; Start 11/26/16 at 16:10; Stop 11/26/16 at 16:11; Status DC Sevoflurane (Ultane) 90 ml STK-MED ONCE IH ; Start 11/26/16 at 17:45; Stop 11/26 at 17:46; Status DC Propofol 20 ml @ As Directed STK-MED ONCE IV ; Start 11/26/16 at 17:45; Stop 06/02 at 17:46; Status DC Dexamethasone Sodium Phosphate (Decadron) 20 mg STK-MED ONCE .ROUTE ; Start 06/02 at 17:45; Stop 11/26/16 at 17:46; Status DC Ondansetron HCl (Zofran) 4 mg STK-MED ONCE .ROUTE ; Start 11/26/16 at 17:45; Stop 11/26/16 at 17:46; Status DC Lidocaine HCl (Lidocaine Pf 2% Vial) 5 ml STK-MED ONCE .ROUTE ; Start 11/26/16 at 17:45; Stop 11/26/16 at 17:46; Status DC Cefazolin Sodium 50 ml @ As Directed STK-MED ONCE IV ; Start 11/26/16 at 18:40; Stop 11/26/16 at 18:41; Status DC Phenylephrine HCl 1 mg STK-MED ONCE IV ; Start 11/26/16 at 19:34; Stop 11/26/16 at 19:35; Status DC Labetalol HCl (Normodyne) 20 mg STK-MED ONCE .ROUTE ; Start 11/26/16 at 20:21; Stop 11/26/16 at 20:22; Status DC Carvedilol (Coreg) 3.125 mg BIDWMEALS PO Last administered on 11/28/16 17:03; Start 11/27/16 at 17:00; Stop 11/29/16 at 07:56; Status DC Lidocaine/Sodium Bicarbonate (Buffered Lidocaine 1%) 20 ml STK-MED ONCE IJ ; Start 11/27/16 at 12:19; Stop 11/27/16 at 12:20; Status DC Fentanyl Citrate (Fentanyl 2ml Vial) 100 mcg STK-MED ONCE .ROUTE ; Start at 12:30; Stop 11/27/16 at 12:31; Status DC Midazolam HCl (Versed) 2 mg STK-MED ONCE .ROUTE ; Start 11/27/16 at 12:30; Stop 11/27/16 at 12:31; Status DC Enoxaparin Sodium (Lovenox 30mg Syringe) 30 mg Q24H SQ Last administered on 09:41; Start 11/28/16 at 10:00 Morphine Sulfate 10 mg STK-MED ONCE .ROUTE ; Start 11/27/16 at 13:07; Stop 11/27 at 13:08; Status DC Lidocaine/Sodium Bicarbonate (Buffered Lidocaine 1%) 20 ml 1X ONCE IJ Last administered on 11/27/16 13:29; Start 11/27/16 at 13:30; Stop 11/27/16 at 13:31 ; Status DC Midazolam HCl (Versed) 2 mg 1X ONCE IV Last administered on 11/27/16 13:30; Start 11/27/16 at 13:30; Stop 11/27/16 at 13:31; Status DC Morphine Sulfate 10 mg 1X ONCE IV Last administered on 11/27/16 13:30; Start 11/27/16 at 13:30; Stop 11/27/16 at 13:31; Status DC Midazolam HCl (Versed) 2 mg 1X ONCE IV Last administered on 11/27/16 15:30; Start 11/27/16 at 15:30; Stop 11/27/16 at 15:34; Status DC Lidocaine HCl 20 ml 1X ONCE IJ Last administered on 11/27/16 15:30; Start at 15:30; Stop 11/27/16 at 15:34; Status DC Morphine Sulfate 10 mg 1X ONCE IV Last administered on 11/27/16 15:30; Start 11/27/16 at 15:30; Stop 11/27/16 at 15:34; Status DC Iohexol (Omnipaque 300 Mg/ml) 60 ml 1X ONCE IV Last administered on 11/28/16 15:46; Start 11/28/16 at 14:00; Stop 11/28/16 at 14:01; Status DC Info (Do NOT chart on this entry -- for MONITORING) 1 each PRN DAILY PRN MC SEE COMMENTS; Start 11/28/16 at 14:00; Stop 11/29/16 at 15:19; Status DC Iohexol (Omnipaque 300 Mg/ml) 60 ml 1X ONCE IV ; Start 11/28/16 at 15:15; Stop 11/28/16 at 15:16; Status DC Info (Do NOT chart on this entry -- for MONITORING) 1 each PRN DAILY PRN MC SEE COMMENTS; Start 11/28/16 at 15:15; Stop 11/30/16 at 15:14 Carvedilol (Coreg) 12.5 mg BIDWMEALS PO Last administered on 11/30/16 09:39; Start 11/29/16 at 08:00 Sodium Chloride 1,000 ml @ 75 mls/hr [id number] IV Last administered on 18:37; Start 11/29/16 at 13:00 Lisinopril (Prinivil) 10 mg DAILY PO Last administered on 11/30/16 09:40; Start 11/30/16 at 09:00 Active Scripts Active Reported Stool Softener (Docusate Sodium) 100 Mg Capsule 100 Mg PO DAILYWLUN Hysingla ER (Hydrocodone Bitartrate) 40 Mg Tab.er.24h 50 Mg PO DAILYWLUN Famotidine 20 Mg Tablet 20 Mg PO HS Calcium 600 + Vit D 200 Tablet (Calcium Carbonate/Vitamin D3) 1 Each Tablet 1 Each PO BID Novolog (Insulin Aspart) 100 Unit/1 Ml Vial 8 Unit SQ PRN PRN Simvastatin 20 Mg Tablet 1 Tab PO QHS Daily Vitamin (Multivitamin) 1 Each Tablet 1 Each PO Lantus (Insulin Glargine,Hum.rec.anlog) 100 Unit/1 Ml Vial 10 Unit SQ Cymbalta (Duloxetine Hcl) 30 Mg Capsule.dr 1 Cap PO DAILY Carvedilol 12.5 Mg Tablet 1 Tab PO BID Aspirin 81 Mg Tab.chew 1 Tab PO DAILY Vitals/I & O Vital Sign - Last 24 Hours 11/29/16 11/29/16 11/29/16 11/29/16 12:00 12:10 15:00 18:41 Temp 97.4 97.4 Pulse 83 79 Resp 16 20 16 B/P (MAP) 201/76 162/63 (96) Pulse Ox 94 O2 Delivery Room Air Room Air Room Air 11/29/16 11/29/16 11/29/16 11/29/16 18:41 19:00 19:45 20:30 Temp 98.3 98.3 Pulse 73 91 Resp 18 B/P (MAP) 162/62 172/77 (108) Pulse Ox 95 96 O2 Delivery Room Air Room Air Room Air 11/29/16 11/30/16 11/30/16 11/30/16 23:00 03:00 07:00 09:39 Temp 98.1 98.1 97.7 98.1 98.1 97.7 Pulse 82 80 89 Resp 18 18 18 B/P (MAP) 164/65 (98) 179/79 (112) 201/77 (118) Pulse Ox 96 96 95 O2 Delivery Room Air Room Air Room Air Room Air 11/30/16 11/30/16 09:39 09:40 Pulse 89 89 B/P (MAP) 201/77 201/77 Intake and Output 11/29/16 11/29/16 11/30/16 15:00 23:00 07:00 Intake Total 1350 ml Output Total 1200 ml 947 ml Balance -1200 ml 403 ml EMMIE PIZANO MD Nov 30, 2016 11:58
--- NOTE | 2016-11-30 13:13 | PDOC ---
PULMONARY PROGRESS NOTES Subjective S/P CT GUIDED LEFT LUNG BIOPSY SMALL LEFT PTX, CHEST TUBE IN PLACE NO SOA Vitals Vital Signs Date Time Temp Pulse Resp B/P (MAP) Pulse Ox O2 Delivery O2 Flow Rate FiO2 11/30/16 11:00 97.3 73 18 174/62 (99) 94 Room Air 97.3 General: Alert, No acute distress Lungs: Other (decrease bs) Cardiovascular: S1 Abdomen: Soft Neuro Exam: Alert Extremities: No Edema Labs Laboratory Tests Test 11/28/16 16:34 11/28/16 20:47 11/29/16 07:30 11/29/16 08:45 Glucose (Fingerstick) 133 mg/dL (70-99) 190 mg/dL (70-99) 321 mg/dL (70-99) White Blood Count 14.4 x10^3/uL (4.0-11.0) Red Blood Count 3.93 x10^6/uL (3.50-5.40) Hemoglobin 11.9 g/dL (12.0-15.5) Hematocrit 36.2 % (36.0-47.0) Mean Corpuscular Volume 92 fL (79-100) Mean Corpuscular Hemoglobin 30 pg (25-35) Mean Corpuscular Hemoglobin Concent 33 g/dL (31-37) Red Cell Distribution Width 16.2 % (11.5-14.5) Platelet Count 172 x10^3/uL (140-400) Neutrophils (%) (Auto) 91 % (31-73) Lymphocytes (%) (Auto) 5 % (24-48) Monocytes (%) (Auto) 4 % (0-9) Eosinophils (%) (Auto) 0 % (0-3) Basophils (%) (Auto) 0 % (0-3) Neutrophils # (Auto) 13.1 x10^3uL (1.8-7.7) Lymphocytes # (Auto) 0.7 x10^3/uL (1.0-4.8) Monocytes # (Auto) 0.5 x10^3/uL (0.0-1.1) Eosinophils # (Auto) 0.0 x10^3/uL (0.0-0.7) Basophils # (Auto) 0.0 x10^3/uL (0.0-0.2) Segmented Neutrophils % 93 % (35-66) Band Neutrophils % 1 % (0-9) Lymphocytes % 2 % (24-48) Monocytes % 3 % (0-10) Basophils % 1 % (0-3) Platelet Estimate Adequate (ADEQUATE) Sodium Level 129 mmol/L (136-145) Potassium Level 3.5 mmol/L (3.5-5.1) Chloride Level 93 mmol/L (98-107) Carbon Dioxide Level 26 mmol/L (21-32) Anion Gap 10 (6-14) Blood Urea Nitrogen 18 mg/dL (7-20) Creatinine 1.0 mg/dL (0.6-1.0) Estimated GFR (Cockcroft-Gault) 52.8 Glucose Level 308 mg/dL (70-99) Calcium Level 8.8 mg/dL (8.5-10.1) Test 11/29/16 11:10 11/29/16 16:17 11/29/16 20:47 11/30/16 07:22 Glucose (Fingerstick) 262 mg/dL (70-99) 173 mg/dL (70-99) 169 mg/dL (70-99) 210 mg/dL (70-99) Test 11/30/16 08:15 11/30/16 11:02 White Blood Count 11.7 x10^3/uL (4.0-11.0) Red Blood Count 3.37 x10^6/uL (3.50-5.40) Hemoglobin 10.4 g/dL (12.0-15.5) Hematocrit 30.8 % (36.0-47.0) Mean Corpuscular Volume 91 fL (79-100) Mean Corpuscular Hemoglobin 31 pg (25-35) Mean Corpuscular Hemoglobin Concent 34 g/dL (31-37) Red Cell Distribution Width 15.6 % (11.5-14.5) Platelet Count 199 x10^3/uL (140-400) Neutrophils (%) (Auto) 88 % (31-73) Lymphocytes (%) (Auto) 6 % (24-48) Monocytes (%) (Auto) 5 % (0-9) Eosinophils (%) (Auto) 0 % (0-3) Basophils (%) (Auto) 0 % (0-3) Neutrophils # (Auto) 10.3 x10^3uL (1.8-7.7) Lymphocytes # (Auto) 0.7 x10^3/uL (1.0-4.8) Monocytes # (Auto) 0.6 x10^3/uL (0.0-1.1) Eosinophils # (Auto) 0.0 x10^3/uL (0.0-0.7) Basophils # (Auto) 0.0 x10^3/uL (0.0-0.2) Sodium Level 134 mmol/L (136-145) Potassium Level 3.7 mmol/L (3.5-5.1) Chloride Level 96 mmol/L (98-107) Carbon Dioxide Level 28 mmol/L (21-32) Anion Gap 10 (6-14) Blood Urea Nitrogen 30 mg/dL (7-20) Creatinine 1.0 mg/dL (0.6-1.0) Estimated GFR (Cockcroft-Gault) 52.8 Glucose Level 196 mg/dL (70-99) Calcium Level 10.3 mg/dL (8.5-10.1) Glucose (Fingerstick) 208 mg/dL (70-99) Laboratory Tests Test 11/29/16 16:17 11/29/16 20:47 11/30/16 07:22 11/30/16 08:15 Glucose (Fingerstick) 173 mg/dL (70-99) 169 mg/dL (70-99) 210 mg/dL (70-99) White Blood Count 11.7 x10^3/uL (4.0-11.0) Red Blood Count 3.37 x10^6/uL (3.50-5.40) Hemoglobin 10.4 g/dL (12.0-15.5) Hematocrit 30.8 % (36.0-47.0) Mean Corpuscular Volume 91 fL (79-100) Mean Corpuscular Hemoglobin 31 pg (25-35) Mean Corpuscular Hemoglobin Concent 34 g/dL (31-37) Red Cell Distribution Width 15.6 % (11.5-14.5) Platelet Count 199 x10^3/uL (140-400) Neutrophils (%) (Auto) 88 % (31-73) Lymphocytes (%) (Auto) 6 % (24-48) Monocytes (%) (Auto) 5 % (0-9) Eosinophils (%) (Auto) 0 % (0-3) Basophils (%) (Auto) 0 % (0-3) Neutrophils # (Auto) 10.3 x10^3uL (1.8-7.7) Lymphocytes # (Auto) 0.7 x10^3/uL (1.0-4.8) Monocytes # (Auto) 0.6 x10^3/uL (0.0-1.1) Eosinophils # (Auto) 0.0 x10^3/uL (0.0-0.7) Basophils # (Auto) 0.0 x10^3/uL (0.0-0.2) Sodium Level 134 mmol/L (136-145) Potassium Level 3.7 mmol/L (3.5-5.1) Chloride Level 96 mmol/L (98-107) Carbon Dioxide Level 28 mmol/L (21-32) Anion Gap 10 (6-14) Blood Urea Nitrogen 30 mg/dL (7-20) Creatinine 1.0 mg/dL (0.6-1.0) Estimated GFR (Cockcroft-Gault) 52.8 Glucose Level 196 mg/dL (70-99) Calcium Level 10.3 mg/dL (8.5-10.1) Test 11/30/16 11:02 Glucose (Fingerstick) 208 mg/dL (70-99) Medications Active Scripts Medications Dose Route/Sig Max Daily Dose Days Date Category Stool Softener (Docusate Sodium) 100 Mg Capsule 100 Mg PO DAILYWLUN 11/26/16 Reported Hysingla ER (Hydrocodone Bitartrate) 40 Mg Tab.er.24h 50 Mg PO DAILYWLUN 11/26/16 Reported Famotidine 20 Mg Tablet 20 Mg PO HS 11/26/16 Reported Calcium 600 + Vit D 200 Tablet (Calcium Carbonate/Vitamin D3) 1 Each Tablet 1 Each PO BID 11/26/16 Reported Novolog (Insulin Aspart) 100 Unit/1 Ml Vial 8 Unit SQ PRN PRN 06/20/14 Reported Simvastatin 20 Mg Tablet 1 Tab PO QHS 06/20/14 Reported Daily Vitamin (Multivitamin) 1 Each Tablet 1 Each PO 06/20/14 Reported Lantus (Insulin Glargine,Hum.rec.anlog) 100 Unit/1 Ml Vial 10 Unit SQ 06/20/14 Reported Cymbalta (Duloxetine Hcl) 30 Mg Capsule. 1 Cap PO DAILY 06/20/14 Reported Carvedilol 12.5 Mg Tablet 1 Tab PO BID 06/20/14 Reported Aspirin 81 Mg Tab.chew 1 Tab PO DAILY 06/20/14 Reported Impression . 1. Large Left upper lobe mass. s/p ct guided biopsy, SQUAMOUS CELL 2. Recent fall suffering a fracture of the right intertrochanteric area. 3. Coronary artery disease with previous coronary artery bypass grafting. 4. History of breast cancer. 5. Tobacco dependence in remission. 6. Underlying chronic obstructive pulmonary disease. 7. Multiple other comorbidities as indicated above. 8. PTX, post biopsy. s/p left chest tube, tiny residual PTX Plan . 1. s/p repair of her right hip, 2. d/w path. 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 Poor performance status. Appreciate medical/radiation oncology consults 4. no air leak. PTX reduced to 5%. CHANGE chest tube to water seal and clamp in am with follow up CXR. if no recurrence, removal of chest tube SHON ELY MD Nov 30, 2016 13:13
--- NOTE | 2016-11-30 13:31 | PDOC2 ---
PALLIATIVE CARE Palliative Care Note Palliative Care Patient more alert this afternoon. sitting up in chair--wanting to go back to bed. Dr. Swift spoke with /Meng this am. Reviewed her medical condition and options for care regarding treatment of lung cancer. Meng shared that patient would spend 2 days in bed--eating very little at times. Required assistance with ADL's and little ambulation in house. Spoke with Meng and patient's son Jordin this afternoon. Reviewed options for care, results of swallow evaluation and poor performance status prior to admission and lack of participation in PT/OT. Discussed Resuscitation. Family is in agreement that patient should be allowed to peacefully and naturally if heart stops and she stops breathing. Concerned about the quality of life she has now and would have if she were resuscitated. Outside the hospital DNR/DNI signed. Swallow evaluation discussed. Patient is wanting her own "[place] food" Family understands liquid diet ordered because she was not staying awake and eating solid foods. Family will bring in liquid soups.. Will continue to follow for discharge plans. EDWIN PHILLIPS Nov 30, 2016 13:31
[2016-11-30 15:00] VITALS: BP 179/75
[2016-11-30] MEDS: ACETAMINOPHEN 325 MG TABLET. PO PRN (17:54)
[2016-11-30 19:00] VITALS: BP 198/73
[2016-11-30] MEDS: SIMVASTATIN 20 MG TABLET PO SCH (20:27)
[2016-11-30] MEDS: FAMOTIDINE 20 MG TABLET. PO SCH (20:27)
[2016-11-30] MEDS: MORPHINE SULFATE 2 MG/ML DISP.SYRIN. IV PRN (20:27)
[2016-11-30] MEDS: hydrALAZINE 20 MG/ML VIAL. IVP PRN (22:55)
[2016-11-30 23:00] VITALS: BP 194/92
[2016-11-30] MEDS: INSULIN DETEMIR 300 UNITS/3 ML INSULN.PEN. SQ SCH (23:03)
[2016-12-01 03:00] VITALS: BP 168/65
[2016-12-01] MEDS: MORPHINE SULFATE 2 MG/ML DISP.SYRIN. IV PRN (04:24)
[2016-12-01] MEDS: ONDANSETRON PF 4 MG/2 ML VIAL. IV PRN (04:25)
[2016-12-01] MEDS: IV NORMAL SALINE 1000ML BAG 1,000 ML IV SCH ×2 (05:00→11:12)
[2016-12-01 07:00] VITALS: BP 212/90
[2016-12-01 07:32] LABS: CALCIUM 9.8 mg/dL (8.5-10.1); CREATININE 0.9 mg/dL (0.6-1.0); GFR 59.7; POTASSIUM 3.2 mmol/L (3.5-5.1)
[2016-12-01] MEDS: INSULIN ASPART 300 UNITS/3 ML INSULN.PEN SQ SCH ×3 (08:00→17:00)
[2016-12-01 08:19] LABS: BASO % 1 % (0-3); EOS % 1 % (0-3); HEMOGLOBIN 9.4 g/dL (12.0-15.5); LYMPH % 11 % (24-48); MEAN CORPUSCULAR HEMOGLOBIN 31 pg (25-35); MEAN CORPUSCULAR HGB CONC 33 g/dL (31-37); MEAN CORPUSCULAR VOLUME 93 fL (79-100); MONO % 8 % (0-9); NEUT % 79 % (31-73); PLATELET COUNT 206 x10^3/uL (140-400); RED BLOOD COUNT 3.02 x10^6/uL (3.50-5.40); RED CELL DISTRIBUTION WIDTH 15.6 % (11.5-14.5)
--- NOTE | 2016-12-01 09:07 | RAD ---
EXAM: Chest one view. HISTORY: Pneumothorax, chest tube. COMPARISON: 11/30/2016 at 0736. FINDINGS: A frontal view of the chest is obtained. A left chest drain remains in place. The left pneumothorax is decreased and now undetectable. A left suprahilar mass is again noted. There is mild atelectasis in the left base. There is no pneumothorax or pleural effusion. The heart is not enlarged. There are changes of coronary artery bypass grafting. Changes of left axillary lymph node dissection are noted. Additional surgical clips are seen in the left neck and right upper quadrant. Multiple vertebroplasty changes are noted. There are atherosclerotic calcifications of the aorta. IMPRESSION: 1. The left pneumothorax is now undetectable with a chest drain in place. 2. Left suprahilar mass.
[2016-12-01] MEDS: DULoxetine HCL 30 MG CAPSULE.DR PO SCH (09:16)
[2016-12-01] MEDS: CARVEDILOL 12.5 MG TABLET. PO SCH ×2 (09:16→16:46)
[2016-12-01] MEDS: ASPIRIN CHEWABLE 81 MG TABLET. PO SCH (09:17)
[2016-12-01] MEDS: ENOXAPARIN 30 MG/0.3 ML SYRINGE. SQ SCH (09:17)
[2016-12-01] MEDS: LISINOPRIL 10 MG TABLET PO SCH (09:17)
[2016-12-01] MEDS: CALCIUM CARB/VIT D3 500/200 TABLET. PO SCH ×2 (09:18→16:45)
--- NOTE | 2016-12-01 10:22 | PDOC ---
PULMONARY PROGRESS NOTES Subjective S/P CT GUIDED LEFT LUNG BIOPSY CHEST TUBE IN PLACE NO SOA, cough, has pain in ct site Vitals Vital Signs Date Time Temp Pulse Resp B/P (MAP) Pulse Ox O2 Delivery O2 Flow Rate FiO2 12/01/16 09:17 92 212/90 12/01/16 07:00 97.9 18 95 Room Air 97.9 11/30/16 08:00 2.0 General: Alert, No acute distress HEENT: Other (nc at perrl, ) Lungs: Crackles, Other (decrease bs, l ct) Cardiovascular: S1, S2 Abdomen: Soft, Non-tender Neuro Exam: Alert Extremities: No Edema Skin: Warm Labs Laboratory Tests Test 11/29/16 11:10 11/29/16 16:17 11/29/16 20:47 11/30/16 07:22 Glucose (Fingerstick) 262 mg/dL (70-99) 173 mg/dL (70-99) 169 mg/dL (70-99) 210 mg/dL (70-99) Test 11/30/16 08:15 11/30/16 11:02 11/30/16 16:04 11/30/16 21:26 White Blood Count 11.7 x10^3/uL (4.0-11.0) Red Blood Count 3.37 x10^6/uL (3.50-5.40) Hemoglobin 10.4 g/dL (12.0-15.5) Hematocrit 30.8 % (36.0-47.0) Mean Corpuscular Volume 91 fL (79-100) Mean Corpuscular Hemoglobin 31 pg (25-35) Mean Corpuscular Hemoglobin Concent 34 g/dL (31-37) Red Cell Distribution Width 15.6 % (11.5-14.5) Platelet Count 199 x10^3/uL (140-400) Neutrophils (%) (Auto) 88 % (31-73) Lymphocytes (%) (Auto) 6 % (24-48) Monocytes (%) (Auto) 5 % (0-9) Eosinophils (%) (Auto) 0 % (0-3) Basophils (%) (Auto) 0 % (0-3) Neutrophils # (Auto) 10.3 x10^3uL (1.8-7.7) Lymphocytes # (Auto) 0.7 x10^3/uL (1.0-4.8) Monocytes # (Auto) 0.6 x10^3/uL (0.0-1.1) Eosinophils # (Auto) 0.0 x10^3/uL (0.0-0.7) Basophils # (Auto) 0.0 x10^3/uL (0.0-0.2) Sodium Level 134 mmol/L (136-145) Potassium Level 3.7 mmol/L (3.5-5.1) Chloride Level 96 mmol/L (98-107) Carbon Dioxide Level 28 mmol/L (21-32) Anion Gap 10 (6-14) Blood Urea Nitrogen 30 mg/dL (7-20) Creatinine 1.0 mg/dL (0.6-1.0) Estimated GFR (Cockcroft-Gault) 52.8 Glucose Level 196 mg/dL (70-99) Calcium Level 10.3 mg/dL (8.5-10.1) Glucose (Fingerstick) 208 mg/dL (70-99) 143 mg/dL (70-99) 187 mg/dL (70-99) Test 12/01/16 06:50 12/01/16 07:18 White Blood Count 9.0 x10^3/uL (4.0-11.0) Red Blood Count 3.02 x10^6/uL (3.50-5.40) Hemoglobin 9.4 g/dL (12.0-15.5) Hematocrit 28.0 % (36.0-47.0) Mean Corpuscular Volume 93 fL (79-100) Mean Corpuscular Hemoglobin 31 pg (25-35) Mean Corpuscular Hemoglobin Concent 33 g/dL (31-37) Red Cell Distribution Width 15.6 % (11.5-14.5) Platelet Count 206 x10^3/uL (140-400) Neutrophils (%) (Auto) 79 % (31-73) Lymphocytes (%) (Auto) 11 % (24-48) Monocytes (%) (Auto) 8 % (0-9) Eosinophils (%) (Auto) 1 % (0-3) Basophils (%) (Auto) 1 % (0-3) Neutrophils # (Auto) 7.2 x10^3uL (1.8-7.7) Lymphocytes # (Auto) 1.0 x10^3/uL (1.0-4.8) Monocytes # (Auto) 0.7 x10^3/uL (0.0-1.1) Eosinophils # (Auto) 0.1 x10^3/uL (0.0-0.7) Basophils # (Auto) 0.0 x10^3/uL (0.0-0.2) Sodium Level 132 mmol/L (136-145) Potassium Level 3.2 mmol/L (3.5-5.1) Chloride Level 95 mmol/L (98-107) Carbon Dioxide Level 30 mmol/L (21-32) Anion Gap 7 (6-14) Blood Urea Nitrogen 27 mg/dL (7-20) Creatinine 0.9 mg/dL (0.6-1.0) Estimated GFR (Cockcroft-Gault) 59.7 Glucose Level 180 mg/dL (70-99) Calcium Level 9.8 mg/dL (8.5-10.1) Glucose (Fingerstick) 168 mg/dL (70-99) Laboratory Tests Test 11/30/16 11:02 11/30/16 16:04 11/30/16 21:26 12/01/16 06:50 Glucose (Fingerstick) 208 mg/dL (70-99) 143 mg/dL (70-99) 187 mg/dL (70-99) White Blood Count 9.0 x10^3/uL (4.0-11.0) Red Blood Count 3.02 x10^6/uL (3.50-5.40) Hemoglobin 9.4 g/dL (12.0-15.5) Hematocrit 28.0 % (36.0-47.0) Mean Corpuscular Volume 93 fL (79-100) Mean Corpuscular Hemoglobin 31 pg (25-35) Mean Corpuscular Hemoglobin Concent 33 g/dL (31-37) Red Cell Distribution Width 15.6 % (11.5-14.5) Platelet Count 206 x10^3/uL (140-400) Neutrophils (%) (Auto) 79 % (31-73) Lymphocytes (%) (Auto) 11 % (24-48) Monocytes (%) (Auto) 8 % (0-9) Eosinophils (%) (Auto) 1 % (0-3) Basophils (%) (Auto) 1 % (0-3) Neutrophils # (Auto) 7.2 x10^3uL (1.8-7.7) Lymphocytes # (Auto) 1.0 x10^3/uL (1.0-4.8) Monocytes # (Auto) 0.7 x10^3/uL (0.0-1.1) Eosinophils # (Auto) 0.1 x10^3/uL (0.0-0.7) Basophils # (Auto) 0.0 x10^3/uL (0.0-0.2) Sodium Level 132 mmol/L (136-145) Potassium Level 3.2 mmol/L (3.5-5.1) Chloride Level 95 mmol/L (98-107) Carbon Dioxide Level 30 mmol/L (21-32) Anion Gap 7 (6-14) Blood Urea Nitrogen 27 mg/dL (7-20) Creatinine 0.9 mg/dL (0.6-1.0) Estimated GFR (Cockcroft-Gault) 59.7 Glucose Level 180 mg/dL (70-99) Calcium Level 9.8 mg/dL (8.5-10.1) Test 12/01/16 07:18 Glucose (Fingerstick) 168 mg/dL (70-99) Medications Active Scripts Medications Dose Route/Sig Max Daily Dose Days Date Category Stool Softener (Docusate Sodium) 100 Mg Capsule 100 Mg PO DAILYWLUN 11/26/16 Reported Hysingla ER (Hydrocodone Bitartrate) 40 Mg Tab.er.24h 50 Mg PO DAILYWLUN 11/26/16 Reported Famotidine 20 Mg Tablet 20 Mg PO HS 11/26/16 Reported Calcium 600 + Vit D 200 Tablet (Calcium Carbonate/Vitamin D3) 1 Each Tablet 1 Each PO BID 11/26/16 Reported Novolog (Insulin Aspart) 100 Unit/1 Ml Vial 8 Unit SQ PRN PRN 06/20/14 Reported Simvastatin 20 Mg Tablet 1 Tab PO QHS 06/20/14 Reported Daily Vitamin (Multivitamin) 1 Each Tablet 1 Each PO 06/20/14 Reported Lantus (Insulin Glargine,Hum.rec.anlog) 100 Unit/1 Ml Vial 10 Unit SQ 06/20/14 Reported Cymbalta (Duloxetine Hcl) 30 Mg Capsule. 1 Cap PO DAILY 06/20/14 Reported Carvedilol 12.5 Mg Tablet 1 Tab PO BID 06/20/14 Reported Aspirin 81 Mg Tab.chew 1 Tab PO DAILY 06/20/14 Reported Comments cxr, no ptx Impression . 1. Large Left upper lobe mass. s/p ct guided biopsy, SQUAMOUS CELL 2. Recent fall suffering a fracture of the right intertrochanteric area. 3. Coronary artery disease with previous coronary artery bypass grafting. 4. History of breast cancer. 5. Tobacco dependence in remission. 6. Underlying chronic obstructive pulmonary disease. 7. Multiple other comorbidities as indicated above. 8. PTX, post biopsy. s/p left chest tube, no PTX Plan . 1. s/p repair of her right hip, 2. d/w path. 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 Poor performance status. Appreciate medical/radiation oncology consults 4. no air leak. no ptx on cxr, ct clamped, cxr in am if ok will dc ct discussed w pt, her grand son, WILIAM Newman MD Dec 01, 2016 10:21
[2016-12-01 11:00] VITALS: BP 180/76
--- NOTE | 2016-12-01 12:10 | PDOC ---
PROGRESS NOTES Subjective Subjective She continues with nausea and not eating any. Objective Objective Vital Signs Date Time Temp Pulse Resp B/P (MAP) Pulse Ox O2 Delivery O2 Flow Rate FiO2 12/01/16 11:00 97.9 81 16 180/76 (110) 94 Room Air 97.9 11/30/16 08:00 2.0 Intake and Output 12/01/16 07:00 Output Total 2175 ml Balance -2175 ml Output Urine Total 2175 ml Physical Exam Physical Exam She is supine in bed and somewhat sleepy and she continues with pain on ROM of right hip. Assessment Assessment Problems Medical Problems: (1) Closed right hip fracture Status: Acute Plan Plan of Care May be her pain medication might be responsible to her continued nausea. Comment Review of Relevant I have reviewed the following items alysha (where applicable) has been applied. Labs Laboratory Tests Test 11/29/16 16:17 11/29/16 20:47 11/30/16 07:22 11/30/16 08:15 Glucose (Fingerstick) 173 mg/dL (70-99) 169 mg/dL (70-99) 210 mg/dL (70-99) White Blood Count 11.7 x10^3/uL (4.0-11.0) Red Blood Count 3.37 x10^6/uL (3.50-5.40) Hemoglobin 10.4 g/dL (12.0-15.5) Hematocrit 30.8 % (36.0-47.0) Mean Corpuscular Volume 91 fL (79-100) Mean Corpuscular Hemoglobin 31 pg (25-35) Mean Corpuscular Hemoglobin Concent 34 g/dL (31-37) Red Cell Distribution Width 15.6 % (11.5-14.5) Platelet Count 199 x10^3/uL (140-400) Neutrophils (%) (Auto) 88 % (31-73) Lymphocytes (%) (Auto) 6 % (24-48) Monocytes (%) (Auto) 5 % (0-9) Eosinophils (%) (Auto) 0 % (0-3) Basophils (%) (Auto) 0 % (0-3) Neutrophils # (Auto) 10.3 x10^3uL (1.8-7.7) Lymphocytes # (Auto) 0.7 x10^3/uL (1.0-4.8) Monocytes # (Auto) 0.6 x10^3/uL (0.0-1.1) Eosinophils # (Auto) 0.0 x10^3/uL (0.0-0.7) Basophils # (Auto) 0.0 x10^3/uL (0.0-0.2) Sodium Level 134 mmol/L (136-145) Potassium Level 3.7 mmol/L (3.5-5.1) Chloride Level 96 mmol/L (98-107) Carbon Dioxide Level 28 mmol/L (21-32) Anion Gap 10 (6-14) Blood Urea Nitrogen 30 mg/dL (7-20) Creatinine 1.0 mg/dL (0.6-1.0) Estimated GFR (Cockcroft-Gault) 52.8 Glucose Level 196 mg/dL (70-99) Calcium Level 10.3 mg/dL (8.5-10.1) Test 11/30/16 11:02 11/30/16 16:04 11/30/16 21:26 12/01/16 06:50 Glucose (Fingerstick) 208 mg/dL (70-99) 143 mg/dL (70-99) 187 mg/dL (70-99) White Blood Count 9.0 x10^3/uL (4.0-11.0) Red Blood Count 3.02 x10^6/uL (3.50-5.40) Hemoglobin 9.4 g/dL (12.0-15.5) Hematocrit 28.0 % (36.0-47.0) Mean Corpuscular Volume 93 fL (79-100) Mean Corpuscular Hemoglobin 31 pg (25-35) Mean Corpuscular Hemoglobin Concent 33 g/dL (31-37) Red Cell Distribution Width 15.6 % (11.5-14.5) Platelet Count 206 x10^3/uL (140-400) Neutrophils (%) (Auto) 79 % (31-73) Lymphocytes (%) (Auto) 11 % (24-48) Monocytes (%) (Auto) 8 % (0-9) Eosinophils (%) (Auto) 1 % (0-3) Basophils (%) (Auto) 1 % (0-3) Neutrophils # (Auto) 7.2 x10^3uL (1.8-7.7) Lymphocytes # (Auto) 1.0 x10^3/uL (1.0-4.8) Monocytes # (Auto) 0.7 x10^3/uL (0.0-1.1) Eosinophils # (Auto) 0.1 x10^3/uL (0.0-0.7) Basophils # (Auto) 0.0 x10^3/uL (0.0-0.2) Sodium Level 132 mmol/L (136-145) Potassium Level 3.2 mmol/L (3.5-5.1) Chloride Level 95 mmol/L (98-107) Carbon Dioxide Level 30 mmol/L (21-32) Anion Gap 7 (6-14) Blood Urea Nitrogen 27 mg/dL (7-20) Creatinine 0.9 mg/dL (0.6-1.0) Estimated GFR (Cockcroft-Gault) 59.7 Glucose Level 180 mg/dL (70-99) Calcium Level 9.8 mg/dL (8.5-10.1) Test 12/01/16 07:18 12/01/16 10:53 Glucose (Fingerstick) 168 mg/dL (70-99) 160 mg/dL (70-99) Laboratory Tests Test 11/30/16 16:04 11/30/16 21:26 12/01/16 06:50 12/01/16 07:18 Glucose (Fingerstick) 143 mg/dL (70-99) 187 mg/dL (70-99) 168 mg/dL (70-99) White Blood Count 9.0 x10^3/uL (4.0-11.0) Red Blood Count 3.02 x10^6/uL (3.50-5.40) Hemoglobin 9.4 g/dL (12.0-15.5) Hematocrit 28.0 % (36.0-47.0) Mean Corpuscular Volume 93 fL (79-100) Mean Corpuscular Hemoglobin 31 pg (25-35) Mean Corpuscular Hemoglobin Concent 33 g/dL (31-37) Red Cell Distribution Width 15.6 % (11.5-14.5) Platelet Count 206 x10^3/uL (140-400) Neutrophils (%) (Auto) 79 % (31-73) Lymphocytes (%) (Auto) 11 % (24-48) Monocytes (%) (Auto) 8 % (0-9) Eosinophils (%) (Auto) 1 % (0-3) Basophils (%) (Auto) 1 % (0-3) Neutrophils # (Auto) 7.2 x10^3uL (1.8-7.7) Lymphocytes # (Auto) 1.0 x10^3/uL (1.0-4.8) Monocytes # (Auto) 0.7 x10^3/uL (0.0-1.1) Eosinophils # (Auto) 0.1 x10^3/uL (0.0-0.7) Basophils # (Auto) 0.0 x10^3/uL (0.0-0.2) Sodium Level 132 mmol/L (136-145) Potassium Level 3.2 mmol/L (3.5-5.1) Chloride Level 95 mmol/L (98-107) Carbon Dioxide Level 30 mmol/L (21-32) Anion Gap 7 (6-14) Blood Urea Nitrogen 27 mg/dL (7-20) Creatinine 0.9 mg/dL (0.6-1.0) Estimated GFR (Cockcroft-Gault) 59.7 Glucose Level 180 mg/dL (70-99) Calcium Level 9.8 mg/dL (8.5-10.1) Test 12/01/16 10:53 Glucose (Fingerstick) 160 mg/dL (70-99) Medications Current Medications Ondansetron HCl (Zofran) 4 mg 1X ONCE IV Last administered on 11/26/16 04:30 ; Start 11/26/16 at 04:30; Stop 11/26/16 at 04:31; Status DC Sodium Chloride 1,000 ml @ 1,000 mls/hr 1X ONCE IV Last administered on 04:30; Start 11/26/16 at 04:30; Stop 11/26/16 at 05:29; Status DC Hydromorphone HCl (Dilaudid) 0.5 mg 1X ONCE IV Last administered on 11/26/16 04:30; Start 11/26/16 at 04:30; Stop 11/26/16 at 04:31; Status DC Ondansetron HCl (Zofran) 4 mg PRN Q8HRS PRN IV NAUSEA/VOMITING; Start 11/26/16 at 04:45; Stop 11/27/16 at 04:44; Status DC Morphine Sulfate 4 mg PRN Q2HR PRN IV SEVERE PAIN Last administered on 07:47; Start 11/26/16 at 04:45; Stop 11/27/16 at 04:44; Status DC Aspirin (Children'S Aspirin) 81 mg DAILY PO Last administered on 12/01/16 09: 17; Start 11/26/16 at 09:00 Carvedilol (Coreg) 12.5 mg BIDWMEALS PO Last administered on 11/26/16 08:13; Start 11/26/16 at 08:00; Stop 11/27/16 at 09:53; Status DC Docusate Sodium (Colace) 100 mg DAILYWLUN PO ; Start 11/26/16 at 12:00; Stop at 11:49; Status DC Duloxetine HCl (Cymbalta) 30 mg DAILY PO Last administered on 12/01/16 09:16; Start 11/26/16 at 09:00 Famotidine (Pepcid) 20 mg HS PO Last administered on 11/30/16 20:27; Start 06/02 at 21:00 Insulin Aspart (NovoLOG) 8 units TIDAC SQ Last administered on 11/26/16 08:20 ; Start 11/26/16 at 08:00; Stop 11/26/16 at 13:16; Status DC Simvastatin (Zocor) 20 mg QHS PO Last administered on 11/30/16 20:27; Start at 21:00 Calcium/Vitamin D (Oscal D 500mg/ 200uts) 1 tab BIDWMEALS PO Last administered on 12/01/16 09:18; Start 11/26/16 at 08:00 Non-Formulary Medication 50 mg DAILYWLUN PO ; Start 11/26/16 at 12:00; Stop 06/02 at 17:18; Status DC Ondansetron HCl (Zofran) 4 mg PRN Q6HRS PRN IV NAUSEA/VOMITING; Start 11/26/16 at 09:45; Stop 11/27/16 at 09:44; Status DC Morphine Sulfate 1 mg PRN Q10MIN PRN IV SEVERE PAIN Last administered on 21:12; Start 11/26/16 at 09:45; Stop 11/27/16 at 09:44; Status DC Ringer's Solution 1,000 ml @ 30 mls/hr Q24H IV Last administered on 11/26/16 16:41; Start 11/26/16 at 09:44; Stop 11/26/16 at 21:43; Status DC Lidocaine HCl 2 ml PRN 1X PRN ID PRIOR TO IV START; Start 11/26/16 at 09:45; Stop 11/27/16 at 09:44; Status DC Hydromorphone HCl (Dilaudid) 0.5 mg PRN Q10MIN PRN IV SEV PAIN, Second choice; Start 11/26/16 at 09:45; Stop 11/27/16 at 09:44; Status DC Prochlorperazine Edisylate (Compazine) 5 mg PACU PRN PRN IV NAUSEA, MRX1; Start 11/26/16 at 09:45; Stop 11/27/16 at 09:44; Status DC Iohexol (Omnipaque 300 Mg/ml) 50 ml 1X ONCE IV ; Start 11/26/16 at 11:30; Stop 11/26/16 at 11:31; Status DC Iohexol (Omnipaque 300 Mg/ml) 60 ml 1X ONCE IV Last administered on 11/26/16 11:28; Start 11/26/16 at 11:30; Stop 11/26/16 at 11:31; Status DC Info (Do NOT chart on this entry -- for MONITORING) 1 each PRN DAILY PRN MC SEE COMMENTS; Start 11/26/16 at 11:15; Stop 11/28/16 at 11:14; Status DC Insulin Detemir (Levemir) 10 units QHS SQ Last administered on 11/30/16 23:03 ; Start 11/26/16 at 21:00 Insulin Aspart (NovoLOG) 0-9 UNITS TIDWMEALS SQ Last administered on 11/30/16 14:31; Start 11/26/16 at 17:00 Dextrose (Dextrose 50%-Water Syringe) 12.5 gm PRN Q15MIN PRN IV SEE COMMENTS; Start 11/26/16 at 13:15 Acetaminophen (Tylenol) 650 mg PRN Q6HRS PRN PO FEVER Last administered on 11/30 17:54; Start 11/26/16 at 13:15 Ondansetron HCl (Zofran) 4 mg PRN Q6HRS PRN IV NAUSEA/VOMITING Last administered on 12/01/16 04:25; Start 11/26/16 at 13:15 Morphine Sulfate 2 mg PRN Q2HR PRN IV PAIN Last administered on 12/01/16 04:24 ; Start 11/26/16 at 13:15 Tramadol HCl (Ultram) 50 mg PRN Q6HRS PRN PO PAIN Last administered on 09:39; Start 11/26/16 at 13:15 Hydralazine HCl (Apresoline) 10 mg PRN Q4HRS PRN IVP ELEVATED BP, SEE COMMENTS Last administered on 11/30/16 22:55; Start 11/26/16 at 13:15 Docusate Sodium (Colace) 100 mg PRN DAILY PRN PO CONSTIPATION Last administered on 11/28/16 11:55; Start 11/26/16 at 13:15 Bupivacaine HCl/ Epinephrine Bitart (Marcaine-Epi 0.25%-1:[id number]) 50 ml STK-MED ONCE .ROUTE Last administered on 11/26/16 19:25; Start 11/26/16 at 16:10; Stop 11/26/16 at 16:11; Status DC Sevoflurane (Ultane) 90 ml STK-MED ONCE IH ; Start 11/26/16 at 17:45; Stop 11/26 at 17:46; Status DC Propofol 20 ml @ As Directed STK-MED ONCE IV ; Start 11/26/16 at 17:45; Stop 06/02 at 17:46; Status DC Dexamethasone Sodium Phosphate (Decadron) 20 mg STK-MED ONCE .ROUTE ; Start 06/02 at 17:45; Stop 11/26/16 at 17:46; Status DC Ondansetron HCl (Zofran) 4 mg STK-MED ONCE .ROUTE ; Start 11/26/16 at 17:45; Stop 11/26/16 at 17:46; Status DC Lidocaine HCl (Lidocaine Pf 2% Vial) 5 ml STK-MED ONCE .ROUTE ; Start 11/26/16 at 17:45; Stop 11/26/16 at 17:46; Status DC Cefazolin Sodium 50 ml @ As Directed STK-MED ONCE IV ; Start 11/26/16 at 18:40; Stop 11/26/16 at 18:41; Status DC Phenylephrine HCl 1 mg STK-MED ONCE IV ; Start 11/26/16 at 19:34; Stop 11/26/16 at 19:35; Status DC Labetalol HCl (Normodyne) 20 mg STK-MED ONCE .ROUTE ; Start 11/26/16 at 20:21; Stop 11/26/16 at 20:22; Status DC Carvedilol (Coreg) 3.125 mg BIDWMEALS PO Last administered on 11/28/16 17:03; Start 11/27/16 at 17:00; Stop 11/29/16 at 07:56; Status DC Lidocaine/Sodium Bicarbonate (Buffered Lidocaine 1%) 20 ml STK-MED ONCE IJ ; Start 11/27/16 at 12:19; Stop 11/27/16 at 12:20; Status DC Fentanyl Citrate (Fentanyl 2ml Vial) 100 mcg STK-MED ONCE .ROUTE ; Start at 12:30; Stop 11/27/16 at 12:31; Status DC Midazolam HCl (Versed) 2 mg STK-MED ONCE .ROUTE ; Start 11/27/16 at 12:30; Stop 11/27/16 at 12:31; Status DC Enoxaparin Sodium (Lovenox 30mg Syringe) 30 mg Q24H SQ Last administered on 09:17; Start 11/28/16 at 10:00 Morphine Sulfate 10 mg STK-MED ONCE .ROUTE ; Start 11/27/16 at 13:07; Stop 11/27 at 13:08; Status DC Lidocaine/Sodium Bicarbonate (Buffered Lidocaine 1%) 20 ml 1X ONCE IJ Last administered on 11/27/16 13:29; Start 11/27/16 at 13:30; Stop 11/27/16 at 13:31 ; Status DC Midazolam HCl (Versed) 2 mg 1X ONCE IV Last administered on 11/27/16 13:30; Start 11/27/16 at 13:30; Stop 11/27/16 at 13:31; Status DC Morphine Sulfate 10 mg 1X ONCE IV Last administered on 11/27/16 13:30; Start 11/27/16 at 13:30; Stop 11/27/16 at 13:31; Status DC Midazolam HCl (Versed) 2 mg 1X ONCE IV Last administered on 11/27/16 15:30; Start 11/27/16 at 15:30; Stop 11/27/16 at 15:34; Status DC Lidocaine HCl 20 ml 1X ONCE IJ Last administered on 11/27/16 15:30; Start at 15:30; Stop 11/27/16 at 15:34; Status DC Morphine Sulfate 10 mg 1X ONCE IV Last administered on 11/27/16 15:30; Start 11/27/16 at 15:30; Stop 11/27/16 at 15:34; Status DC Iohexol (Omnipaque 300 Mg/ml) 60 ml 1X ONCE IV Last administered on 11/28/16 15:46; Start 11/28/16 at 14:00; Stop 11/28/16 at 14:01; Status DC Info (Do NOT chart on this entry -- for MONITORING) 1 each PRN DAILY PRN MC SEE COMMENTS; Start 11/28/16 at 14:00; Stop 11/29/16 at 15:19; Status DC Iohexol (Omnipaque 300 Mg/ml) 60 ml 1X ONCE IV ; Start 11/28/16 at 15:15; Stop 11/28/16 at 15:16; Status DC Info (Do NOT chart on this entry -- for MONITORING) 1 each PRN DAILY PRN MC SEE COMMENTS; Start 11/28/16 at 15:15; Stop 11/30/16 at 15:14; Status DC Carvedilol (Coreg) 12.5 mg BIDWMEALS PO Last administered on 12/01/16 09:16; Start 11/29/16 at 08:00 Sodium Chloride 1,000 ml @ 75 mls/hr [id number] IV Last administered on 11:12; Start 11/29/16 at 13:00 Lisinopril (Prinivil) 10 mg DAILY PO Last administered on 12/01/16 09:17; Start 11/30/16 at 09:00 Active Scripts Active Reported Stool Softener (Docusate Sodium) 100 Mg Capsule 100 Mg PO DAILYWLUN Hysingla ER (Hydrocodone Bitartrate) 40 Mg Tab.er.24h 50 Mg PO DAILYWLUN Famotidine 20 Mg Tablet 20 Mg PO HS Calcium 600 + Vit D 200 Tablet (Calcium Carbonate/Vitamin D3) 1 Each Tablet 1 Each PO BID Novolog (Insulin Aspart) 100 Unit/1 Ml Vial 8 Unit SQ PRN PRN Simvastatin 20 Mg Tablet 1 Tab PO QHS Daily Vitamin (Multivitamin) 1 Each Tablet 1 Each PO Lantus (Insulin Glargine,Hum.rec.anlog) 100 Unit/1 Ml Vial 10 Unit SQ Cymbalta (Duloxetine Hcl) 30 Mg Capsule.dr 1 Cap PO DAILY Carvedilol 12.5 Mg Tablet 1 Tab PO BID Aspirin 81 Mg Tab.chew 1 Tab PO DAILY Vitals/I & O Vital Sign - Last 24 Hours 11/30/16 11/30/16 11/30/16 11/30/16 13:52 15:00 17:53 19:00 Temp 98.1 98.2 98.1 98.2 Pulse 83 83 86 Resp 20 18 B/P (MAP) 179/75 (109) 179/75 198/73 (114) Pulse Ox 96 94 O2 Delivery Room Air Room Air Room Air 11/30/16 11/30/16 11/30/16 11/30/16 19:30 20:27 22:55 23:00 Temp 98.2 98.2 Pulse 80 80 Resp 18 B/P (MAP) 194/92 194/92 (126) Pulse Ox 94 94 O2 Delivery Room Air Room Air Room Air 12/01/16 12/01/16 12/01/16 12/01/16 03:00 04:24 05:00 07:00 Temp 98.0 97.9 98.0 97.9 Pulse 88 92 Resp 16 18 B/P (MAP) 168/65 (99) 212/90 (130) Pulse Ox 98 98 98 95 O2 Delivery Room Air Room Air Room Air Room Air 12/01/16 12/01/16 12/01/16 12/01/16 08:00 09:16 09:17 11:00 Temp 97.9 97.9 Pulse 92 92 81 Resp 16 B/P (MAP) 212/90 212/90 180/76 (110) Pulse Ox 94 O2 Delivery Room Air Room Air Intake and Output 11/30/16 11/30/16 12/01/16 15:00 23:00 07:00 Output Total 800 ml 1375 ml Balance -800 ml -1375 ml OZZY KENDALL MD Dec 01, 2016 12:10
--- NOTE | 2016-12-01 12:12 | PDOC ---
PROGRESS NOTES Chief Complaint Chief Complaint A/P 1. Traumatic closed right hip fx post fall S/P NAIL fixation on 11/26 2. Left lung Mass on CT, bx 11/27. poorly differentiated squamous cell Ca 3. h/o CAD with CABG 4. HTN uncontrolled 5. DM2 6. HLD 7. H/O BCa post mastectomy , chemo, and RT 8. leukocytosis, reactive 9. normocytic anemia. worse post op 10. CKD3 11. mild malnutrition 12. left side pneumothorax post ct guided bx on 11/27, chest tube placed 13. hyponatremia with low po intake likely 14. Physical debility Plan BP not controlled, increase Lisinopril and add Hydralazine. ct chest done, CT abd pelvis, head neg for mets cont home meds PAT consult dr. trent consulted, no intervention for L5 fx Levemir with SSI PTOT On Chest tube, labs reviewed. d/w grand son at bedside. Vitals Vitals Vital Signs Date Time Temp Pulse Resp B/P (MAP) Pulse Ox O2 Delivery O2 Flow Rate FiO2 12/01/16 11:00 97.9 81 16 180/76 (110) 94 Room Air 97.9 11/30/16 08:00 2.0 Physical Exam Physical Exam left side pigtail chest tube, mild drainage, no air leaking General: No acute distress, Other (dementia) Heart: Regular rate, Normal S1, Normal S2 Lungs: Other (decrease bs) Abdomen: Soft, No tenderness Extremities: No edema Skin: No significant lesion Labs LABS Laboratory Tests Test 11/30/16 16:04 11/30/16 21:26 12/01/16 06:50 12/01/16 07:18 Glucose (Fingerstick) 143 mg/dL (70-99) 187 mg/dL (70-99) 168 mg/dL (70-99) White Blood Count 9.0 x10^3/uL (4.0-11.0) Red Blood Count 3.02 x10^6/uL (3.50-5.40) Hemoglobin 9.4 g/dL (12.0-15.5) Hematocrit 28.0 % (36.0-47.0) Mean Corpuscular Volume 93 fL (79-100) Mean Corpuscular Hemoglobin 31 pg (25-35) Mean Corpuscular Hemoglobin Concent 33 g/dL (31-37) Red Cell Distribution Width 15.6 % (11.5-14.5) Platelet Count 206 x10^3/uL (140-400) Neutrophils (%) (Auto) 79 % (31-73) Lymphocytes (%) (Auto) 11 % (24-48) Monocytes (%) (Auto) 8 % (0-9) Eosinophils (%) (Auto) 1 % (0-3) Basophils (%) (Auto) 1 % (0-3) Neutrophils # (Auto) 7.2 x10^3uL (1.8-7.7) Lymphocytes # (Auto) 1.0 x10^3/uL (1.0-4.8) Monocytes # (Auto) 0.7 x10^3/uL (0.0-1.1) Eosinophils # (Auto) 0.1 x10^3/uL (0.0-0.7) Basophils # (Auto) 0.0 x10^3/uL (0.0-0.2) Sodium Level 132 mmol/L (136-145) Potassium Level 3.2 mmol/L (3.5-5.1) Chloride Level 95 mmol/L (98-107) Carbon Dioxide Level 30 mmol/L (21-32) Anion Gap 7 (6-14) Blood Urea Nitrogen 27 mg/dL (7-20) Creatinine 0.9 mg/dL (0.6-1.0) Estimated GFR (Cockcroft-Gault) 59.7 Glucose Level 180 mg/dL (70-99) Calcium Level 9.8 mg/dL (8.5-10.1) Test 12/01/16 10:53 Glucose (Fingerstick) 160 mg/dL (70-99) Assessment and Plan Assessmemt and Plan Problems Medical Problems: (1) Closed right hip fracture Status: Acute Problems: Comment Review of Relevant I have reviewed the following items alysha (where applicable) has been applied. Labs Laboratory Tests Test 11/29/16 16:17 11/29/16 20:47 11/30/16 07:22 11/30/16 08:15 Glucose (Fingerstick) 173 mg/dL (70-99) 169 mg/dL (70-99) 210 mg/dL (70-99) White Blood Count 11.7 x10^3/uL (4.0-11.0) Red Blood Count 3.37 x10^6/uL (3.50-5.40) Hemoglobin 10.4 g/dL (12.0-15.5) Hematocrit 30.8 % (36.0-47.0) Mean Corpuscular Volume 91 fL (79-100) Mean Corpuscular Hemoglobin 31 pg (25-35) Mean Corpuscular Hemoglobin Concent 34 g/dL (31-37) Red Cell Distribution Width 15.6 % (11.5-14.5) Platelet Count 199 x10^3/uL (140-400) Neutrophils (%) (Auto) 88 % (31-73) Lymphocytes (%) (Auto) 6 % (24-48) Monocytes (%) (Auto) 5 % (0-9) Eosinophils (%) (Auto) 0 % (0-3) Basophils (%) (Auto) 0 % (0-3) Neutrophils # (Auto) 10.3 x10^3uL (1.8-7.7) Lymphocytes # (Auto) 0.7 x10^3/uL (1.0-4.8) Monocytes # (Auto) 0.6 x10^3/uL (0.0-1.1) Eosinophils # (Auto) 0.0 x10^3/uL (0.0-0.7) Basophils # (Auto) 0.0 x10^3/uL (0.0-0.2) Sodium Level 134 mmol/L (136-145) Potassium Level 3.7 mmol/L (3.5-5.1) Chloride Level 96 mmol/L (98-107) Carbon Dioxide Level 28 mmol/L (21-32) Anion Gap 10 (6-14) Blood Urea Nitrogen 30 mg/dL (7-20) Creatinine 1.0 mg/dL (0.6-1.0) Estimated GFR (Cockcroft-Gault) 52.8 Glucose Level 196 mg/dL (70-99) Calcium Level 10.3 mg/dL (8.5-10.1) Test 11/30/16 11:02 11/30/16 16:04 11/30/16 21:26 12/01/16 06:50 Glucose (Fingerstick) 208 mg/dL (70-99) 143 mg/dL (70-99) 187 mg/dL (70-99) White Blood Count 9.0 x10^3/uL (4.0-11.0) Red Blood Count 3.02 x10^6/uL (3.50-5.40) Hemoglobin 9.4 g/dL (12.0-15.5) Hematocrit 28.0 % (36.0-47.0) Mean Corpuscular Volume 93 fL (79-100) Mean Corpuscular Hemoglobin 31 pg (25-35) Mean Corpuscular Hemoglobin Concent 33 g/dL (31-37) Red Cell Distribution Width 15.6 % (11.5-14.5) Platelet Count 206 x10^3/uL (140-400) Neutrophils (%) (Auto) 79 % (31-73) Lymphocytes (%) (Auto) 11 % (24-48) Monocytes (%) (Auto) 8 % (0-9) Eosinophils (%) (Auto) 1 % (0-3) Basophils (%) (Auto) 1 % (0-3) Neutrophils # (Auto) 7.2 x10^3uL (1.8-7.7) Lymphocytes # (Auto) 1.0 x10^3/uL (1.0-4.8) Monocytes # (Auto) 0.7 x10^3/uL (0.0-1.1) Eosinophils # (Auto) 0.1 x10^3/uL (0.0-0.7) Basophils # (Auto) 0.0 x10^3/uL (0.0-0.2) Sodium Level 132 mmol/L (136-145) Potassium Level 3.2 mmol/L (3.5-5.1) Chloride Level 95 mmol/L (98-107) Carbon Dioxide Level 30 mmol/L (21-32) Anion Gap 7 (6-14) Blood Urea Nitrogen 27 mg/dL (7-20) Creatinine 0.9 mg/dL (0.6-1.0) Estimated GFR (Cockcroft-Gault) 59.7 Glucose Level 180 mg/dL (70-99) Calcium Level 9.8 mg/dL (8.5-10.1) Test 12/01/16 07:18 12/01/16 10:53 Glucose (Fingerstick) 168 mg/dL (70-99) 160 mg/dL (70-99) Laboratory Tests Test 11/30/16 16:04 11/30/16 21:26 12/01/16 06:50 12/01/16 07:18 Glucose (Fingerstick) 143 mg/dL (70-99) 187 mg/dL (70-99) 168 mg/dL (70-99) White Blood Count 9.0 x10^3/uL (4.0-11.0) Red Blood Count 3.02 x10^6/uL (3.50-5.40) Hemoglobin 9.4 g/dL (12.0-15.5) Hematocrit 28.0 % (36.0-47.0) Mean Corpuscular Volume 93 fL (79-100) Mean Corpuscular Hemoglobin 31 pg (25-35) Mean Corpuscular Hemoglobin Concent 33 g/dL (31-37) Red Cell Distribution Width 15.6 % (11.5-14.5) Platelet Count 206 x10^3/uL (140-400) Neutrophils (%) (Auto) 79 % (31-73) Lymphocytes (%) (Auto) 11 % (24-48) Monocytes (%) (Auto) 8 % (0-9) Eosinophils (%) (Auto) 1 % (0-3) Basophils (%) (Auto) 1 % (0-3) Neutrophils # (Auto) 7.2 x10^3uL (1.8-7.7) Lymphocytes # (Auto) 1.0 x10^3/uL (1.0-4.8) Monocytes # (Auto) 0.7 x10^3/uL (0.0-1.1) Eosinophils # (Auto) 0.1 x10^3/uL (0.0-0.7) Basophils # (Auto) 0.0 x10^3/uL (0.0-0.2) Sodium Level 132 mmol/L (136-145) Potassium Level 3.2 mmol/L (3.5-5.1) Chloride Level 95 mmol/L (98-107) Carbon Dioxide Level 30 mmol/L (21-32) Anion Gap 7 (6-14) Blood Urea Nitrogen 27 mg/dL (7-20) Creatinine 0.9 mg/dL (0.6-1.0) Estimated GFR (Cockcroft-Gault) 59.7 Glucose Level 180 mg/dL (70-99) Calcium Level 9.8 mg/dL (8.5-10.1) Test 12/01/16 10:53 Glucose (Fingerstick) 160 mg/dL (70-99) Medications Current Medications Ondansetron HCl (Zofran) 4 mg 1X ONCE IV Last administered on 11/26/16 04:30 ; Start 11/26/16 at 04:30; Stop 11/26/16 at 04:31; Status DC Sodium Chloride 1,000 ml @ 1,000 mls/hr 1X ONCE IV Last administered on 04:30; Start 11/26/16 at 04:30; Stop 11/26/16 at 05:29; Status DC Hydromorphone HCl (Dilaudid) 0.5 mg 1X ONCE IV Last administered on 11/26/16 04:30; Start 11/26/16 at 04:30; Stop 11/26/16 at 04:31; Status DC Ondansetron HCl (Zofran) 4 mg PRN Q8HRS PRN IV NAUSEA/VOMITING; Start 11/26/16 at 04:45; Stop 11/27/16 at 04:44; Status DC Morphine Sulfate 4 mg PRN Q2HR PRN IV SEVERE PAIN Last administered on 07:47; Start 11/26/16 at 04:45; Stop 11/27/16 at 04:44; Status DC Aspirin (Children'S Aspirin) 81 mg DAILY PO Last administered on 12/01/16 09: 17; Start 11/26/16 at 09:00 Carvedilol (Coreg) 12.5 mg BIDWMEALS PO Last administered on 11/26/16 08:13; Start 11/26/16 at 08:00; Stop 11/27/16 at 09:53; Status DC Docusate Sodium (Colace) 100 mg DAILYWLUN PO ; Start 11/26/16 at 12:00; Stop at 11:49; Status DC Duloxetine HCl (Cymbalta) 30 mg DAILY PO Last administered on 12/01/16 09:16; Start 11/26/16 at 09:00 Famotidine (Pepcid) 20 mg HS PO Last administered on 11/30/16 20:27; Start 06/02 at 21:00 Insulin Aspart (NovoLOG) 8 units TIDAC SQ Last administered on 11/26/16 08:20 ; Start 11/26/16 at 08:00; Stop 11/26/16 at 13:16; Status DC Simvastatin (Zocor) 20 mg QHS PO Last administered on 11/30/16 20:27; Start at 21:00 Calcium/Vitamin D (Oscal D 500mg/ 200uts) 1 tab BIDWMEALS PO Last administered on 12/01/16 09:18; Start 11/26/16 at 08:00 Non-Formulary Medication 50 mg DAILYWLUN PO ; Start 11/26/16 at 12:00; Stop 06/02 at 17:18; Status DC Ondansetron HCl (Zofran) 4 mg PRN Q6HRS PRN IV NAUSEA/VOMITING; Start 11/26/16 at 09:45; Stop 11/27/16 at 09:44; Status DC Morphine Sulfate 1 mg PRN Q10MIN PRN IV SEVERE PAIN Last administered on 21:12; Start 11/26/16 at 09:45; Stop 11/27/16 at 09:44; Status DC Ringer's Solution 1,000 ml @ 30 mls/hr Q24H IV Last administered on 11/26/16 16:41; Start 11/26/16 at 09:44; Stop 11/26/16 at 21:43; Status DC Lidocaine HCl 2 ml PRN 1X PRN ID PRIOR TO IV START; Start 11/26/16 at 09:45; Stop 11/27/16 at 09:44; Status DC Hydromorphone HCl (Dilaudid) 0.5 mg PRN Q10MIN PRN IV SEV PAIN, Second choice; Start 11/26/16 at 09:45; Stop 11/27/16 at 09:44; Status DC Prochlorperazine Edisylate (Compazine) 5 mg PACU PRN PRN IV NAUSEA, MRX1; Start 11/26/16 at 09:45; Stop 11/27/16 at 09:44; Status DC Iohexol (Omnipaque 300 Mg/ml) 50 ml 1X ONCE IV ; Start 11/26/16 at 11:30; Stop 11/26/16 at 11:31; Status DC Iohexol (Omnipaque 300 Mg/ml) 60 ml 1X ONCE IV Last administered on 11/26/16 11:28; Start 11/26/16 at 11:30; Stop 11/26/16 at 11:31; Status DC Info (Do NOT chart on this entry -- for MONITORING) 1 each PRN DAILY PRN MC SEE COMMENTS; Start 11/26/16 at 11:15; Stop 11/28/16 at 11:14; Status DC Insulin Detemir (Levemir) 10 units QHS SQ Last administered on 11/30/16 23:03 ; Start 11/26/16 at 21:00 Insulin Aspart (NovoLOG) 0-9 UNITS TIDWMEALS SQ Last administered on 11/30/16 14:31; Start 11/26/16 at 17:00 Dextrose (Dextrose 50%-Water Syringe) 12.5 gm PRN Q15MIN PRN IV SEE COMMENTS; Start 11/26/16 at 13:15 Acetaminophen (Tylenol) 650 mg PRN Q6HRS PRN PO FEVER Last administered on 11/30 17:54; Start 11/26/16 at 13:15 Ondansetron HCl (Zofran) 4 mg PRN Q6HRS PRN IV NAUSEA/VOMITING Last administered on 12/01/16 04:25; Start 11/26/16 at 13:15 Morphine Sulfate 2 mg PRN Q2HR PRN IV PAIN Last administered on 12/01/16 04:24 ; Start 11/26/16 at 13:15 Tramadol HCl (Ultram) 50 mg PRN Q6HRS PRN PO PAIN Last administered on 09:39; Start 11/26/16 at 13:15 Hydralazine HCl (Apresoline) 10 mg PRN Q4HRS PRN IVP ELEVATED BP, SEE COMMENTS Last administered on 11/30/16 22:55; Start 11/26/16 at 13:15 Docusate Sodium (Colace) 100 mg PRN DAILY PRN PO CONSTIPATION Last administered on 11/28/16 11:55; Start 11/26/16 at 13:15 Bupivacaine HCl/ Epinephrine Bitart (Marcaine-Epi 0.25%-[id number]) 50 ml STK-MED ONCE .ROUTE Last administered on 11/26/16t 19:25; Start 11/26/16 at 16:10; Stop 11/26/16 at 16:11; Status DC Sevoflurane (Ultane) 90 ml STK-MED ONCE IH ; Start 11/26/16 at 17:45; Stop 11/26 at 17:46; Status DC Propofol 20 ml @ As Directed STK-MED ONCE IV ; Start 11/26/16 at 17:45; Stop 06/02 at 17:46; Status DC Dexamethasone Sodium Phosphate (Decadron) 20 mg STK-MED ONCE .ROUTE ; Start 06/02 at 17:45; Stop 11/26/16 at 17:46; Status DC Ondansetron HCl (Zofran) 4 mg STK-MED ONCE .ROUTE ; Start 11/26/16 at 17:45; Stop 11/26/16 at 17:46; Status DC Lidocaine HCl (Lidocaine Pf 2% Vial) 5 ml STK-MED ONCE .ROUTE ; Start 11/26/16 at 17:45; Stop 11/26/16 at 17:46; Status DC Cefazolin Sodium 50 ml @ As Directed STK-MED ONCE IV ; Start 11/26/16 at 18:40; Stop 11/26/16 at 18:41; Status DC Phenylephrine HCl 1 mg STK-MED ONCE IV ; Start 11/26/16 at 19:34; Stop 11/26/16 at 19:35; Status DC Labetalol HCl (Normodyne) 20 mg STK-MED ONCE .ROUTE ; Start 11/26/16 at 20:21; Stop 11/26/16 at 20:22; Status DC Carvedilol (Coreg) 3.125 mg BIDWMEALS PO Last administered on 11/28/16t 17:03; Start 11/27/16 at 17:00; Stop 11/29/16 at 07:56; Status DC Lidocaine/Sodium Bicarbonate (Buffered Lidocaine 1%) 20 ml STK-MED ONCE IJ ; Start 11/27/16 at 12:19; Stop 11/27/16 at 12:20; Status DC Fentanyl Citrate (Fentanyl 2ml Vial) 100 mcg STK-MED ONCE .ROUTE ; Start at 12:30; Stop 11/27/16 at 12:31; Status DC Midazolam HCl (Versed) 2 mg STK-MED ONCE .ROUTE ; Start 11/27/16 at 12:30; Stop 11/27/16 at 12:31; Status DC Enoxaparin Sodium (Lovenox 30mg Syringe) 30 mg Q24H SQ Last administered on 09:17; Start 11/28/16 at 10:00 Morphine Sulfate 10 mg STK-MED ONCE .ROUTE ; Start 11/27/16 at 13:07; Stop 11/27 at 13:08; Status DC Lidocaine/Sodium Bicarbonate (Buffered Lidocaine 1%) 20 ml 1X ONCE IJ Last administered on 11/27/16 13:29; Start 11/27/16 at 13:30; Stop 11/27/16 at 13:31 ; Status DC Midazolam HCl (Versed) 2 mg 1X ONCE IV Last administered on 11/27/16 13:30; Start 11/27/16 at 13:30; Stop 11/27/16 at 13:31; Status DC Morphine Sulfate 10 mg 1X ONCE IV Last administered on 11/27/16 13:30; Start 11/27/16 at 13:30; Stop 11/27/16 at 13:31; Status DC Midazolam HCl (Versed) 2 mg 1X ONCE IV Last administered on 11/27/16 15:30; Start 11/27/16 at 15:30; Stop 11/27/16 at 15:34; Status DC Lidocaine HCl 20 ml 1X ONCE IJ Last administered on 11/27/16 15:30; Start at 15:30; Stop 11/27/16 at 15:34; Status DC Morphine Sulfate 10 mg 1X ONCE IV Last administered on 11/27/16 15:30; Start 11/27/16 at 15:30; Stop 11/27/16 at 15:34; Status DC Iohexol (Omnipaque 300 Mg/ml) 60 ml 1X ONCE IV Last administered on 11/28/16 15:46; Start 11/28/16 at 14:00; Stop 11/28/16 at 14:01; Status DC Info (Do NOT chart on this entry -- for MONITORING) 1 each PRN DAILY PRN MC SEE COMMENTS; Start 11/28/16 at 14:00; Stop 11/29/16 at 15:19; Status DC Iohexol (Omnipaque 300 Mg/ml) 60 ml 1X ONCE IV ; Start 11/28/16 at 15:15; Stop 11/28/16 at 15:16; Status DC Info (Do NOT chart on this entry -- for MONITORING) 1 each PRN DAILY PRN MC SEE COMMENTS; Start 11/28/16 at 15:15; Stop 11/30/16 at 15:14; Status DC Carvedilol (Coreg) 12.5 mg BIDWMEALS PO Last administered on 12/01/16 09:16; Start 11/29/16 at 08:00 Sodium Chloride 1,000 ml @ 75 mls/hr [id number] IV Last administered on 11:12; Start 11/29/16 at 13:00 Lisinopril (Prinivil) 10 mg DAILY PO Last administered on 12/01/16 09:17; Start 11/30/16 at 09:00 Active Scripts Active Reported Stool Softener (Docusate Sodium) 100 Mg Capsule 100 Mg PO DAILYWLUN Hysingla ER (Hydrocodone Bitartrate) 40 Mg Tab.er.24h 50 Mg PO DAILYWLUN Famotidine 20 Mg Tablet 20 Mg PO HS Calcium 600 + Vit D 200 Tablet (Calcium Carbonate/Vitamin D3) 1 Each Tablet 1 Each PO BID Novolog (Insulin Aspart) 100 Unit/1 Ml Vial 8 Unit SQ PRN PRN Simvastatin 20 Mg Tablet 1 Tab PO QHS Daily Vitamin (Multivitamin) 1 Each Tablet 1 Each PO Lantus (Insulin Glargine,Hum.rec.anlog) 100 Unit/1 Ml Vial 10 Unit SQ Cymbalta (Duloxetine Hcl) 30 Mg Capsule. 1 Cap PO DAILY Carvedilol 12.5 Mg Tablet 1 Tab PO BID Aspirin 81 Mg Tab.chew 1 Tab PO DAILY Vitals/I & O Vital Sign - Last 24 Hours 11/30/16 11/30/16 11/30/16 11/30/16 13:52 15:00 17:53 19:00 Temp 98.1 98.2 98.1 98.2 Pulse 83 83 86 Resp 20 18 B/P (MAP) 179/75 (109) 179/75 198/73 (114) Pulse Ox 96 94 O2 Delivery Room Air Room Air Room Air 11/30/16 11/30/16 11/30/16 11/30/16 19:30 20:27 22:55 23:00 Temp 98.2 98.2 Pulse 80 80 Resp 18 B/P (MAP) 194/92 194/92 (126) Pulse Ox 94 94 O2 Delivery Room Air Room Air Room Air 12/01/16 12/01/16 12/01/16 12/01/16 03:00 04:24 05:00 07:00 Temp 98.0 97.9 98.0 97.9 Pulse 88 92 Resp 16 18 B/P (MAP) 168/65 (99) 212/90 (130) Pulse Ox 98 98 98 95 O2 Delivery Room Air Room Air Room Air Room Air 12/01/16 12/01/16 12/01/16 12/01/16 08:00 09:16 09:17 11:00 Temp 97.9 97.9 Pulse 92 92 81 Resp 16 B/P (MAP) 212/90 212/90 180/76 (110) Pulse Ox 94 O2 Delivery Room Air Room Air Intake and Output 11/30/16 11/30/16 12/01/16 15:00 23:00 07:00 Output Total 800 ml 1375 ml Balance -800 ml -1375 ml BERYL STILL MD Dec 01, 2016 12:12
[2016-12-01 15:00] VITALS: BP 156/71
[2016-12-01] MEDS: traMADol 50 MG TABLET PO PRN (16:45)
[2016-12-01 19:15] VITALS: BP 149/62
[2016-12-01] MEDS: DOCUSATE SODIUM 100 MG CAPSULE. PO PRN (20:54)
[2016-12-01] MEDS: SIMVASTATIN 20 MG TABLET PO SCH (20:54)
[2016-12-01] MEDS: FAMOTIDINE 20 MG TABLET. PO SCH (20:54)
[2016-12-01] MEDS: INSULIN DETEMIR 300 UNITS/3 ML INSULN.PEN. SQ SCH (20:57)
[2016-12-01 23:15] VITALS: BP 172/65
[2016-12-02] MEDS: ACETAMINOPHEN 325 MG TABLET. PO PRN (02:11)
[2016-12-02] MEDS: hydrALAZINE 20 MG/ML VIAL. IVP PRN (02:59)
[2016-12-02 03:12] VITALS: BP 204/79
[2016-12-02 07:00] VITALS: BP 162/73
[2016-12-02] MEDS: INSULIN ASPART 300 UNITS/3 ML INSULN.PEN SQ SCH ×3 (07:39→17:38)
[2016-12-02] MEDS: LISINOPRIL 10 MG TABLET PO SCH (08:41)
[2016-12-02] MEDS: DULoxetine HCL 30 MG CAPSULE.DR PO SCH (08:41)
[2016-12-02] MEDS: CARVEDILOL 12.5 MG TABLET. PO SCH ×2 (08:41→17:30)
[2016-12-02] MEDS: ENOXAPARIN 30 MG/0.3 ML SYRINGE. SQ SCH (08:41)
[2016-12-02] MEDS: ASPIRIN CHEWABLE 81 MG TABLET. PO SCH (08:41)
[2016-12-02] MEDS: CALCIUM CARB/VIT D3 500/200 TABLET. PO SCH ×2 (08:41→17:30)
--- NOTE | 2016-12-02 09:00 | RAD ---
EXAM: Chest one view. HISTORY: Pneumothorax, chest tube. COMPARISON: 12/01/2016. FINDINGS: A frontal view of the chest is obtained. A left chest drain remains in place. There is a small left apical pneumothorax, slightly increased from the prior study. A left suprahilar mass is again noted. There is mild atelectasis in the bases. There is no clear pleural effusion. The heart is not enlarged. There are changes of coronary artery bypass grafting. There are atherosclerotic calcifications of the aorta. Surgical clips project within the left neck and left axilla. Vertebroplasty changes are noted at multiple levels. IMPRESSION: 1. Tiny left apical pneumothorax with a chest tube in place. 2. Left suprahilar mass again noted.
--- NOTE | 2016-12-02 09:42 | PDOC ---
PULMONARY PROGRESS NOTES Subjective S/P CT GUIDED LEFT LUNG BIOPSY CHEST TUBE IN PLACE NO SOA, cough, has pain in ct site Vitals Vital Signs Date Time Temp Pulse Resp B/P (MAP) Pulse Ox O2 Delivery O2 Flow Rate FiO2 12/02/16 08:41 92 162/73 12/02/16 07:50 Room Air 12/02/16 07:00 98.0 18 95 98.0 ROS: No Nausea, No Abdominal Pain General: Alert, No acute distress HEENT: Other (nc at perrl, ) Lungs: Crackles, Other (decrease bs, l ct) Cardiovascular: S1, S2 Abdomen: Soft, Non-tender Neuro Exam: Alert Extremities: No Edema Skin: Warm Labs Laboratory Tests Test 11/30/16 11:02 11/30/16 16:04 11/30/16 21:26 12/01/16 06:50 Glucose (Fingerstick) 208 mg/dL (70-99) 143 mg/dL (70-99) 187 mg/dL (70-99) White Blood Count 9.0 x10^3/uL (4.0-11.0) Red Blood Count 3.02 x10^6/uL (3.50-5.40) Hemoglobin 9.4 g/dL (12.0-15.5) Hematocrit 28.0 % (36.0-47.0) Mean Corpuscular Volume 93 fL (79-100) Mean Corpuscular Hemoglobin 31 pg (25-35) Mean Corpuscular Hemoglobin Concent 33 g/dL (31-37) Red Cell Distribution Width 15.6 % (11.5-14.5) Platelet Count 206 x10^3/uL (140-400) Neutrophils (%) (Auto) 79 % (31-73) Lymphocytes (%) (Auto) 11 % (24-48) Monocytes (%) (Auto) 8 % (0-9) Eosinophils (%) (Auto) 1 % (0-3) Basophils (%) (Auto) 1 % (0-3) Neutrophils # (Auto) 7.2 x10^3uL (1.8-7.7) Lymphocytes # (Auto) 1.0 x10^3/uL (1.0-4.8) Monocytes # (Auto) 0.7 x10^3/uL (0.0-1.1) Eosinophils # (Auto) 0.1 x10^3/uL (0.0-0.7) Basophils # (Auto) 0.0 x10^3/uL (0.0-0.2) Sodium Level 132 mmol/L (136-145) Potassium Level 3.2 mmol/L (3.5-5.1) Chloride Level 95 mmol/L (98-107) Carbon Dioxide Level 30 mmol/L (21-32) Anion Gap 7 (6-14) Blood Urea Nitrogen 27 mg/dL (7-20) Creatinine 0.9 mg/dL (0.6-1.0) Estimated GFR (Cockcroft-Gault) 59.7 Glucose Level 180 mg/dL (70-99) Calcium Level 9.8 mg/dL (8.5-10.1) Test 12/01/16 07:18 12/01/16 10:53 12/01/16 16:52 12/01/16 20:46 Glucose (Fingerstick) 168 mg/dL (70-99) 160 mg/dL (70-99) 153 mg/dL (70-99) 310 mg/dL (70-99) Test 12/02/16 07:27 Glucose (Fingerstick) 119 mg/dL (70-99) Laboratory Tests Test 12/01/16 10:53 12/01/16 16:52 12/01/16 20:46 12/02/16 07:27 Glucose (Fingerstick) 160 mg/dL (70-99) 153 mg/dL (70-99) 310 mg/dL (70-99) 119 mg/dL (70-99) Medications Active Scripts Medications Dose Route/Sig Max Daily Dose Days Date Category Stool Softener (Docusate Sodium) 100 Mg Capsule 100 Mg PO DAILYWLUN 11/26/16 Reported Hysingla ER (Hydrocodone Bitartrate) 40 Mg Tab.er.24h 50 Mg PO DAILYWLUN 11/26/16 Reported Famotidine 20 Mg Tablet 20 Mg PO HS 11/26/16 Reported Calcium 600 + Vit D 200 Tablet (Calcium Carbonate/Vitamin D3) 1 Each Tablet 1 Each PO BID 11/26/16 Reported Novolog (Insulin Aspart) 100 Unit/1 Ml Vial 8 Unit SQ PRN PRN 06/20/14 Reported Simvastatin 20 Mg Tablet 1 Tab PO QHS 06/20/14 Reported Daily Vitamin (Multivitamin) 1 Each Tablet 1 Each PO 06/20/14 Reported Lantus (Insulin Glargine,Hum.rec.anlog) 100 Unit/1 Ml Vial 10 Unit SQ 06/20/14 Reported Cymbalta (Duloxetine Hcl) 30 Mg Capsule.dr 1 Cap PO DAILY 06/20/14 Reported Carvedilol 12.5 Mg Tablet 1 Tab PO BID 06/20/14 Reported Aspirin 81 Mg Tab.chew 1 Tab PO DAILY 06/20/14 Reported Comments cxr, tiny apical ptx, l lung mass Impression . 1. Large Left upper lobe mass. s/p ct guided biopsy, SQUAMOUS CELL 2. Recent fall suffering a fracture of the right intertrochanteric area. 3. Coronary artery disease with previous coronary artery bypass grafting. 4. History of breast cancer. 5. Tobacco dependence in remission. 6. Underlying chronic obstructive pulmonary disease. 7. Multiple other comorbidities as indicated above. 8. PTX, post biopsy. s/p left chest tube, Plan . 1. s/p repair of her right hip, 2. d/w path. 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 Poor performance status. Appreciate medical/radiation oncology consults 4. i personally removed ct, stat pcxr, reviewed, no ptx discussed w pt, her grand daughter, WILIAM Newman MD Dec 02, 2016 09:42
[2016-12-02] MEDS: MORPHINE SULFATE 2 MG/ML DISP.SYRIN. IV PRN ×3 (10:26→23:27)
--- NOTE | 2016-12-02 10:55 | RAD ---
EXAM: Chest one view. HISTORY: Chest tube removal. Pneumothorax. COMPARISON: None. FINDINGS: A frontal view of the chest is obtained. The left chest tube is been removed. There is no appreciable pneumothorax. A left suprahilar mass is again noted. There is mild atelectasis or scarring in the bases. Hyperinflation suggests chronic obstructive pulmonary disease. There is no pneumothorax or pleural effusion. The heart is not enlarged. There are atherosclerotic calcifications of the aorta. There are changes of coronary artery bypass grafting. There are surgical clips in the left axilla, left neck and right upper quadrant. Vertebroplasty changes are noted at multiple levels. IMPRESSION: 1. No appreciable left pneumothorax status post chest tube removal. 2. Left suprahilar mass again noted.
[2016-12-02 11:00] VITALS: BP 121/47
--- NOTE | 2016-12-02 14:22 | PDOC ---
PROGRESS NOTES Chief Complaint Chief Complaint A/P 1. Traumatic closed right hip fx post fall S/P NAIL fixation on 11/26 2. Left lung Mass on CT, bx 11/27. poorly differentiated squamous cell Ca 3. h/o CAD with CABG 4. HTN uncontrolled 5. DM2 6. HLD 7. H/O BCa post mastectomy , chemo, and RT 8. leukocytosis, reactive 9. normocytic anemia. worse post op 10. CKD3 11. mild malnutrition 12. left side pneumothorax post ct guided bx on 11/27, chest tube placed 13. hyponatremia with low po intake likely 14. Physical debility Plan BP controlled, increase Lisinopril and add Hydralazine. Chest tube removed. cont current care, appreciate oncology recommendations. PAT consult Jey Ortez with [facility] labs reviewed. d/w family at [facility]. Vitals Vitals Vital Signs Date Time Temp Pulse Resp B/P (MAP) Pulse Ox O2 Delivery O2 Flow Rate FiO2 12/02/16 11:00 98.1 80 18 121/47 (71) 90 Room Air 98.1 Physical Exam General: Alert, No acute distress, Other (dementia) Heart: Regular rate, Normal S1, Normal S2 Lungs: Crackles, Other (decrease bs, l ct) Abdomen: Soft, No tenderness Extremities: No edema Skin: No significant lesion Labs LABS Laboratory Tests Test 12/01/16 16:52 12/01/16 20:46 12/02/16 07:27 12/02/16 11:06 Glucose (Fingerstick) 153 mg/dL (70-99) 310 mg/dL (70-99) 119 mg/dL (70-99) 147 mg/dL (70-99) Assessment and Plan Assessmemt and Plan Problems Medical Problems: (1) Closed right hip fracture Status: Acute Problems: Comment Review of Relevant I have reviewed the following items alysha (where applicable) has been applied. Labs Laboratory Tests Test 11/30/16 16:04 11/30/16 21:26 12/01/16 06:50 12/01/16 07:18 Glucose (Fingerstick) 143 mg/dL (70-99) 187 mg/dL (70-99) 168 mg/dL (70-99) White Blood Count 9.0 x10^3/uL (4.0-11.0) Red Blood Count 3.02 x10^6/uL (3.50-5.40) Hemoglobin 9.4 g/dL (12.0-15.5) Hematocrit 28.0 % (36.0-47.0) Mean Corpuscular Volume 93 fL (79-100) Mean Corpuscular Hemoglobin 31 pg (25-35) Mean Corpuscular Hemoglobin Concent 33 g/dL (31-37) Red Cell Distribution Width 15.6 % (11.5-14.5) Platelet Count 206 x10^3/uL (140-400) Neutrophils (%) (Auto) 79 % (31-73) Lymphocytes (%) (Auto) 11 % (24-48) Monocytes (%) (Auto) 8 % (0-9) Eosinophils (%) (Auto) 1 % (0-3) Basophils (%) (Auto) 1 % (0-3) Neutrophils # (Auto) 7.2 x10^3uL (1.8-7.7) Lymphocytes # (Auto) 1.0 x10^3/uL (1.0-4.8) Monocytes # (Auto) 0.7 x10^3/uL (0.0-1.1) Eosinophils # (Auto) 0.1 x10^3/uL (0.0-0.7) Basophils # (Auto) 0.0 x10^3/uL (0.0-0.2) Sodium Level 132 mmol/L (136-145) Potassium Level 3.2 mmol/L (3.5-5.1) Chloride Level 95 mmol/L (98-107) Carbon Dioxide Level 30 mmol/L (21-32) Anion Gap 7 (6-14) Blood Urea Nitrogen 27 mg/dL (7-20) Creatinine 0.9 mg/dL (0.6-1.0) Estimated GFR (Cockcroft-Gault) 59.7 Glucose Level 180 mg/dL (70-99) Calcium Level 9.8 mg/dL (8.5-10.1) Test 12/01/16 10:53 12/01/16 16:52 12/01/16 20:46 12/02/16 07:27 Glucose (Fingerstick) 160 mg/dL (70-99) 153 mg/dL (70-99) 310 mg/dL (70-99) 119 mg/dL (70-99) Test 12/02/16 11:06 Glucose (Fingerstick) 147 mg/dL (70-99) Laboratory Tests Test 12/01/16 16:52 12/01/16 20:46 12/02/16 07:27 12/02/16 11:06 Glucose (Fingerstick) 153 mg/dL (70-99) 310 mg/dL (70-99) 119 mg/dL (70-99) 147 mg/dL (70-99) Medications Current Medications Ondansetron HCl (Zofran) 4 mg 1X ONCE IV Last administered on 11/26/16 04:30 ; Start 11/26/16 at 04:30; Stop 11/26/16 at 04:31; Status DC Sodium Chloride 1,000 ml @ 1,000 mls/hr 1X ONCE IV Last administered on 04:30; Start 11/26/16 at 04:30; Stop 11/26/16 at 05:29; Status DC Hydromorphone HCl (Dilaudid) 0.5 mg 1X ONCE IV Last administered on 11/26/16 04:30; Start 11/26/16 at 04:30; Stop 11/26/16 at 04:31; Status DC Ondansetron HCl (Zofran) 4 mg PRN Q8HRS PRN IV NAUSEA/VOMITING; Start 11/26/16 at 04:45; Stop 11/27/16 at 04:44; Status DC Morphine Sulfate 4 mg PRN Q2HR PRN IV SEVERE PAIN Last administered on 07:47; Start 11/26/16 at 04:45; Stop 11/27/16 at 04:44; Status DC Aspirin (Children'S Aspirin) 81 mg DAILY PO Last administered on 12/02/16 08: 41; Start 11/26/16 at 09:00 Carvedilol (Coreg) 12.5 mg BIDWMEALS PO Last administered on 11/26/16 08:13; Start 11/26/16 at 08:00; Stop 11/27/16 at 09:53; Status DC Docusate Sodium (Colace) 100 mg DAILYWLUN PO ; Start 11/26/16 at 12:00; Stop at 11:49; Status DC Duloxetine HCl (Cymbalta) 30 mg DAILY PO Last administered on 12/02/16 08:41; Start 11/26/16 at 09:00 Famotidine (Pepcid) 20 mg HS PO Last administered on 12/01/16 20:54; Start 06/02 at 21:00 Insulin Aspart (NovoLOG) 8 units TIDAC SQ Last administered on 11/26/16 08:20 ; Start 11/26/16 at 08:00; Stop 11/26/16 at 13:16; Status DC Simvastatin (Zocor) 20 mg QHS PO Last administered on 12/01/16 20:54; Start at 21:00 Calcium/Vitamin D (Oscal D 500mg/ 200uts) 1 tab BIDWMEALS PO Last administered on 12/02/16 08:41; Start 11/26/16 at 08:00 Non-Formulary Medication 50 mg DAILYWLUN PO ; Start 11/26/16 at 12:00; Stop 06/02 at 17:18; Status DC Ondansetron HCl (Zofran) 4 mg PRN Q6HRS PRN IV NAUSEA/VOMITING; Start 11/26/16 at 09:45; Stop 11/27/16 at 09:44; Status DC Morphine Sulfate 1 mg PRN Q10MIN PRN IV SEVERE PAIN Last administered on 21:12; Start 11/26/16 at 09:45; Stop 11/27/16 at 09:44; Status DC Ringer's Solution 1,000 ml @ 30 mls/hr Q24H IV Last administered on 11/26/16 16:41; Start 11/26/16 at 09:44; Stop 11/26/16 at 21:43; Status DC Lidocaine HCl 2 ml PRN 1X PRN ID PRIOR TO IV START; Start 11/26/16 at 09:45; Stop 11/27/16 at 09:44; Status DC Hydromorphone HCl (Dilaudid) 0.5 mg PRN Q10MIN PRN IV SEV PAIN, Second choice; Start 11/26/16 at 09:45; Stop 11/27/16 at 09:44; Status DC Prochlorperazine Edisylate (Compazine) 5 mg PACU PRN PRN IV NAUSEA, MRX1; Start 11/26/16 at 09:45; Stop 11/27/16 at 09:44; Status DC Iohexol (Omnipaque 300 Mg/ml) 50 ml 1X ONCE IV ; Start 11/26/16 at 11:30; Stop 11/26/16 at 11:31; Status DC Iohexol (Omnipaque 300 Mg/ml) 60 ml 1X ONCE IV Last administered on 11/26/16 11:28; Start 11/26/16 at 11:30; Stop 11/26/16 at 11:31; Status DC Info (Do NOT chart on this entry -- for MONITORING) 1 each PRN DAILY PRN MC SEE COMMENTS; Start 11/26/16 at 11:15; Stop 11/28/16 at 11:14; Status DC Insulin Detemir (Levemir) 10 units QHS SQ Last administered on 12/01/16 20:57 ; Start 11/26/16 at 21:00 Insulin Aspart (NovoLOG) 0-9 UNITS TIDWMEALS SQ Last administered on 11/30/16 14:31; Start 11/26/16 at 17:00 Dextrose (Dextrose 50%-Water Syringe) 12.5 gm PRN Q15MIN PRN IV SEE COMMENTS; Start 11/26/16 at 13:15 Acetaminophen (Tylenol) 650 mg PRN Q6HRS PRN PO FEVER Last administered on 12/02 02:11; Start 11/26/16 at 13:15 Ondansetron HCl (Zofran) 4 mg PRN Q6HRS PRN IV NAUSEA/VOMITING Last administered on 12/01/16 04:25; Start 11/26/16 at 13:15 Morphine Sulfate 2 mg PRN Q2HR PRN IV PAIN Last administered on 12/02/16 10:26 ; Start 11/26/16 at 13:15 Tramadol HCl (Ultram) 50 mg PRN Q6HRS PRN PO PAIN Last administered on 16:45; Start 11/26/16 at 13:15 Hydralazine HCl (Apresoline) 10 mg PRN Q4HRS PRN IVP ELEVATED BP, SEE COMMENTS Last administered on 12/02/16 02:59; Start 11/26/16 at 13:15 Docusate Sodium (Colace) 100 mg PRN DAILY PRN PO CONSTIPATION Last administered on 12/01/16 20:54; Start 11/26/16 at 13:15 Bupivacaine HCl/ Epinephrine Bitart (Marcaine-Epi 0.25%-[id number]) 50 ml STK-MED ONCE .ROUTE Last administered on 11/26/16 19:25; Start 11/26/16 at 16:10; Stop 11/26/16 at 16:11; Status DC Sevoflurane (Ultane) 90 ml STK-MED ONCE IH ; Start 11/26/16 at 17:45; Stop 11/26 at 17:46; Status DC Propofol 20 ml @ As Directed STK-MED ONCE IV ; Start 11/26/16 at 17:45; Stop 06/02 at 17:46; Status DC Dexamethasone Sodium Phosphate (Decadron) 20 mg STK-MED ONCE .ROUTE ; Start 06/02 at 17:45; Stop 11/26/16 at 17:46; Status DC Ondansetron HCl (Zofran) 4 mg STK-MED ONCE .ROUTE ; Start 11/26/16 at 17:45; Stop 11/26/16 at 17:46; Status DC Lidocaine HCl (Lidocaine Pf 2% Vial) 5 ml STK-MED ONCE .ROUTE ; Start 11/26/16 at 17:45; Stop 11/26/16 at 17:46; Status DC Cefazolin Sodium 50 ml @ As Directed STK-MED ONCE IV ; Start 11/26/16 at 18:40; Stop 11/26/16 at 18:41; Status DC Phenylephrine HCl 1 mg STK-MED ONCE IV ; Start 11/26/16 at 19:34; Stop 11/26/16 at 19:35; Status DC Labetalol HCl (Normodyne) 20 mg STK-MED ONCE .ROUTE ; Start 11/26/16 at 20:21; Stop 11/26/16 at 20:22; Status DC Carvedilol (Coreg) 3.125 mg BIDWMEALS PO Last administered on 11/28/16 17:03; Start 11/27/16 at 17:00; Stop 11/29/16 at 07:56; Status DC Lidocaine/Sodium Bicarbonate (Buffered Lidocaine 1%) 20 ml STK-MED ONCE IJ ; Start 11/27/16 at 12:19; Stop 11/27/16 at 12:20; Status DC Fentanyl Citrate (Fentanyl 2ml Vial) 100 mcg STK-MED ONCE .ROUTE ; Start at 12:30; Stop 11/27/16 at 12:31; Status DC Midazolam HCl (Versed) 2 mg STK-MED ONCE .ROUTE ; Start 11/27/16 at 12:30; Stop 11/27/16 at 12:31; Status DC Enoxaparin Sodium (Lovenox 30mg Syringe) 30 mg Q24H SQ Last administered on 08:41; Start 11/28/16 at 10:00 Morphine Sulfate 10 mg STK-MED ONCE .ROUTE ; Start 11/27/16 at 13:07; Stop 11/27 at 13:08; Status DC Lidocaine/Sodium Bicarbonate (Buffered Lidocaine 1%) 20 ml 1X ONCE IJ Last administered on 11/27/16 13:29; Start 11/27/16 at 13:30; Stop 11/27/16 at 13:31 ; Status DC Midazolam HCl (Versed) 2 mg 1X ONCE IV Last administered on 11/27/16 13:30; Start 11/27/16 at 13:30; Stop 11/27/16 at 13:31; Status DC Morphine Sulfate 10 mg 1X ONCE IV Last administered on 11/27/16 13:30; Start 11/27/16 at 13:30; Stop 11/27/16 at 13:31; Status DC Midazolam HCl (Versed) 2 mg 1X ONCE IV Last administered on 11/27/16 15:30; Start 11/27/16 at 15:30; Stop 11/27/16 at 15:34; Status DC Lidocaine HCl 20 ml 1X ONCE IJ Last administered on 11/27/16 15:30; Start at 15:30; Stop 11/27/16 at 15:34; Status DC Morphine Sulfate 10 mg 1X ONCE IV Last administered on 11/27/16 15:30; Start 11/27/16 at 15:30; Stop 11/27/16 at 15:34; Status DC Iohexol (Omnipaque 300 Mg/ml) 60 ml 1X ONCE IV Last administered on 11/28/16 15:46; Start 11/28/16 at 14:00; Stop 11/28/16 at 14:01; Status DC Info (Do NOT chart on this entry -- for MONITORING) 1 each PRN DAILY PRN MC SEE COMMENTS; Start 11/28/16 at 14:00; Stop 11/29/16 at 15:19; Status DC Iohexol (Omnipaque 300 Mg/ml) 60 ml 1X ONCE IV ; Start 11/28/16 at 15:15; Stop 11/28/16 at 15:16; Status DC Info (Do NOT chart on this entry -- for MONITORING) 1 each PRN DAILY PRN MC SEE COMMENTS; Start 11/28/16 at 15:15; Stop 11/30/16 at 15:14; Status DC Carvedilol (Coreg) 12.5 mg BIDWMEALS PO Last administered on 12/02/16 08:41; Start 11/29/16 at 08:00 Sodium Chloride 1,000 ml @ 75 mls/hr [id number] IV Last administered on 11:12; Start 11/29/16 at 13:00; Stop 12/01/16 at 12:13; Status DC Lisinopril (Prinivil) 10 mg DAILY PO Last administered on 12/02/16 08:41; Start 11/30/16 at 09:00 Potassium Chloride/Sodium Chloride 1,000 ml @ 75 mls/hr [id number] IV Last administered on 12/02/16 09:26; Start 12/01/16 at 13:00 Active Scripts Active Reported Stool Softener (Docusate Sodium) 100 Mg Capsule 100 Mg PO DAILYWLUN Hysingla ER (Hydrocodone Bitartrate) 40 Mg Tab.er.24h 50 Mg PO DAILYWLUN Famotidine 20 Mg Tablet 20 Mg PO HS Calcium 600 + Vit D 200 Tablet (Calcium Carbonate/Vitamin D3) 1 Each Tablet 1 Each PO BID Novolog (Insulin Aspart) 100 Unit/1 Ml Vial 8 Unit SQ PRN PRN Simvastatin 20 Mg Tablet 1 Tab PO QHS Daily Vitamin (Multivitamin) 1 Each Tablet 1 Each PO Lantus (Insulin Glargine,Hum.rec.anlog) 100 Unit/1 Ml Vial 10 Unit SQ Cymbalta (Duloxetine Hcl) 30 Mg Capsule. 1 Cap PO DAILY Carvedilol 12.5 Mg Tablet 1 Tab PO BID Aspirin 81 Mg Tab.chew 1 Tab PO DAILY Vitals/I & O Vital Sign - Last 24 Hours 12/01/16 12/01/16 12/01/16 12/01/16 15:00 16:45 16:46 17:45 Temp 98.0 98.0 Pulse 93 93 Resp 18 18 18 B/P (MAP) 156/71 (99) 156/71 Pulse Ox 93 O2 Delivery Room Air Room Air Room Air 12/01/16 12/01/16 12/01/16 12/02/16 19:15 20:11 23:15 02:59 Temp 97.5 97.7 97.5 97.7 Pulse 88 81 82 Resp 18 16 B/P (MAP) 149/62 (91) 172/65 (100) 204/79 Pulse Ox 92 95 O2 Delivery Room Air Room Air Room Air 12/02/16 12/02/16 12/02/16 12/02/16 03:12 07:00 07:50 08:41 Temp 97.7 98.0 97.7 98.0 Pulse 82 92 92 Resp 16 18 B/P (MAP) 204/79 (120) 162/73 (102) 162/73 Pulse Ox 96 95 O2 Delivery Room Air Room Air Room Air 12/02/16 12/02/16 12/02/16 12/02/16 08:41 10:26 10:57 11:00 Temp 98.1 98.1 Pulse 92 80 Resp 16 16 18 B/P (MAP) 162/73 121/47 (71) Pulse Ox 90 O2 Delivery Room Air Room Air Room Air Intake and Output 12/01/16 12/01/16 12/02/16 15:00 23:00 07:00 Intake Total 1065 ml 320 ml 900 ml Output Total 800 ml 1000 ml Balance 1065 ml -480 ml -100 ml BERYL STILL MD Dec 02, 2016 14:22
[2016-12-02 15:00] VITALS: BP 139/54
[2016-12-02 19:07] VITALS: BP 97/43
[2016-12-02] MEDS: FAMOTIDINE 20 MG TABLET. PO SCH (19:41)
[2016-12-02] MEDS: traMADol 50 MG TABLET PO PRN (19:41)
[2016-12-02] MEDS: SIMVASTATIN 20 MG TABLET PO SCH (19:41)
[2016-12-02] MEDS: INSULIN DETEMIR 300 UNITS/3 ML INSULN.PEN. SQ SCH (21:00)
[2016-12-02 21:56] LABS: CALCIUM 8.6 mg/dL (8.5-10.1); CREATININE 0.9 mg/dL (0.6-1.0); GFR 59.7; POTASSIUM 3.5 mmol/L (3.5-5.1)
[2016-12-02 23:22] VITALS: BP 156/63
[2016-12-03] MEDS: traMADol 50 MG TABLET PO PRN ×2 (02:59→09:27)
[2016-12-03] MEDS: MORPHINE SULFATE 2 MG/ML DISP.SYRIN. IV PRN (02:59)
[2016-12-03 03:10] VITALS: BP 105/43
[2016-12-03 04:39] LABS: BASO # 0.1 x10^3/uL (0.0-0.2); BASO % 1 % (0-3); EOS % 4 % (0-3); HEMATOCRIT 23.5 % (36.0-47.0); HEMOGLOBIN 7.8 g/dL (12.0-15.5); LYMPH # 1.2 x10^3/uL (1.0-4.8); LYMPH % 18 % (24-48); MEAN CORPUSCULAR HEMOGLOBIN 31 pg (25-35); MEAN CORPUSCULAR HGB CONC 33 g/dL (31-37); MEAN CORPUSCULAR VOLUME 94 fL (79-100); MONO % 12 % (0-9); NEUT % 66 % (31-73); PLATELET COUNT 182 x10^3/uL (140-400); RED BLOOD COUNT 2.52 x10^6/uL (3.50-5.40); RED CELL DISTRIBUTION WIDTH 15.5 % (11.5-14.5); WHITE BLOOD COUNT 6.9 x10^3/uL (4.0-11.0)
[2016-12-03 07:00] VITALS: BP 114/51
--- NOTE | 2016-12-03 08:52 | RAD ---
Indication assess for pneumothorax. A single view of the chest was obtained and is compared to an exam one day earlier. No appreciable left pneumothorax is seen. The heart and pulmonary vessels are within normal limits. Acute or unexpected finding is not seen. Postoperative changes, kyphoplasty changes and known parenchymal mass in the left lung are noted. IMPRESSION: No acute finding. No appreciable pneumothorax
--- NOTE | 2016-12-03 09:20 | PDOC ---
PROGRESS NOTES Subjective Subjective She admits some pain and stiffness in her right hip. Objective Objective Vital Signs Date Time Temp Pulse Resp B/P (MAP) Pulse Ox O2 Delivery O2 Flow Rate FiO2 12/03/16 07:00 98.1 73 18 114/51 (72) 95 Room Air 98.1 11/30/16 08:00 2.0 Intake and Output 12/03/16 07:00 Intake Total 0 ml Output Total 1050 ml Balance -1050 ml Intake Oral 0 ml Output Urine Total 1050 ml Physical Exam Physical Exam She is alert and seems to be more comfortable but continues with pain on movement of hip hip with some edema in that area. Assessment Assessment Problems Medical Problems: (1) Closed right hip fracture Status: Acute Plan Plan of Care To continue present physical and occupational therapy follow up as she can tolerate. Comment Review of Relevant I have reviewed the following items alysha (where applicable) has been applied. Labs Laboratory Tests Test 12/01/16 10:53 12/01/16 16:52 12/01/16 20:46 12/02/16 07:27 Glucose (Fingerstick) 160 mg/dL (70-99) 153 mg/dL (70-99) 310 mg/dL (70-99) 119 mg/dL (70-99) Test 12/02/16 11:06 12/02/16 15:55 12/02/16 16:54 12/02/16 20:57 Glucose (Fingerstick) 147 mg/dL (70-99) 162 mg/dL (70-99) 114 mg/dL (70-99) Sodium Level 134 mmol/L (136-145) Potassium Level 3.5 mmol/L (3.5-5.1) Chloride Level 100 mmol/L (98-107) Carbon Dioxide Level 28 mmol/L (21-32) Anion Gap 6 (6-14) Blood Urea Nitrogen 26 mg/dL (7-20) Creatinine 0.9 mg/dL (0.6-1.0) Estimated GFR (Cockcroft-Gault) 59.7 Glucose Level 110 mg/dL (70-99) Calcium Level 8.6 mg/dL (8.5-10.1) Test 12/03/16 03:55 12/03/16 07:52 White Blood Count 6.9 x10^3/uL (4.0-11.0) Red Blood Count 2.52 x10^6/uL (3.50-5.40) Hemoglobin 7.8 g/dL (12.0-15.5) Hematocrit 23.5 % (36.0-47.0) Mean Corpuscular Volume 94 fL (79-100) Mean Corpuscular Hemoglobin 31 pg (25-35) Mean Corpuscular Hemoglobin Concent 33 g/dL (31-37) Red Cell Distribution Width 15.5 % (11.5-14.5) Platelet Count 182 x10^3/uL (140-400) Neutrophils (%) (Auto) 66 % (31-73) Lymphocytes (%) (Auto) 18 % (24-48) Monocytes (%) (Auto) 12 % (0-9) Eosinophils (%) (Auto) 4 % (0-3) Basophils (%) (Auto) 1 % (0-3) Neutrophils # (Auto) 4.6 x10^3uL (1.8-7.7) Lymphocytes # (Auto) 1.2 x10^3/uL (1.0-4.8) Monocytes # (Auto) 0.8 x10^3/uL (0.0-1.1) Eosinophils # (Auto) 0.3 x10^3/uL (0.0-0.7) Basophils # (Auto) 0.1 x10^3/uL (0.0-0.2) Glucose (Fingerstick) 149 mg/dL (70-99) Laboratory Tests Test 12/02/16 11:06 12/02/16 15:55 12/02/16 16:54 12/02/16 20:57 Glucose (Fingerstick) 147 mg/dL (70-99) 162 mg/dL (70-99) 114 mg/dL (70-99) Sodium Level 134 mmol/L (136-145) Potassium Level 3.5 mmol/L (3.5-5.1) Chloride Level 100 mmol/L (98-107) Carbon Dioxide Level 28 mmol/L (21-32) Anion Gap 6 (6-14) Blood Urea Nitrogen 26 mg/dL (7-20) Creatinine 0.9 mg/dL (0.6-1.0) Estimated GFR (Cockcroft-Gault) 59.7 Glucose Level 110 mg/dL (70-99) Calcium Level 8.6 mg/dL (8.5-10.1) Test 12/03/16 03:55 12/03/16 07:52 White Blood Count 6.9 x10^3/uL (4.0-11.0) Red Blood Count 2.52 x10^6/uL (3.50-5.40) Hemoglobin 7.8 g/dL (12.0-15.5) Hematocrit 23.5 % (36.0-47.0) Mean Corpuscular Volume 94 fL (79-100) Mean Corpuscular Hemoglobin 31 pg (25-35) Mean Corpuscular Hemoglobin Concent 33 g/dL (31-37) Red Cell Distribution Width 15.5 % (11.5-14.5) Platelet Count 182 x10^3/uL (140-400) Neutrophils (%) (Auto) 66 % (31-73) Lymphocytes (%) (Auto) 18 % (24-48) Monocytes (%) (Auto) 12 % (0-9) Eosinophils (%) (Auto) 4 % (0-3) Basophils (%) (Auto) 1 % (0-3) Neutrophils # (Auto) 4.6 x10^3uL (1.8-7.7) Lymphocytes # (Auto) 1.2 x10^3/uL (1.0-4.8) Monocytes # (Auto) 0.8 x10^3/uL (0.0-1.1) Eosinophils # (Auto) 0.3 x10^3/uL (0.0-0.7) Basophils # (Auto) 0.1 x10^3/uL (0.0-0.2) Glucose (Fingerstick) 149 mg/dL (70-99) Medications Current Medications Ondansetron HCl (Zofran) 4 mg 1X ONCE IV Last administered on 11/26/16 04:30 ; Start 11/26/16 at 04:30; Stop 11/26/16 at 04:31; Status DC Sodium Chloride 1,000 ml @ 1,000 mls/hr 1X ONCE IV Last administered on 04:30; Start 11/26/16 at 04:30; Stop 11/26/16 at 05:29; Status DC Hydromorphone HCl (Dilaudid) 0.5 mg 1X ONCE IV Last administered on 11/26/16 04:30; Start 11/26/16 at 04:30; Stop 11/26/16 at 04:31; Status DC Ondansetron HCl (Zofran) 4 mg PRN Q8HRS PRN IV NAUSEA/VOMITING; Start 11/26/16 at 04:45; Stop 11/27/16 at 04:44; Status DC Morphine Sulfate 4 mg PRN Q2HR PRN IV SEVERE PAIN Last administered on 07:47; Start 11/26/16 at 04:45; Stop 11/27/16 at 04:44; Status DC Aspirin (Children'S Aspirin) 81 mg DAILY PO Last administered on 12/02/16 08: 41; Start 11/26/16 at 09:00 Carvedilol (Coreg) 12.5 mg BIDWMEALS PO Last administered on 11/26/16 08:13; Start 11/26/16 at 08:00; Stop 11/27/16 at 09:53; Status DC Docusate Sodium (Colace) 100 mg DAILYWLUN PO ; Start 11/26/16 at 12:00; Stop at 11:49; Status DC Duloxetine HCl (Cymbalta) 30 mg DAILY PO Last administered on 12/02/16 08:41; Start 11/26/16 at 09:00 Famotidine (Pepcid) 20 mg HS PO Last administered on 12/02/16 19:41; Start 06/02 at 21:00 Insulin Aspart (NovoLOG) 8 units TIDAC SQ Last administered on 11/26/16 08:20 ; Start 11/26/16 at 08:00; Stop 11/26/16 at 13:16; Status DC Simvastatin (Zocor) 20 mg QHS PO Last administered on 12/02/16 19:41; Start at 21:00 Calcium/Vitamin D (Oscal D 500mg/ 200uts) 1 tab BIDWMEALS PO Last administered on 12/02/16 17:30; Start 11/26/16 at 08:00 Non-Formulary Medication 50 mg DAILYWLUN PO ; Start 11/26/16 at 12:00; Stop 06/02 at 17:18; Status DC Ondansetron HCl (Zofran) 4 mg PRN Q6HRS PRN IV NAUSEA/VOMITING; Start 11/26/16 at 09:45; Stop 11/27/16 at 09:44; Status DC Morphine Sulfate 1 mg PRN Q10MIN PRN IV SEVERE PAIN Last administered on 21:12; Start 11/26/16 at 09:45; Stop 11/27/16 at 09:44; Status DC Ringer's Solution 1,000 ml @ 30 mls/hr Q24H IV Last administered on 11/26/16 16:41; Start 11/26/16 at 09:44; Stop 11/26/16 at 21:43; Status DC Lidocaine HCl 2 ml PRN 1X PRN ID PRIOR TO IV START; Start 11/26/16 at 09:45; Stop 11/27/16 at 09:44; Status DC Hydromorphone HCl (Dilaudid) 0.5 mg PRN Q10MIN PRN IV SEV PAIN, Second choice; Start 11/26/16 at 09:45; Stop 11/27/16 at 09:44; Status DC Prochlorperazine Edisylate (Compazine) 5 mg PACU PRN PRN IV NAUSEA, MRX1; Start 11/26/16 at 09:45; Stop 11/27/16 at 09:44; Status DC Iohexol (Omnipaque 300 Mg/ml) 50 ml 1X ONCE IV ; Start 11/26/16 at 11:30; Stop 11/26/16 at 11:31; Status DC Iohexol (Omnipaque 300 Mg/ml) 60 ml 1X ONCE IV Last administered on 11/26/16 11:28; Start 11/26/16 at 11:30; Stop 11/26/16 at 11:31; Status DC Info (Do NOT chart on this entry -- for MONITORING) 1 each PRN DAILY PRN MC SEE COMMENTS; Start 11/26/16 at 11:15; Stop 11/28/16 at 11:14; Status DC Insulin Detemir (Levemir) 10 units QHS SQ Last administered on 12/01/16 20:57 ; Start 11/26/16 at 21:00 Insulin Aspart (NovoLOG) 0-9 UNITS TIDWMEALS SQ Last administered on 12/02/16 17:38; Start 11/26/16 at 17:00 Dextrose (Dextrose 50%-Water Syringe) 12.5 gm PRN Q15MIN PRN IV SEE COMMENTS; Start 11/26/16 at 13:15 Acetaminophen (Tylenol) 650 mg PRN Q6HRS PRN PO FEVER Last administered on 12/02 02:11; Start 11/26/16 at 13:15 Ondansetron HCl (Zofran) 4 mg PRN Q6HRS PRN IV NAUSEA/VOMITING Last administered on 12/01/16 04:25; Start 11/26/16 at 13:15 Morphine Sulfate 2 mg PRN Q2HR PRN IV PAIN Last administered on 12/03/16 02:59 ; Start 11/26/16 at 13:15 Tramadol HCl (Ultram) 50 mg PRN Q6HRS PRN PO PAIN Last administered on 02:59; Start 11/26/16 at 13:15 Hydralazine HCl (Apresoline) 10 mg PRN Q4HRS PRN IVP ELEVATED BP, SEE COMMENTS Last administered on 12/02/16 02:59; Start 11/26/16 at 13:15 Docusate Sodium (Colace) 100 mg PRN DAILY PRN PO CONSTIPATION Last administered on 12/01/16 20:54; Start 11/26/16 at 13:15 Bupivacaine HCl/ Epinephrine Bitart (Marcaine-Epi 0.25%-1:[id number]) 50 ml STK-MED ONCE .ROUTE Last administered on 11/26/16 19:25; Start 11/26/16 at 16:10; Stop 11/26/16 at 16:11; Status DC Sevoflurane (Ultane) 90 ml STK-MED ONCE IH ; Start 11/26/16 at 17:45; Stop 11/26 at 17:46; Status DC Propofol 20 ml @ As Directed STK-MED ONCE IV ; Start 11/26/16 at 17:45; Stop 06/02 at 17:46; Status DC Dexamethasone Sodium Phosphate (Decadron) 20 mg STK-MED ONCE .ROUTE ; Start 06/02 at 17:45; Stop 11/26/16 at 17:46; Status DC Ondansetron HCl (Zofran) 4 mg STK-MED ONCE .ROUTE ; Start 11/26/16 at 17:45; Stop 11/26/16 at 17:46; Status DC Lidocaine HCl (Lidocaine Pf 2% Vial) 5 ml STK-MED ONCE .ROUTE ; Start 11/26/16 at 17:45; Stop 11/26/16 at 17:46; Status DC Cefazolin Sodium 50 ml @ As Directed STK-MED ONCE IV ; Start 11/26/16 at 18:40; Stop 11/26/16 at 18:41; Status DC Phenylephrine HCl 1 mg STK-MED ONCE IV ; Start 11/26/16 at 19:34; Stop 11/26/16 at 19:35; Status DC Labetalol HCl (Normodyne) 20 mg STK-MED ONCE .ROUTE ; Start 11/26/16 at 20:21; Stop 11/26/16 at 20:22; Status DC Carvedilol (Coreg) 3.125 mg BIDWMEALS PO Last administered on 11/28/16 17:03; Start 11/27/16 at 17:00; Stop 11/29/16 at 07:56; Status DC Lidocaine/Sodium Bicarbonate (Buffered Lidocaine 1%) 20 ml STK-MED ONCE IJ ; Start 11/27/16 at 12:19; Stop 11/27/16 at 12:20; Status DC Fentanyl Citrate (Fentanyl 2ml Vial) 100 mcg STK-MED ONCE .ROUTE ; Start at 12:30; Stop 11/27/16 at 12:31; Status DC Midazolam HCl (Versed) 2 mg STK-MED ONCE .ROUTE ; Start 11/27/16 at 12:30; Stop 11/27/16 at 12:31; Status DC Enoxaparin Sodium (Lovenox 30mg Syringe) 30 mg Q24H SQ Last administered on 08:41; Start 11/28/16 at 10:00 Morphine Sulfate 10 mg STK-MED ONCE .ROUTE ; Start 11/27/16 at 13:07; Stop 11/27 at 13:08; Status DC Lidocaine/Sodium Bicarbonate (Buffered Lidocaine 1%) 20 ml 1X ONCE IJ Last administered on 11/27/16 13:29; Start 11/27/16 at 13:30; Stop 11/27/16 at 13:31 ; Status DC Midazolam HCl (Versed) 2 mg 1X ONCE IV Last administered on 11/27/16 13:30; Start 11/27/16 at 13:30; Stop 11/27/16 at 13:31; Status DC Morphine Sulfate 10 mg 1X ONCE IV Last administered on 11/27/16 13:30; Start 11/27/16 at 13:30; Stop 11/27/16 at 13:31; Status DC Midazolam HCl (Versed) 2 mg 1X ONCE IV Last administered on 11/27/16 15:30; Start 11/27/16 at 15:30; Stop 11/27/16 at 15:34; Status DC Lidocaine HCl 20 ml 1X ONCE IJ Last administered on 11/27/16 15:30; Start at 15:30; Stop 11/27/16 at 15:34; Status DC Morphine Sulfate 10 mg 1X ONCE IV Last administered on 11/27/16 15:30; Start 11/27/16 at 15:30; Stop 11/27/16 at 15:34; Status DC Iohexol (Omnipaque 300 Mg/ml) 60 ml 1X ONCE IV Last administered on 11/28/16 15:46; Start 11/28/16 at 14:00; Stop 11/28/16 at 14:01; Status DC Info (Do NOT chart on this entry -- for MONITORING) 1 each PRN DAILY PRN MC SEE COMMENTS; Start 11/28/16 at 14:00; Stop 11/29/16 at 15:19; Status DC Iohexol (Omnipaque 300 Mg/ml) 60 ml 1X ONCE IV ; Start 11/28/16 at 15:15; Stop 11/28/16 at 15:16; Status DC Info (Do NOT chart on this entry -- for MONITORING) 1 each PRN DAILY PRN MC SEE COMMENTS; Start 11/28/16 at 15:15; Stop 11/30/16 at 15:14; Status DC Carvedilol (Coreg) 12.5 mg BIDWMEALS PO Last administered on 12/02/16 17:30; Start 11/29/16 at 08:00 Sodium Chloride 1,000 ml @ 75 mls/hr [id number] IV Last administered on 11:12; Start 11/29/16 at 13:00; Stop 12/01/16 at 12:13; Status DC Lisinopril (Prinivil) 10 mg DAILY PO Last administered on 12/02/16 08:41; Start 11/30/16 at 09:00 Potassium Chloride/Sodium Chloride 1,000 ml @ 75 mls/hr [id number] IV Last administered on 12/02/16 23:28; Start 12/01/16 at 13:00 Active Scripts Active Reported Stool Softener (Docusate Sodium) 100 Mg Capsule 100 Mg PO DAILYWLUN Hysingla ER (Hydrocodone Bitartrate) 40 Mg Tab.er.24h 50 Mg PO DAILYWLUN Famotidine 20 Mg Tablet 20 Mg PO HS Calcium 600 + Vit D 200 Tablet (Calcium Carbonate/Vitamin D3) 1 Each Tablet 1 Each PO BID Novolog (Insulin Aspart) 100 Unit/1 Ml Vial 8 Unit SQ PRN PRN Simvastatin 20 Mg Tablet 1 Tab PO QHS Daily Vitamin (Multivitamin) 1 Each Tablet 1 Each PO Lantus (Insulin Glargine,Hum.rec.anlog) 100 Unit/1 Ml Vial 10 Unit SQ Cymbalta (Duloxetine Hcl) 30 Mg Capsule.dr 1 Cap PO DAILY Carvedilol 12.5 Mg Tablet 1 Tab PO BID Aspirin 81 Mg Tab.chew 1 Tab PO DAILY Vitals/I & O Vital Sign - Last 24 Hours 12/02/16 12/02/16 12/02/16 12/02/16 10:26 11:00 15:00 17:30 Temp 98.1 98.1 98.1 98.1 Pulse 80 81 81 Resp 18 B/P (MAP) 121/47 (71) 139/54 (82) 139/54 Pulse Ox 90 93 O2 Delivery Room Air Room Air Room Air 12/02/16 12/02/16 12/02/16 12/02/16 17:31 19:07 19:41 20:30 Temp 98.1 98.1 Pulse 74 Resp 18 16 18 B/P (MAP) 97/43 (61) Pulse Ox 94 O2 Delivery Room Air Room Air Room Air Room Air 12/02/16 12/02/16 12/03/16 12/03/16 23:22 23:27 02:59 03:10 Temp 98.1 98.1 98.1 98.1 Pulse 77 76 Resp 18 B/P (MAP) 156/63 (94) 105/43 (63) Pulse Ox 95 93 O2 Delivery Room Air Room Air 12/03/16 12/03/16 12/03/16 04:00 04:00 07:00 Temp 98.1 98.1 Pulse 73 Resp 18 B/P (MAP) 114/51 (72) Pulse Ox 95 O2 Delivery Nasal Cannula Nasal Cannula Room Air Intake and Output 12/02/16 12/02/16 12/03/16 15:00 23:00 07:00 Intake Total 0 ml Output Total 400 ml 650 ml Balance -400 ml -650 ml OZZY KENDALL MD Dec 03, 2016 09:20
[2016-12-03] MEDS: CALCIUM CARB/VIT D3 500/200 TABLET. PO SCH (09:27)
[2016-12-03] MEDS: ENOXAPARIN 30 MG/0.3 ML SYRINGE. SQ SCH (09:27)
[2016-12-03] MEDS: DULoxetine HCL 30 MG CAPSULE.DR PO SCH (09:27)
[2016-12-03] MEDS: ASPIRIN CHEWABLE 81 MG TABLET. PO SCH (09:27)
[2016-12-03] MEDS: CARVEDILOL 12.5 MG TABLET. PO SCH (09:28)
[2016-12-03] MEDS: LISINOPRIL 10 MG TABLET PO SCH (09:28)
[2016-12-03] MEDS: INSULIN ASPART 300 UNITS/3 ML INSULN.PEN SQ SCH ×2 (09:29→12:35)
[2016-12-03] MEDS ORDERED: LISI10TA2 PO (09:37)
[2016-12-03] MEDS ORDERED: LISI-338 PO (09:48)
[2016-12-03 11:00] VITALS: BP 123/48
[2016-12-03] MEDS: ACETAMINOPHEN 325 MG TABLET. PO PRN (12:23)
[2016-12-03] MEDS: DOCUSATE SODIUM 100 MG CAPSULE. PO PRN (12:23)
[2016-12-03] MEDS ORDERED: POLYETHYLENE GLYCOL 3350 17 GM PACKET. PO ONE (13:00)
[2016-12-03] MEDS ORDERED: ENOX30DI3 SQ (13:50)
--- NOTE | 2016-12-03 13:52 | PDOC3 ---
Discharge Summary [facility] Date of Admission: Nov 26, 2016 Discharge Date: Dec 03, 2016 Admitting Diagnosis 1. Traumatic closed right hip fx post fall S/P NAIL fixation on 11/26 2. Left lung Mass on CT, bx 11/27. poorly differentiated squamous cell Ca 3. h/o CAD with CABG 4. HTN uncontrolled 5. DM2 6. HLD 7. H/O BCa post mastectomy , chemo, and RT 8. leukocytosis, reactive 9. normocytic anemia. worse post op 10. CKD3 11. mild malnutrition 12. left side pneumothorax post ct guided bx on 11/27, chest tube placed 13. hyponatremia with low po intake likely 14. Physical debility Problems: Final Diagnosis CONSULTS ortho dr. Estee cheatham Brief Hospital Course Ms. Serrano is a 86 old F, living at home with her , was sent after she fell at home, was found right hip fx. Pt got Nail fixation on 11/26. CXR accidently found she has a lung mass, which is confirmed by CT, and no other mets was found. path is poorly differentiated squamous cell Ca. pt is not a candidate for chemo or sx, will consider RT in 1 month. pt refused to go to rehab, wild mild dementia, dc home with HH. dc with lisinopril 5mg daily, dc insulin 2/2 low po intake, lovenox [id number]. dc time 40min General: Alert, No acute distress, Other (dementia) Heart: Regular rate, Normal S1, Normal S2 Lungs: Crackles, Other (decrease bs, l ct) Abdomen: Soft, No tenderness Extremities: No edema Skin: No significant lesion Patient History: No Family History of: Cardiac disorder Problems: Disposition CONDITION AT DISCHARGE: Improved Diet regular Scheduled Aspirin (Aspirin), 1 TAB PO DAILY, (Reported) Calcium Carbonate/Vitamin D3 (Calcium 600 + Vit D 200 Tablet), 1 EACH PO BID, ( Reported) Carvedilol (Carvedilol), 1 TAB PO BID, (Reported) Docusate Sodium (Stool Softener), 100 MG PO DAILYWLUN, (Reported) Duloxetine Hcl (Cymbalta), 1 CAP PO DAILY, (Reported) Famotidine (Famotidine), 20 MG PO HS, (Reported) Hydrocodone Bitartrate (Hysingla ER), 50 MG PO DAILYWLUN, (Reported) Lisinopril (Lisinopril), 5 MG PO DAILY Simvastatin (Simvastatin), 1 TAB PO QHS, (Reported) Miscellaneous Medications Multivitamin (Daily Vitamin), 1 EACH PO, (Reported) Discontinued Medications Insulin Aspart (Novolog), 8 UNIT SQ PRN PRN for elevated blood sugar, (Reported) Insulin Glargine,Hum.rec.anlog (Lantus), 10 UNIT SQ, (Reported) Follow Up ortho in 2 weeks EMMIE PIZANO MD Dec 03, 2016 13:52
--- NOTE | 2016-12-03 14:53 | PDOC ---
Provider Note Provider Note 86 yo woman who has a traumatic hip fracture s/p ORIF. Also has st I squamous cell carcinomaleft lung s/p ct guided bx. Currently not cooperating to undergo post op PT. Also refusing to go to [facility]. Not able to show interest or participate in a meaningful discussion regarding lung cancer diagnosis. Seen by palliative care. Code status established. Impression: St I squamous cell carcinoma. Multiple co morbidities including dementia. I would like to re review with patient in family. Currently I favor observation of lung cancer at this time as it is asymptomatic and I would plan to patient and family in follow up in one month. ROMERO MORALEZ MD Dec 03, 2016 14:53
--- NOTE | 2016-12-03 15:10 | PDOC ---
PULMONARY PROGRESS NOTES Subjective S/P CT GUIDED LEFT LUNG BIOPSY CHEST TUBE IN PLACE NO SOA, cough, has pain in ct site Vitals Vital Signs Date Time Temp Pulse Resp B/P (MAP) Pulse Ox O2 Delivery O2 Flow Rate FiO2 12/03/16 11:28 Room Air 12/03/16 11:00 97.7 68 18 123/48 (73) 99 97.7 ROS: No Nausea, No Abdominal Pain General: Alert, No acute distress HEENT: Other (nc at perrl, ) Lungs: Crackles, Other (decrease bs, l ct) Cardiovascular: S1, S2 Abdomen: Soft, Non-tender Neuro Exam: Alert Extremities: No Edema Skin: Warm Labs Laboratory Tests Test 12/01/16 16:52 12/01/16 20:46 12/02/16 07:27 12/02/16 11:06 Glucose (Fingerstick) 153 mg/dL (70-99) 310 mg/dL (70-99) 119 mg/dL (70-99) 147 mg/dL (70-99) Test 12/02/16 15:55 12/02/16 16:54 12/02/16 20:57 12/03/16 03:55 Sodium Level 134 mmol/L (136-145) Potassium Level 3.5 mmol/L (3.5-5.1) Chloride Level 100 mmol/L (98-107) Carbon Dioxide Level 28 mmol/L (21-32) Anion Gap 6 (6-14) Blood Urea Nitrogen 26 mg/dL (7-20) Creatinine 0.9 mg/dL (0.6-1.0) Estimated GFR (Cockcroft-Gault) 59.7 Glucose Level 110 mg/dL (70-99) Calcium Level 8.6 mg/dL (8.5-10.1) Glucose (Fingerstick) 162 mg/dL (70-99) 114 mg/dL (70-99) White Blood Count 6.9 x10^3/uL (4.0-11.0) Red Blood Count 2.52 x10^6/uL (3.50-5.40) Hemoglobin 7.8 g/dL (12.0-15.5) Hematocrit 23.5 % (36.0-47.0) Mean Corpuscular Volume 94 fL (79-100) Mean Corpuscular Hemoglobin 31 pg (25-35) Mean Corpuscular Hemoglobin Concent 33 g/dL (31-37) Red Cell Distribution Width 15.5 % (11.5-14.5) Platelet Count 182 x10^3/uL (140-400) Neutrophils (%) (Auto) 66 % (31-73) Lymphocytes (%) (Auto) 18 % (24-48) Monocytes (%) (Auto) 12 % (0-9) Eosinophils (%) (Auto) 4 % (0-3) Basophils (%) (Auto) 1 % (0-3) Neutrophils # (Auto) 4.6 x10^3uL (1.8-7.7) Lymphocytes # (Auto) 1.2 x10^3/uL (1.0-4.8) Monocytes # (Auto) 0.8 x10^3/uL (0.0-1.1) Eosinophils # (Auto) 0.3 x10^3/uL (0.0-0.7) Basophils # (Auto) 0.1 x10^3/uL (0.0-0.2) Test 12/03/16 07:52 12/03/16 11:15 Glucose (Fingerstick) 149 mg/dL (70-99) 205 mg/dL (70-99) Laboratory Tests Test 12/02/16 15:55 12/02/16 16:54 12/02/16 20:57 12/03/16 03:55 Sodium Level 134 mmol/L (136-145) Potassium Level 3.5 mmol/L (3.5-5.1) Chloride Level 100 mmol/L (98-107) Carbon Dioxide Level 28 mmol/L (21-32) Anion Gap 6 (6-14) Blood Urea Nitrogen 26 mg/dL (7-20) Creatinine 0.9 mg/dL (0.6-1.0) Estimated GFR (Cockcroft-Gault) 59.7 Glucose Level 110 mg/dL (70-99) Calcium Level 8.6 mg/dL (8.5-10.1) Glucose (Fingerstick) 162 mg/dL (70-99) 114 mg/dL (70-99) White Blood Count 6.9 x10^3/uL (4.0-11.0) Red Blood Count 2.52 x10^6/uL (3.50-5.40) Hemoglobin 7.8 g/dL (12.0-15.5) Hematocrit 23.5 % (36.0-47.0) Mean Corpuscular Volume 94 fL (79-100) Mean Corpuscular Hemoglobin 31 pg (25-35) Mean Corpuscular Hemoglobin Concent 33 g/dL (31-37) Red Cell Distribution Width 15.5 % (11.5-14.5) Platelet Count 182 x10^3/uL (140-400) Neutrophils (%) (Auto) 66 % (31-73) Lymphocytes (%) (Auto) 18 % (24-48) Monocytes (%) (Auto) 12 % (0-9) Eosinophils (%) (Auto) 4 % (0-3) Basophils (%) (Auto) 1 % (0-3) Neutrophils # (Auto) 4.6 x10^3uL (1.8-7.7) Lymphocytes # (Auto) 1.2 x10^3/uL (1.0-4.8) Monocytes # (Auto) 0.8 x10^3/uL (0.0-1.1) Eosinophils # (Auto) 0.3 x10^3/uL (0.0-0.7) Basophils # (Auto) 0.1 x10^3/uL (0.0-0.2) Test 12/03/16 07:52 12/03/16 11:15 Glucose (Fingerstick) 149 mg/dL (70-99) 205 mg/dL (70-99) Medications Active Scripts Medications Dose Route/Sig Max Daily Dose Days Date Category Stool Softener (Docusate Sodium) 100 Mg Capsule 100 Mg PO DAILYWLUN 11/26/16 Reported Hysingla ER (Hydrocodone Bitartrate) 40 Mg Tab.er.24h 50 Mg PO DAILYWLUN 11/26/16 Reported Famotidine 20 Mg Tablet 20 Mg PO HS 11/26/16 Reported Calcium 600 + Vit D 200 Tablet (Calcium Carbonate/Vitamin D3) 1 Each Tablet 1 Each PO BID 11/26/16 Reported Novolog (Insulin Aspart) 100 Unit/1 Ml Vial 8 Unit SQ PRN PRN 06/20/14 Reported Simvastatin 20 Mg Tablet 1 Tab PO QHS 06/20/14 Reported Daily Vitamin (Multivitamin) 1 Each Tablet 1 Each PO 06/20/14 Reported Lantus (Insulin Glargine,Hum.rec.anlog) 100 Unit/1 Ml Vial 10 Unit SQ 06/20/14 Reported Cymbalta (Duloxetine Hcl) 30 Mg Capsule.dr 1 Cap PO DAILY 06/20/14 Reported Carvedilol 12.5 Mg Tablet 1 Tab PO BID 06/20/14 Reported Aspirin 81 Mg Tab.chew 1 Tab PO DAILY 06/20/14 Reported Comments cxr, tiny apical ptx, l lung mass Impression . 1. Large Left upper lobe mass. s/p ct guided biopsy, SQUAMOUS CELL 2. Recent fall suffering a fracture of the right intertrochanteric area. 3. Coronary artery disease with previous coronary artery bypass grafting. 4. History of breast cancer. 5. Tobacco dependence in remission. 6. Underlying chronic obstructive pulmonary disease. 7. Multiple other comorbidities as indicated above. 8. PTX, post biopsy. s/p left chest tube, Plan . 1. s/p repair of her right hip, 2. d/w path. 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 Poor performance status. Appreciate medical/radiation oncology consults 4. i personally removed ct, stat pcxr, reviewed, no ptx discussed w pt, her grand daughter, MADHURI Dumont MD Dec 03, 2016 15:10
[2016-12-03 15:31] VITALS: BP 106/39
[2016-12-03] MEDS ORDERED: INSULIN DETEMIR 300 UNITS/3 ML INSULN.PEN. SQ SCH (21:00)
[2016-12-04] MEDS ORDERED: LISINOPRIL 5 MG TABLET. PO SCH (09:00)
[2016-12-12] MEDS ORDERED: BUDE0.5A IH (15:02)
[2016-12-12] MEDS ORDERED: IPRA3AMP NEB (15:02)
[2016-12-14] MEDS ORDERED: ONDA4TAB7 PO (08:30)
[2016-12-14] MEDS ORDERED: INSU100V8 SQ (08:30)
[2016-12-14] MEDS ORDERED: HYDR-2758 PO (08:30)
[2016-12-14] MEDS ORDERED: TRAM50TA PO (08:30)
== END 2016-12-03 15:15 | DRG 981 ==
LOC: ER 03:41 → 4 NORTH 04:21
PROVIDERS: ADMIT Internal Medicine Hematology & Oncology; ATTEND Internal Medicine Hematology & Oncology
PROC: 30233N1 Transfusion of Nonautologous Red Blood Cells into Peripheral Vein, Percutaneous Approach (ICD-10-PCS; 2016-11-26)
PROC: 0QS606Z Reposition Right Upper Femur with Intramedullary Internal Fixation Device, Open Approach (ICD-10-PCS; principal; 2016-11-26 15:00)
PROC: 0BBL3ZX Excision of Left Lung, Percutaneous Approach, Diagnostic (ICD-10-PCS; 2016-11-27)
PROC: 0W9B30Z Drainage of Left Pleural Cavity with Drainage Device, Percutaneous Approach (ICD-10-PCS; 2016-11-27)
DX: C34.12 Malignant neoplasm of upper lobe, left bronchus or lung (principal); S72.141A Displaced intertrochanteric fracture of right femur, initial encounter for closed fracture; E44.1 Mild protein-calorie malnutrition; E87.1 Hypo-osmolality and hyponatremia; I13.0 Hypertensive heart and chronic kidney disease with heart failure and stage 1 through stage 4 chronic kidney disease, or unspecified chronic kidney disease; J93.9 Pneumothorax, unspecified; E11.22 Type 2 diabetes mellitus with diabetic chronic kidney disease; E11.42 Type 2 diabetes mellitus with diabetic polyneuropathy; E21.3 Hyperparathyroidism, unspecified; Z51.5 Encounter for palliative care; E78.00 Pure hypercholesterolemia, unspecified; E78.5 Hyperlipidemia, unspecified; F17.201 Nicotine dependence, unspecified, in remission; F03.90 Unspecified dementia, unspecified severity, without behavioral disturbance, psychotic disturbance, mood disturbance, and anxiety; I25.10 Atherosclerotic heart disease of native coronary artery without angina pectoris; I50.9 Heart failure, unspecified; J44.9 Chronic obstructive pulmonary disease, unspecified; D64.9 Anemia, unspecified; W18.39XA Other fall on same level, initial encounter; M81.0 Age-related osteoporosis without current pathological fracture; N18.3 Chronic kidney disease, stage 3 (moderate); Z96.641 Presence of right artificial hip joint; D72.829 Elevated white blood cell count, unspecified; M19.90 Unspecified osteoarthritis, unspecified site; M54.5 Low back pain; K59.09 Other constipation; Z90.710 Acquired absence of both cervix and uterus; Z90.49 Acquired absence of other specified parts of digestive tract; I25.2 Old myocardial infarction; Z82.49 Family history of ischemic heart disease and other diseases of the circulatory system; Z85.3 Personal history of malignant neoplasm of breast; Z86.73 Personal history of transient ischemic attack (TIA), and cerebral infarction without residual deficits; Z95.1 Presence of aortocoronary bypass graft; Z90.12 Acquired absence of left breast and nipple; Z88.8 Allergy status to other drugs, medicaments and biological substances; Z68.22 Body mass index [BMI] 22.0-22.9, adult; Y93.89 Activity, other specified; Y92.092 Bedroom in other non-institutional residence as the place of occurrence of the external cause; Y99.8 Other external cause status
CPT/HCPCS: 32405; 32557; 36415; 70470; 71010; 71035; 71260; 73502; 73552; 74177; 76000; 77012; 80048; 80053; 82306; 82962; 85007; 85027; 85610; 86850; 86900; 86901; 86920; 87641; 88305; 93005; 96374; 96375; A4215; A4314; C1713; C1729; C1887; C1892; C1894; J0360; J0690; J1100; J1170; J1650; J1815; J2250; J2270; J2370; J2405; J2704; J7030; J7120; P9016; Q9967; 92610; 97110; 97530; 97535; 99285-25

== ENCOUNTER 2017-03-13 12:13 | Inpatient (IN) | payer MEDICARE, OTHER ==
[~2017-03-13] VITALS: Ht 144.8 cm; Wt 41.9 kg
[~2017-03-13 12:13] MED LIST changes: +BUDE0.5A IH; +CALC1TAB75 PO; +DOCU-150 PO; +ENOX30DI3 SQ; +HUM100VI5 SQ; +HYDR-2758 PO; +HYDR40TA PO; +HYDR80TA PO; +IPRA3AMP NEB; +LISI-338 PO; +LISI10TA2 PO; +ONDA4TAB7 PO; +TRAM50TA PO
[2017-03-13 13:47] VITALS: BP 143/60
--- NOTE | 2017-03-13 14:29 | PDOC2 ---
CARDIAC CONSULT DATE OF CONSULT Date of Consult DATE: 03/13/17 TIME: 14:09 REASON FOR CONSULT Reason for Consult: Elevated troponin REFERRING PHYSICIAN Referring Physician: Camilo SOURCE Source: Chart review, Patient HISTORY OF PRESENT ILLNESS HISTORY OF PRESENT ILLNESS This is an 86 yo female admitted mainly at [facility] for complains of abdominal pain. This is reproducible with palpation. Upon further testing, she was noted with mildly elevated troponin. She is a poor historian but accdg to the , she has not been having any CP, SOA, no palpitations. She has not been taking any of her medications and only percocet. She is significant for CAD, newly diagnosed Squamous cell CA that has been treated. Presently she is side lying and denies discomfort. She was DNR/DNI from recent hospitalization but apparently spouse is now telling me that she is a full code. PAST MEDICAL HISTORY Cardiovascular: CAD, HTN, [place], Hyperlipidemia, Other (pvd) Pulmonary: COPD CENTRAL NERVOUS SYSTEM: CVA, TIA Heme/Onc: Anemia NOS, Cancer (lung and breast) Hepatobiliary: No pertinent hx Psych: Anxiety, Depression Musculoskeletal: low back pain, Osteoarthritis, Other (multiple falls) Endocrine: Diabetes (2) PAST SURGICAL HISTORY Past Surgical History: CABG, Other (S/P NAIL fixation on 11/26 right Hip due to fall; cholecystectomy, neck surgery, hysterectomy, left mastectomy, vertebroplasty, PAD with stent) FAMILY HISTORY Family History noncontributory SOCIAL HISTORY Smoke: No ALCOHOL: none Drugs: None Lives: with Family ALLERGIES ALLERGIES: Coded Allergies: fentanyl (Verified Allergy, Intermediate, 11/29/16) ROS Review of System Limited, pt is a poor historian PHYSICAL EXAM General: Alert, Oriented X3, Cooperative, No acute distress HEENT: Atraumatic, Mucous membr. moist/pink Lungs: Clear to auscultation, Normal air movement Heart: Regular rate (SR), Normal S1, Normal S2, Other (2/6 systolic murmur to LLS border) Abdomen: Soft, Other (epigastric tenderness) Extremities: No cyanosis, No edema Skin: No breakdown, No significant lesion Neuro: Normal speech, Sensation intact Psych/Mental Status: Mental status NL, Mood NL MUSCULOSKELETAL: Osteoarthritic changes both hands VITALS VITALS Vital Signs Date Time Temp Pulse Resp B/P (MAP) Pulse Ox O2 Delivery O2 Flow Rate FiO2 03/13/17 13:47 97.7 72 16 143/60 (87) 96 Room Air 97.7 ECHOCARDIOGRAM ECHOCARDIOGRAM <Conclusion> The left ventricle is hyperdynamic. The Ejection Fraction is 70%. There is normal LV segmental wall motion. Tissue Doppler imaging reveals mild left ventricular diastolic dysfunction. Doppler and Color Flow revealed mild aortic regurgitation. Doppler and Color Flow revealed mild tricuspid regurgitation. The PA pressure was estimated at 30 mmHg. DATE: 04/16/16 1501 ASSESSMENT/PLAN ASSESSMENT/PLAN 1. Abdominal pain: positive for distal esophageal thickening per CT suggesting esophagitis 2. LATOYA mass: 5 cm per CXR recent Bx. Squamous lung CA. Noted outside DNR/DNI from past records 3. Accelerated HTN 4. Elevated troponin: 0.226. TTE with normal wall motion and EF. No cardaic symptoms. Likely demand mediated, multifactorial 5. Hyponatremia: likely from malnutrition. Defer to PCP 6. Hypomagnesemia 7. DM2: BG uncontrolled 8. CKD3 9. 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 HLP 11. Hx of CVA/TIA 12. CAD: CABG in the past. She follows up with [facility] cardiology 13. Debility, suspecting dementia 14. Noncompliance Recommendations 1. Will need to clarify code status, as pt was noted to be DNR/DNI few months ago upon discussion with palliative care team. Will defer to PCP 2. Ischemic w/u would be considered but first will need to note prognosis and plans in regards to her lung CA as no treatment has been initiated 3. Hemonc/GI consult per PCP 4. Mg corrected at [place]. 5. Restart home coreg, zocor, ASA, and start on PPI 6. Discussed treament compliance. 7. Supportive care. Discussed with spouse and would recommend conservative measures given her significant noncompliance, dementia and debility. Problems: AYLIN MCCLURE ROAD GRADER OPERATOR Mar 13, 2017 14:29
[2017-03-13 14:30] VITALS: BP 143/60
--- NOTE | 2017-03-13 16:26 | CARD ---
APPROVED REPORT EXAM: Two-dimensional and M-mode echocardiogram with Doppler and color Doppler. Other Information Quality : GoodHR: 79bpm Rhythm : NSR INDICATION Hypertension/HCVD Elevated troponin RISK FACTORS Hypertension 2D DIMENSIONS RVDd2.6 (2.9-3.5cm)Left Atrium(2D)2.7 (1.6-4.0cm) IVSd0.9 (0.7-1.1cm)Aortic Root(2D)3.0 (2.0-3.7cm) LVDd3.4 (3.9-5.9cm)LVOT Diameter2.1 (1.8-2.4cm) PWd1.0 (0.7-1.1cm)LVDs2.1 (2.5-4.0cm) FS (%) 39.7 %SV33.9 ml Aortic Valve AoV Peak Bryan.129.4cm/sAoV VTI24.7cm AO Peak GR.6.7mmHgLVOT Peak Bryan.105.6cm/s AO Mean GR.4mmHgAVA (VMAX)2.86cm2 AI P 1/2 Catm770sl Mitral Valve MV E Cbhdbldh75.9cm/sMV E Peak Gr.4mmHg MV DECEL GINA129gxRS A Vbgkegom221.2cm/s MV E Mean Gr.1mmHgE/A Ratio0.6 MV A Fekslzpp64sn Pulmonary Valve PV Peak Jusdmtue07.5cm/s Tricuspid Valve TR P. Zqcwfsds643yy/sTR Peak Gr.25mmHg Pulmonary Vein S1 Ummjnsql98.9cm/sD2 Maurucpn21.9cm/s PVa tcjuvpdd26pnjv LEFT VENTRICLE The left ventricle cavity is small. There is mild to moderate concentric left ventricular hypertrophy . The left ventricular systolic function is normal and the ejection fraction is within normal range. The Ejection Fraction is 65-70%. Transmitral Doppler flow pattern is Grade I-abnormal relaxation kay cassidy. RIGHT VENTRICLE The right ventricle cavity is small. There is normal right ventricular wall thickness. The right vent ricular systolic function is normal. ATRIA The left atrium size is normal. The right atrium size is normal. The interatrial septum is intact wit h no evidence for an atrial septal defect or patent foramen ovale as noted on 2-D or Doppler imaging. AORTIC VALVE The aortic valve is mildly sclerotic. The aortic valve is trileaflet. Doppler and Color Flow revealed mild aortic regurgitation. There is no significant aortic valvular stenosis. MITRAL VALVE Mitral annular calcification is mild. The mitral valve leaflets are thickened. There is no evidence o f mitral valve prolapse. There is no mitral valve stenosis. Doppler and Color Flow revealed trace layla ral regurgitation. TRICUSPID VALVE Doppler and Color Flow revealed mild tricuspid regurgitation. The pulmonary artery systolic pressure is estimated at 29 mmHg. PULMONIC VALVE The pulmonary valve is not well visualized but appears to open adequately. Doppler and Color Flow rev ealed mild pulmonic valvular regurgitation. There is no pulmonic valvular stenosis by spectral Dopple r. GREAT VESSELS The aortic root is normal in size. The ascending aorta is normal in size. The pulmonary artery is nor mal. The IVC is normal in size and collapses >50% with inspiration. PERICARDIAL EFFUSION There is no evidence of significant pericardial effusion. Critical Notification Critical Value: No <Conclusion> The left ventricle cavity is small. The left ventricular systolic function is normal and the ejection fraction is within normal range. The Ejection Fraction is 65-70%. There is mild to moderate concentric left ventricular hypertrophy. There is no significant aortic valvular stenosis. Doppler and Color Flow revealed mild aortic regurgitation. Doppler and Color Flow revealed trace mitral regurgitation. Doppler and Color Flow revealed mild tricuspid regurgitation. The pulmonary artery systolic pressure is estimated at 29 mmHg.
--- NOTE | 2017-03-13 16:53 | PDOC2 ---
PALLIATIVE CARE Palliative Care Note Palliative Care Consult requested by Dr. Page to address code status. Patient known to Palliative Care from previous admission Admitted with abdominal pain radiating through to back. Elevated troponin; EF 70% on 04/01 LATOYA Lung Mass followed by Dr. Lim. Discussed code status. Patient had been DNR/DNI last admission Patient inconsistent about wishes regarding code status. and family concerned that patient does not have the capacity to make these decisions. Will await more information and followup with more discussion tomorrow. EDWIN PHILLIPS Mar 13, 2017 16:53
[2017-03-13] MEDS: CARVEDILOL 12.5 MG TABLET. PO SCH (17:36)
[2017-03-13] MEDS ORDERED: DEXTROSE 50% 25 GM / 50ML DISP.SYRIN. IV PRN (18:00)
[2017-03-13 19:00] VITALS: BP 120/44
--- NOTE | 2017-03-13 20:25 | HP ---
ADMIT DATE: 03/13/2017 CHIEF COMPLAINT: Abdominal pain, chest pain. HISTORY OF PRESENT ILLNESS: The patient is an 86-year-old [place]iny[place] woman who presented to the emergency room at [facility] with complaints of abdominal pain. This is reproducible on the left side to palpation. She was noted, however, to have mildly elevated troponin and was therefore transferred to [facility] for further workup. She denies having any chest pain, shortness of breath or palpitations. She currently has not been taking any of her medications and is only using pain medications. She has been diagnosed with lung cancer in November of this year and is supposed to have radiation treatment, apparently this has not been started yet. PAST MEDICAL HISTORY: CAD, hypertension, hyperlipidemia, COPD, lung cancer, not in treatment yet, CVA, TIA, depression, osteoarthritis with chronic low back pain and multiple falls, also diabetes. FAMILY HISTORY: No heart disease. SOCIAL HISTORY: Lives with her . No toxic habits. ALLERGIES: FENTANYL. MEDICATIONS: MAR reconciled with home medications. REVIEW OF SYSTEMS: The patient is somewhat inconsistent except for pain on her left abdominal side as well as on her hip. She denies any other symptoms including nausea, vomiting, diarrhea or other organ system impairments. PHYSICAL EXAMINATION: VITAL SIGNS: From today show a blood pressure of 143/60, heart rate of 72, respiratory rate at 16. She is afebrile. GENERAL: This is a petit 86-year-old woman, awake, alert, in no acute distress. HEENT: Shows no scleral icterus. LUNGS: Clear. HEART: Has regular rate and rhythm. ABDOMEN: Has positive bowel sounds, soft, tenderness to palpation on the left, reproducible. EXTREMITIES: Show no edema. SKIN: Warm, soft, and dry. LABORATORY DATA: CBC and chemistries reviewed from [facility]. ASSESSMENT AND PLAN: The patient is an 86-year-old [place]arw[place] who presented with abdominal pain and was found with mildly elevated troponin. She is now admitted for further workup. Cardiology has been consulted. Echocardiogram is actually within normal limits, no further workup is planned. Main issue, however, remains her lung cancer, which at this point, according to , still has not been treated. We will obtain input from Dr. Lim, her radiation oncologist. We will also obtain a consult with palliative services as patient has been DNR at last admission, but seems to be unclear at this point. We will continue her cardiac medications for the time being until code status and further wishes have been established. We will continue all other home medications as well. JAQUAN VIDAL MD DR: UR/nts JOB#: [id number] / [id number] LUCY Espino APRN
[2017-03-13] MEDS ORDERED: FAMOTIDINE 20 MG TABLET. PO SCH (21:00)
[2017-03-13] MEDS ORDERED: SIMVASTATIN 20 MG TABLET PO SCH (21:00)
[2017-03-13] MEDS ORDERED: HALOPERIDOL LACTATE 5 MG/ML VIAL. IVP PRN (22:15)
[2017-03-13 22:34] VITALS: BP 172/69
[2017-03-13] MEDS: HYDROcodone/APAP 5/325MG 1 TAB TABLET PO PRN (22:42)
[2017-03-14] VITALS (16 sets, daily range): BP systolic 105–199; BP diastolic 44–98
[2017-03-14] MEDS ORDERED: ONDANSETRON PF 4 MG/2 ML VIAL. IV PRN (00:30)
[2017-03-14] MEDS: MORPHINE SULFATE 4 MG/ML DISP.SYRIN. IV PRN ×3 (01:26→10:11)
[2017-03-14] MEDS ORDERED: NITROGLYCERIN OINT 1 GM PACKET. TP ONE (03:00)
[2017-03-14] MEDS: hydrALAZINE 20 MG/ML VIAL. IVP PRN ×2 (04:51→18:27)
[2017-03-14] MEDS: PANTOPRAZOLE 40 MG TABLET.DR. PO SCH (07:30)
[2017-03-14] MEDS ORDERED: INSULIN ASPART 300 UNITS/3 ML INSULN.PEN SQ SCH (08:00)
[2017-03-14] MEDS: CARVEDILOL 12.5 MG TABLET. PO SCH ×2 (08:00→17:00)
[2017-03-14] MEDS: DOCUSATE SODIUM 100 MG CAPSULE. PO SCH (09:00)
[2017-03-14] MEDS: DULoxetine HCL 30 MG CAPSULE.DR PO SCH (09:00)
[2017-03-14] MEDS: ASPIRIN CHEWABLE 81 MG TABLET. PO SCH (09:00)
--- NOTE | 2017-03-14 09:54 | PDOC ---
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 Dx made at time of repair of right femur fx that required ORIF. Due to her general decline and dementia at that time and need for rehab, the lung cancer was observed without intervention. Now admitted from [facility] ER with new onset of abdominal pain. She continues to complain of generalized abdominal pain and nausea. No real complaint of CP or SOB. Notes ongoing right hip pain. [facility] portable CXR 03/13/2017 5.5 x 4.0 cm left lung mass. No obstructive pneumonitis Previous upright CXR here 01/30/2017 4.5 x 3.5 cm left lung mass. ( Difference in technique may explain size difference) [facility] CT abd thickened distal esophagus, some diverticuli, thoracic and lumbar kyphoplasty. PE In intermittent mild pain distress but able to dose off. No adenopathy Lungs clear Abd diffuse mild tenderness, no rebound, no distention. Impression: Abdominal pain may be diverticular in etiology, Plan now is to add antibiotics and consult GI. Know stage I squamous cell carcinoma of LATOYA. Not symptomatic. Potential progression on CXR but technique difference (portable vs upright) may account for this change. Generalized decline noted in January with less wakefulness, memory decline and hallucinations all likely due to dementia. I recommend observation of lung cancer afor now and intervene with palliative radiation only for symptomatic progression. She also needs to reestablish conservative code status and need for hospice support on DC with discussion with family when they are available. Brynn Patterson's note appreciated. ROMERO OMRALEZ MD Mar 14, 2017 09:54
--- NOTE | 2017-03-14 10:00 | PDOC1 ---
History and Physical Date of Admission Date of Admission DATE: 03/14/17 TIME: 09:49 Identification/Chief Complaint Chief Complaint abd pain Problems: Source Source: Caregiver, Chart review, Patient History of Present Illness History of Present Illness 86 y.o Romansh with lung CA, known to our rad onc service, no plans of radiation tx bec of poor QOL and dementia and dec functionality, came to [facility] yesterday bec of 2 hr onset abd pain, she claims was diffuse, points every where but on exam seems to be more concentrated on the left side, CT abd WITHOUT contrast was done which showed few diverticula, no itis, normal GB and appy but did show NON SPECIFIC STRANDING ON LEFT SIDE NEAR TAIL OF PANCREAS AND UPPER POLE OF KIDNEY - the site where she is most tender NO labs avail to me, Seems like never had similar episodes prior, PEr ER note, mentions non compliance and only takes oxycodone at home. There was then mention of CP, hence pt transferred to [facility] for cards, But chest is not the primary concern and manifestation of pt currently, Case dw Dr. Lim at bedside, no plans of rad tx on cancer, CT scan reviewed - mild thickening of esophagus too. WIll order labs INCLUDE LIAPSE, ESR\\, get GI, downgrade to NPO and iVF. Further recs pending course, might even need to rescan abd with contrast, difftls include pancreatitis, ischemia etc Pt not on any blood thinners Her left sided pain does radiate to the back and she is crying in pain Past Medical History Cardiovascular: CAD, HTN, PR, Hyperlipidemia, Other (pvd) Pulmonary: COPD CENTRAL NERVOUS SYSTEM: CVA, TIA GI: Constipation Heme/Onc: Anemia NOS, Cancer (lung and breast) Hepatobiliary: No pertinent hx Psych: Anxiety, Depression Musculoskeletal: low back pain, Osteoarthritis, Other (multiple falls) Rheumatologic: No pertinent hx Infectious disease: No pertinent hx Renal/: Chronic renal insuff Endocrine: Diabetes (2) Past Surgical History Past Surgical History: CABG, Other (S/P NAIL fixation on 11/26 right Hip due to fall; cholecystectomy, neck surgery, hysterectomy, left mastectomy, vertebroplasty, PAD with stent) Family History Family History: Coronary Artery Disease Social History Smoke: No ALCOHOL: none Drugs: None Current Medications Current Medications Current Medications Aspirin (Children'S Aspirin) 81 mg DAILY PO ; Start 03/14/17 at 09:00 Carvedilol (Coreg) 12.5 mg BIDWMEALS PO Last administered on 03/13/17 17:36; Start 03/13/17 at 17:00 Famotidine (Pepcid) 20 mg HS PO ; Start 03/13/17 at 21:00; Status UNV Simvastatin (Zocor) 20 mg QHS PO Last administered on 03/13/17 20:19; Start at 21:00; Stop 03/14/17 at 01:13; Status DC Pantoprazole Sodium (Protonix) 40 mg DAILYAC PO ; Start 03/14/17 at 07:30 Hydralazine HCl (Apresoline) 10 mg PRN Q4HRS PRN IVP ELEVATED BP, SEE COMMENTS Last administered on 03/14/17 04:51; Start 03/13/17 at 17:00 Docusate Sodium (Colace) 100 mg DAILY PO ; Start 03/14/17 at 09:00 Duloxetine HCl (Cymbalta) 30 mg DAILY PO ; Start 03/14/17 at 09:00 Acetaminophen/ Hydrocodone Bitart (Lortab 5/325) 1 tab PRN Q4HRS PRN PO PAIN Last administered on 03/13/17 22:42; Start 03/13/17 at 17:45 Insulin Aspart (NovoLOG) 0-5 UNITS TIDWMEALS SQ ; Start 03/14/17 at 08:00; Stop 03/14/17 at 09:48; Status DC Dextrose (Dextrose 50%-Water Syringe) 12.5 gm PRN Q15MIN PRN IV SEE COMMENTS; Start 03/13/17 at 18:00 Haloperidol Lactate (Haldol) 2 mg PRN Q12HR PRN IVP AGITATION; Start 03/13/17 at 22:15 Ondansetron HCl (Zofran) 4 mg PRN Q6HRS PRN IV NAUSEA/VOMITING Last administered on 03/14/17 00:27; Start 03/14/17 at 00:30 Diltiazem HCl 125 mg/Dextrose 125 ml @ 0 mls/hr CONT PRN IV SEE I/O RECORD Last administered on 03/14/17 01:25; Start 03/14/17 at 01:15 Morphine Sulfate 2 mg PRN Q2HR PRN IV SEVERE PAIN Last administered on 05:03; Start 03/14/17 at 01:15 Atorvastatin Calcium (Lipitor) 10 mg QHS PO ; Start 03/14/17 at 21:00 Nitroglycerin (Nitro-Bid Oint) 1 inch 1X ONCE TP Last administered on 03:06; Start 03/14/17 at 03:00; Stop 03/14/17 at 03:03; Status DC Sodium Chloride 1,000 ml @ 100 mls/hr Q10H IV ; Start 03/14/17 at 09:45; Status UNV Active Scripts Active Reported Hysingla ER (Hydrocodone Bitartrate) 80 Mg Tab.er.24h 80 Mg PO DAILY Novolin 70-30 100 Unit/Ml Vial (Hum Insulin Nph/Reg Insulin Hm) 100 Unit/1 Ml Vial 8 Unit SQ PRN TID PRN for high blood sugar Stool Softener (Docusate Sodium) 100 Mg Capsule 100 Mg PO DAILY Famotidine 20 Mg Tablet 20 Mg PO HS Calcium 600 + Vit D 200 Tablet (Calcium Carbonate/Vitamin D3) 1 Each Tablet 1 Each PO BID Simvastatin 20 Mg Tablet 1 Tab PO QHS Daily Vitamin (Multivitamin) 1 Each Tablet 1 Each PO Cymbalta (Duloxetine Hcl) 30 Mg Capsule.dr 1 Cap PO DAILY Carvedilol 12.5 Mg Tablet 1 Tab PO BID Aspirin 81 Mg Tab.chew 1 Tab PO DAILY Allergies Allergies: Coded Allergies: fentanyl (Verified Allergy, Intermediate, 11/29/16) ROS Review of System abd pain, crying - SAYS YES to all ROS Physical Exam General: Oriented X3, Cooperative, No acute distress, Other (crying) HEENT: Atraumatic Lungs: Clear to auscultation, Normal air movement Heart: S1S2, RRR, no thrills, no rubs, no gallops, no murmurs Cardiovascular: S1, S2 Breasts: Normal, Rt breast nml w/o mass, Lt breast nml w/o mass, Nipples normal Abdomen: Soft, Other (no guarding, tender to palpation on left side mostly, positive bS) Rectal Exam: not examined Extremities: No clubbing, No cyanosis, No edema, Normal pulses, No tenderness/ swelling Skin: No rashes, No breakdown, No significant lesion Neuro: Normal gait, Normal speech, Strength at 5/5 X4 ext, Normal tone, Sensation intact, Cranial nerves 3-12 NL, Reflexes 2+ Psych/Mental Status: Mental status NL, Mood NL Vitals Vitals Vital Signs Date Time Temp Pulse Resp B/P (MAP) Pulse Ox O2 Delivery O2 Flow Rate FiO2 03/14/17 07:00 97.6 78 16 136/65 (88) 97 Room Air 97.6 Labs Labs Laboratory Tests Test 03/13/17 20:30 03/14/17 08:07 Glucose (Fingerstick) 216 mg/dL (70-99) 254 mg/dL (70-99) Laboratory Tests Test 03/13/17 20:30 03/14/17 08:07 Glucose (Fingerstick) 216 mg/dL (70-99) 254 mg/dL (70-99) VTE Prophylaxis Ordered VTE Prophylaxis Devices: Yes VTE Pharmacological Prophylaxi: Yes Assessment/Plan Assessment/Plan 1/ Left sided abd pain, left sided perinephric stranding on CT near tail of pancreas and upper pole left kidney 2. LUng CA, squamous type, 5 CM LATOYA - not candidate for rad tx 3. Hx CABG, etc PLAn: Check BAsic labs and include LIPASE NPO for now with IVF Get GI Ok to resume po meds with sips water Further recs pending course Check ESR I did hold off abx for now - no "itis" on CT Dw Rad onc and RN at bedside MDM complex CT scan lacks oral and IV dye, Might need some more imaging of no relieve RN claims morphine seems to help CHeck UA MCM complex MING ALLISON MD Mar 14, 2017 10:00
[2017-03-14] MEDS: IV 1/2 NORMAL SALINE 1,000 ML IV SCH ×2 (10:12→20:13)
--- NOTE | 2017-03-14 11:27 | PDOC ---
CARDIO Progress Notes Date and Time Date of Service 03/14/2017 Time of Evaluation 1020 Subjective Subjective: No Chest Pain, No shortness of breath, No Palpitations, Other ( still has abdominal pain) Vitals Vitals Vital Signs Date Time Temp Pulse Resp B/P (MAP) Pulse Ox O2 Delivery O2 Flow Rate FiO2 03/14/17 10:11 Room Air 03/14/17 07:00 97.6 78 16 136/65 (88) 97 97.6 Weight Weight [ ] Laboratory Labs Laboratory Tests Test 03/13/17 20:30 03/14/17 08:07 Glucose (Fingerstick) 216 mg/dL (70-99) 254 mg/dL (70-99) Physical Exam HEENT: Neck Supple W Full Motion Chest: Symmetric LUNGS: Other (faint basilar crackles) Heart: S1S2, RRR Abdomen: Soft N/T Extremities: No Calf Tenderness Neurology: oriented, follow commands, other (drowsy) Assessment Assessment 1. Abdominal pain/esophagitis: pain continues with n/v overnight 2. Squamous lung CA. Noted outside DNR/DNI from past records. Hemonc following , no immediate treatment planned. 3. Accelerated HTN: better 4. Elevated troponin: Peaked 0.226. TTE with normal wall motion and EF. Remains with no CP, Demand mediated 5. Hyponatremia: likely from malnutrition. Defer to PCP 6. Hypomagnesemia 7. DM2: BG uncontrolled 8. CKD3 9. 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 HLP 11. Hx of CVA/TIA 12. CAD: CABG in the past. She follows up with [facility] cardiology 13. Debility, Dementia features 14. Noncompliance 15. AFlutter with RVR; NEW onset. Occurred last night and now SR. Likely triggered by n/v Recommendations 1. Palliative meeting pending, 2. Will stay with conservative measures, given her significant noncompliance, dementia and debility. 3. Recommend GI consult 4. CMP, Mg, and correct lytes as warranted. TSH, T3 5. Presently NPO, continue on cardizem drip till PO is safe. Then will convert to metoprolol. Not an anticoagulation candidate given her noncompliance issues and fall risk. Continue with ASA for stroke prevention 6. Supportive care at this time. AYLIN MCCLURE CONTINUITY READER Mar 14, 2017 11:27
[2017-03-14 11:36] LABS: BASO # 0.1 x10^3/uL (0.0-0.2); BASO % 1 % (0-3); EOS % 0 % (0-3); HEMOGLOBIN 11.7 g/dL (12.0-15.5); LYMPH # 0.8 x10^3/uL (1.0-4.8); LYMPH % 9 % (24-48); MEAN CORPUSCULAR HEMOGLOBIN 33 pg (25-35); MEAN CORPUSCULAR HGB CONC 34 g/dL (31-37); MEAN CORPUSCULAR VOLUME 96 fL (79-100); MONO % 5 % (0-9); NEUT % 86 % (31-73); PLATELET COUNT 286 x10^3/uL (140-400); RED BLOOD COUNT 3.53 x10^6/uL (3.50-5.40); RED CELL DISTRIBUTION WIDTH 13.6 % (11.5-14.5); WHITE BLOOD COUNT 9.7 x10^3/uL (4.0-11.0)
[2017-03-14 12:00] LABS: PROTHROMBIN TIME PATIENT 12.5 SEC (11.7-14.0)
--- NOTE | 2017-03-14 12:03 | PDOC2 ---
GI CONSULT Reason For Consult: Thickened esophagus, abd pain HPI: HPI: 86 y/o female transferred from [facility]. Reviewed other notes and records in paper chart. Lab at [facility] included normal WBC and Hgb, Alk Phos 120, elevated BNP, glucose 321, BUN 21 w/ Cr 0.9, normal lipase and LFTs. CT showed mild-moderate thickening of esophagus, mildly distended stomach w/ distal wall thickening, non -dilated small bowel, normal appendix, feces and gas in the colon, scattered diverticula, and non-specific stranding in the left retroperitoneum around distal pancreatic tail and left kidney. Per RN, some emesis yesterday, didn't want breakfast, now NPO, last BM 03/12. Difficult history from pt, can't stay awake. Tells me lower abdominal pain "for awhile," constipation, and vomiting. No heartburn or dysphagia. No previous EGD or colonoscopy. Cardiology has seen for elevated troponin, plans for medical therapy. Has lung cancer, plans to observe per radiation onc. PC following, changes mind re: DNR/DNI. PMH: PMH: CAD, HTN, ME, HLD, PVD, COPD, CVA, TIA, anemia, lung (stage 1 SCC LATOYA) and breast cancer, anxiety/depression, LBP, OA, DM, CABG, right hip surgery, cholecystectomy, neck surgery, hysterectomy, left mastectomy, vertebroplasty, stent (PAD) FH: Family History: No pertinent hx Social History: Smoke: No ALCOHOL: none Drugs: None ROS: Difficult to obtain. Vitals: Vitals: Vital Signs Date Time Temp Pulse Resp B/P (MAP) Pulse Ox O2 Delivery O2 Flow Rate FiO2 03/14/17 11:46 Room Air 03/14/17 11:00 97.9 75 16 147/66 (93) 98 97.9 Labs: Labs: Laboratory Tests Test 03/13/17 20:30 03/14/17 08:07 03/14/17 11:20 Glucose (Fingerstick) 216 mg/dL (70-99) 254 mg/dL (70-99) White Blood Count 9.7 x10^3/uL (4.0-11.0) Red Blood Count 3.53 x10^6/uL (3.50-5.40) Hemoglobin 11.7 g/dL (12.0-15.5) Hematocrit 34.0 % (36.0-47.0) Mean Corpuscular Volume 96 fL (79-100) Mean Corpuscular Hemoglobin 33 pg (25-35) Mean Corpuscular Hemoglobin Concent 34 g/dL (31-37) Red Cell Distribution Width 13.6 % (11.5-14.5) Platelet Count 286 x10^3/uL (140-400) Neutrophils (%) (Auto) 86 % (31-73) Lymphocytes (%) (Auto) 9 % (24-48) Monocytes (%) (Auto) 5 % (0-9) Eosinophils (%) (Auto) 0 % (0-3) Basophils (%) (Auto) 1 % (0-3) Neutrophils # (Auto) 8.4 x10^3uL (1.8-7.7) Lymphocytes # (Auto) 0.8 x10^3/uL (1.0-4.8) Monocytes # (Auto) 0.4 x10^3/uL (0.0-1.1) Eosinophils # (Auto) 0.0 x10^3/uL (0.0-0.7) Basophils # (Auto) 0.1 x10^3/uL (0.0-0.2) Allergies: Coded Allergies: fentanyl (Verified Allergy, Intermediate, 11/29/16) Medications: Current Medications Medications (Trade) Dose Ordered Sig/Deisy Route PRN Reason Start Time Stop Time Status Last Admin Dose Admin Carvedilol (Coreg) 12.5 mg BIDWMEALS PO 03/13/17 17:00 03/13/17 17:36 Simvastatin (Zocor) 20 mg QHS PO 03/13/17 21:00 03/14/17 01:13 DC 03/13/17 20:19 Hydralazine HCl (Apresoline) 10 mg PRN Q4HRS PRN IVP ELEVATED BP, SEE COMMENTS 03/13/17 17:00 03/14/17 04:51 Acetaminophen/ Hydrocodone Bitart (Lortab 5/325) 1 tab PRN Q4HRS PRN PO PAIN 03/13/17 17:45 03/13/17 22:42 Ondansetron HCl (Zofran) 4 mg PRN Q6HRS PRN IV NAUSEA/VOMITING 03/14/17 00:30 03/14/17 00:27 Diltiazem HCl 125 mg/Dextrose 125 ml @ 0 mls/hr CONT PRN IV SEE I/O RECORD 03/14/17 01:15 03/14/17 01:25 Morphine Sulfate 2 mg PRN Q2HR PRN IV SEVERE PAIN 03/14/17 01:15 03/14/17 10:11 Nitroglycerin (Nitro-Bid Oint) 1 inch 1X ONCE TP 03/14/17 03:00 03/14/17 03:03 DC 03/14/17 03:06 Sodium Chloride 1,000 ml @ 100 mls/hr Q10H IV 03/14/17 09:45 03/14/17 10:12 Imaging: Imaging: Per HPI. PE: GEN: NAD HEENT: Atraumatic, PERRL LUNGS: clear HEART: RRR +murm ABD: BS+, EXTREMITY: No edema SKIN: No rashes, no jaundice NEURO/PSYCH: drifts in and out of sleep A/P: A/P: CAD, elevated troponin -cardiology has seen, medical therapy Lung cancer -observation planned Abd pain, vomiting Abnormal CT -mild-moderate thickening of esophagus, mildly distended stomach w/ distal wall thickening, scattered diverticula, non-specific stranding in the left retroperitoneum around distal pancreatic tail and left kidney -- Difficult history, pt alone in room, falls asleep. Definitely tender on exam - lower abd. Reviewed w/ Dr. Sadler - will offer EGD for tomorrow. ?treat for diverticulitis ?constipation SHAI-MATTI KRAFT Mar 14, 2017 12:03
[2017-03-14 12:09] LABS: ALBUMIN 3.3 g/dL (3.4-5.0); ALBUMIN/GLOBULIN RATIO 0.7 (1.0-1.7); CALCIUM 9.5 mg/dL (8.5-10.1); CREATININE 1.2 mg/dL (0.6-1.0); GFR 42.8; POTASSIUM 3.7 mmol/L (3.5-5.1); TOTAL BILIRUBIN 0.4 mg/dL (0.2-1.0); TOTAL PROTEIN 7.9 g/dL (6.4-8.2)
[2017-03-14 12:58] LABS: BILIRUBIN,URINE NEGATIVE (NEG); GLUCOSE,URINE 500 mg/dL (NEG); NITRITE,URINE NEGATIVE (NEG); PROTEIN,URINE >=300 mg/dL (NEG-TRACE); UROBILINOGEN,URINE 0.2 mg/dL (0.2 mg/dL)
[2017-03-14 13:11] LABS: BACTERIA,URINE MANY /HPF (0-FEW)
[2017-03-14 13:12] LABS: SQUAMOUS EPITHELIAL CELL,UR FEW /LPF
[2017-03-14 13:44] LABS: % BASOS 2 % (0-3); % EOS 2 % (0-5)
[2017-03-14 13:46] LABS: PLT ESTIMATE ADEQUATE (ADEQUATE)
--- NOTE | 2017-03-14 13:46 | PDOC2 ---
PALLIATIVE CARE Palliative Care Note Palliative Care Patient resting. Awakened by PT. Refused therapy. Confused last evening/ night. Son here and observed confusion Spoke with Meng and son Jordin. Reviewed medical condition/updates from Dr. Lim and GI recommendations. Discussed Code Status; Family feels that this discussion causes more anxiety with patient and patient does not understand risks and benefits. They would like to continue current code status. Full Code. Patient has had Outside the Hospital DNR/DNI. They would like to continue DNR/DNI when patient goes home. [facility] the [facility] form completed. EDWIN PHILLIPS Mar 14, 2017 13:46
[2017-03-14 13:49] LABS: TOXIC GRANULATION MOD
[2017-03-14] MEDS: ATORVASTATIN CALCIUM 10 MG TABLET. PO SCH (21:00)
[2017-03-15 03:00] VITALS: BP 175/82
[2017-03-15] MEDS: IV 1/2 NORMAL SALINE 1,000 ML IV SCH (05:49)
[2017-03-15 07:00] VITALS: BP 182/88
[2017-03-15] MEDS: PANTOPRAZOLE 40 MG TABLET.DR. PO SCH (07:30)
[2017-03-15] MEDS: DULoxetine HCL 30 MG CAPSULE.DR PO SCH (09:00)
[2017-03-15] MEDS: ASPIRIN CHEWABLE 81 MG TABLET. PO SCH (09:00)
[2017-03-15] MEDS: DOCUSATE SODIUM 100 MG CAPSULE. PO SCH (09:00)
[2017-03-15] MEDS: AMINO AC 3%/ELECTROLYTE/GLYCER 1,000 ML IV SCH ×2 (09:30→21:32)
--- NOTE | 2017-03-15 09:43 | PDOC ---
Objective: Objective: Having IV placed when I saw her. D/w RN - refusing liquids/food. C/o pain, BP elevated. Family hasn't been by today. Note orders for CT angio. Vital Signs: Vital Signs Date Time Temp Pulse Resp B/P (MAP) Pulse Ox O2 Delivery O2 Flow Rate FiO2 03/15/17 07:25 Room Air 03/15/17 07:00 98.4 63 20 182/88 (119) 97 98.4 Labs: Laboratory Tests Test 03/14/17 11:20 03/14/17 12:28 03/14/17 17:40 03/14/17 20:53 White Blood Count 9.7 x10^3/uL Red Blood Count 3.53 x10^6/uL Hemoglobin 11.7 g/dL Hematocrit 34.0 % Mean Corpuscular Volume 96 fL Mean Corpuscular Hemoglobin 33 pg Mean Corpuscular Hemoglobin Concent 34 g/dL Red Cell Distribution Width 13.6 % Platelet Count 286 x10^3/uL Neutrophils (%) (Auto) 86 % Lymphocytes (%) (Auto) 9 % Monocytes (%) (Auto) 5 % Eosinophils (%) (Auto) 0 % Basophils (%) (Auto) 1 % Neutrophils # (Auto) 8.4 x10^3uL Lymphocytes # (Auto) 0.8 x10^3/uL Monocytes # (Auto) 0.4 x10^3/uL Eosinophils # (Auto) 0.0 x10^3/uL Basophils # (Auto) 0.1 x10^3/uL Segmented Neutrophils % 74 % Band Neutrophils % 8 % Lymphocytes % 9 % Monocytes % 5 % Eosinophils % 2 % Basophils % 2 % Toxic Granulation Mod Platelet Estimate Adequate Erythrocyte Sedimentation Rate 38 Prothrombin Time 12.5 SEC Prothromb Time International Ratio 1.0 Urine Collection Type Unknown Urine Color Yellow Urine Clarity Cloudy Urine pH 6.0 Urine Specific [place] 1.015 Urine Protein >=300 mg/dL Urine Glucose (UA) 500 mg/dL Urine Ketones (Stick) Trace mg/dL Urine Blood Trace Urine Nitrite Negative Urine Bilirubin Negative Urine Urobilinogen Dipstick 0.2 mg/dL Urine Leukocyte Esterase Negative Urine RBC 3-5 /HPF Urine WBC 11-20 /HPF Urine Squamous Epithelial Cells Few /LPF Urine Bacteria Many /HPF Urine Hyaline Casts Occasional /HPF Sodium Level 128 mmol/L Potassium Level 3.7 mmol/L Chloride Level 91 mmol/L Carbon Dioxide Level 28 mmol/L Anion Gap 9 Blood Urea Nitrogen 25 mg/dL Creatinine 1.2 mg/dL Estimated GFR (Cockcroft-Gault) 42.8 BUN/Creatinine Ratio 21 Glucose Level 240 mg/dL Calcium Level 9.5 mg/dL Magnesium Level 2.1 mg/dL Total Bilirubin 0.4 mg/dL Aspartate Amino Transf (AST/SGOT) 32 U/L Alanine Aminotransferase (ALT/SGPT) 35 U/L Alkaline Phosphatase 106 U/L Total Protein 7.9 g/dL Albumin 3.3 g/dL Albumin/Globulin Ratio 0.7 Lipase 121 U/L Thyroid Stimulating Hormone (TSH) 0.860 uIU/mL Free Triiodothyronine (T3) pg/mL 1.61 pg/mL Glucose (Fingerstick) 227 mg/dL 182 mg/dL 213 mg/dL PE: GEN: NAD, up to chair, staff using vein finder for IV placement NEURO/PSYCH: awake/alert - better than yesterday, probably still confused A/P: CAD, elevated troponin - medical therapy Lung cancer - observation Abd pain, refusing PO w/ abnormal CT -mild-moderate thickening of esophagus, mildly distended stomach w/ distal wall thickening, scattered diverticula, non-specific stranding in the left retroperitoneum around distal pancreatic tail and left kidney Dementia -- Await CT, family decision re: EGD. MATTI TOLENTINO Mar 15, 2017 09:43
[2017-03-15] MEDS: hydrALAZINE 20 MG/ML VIAL. IVP PRN (09:50)
[2017-03-15] MEDS: CARVEDILOL 12.5 MG TABLET. PO SCH (09:50)
[2017-03-15 10:50] LABS: HEMATOCRIT 36.2 % (36.0-47.0); HEMOGLOBIN 12.4 g/dL (12.0-15.5)
--- NOTE | 2017-03-15 10:55 | PDOC ---
PROGRESS NOTES Chief Complaint Chief Complaint 1/ Left sided abd pain, left sided perinephric stranding on CT near tail of pancreas and upper pole left kidney 2. LUng CA, squamous type, 5 CM LATOYA - not candidate for rad tx 3. Hx CABG, etc 4. 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 History of Present Illness History of Present Illness ABd pain persists VERY HARD Stick Lipase is NORMAL GI note reviewed, CARds note reviewed PAlliative now involved FAmily now thinking just taking her home when we were getting consent for central line IF we cont with aggressive tx, needs IV bolus prior to CTA (mesenteric ischemia r/o) as creat is 1,.[address] and pelvis 2 days ago is UNIMPRESSIVE (without oral or IV contrast) PLAN: Await [facility] mtg IF no tx then home later IF aggressive tx, bolus NS prior to CTA, mucomyst, CTA abd, NPO and tPN via PICC REcheck COLEMAN Koenig RN, home theatre technician Code status?? SIGNIF time Vitals Vitals Vital Signs Date Time Temp Pulse Resp B/P (MAP) Pulse Ox O2 Delivery O2 Flow Rate FiO2 03/15/17 09:50 87 181/72 03/15/17 07:25 Room Air 03/15/17 07:00 98.4 20 97 98.4 Physical Exam General: Oriented X3, Cooperative, No acute distress, Other (crying) Heart: Regular rate (SR), Normal S1, Normal S2, Other (2/6 systolic murmur to LLS border) Lungs: Crackles, Other Abdomen: Soft, Other (no guarding, tender to palpation on left side mostly, positive bS) Extremities: No clubbing, No cyanosis, No edema, Normal pulses, No tenderness/ swelling Skin: No rashes, No breakdown, No significant lesion Labs LABS Laboratory Tests Test 03/14/17 11:20 03/14/17 12:28 03/14/17 17:40 03/14/17 20:53 White Blood Count 9.7 x10^3/uL (4.0-11.0) Red Blood Count 3.53 x10^6/uL (3.50-5.40) Hemoglobin 11.7 g/dL (12.0-15.5) Hematocrit 34.0 % (36.0-47.0) Mean Corpuscular Volume 96 fL (79-100) Mean Corpuscular Hemoglobin 33 pg (25-35) Mean Corpuscular Hemoglobin Concent 34 g/dL (31-37) Red Cell Distribution Width 13.6 % (11.5-14.5) Platelet Count 286 x10^3/uL (140-400) Neutrophils (%) (Auto) 86 % (31-73) Lymphocytes (%) (Auto) 9 % (24-48) Monocytes (%) (Auto) 5 % (0-9) Eosinophils (%) (Auto) 0 % (0-3) Basophils (%) (Auto) 1 % (0-3) Neutrophils # (Auto) 8.4 x10^3uL (1.8-7.7) Lymphocytes # (Auto) 0.8 x10^3/uL (1.0-4.8) Monocytes # (Auto) 0.4 x10^3/uL (0.0-1.1) Eosinophils # (Auto) 0.0 x10^3/uL (0.0-0.7) Basophils # (Auto) 0.1 x10^3/uL (0.0-0.2) Segmented Neutrophils % 74 % (35-66) Band Neutrophils % 8 % (0-9) Lymphocytes % 9 % (24-48) Monocytes % 5 % (0-10) Eosinophils % 2 % (0-5) Basophils % 2 % (0-3) Toxic Granulation Mod Platelet Estimate Adequate (ADEQUATE) Erythrocyte Sedimentation Rate 38 (0-25) Prothrombin Time 12.5 SEC (11.7-14.0) Prothromb Time International Ratio 1.0 (0.8-1.1) Urine Collection Type Unknown Urine Color Yellow Urine Clarity Cloudy Urine pH 6.0 Urine Specific [place] 1.015 Urine Protein >=300 mg/dL (NEG-TRACE) Urine Glucose (UA) 500 mg/dL (NEG) Urine Ketones (Stick) Trace mg/dL (NEG) Urine Blood Trace (NEG) Urine Nitrite Negative (NEG) Urine Bilirubin Negative (NEG) Urine Urobilinogen Dipstick 0.2 mg/dL (0.2 mg/dL) Urine Leukocyte Esterase Negative (NEG) Urine RBC 3-5 /HPF (0-2) Urine WBC 11-20 /HPF (0-4) Urine Squamous Epithelial Cells Few /LPF Urine Bacteria Many /HPF (0-FEW) Urine Hyaline Casts Occasional /HPF Sodium Level 128 mmol/L (136-145) Potassium Level 3.7 mmol/L (3.5-5.1) Chloride Level 91 mmol/L (98-107) Carbon Dioxide Level 28 mmol/L (21-32) Anion Gap 9 (6-14) Blood Urea Nitrogen 25 mg/dL (7-20) Creatinine 1.2 mg/dL (0.6-1.0) Estimated GFR (Cockcroft-Gault) 42.8 BUN/Creatinine Ratio 21 (6-20) Glucose Level 240 mg/dL (70-99) Calcium Level 9.5 mg/dL (8.5-10.1) Magnesium Level 2.1 mg/dL (1.8-2.4) Total Bilirubin 0.4 mg/dL (0.2-1.0) Aspartate Amino Transf (AST/SGOT) 32 U/L (15-37) Alanine Aminotransferase (ALT/SGPT) 35 U/L (14-59) Alkaline Phosphatase 106 U/L (46-116) Total Protein 7.9 g/dL (6.4-8.2) Albumin 3.3 g/dL (3.4-5.0) Albumin/Globulin Ratio 0.7 (1.0-1.7) Lipase 121 U/L (73-393) Thyroid Stimulating Hormone (TSH) 0.860 uIU/mL (0.358-3.74) Free Triiodothyronine (T3) pg/mL 1.61 pg/mL (2.18-3.98) Glucose (Fingerstick) 227 mg/dL (70-99) 182 mg/dL (70-99) 213 mg/dL (70-99) Review of Systems Review of Systems abd pain Comment Review of Relevant I have reviewed the following items alysha (where applicable) has been applied. Labs Laboratory Tests Test 03/13/17 20:30 03/14/17 08:07 03/14/17 11:20 03/14/17 12:28 Glucose (Fingerstick) 216 mg/dL (70-99) 254 mg/dL (70-99) 227 mg/dL (70-99) White Blood Count 9.7 x10^3/uL (4.0-11.0) Red Blood Count 3.53 x10^6/uL (3.50-5.40) Hemoglobin 11.7 g/dL (12.0-15.5) Hematocrit 34.0 % (36.0-47.0) Mean Corpuscular Volume 96 fL (79-100) Mean Corpuscular Hemoglobin 33 pg (25-35) Mean Corpuscular Hemoglobin Concent 34 g/dL (31-37) Red Cell Distribution Width 13.6 % (11.5-14.5) Platelet Count 286 x10^3/uL (140-400) Neutrophils (%) (Auto) 86 % (31-73) Lymphocytes (%) (Auto) 9 % (24-48) Monocytes (%) (Auto) 5 % (0-9) Eosinophils (%) (Auto) 0 % (0-3) Basophils (%) (Auto) 1 % (0-3) Neutrophils # (Auto) 8.4 x10^3uL (1.8-7.7) Lymphocytes # (Auto) 0.8 x10^3/uL (1.0-4.8) Monocytes # (Auto) 0.4 x10^3/uL (0.0-1.1) Eosinophils # (Auto) 0.0 x10^3/uL (0.0-0.7) Basophils # (Auto) 0.1 x10^3/uL (0.0-0.2) Segmented Neutrophils % 74 % (35-66) Band Neutrophils % 8 % (0-9) Lymphocytes % 9 % (24-48) Monocytes % 5 % (0-10) Eosinophils % 2 % (0-5) Basophils % 2 % (0-3) Toxic Granulation Mod Platelet Estimate Adequate (ADEQUATE) Erythrocyte Sedimentation Rate 38 (0-25) Prothrombin Time 12.5 SEC (11.7-14.0) Prothromb Time International Ratio 1.0 (0.8-1.1) Urine Collection Type Unknown Urine Color Yellow Urine Clarity Cloudy Urine pH 6.0 Urine Specific [place] 1.015 Urine Protein >=300 mg/dL (NEG-TRACE) Urine Glucose (UA) 500 mg/dL (NEG) Urine Ketones (Stick) Trace mg/dL (NEG) Urine Blood Trace (NEG) Urine Nitrite Negative (NEG) Urine Bilirubin Negative (NEG) Urine Urobilinogen Dipstick 0.2 mg/dL (0.2 mg/dL) Urine Leukocyte Esterase Negative (NEG) Urine RBC 3-5 /HPF (0-2) Urine WBC 11-20 /HPF (0-4) Urine Squamous Epithelial Cells Few /LPF Urine Bacteria Many /HPF (0-FEW) Urine Hyaline Casts Occasional /HPF Sodium Level 128 mmol/L (136-145) Potassium Level 3.7 mmol/L (3.5-5.1) Chloride Level 91 mmol/L (98-107) Carbon Dioxide Level 28 mmol/L (21-32) Anion Gap 9 (6-14) Blood Urea Nitrogen 25 mg/dL (7-20) Creatinine 1.2 mg/dL (0.6-1.0) Estimated GFR (Cockcroft-Gault) 42.8 BUN/Creatinine Ratio 21 (6-20) Glucose Level 240 mg/dL (70-99) Calcium Level 9.5 mg/dL (8.5-10.1) Magnesium Level 2.1 mg/dL (1.8-2.4) Total Bilirubin 0.4 mg/dL (0.2-1.0) Aspartate Amino Transf (AST/SGOT) 32 U/L (15-37) Alanine Aminotransferase (ALT/SGPT) 35 U/L (14-59) Alkaline Phosphatase 106 U/L (46-116) Total Protein 7.9 g/dL (6.4-8.2) Albumin 3.3 g/dL (3.4-5.0) Albumin/Globulin Ratio 0.7 (1.0-1.7) Lipase 121 U/L (73-393) Thyroid Stimulating Hormone (TSH) 0.860 uIU/mL (0.358-3.74) Free Triiodothyronine (T3) pg/mL 1.61 pg/mL (2.18-3.98) Test 03/14/17 17:40 03/14/17 20:53 Glucose (Fingerstick) 182 mg/dL (70-99) 213 mg/dL (70-99) Laboratory Tests Test 03/14/17 11:20 03/14/17 12:28 03/14/17 17:40 03/14/17 20:53 White Blood Count 9.7 x10^3/uL (4.0-11.0) Red Blood Count 3.53 x10^6/uL (3.50-5.40) Hemoglobin 11.7 g/dL (12.0-15.5) Hematocrit 34.0 % (36.0-47.0) Mean Corpuscular Volume 96 fL (79-100) Mean Corpuscular Hemoglobin 33 pg (25-35) Mean Corpuscular Hemoglobin Concent 34 g/dL (31-37) Red Cell Distribution Width 13.6 % (11.5-14.5) Platelet Count 286 x10^3/uL (140-400) Neutrophils (%) (Auto) 86 % (31-73) Lymphocytes (%) (Auto) 9 % (24-48) Monocytes (%) (Auto) 5 % (0-9) Eosinophils (%) (Auto) 0 % (0-3) Basophils (%) (Auto) 1 % (0-3) Neutrophils # (Auto) 8.4 x10^3uL (1.8-7.7) Lymphocytes # (Auto) 0.8 x10^3/uL (1.0-4.8) Monocytes # (Auto) 0.4 x10^3/uL (0.0-1.1) Eosinophils # (Auto) 0.0 x10^3/uL (0.0-0.7) Basophils # (Auto) 0.1 x10^3/uL (0.0-0.2) Segmented Neutrophils % 74 % (35-66) Band Neutrophils % 8 % (0-9) Lymphocytes % 9 % (24-48) Monocytes % 5 % (0-10) Eosinophils % 2 % (0-5) Basophils % 2 % (0-3) Toxic Granulation Mod Platelet Estimate Adequate (ADEQUATE) Erythrocyte Sedimentation Rate 38 (0-25) Prothrombin Time 12.5 SEC (11.7-14.0) Prothromb Time International Ratio 1.0 (0.8-1.1) Urine Collection Type Unknown Urine Color Yellow Urine Clarity Cloudy Urine pH 6.0 Urine Specific [place] 1.015 Urine Protein >=300 mg/dL (NEG-TRACE) Urine Glucose (UA) 500 mg/dL (NEG) Urine Ketones (Stick) Trace mg/dL (NEG) Urine Blood Trace (NEG) Urine Nitrite Negative (NEG) Urine Bilirubin Negative (NEG) Urine Urobilinogen Dipstick 0.2 mg/dL (0.2 mg/dL) Urine Leukocyte Esterase Negative (NEG) Urine RBC 3-5 /HPF (0-2) Urine WBC 11-20 /HPF (0-4) Urine Squamous Epithelial Cells Few /LPF Urine Bacteria Many /HPF (0-FEW) Urine Hyaline Casts Occasional /HPF Sodium Level 128 mmol/L (136-145) Potassium Level 3.7 mmol/L (3.5-5.1) Chloride Level 91 mmol/L (98-107) Carbon Dioxide Level 28 mmol/L (21-32) Anion Gap 9 (6-14) Blood Urea Nitrogen 25 mg/dL (7-20) Creatinine 1.2 mg/dL (0.6-1.0) Estimated GFR (Cockcroft-Gault) 42.8 BUN/Creatinine Ratio 21 (6-20) Glucose Level 240 mg/dL (70-99) Calcium Level 9.5 mg/dL (8.5-10.1) Magnesium Level 2.1 mg/dL (1.8-2.4) Total Bilirubin 0.4 mg/dL (0.2-1.0) Aspartate Amino Transf (AST/SGOT) 32 U/L (15-37) Alanine Aminotransferase (ALT/SGPT) 35 U/L (14-59) Alkaline Phosphatase 106 U/L (46-116) Total Protein 7.9 g/dL (6.4-8.2) Albumin 3.3 g/dL (3.4-5.0) Albumin/Globulin Ratio 0.7 (1.0-1.7) Lipase 121 U/L (73-393) Thyroid Stimulating Hormone (TSH) 0.860 uIU/mL (0.358-3.74) Free Triiodothyronine (T3) pg/mL 1.61 pg/mL (2.18-3.98) Glucose (Fingerstick) 227 mg/dL (70-99) 182 mg/dL (70-99) 213 mg/dL (70-99) Medications Current Medications Aspirin (Children'S Aspirin) 81 mg DAILY PO ; Start 03/14/17 at 09:00 Carvedilol (Coreg) 12.5 mg BIDWMEALS PO Last administered on 03/15/17t 09:50; Start 03/13/17 at 17:00 Famotidine (Pepcid) 20 mg HS PO ; Start 03/13/17 at 21:00; Status UNV Simvastatin (Zocor) 20 mg QHS PO Last administered on 03/13/17 20:19; Start at 21:00; Stop 03/14/17 at 01:13; Status DC Pantoprazole Sodium (Protonix) 40 mg DAILYAC PO ; Start 03/14/17 at 07:30 Hydralazine HCl (Apresoline) 10 mg PRN Q4HRS PRN IVP ELEVATED BP, SEE COMMENTS Last administered on 03/15/17 09:50; Start 03/13/17 at 17:00 Docusate Sodium (Colace) 100 mg DAILY PO ; Start 03/14/17 at 09:00 Duloxetine HCl (Cymbalta) 30 mg DAILY PO ; Start 03/14/17 at 09:00 Acetaminophen/ Hydrocodone Bitart (Lortab 5/325) 1 tab PRN Q4HRS PRN PO PAIN Last administered on 03/13/17 22:42; Start 03/13/17 at 17:45 Insulin Aspart (NovoLOG) 0-5 UNITS TIDWMEALS SQ ; Start 03/14/17 at 08:00; Stop 03/14/17 at 09:48; Status DC Dextrose (Dextrose 50%-Water Syringe) 12.5 gm PRN Q15MIN PRN IV SEE COMMENTS; Start 03/13/17 at 18:00 Haloperidol Lactate (Haldol) 2 mg PRN Q12HR PRN IVP AGITATION; Start 03/13/17 at 22:15 Ondansetron HCl (Zofran) 4 mg PRN Q6HRS PRN IV NAUSEA/VOMITING Last administered on 03/14/17 00:27; Start 03/14/17 at 00:30 Diltiazem HCl 125 mg/Dextrose 125 ml @ 0 mls/hr CONT PRN IV SEE I/O RECORD Last administered on 03/14/17 20:12; Start 03/14/17 at 01:15 Morphine Sulfate 2 mg PRN Q2HR PRN IV SEVERE PAIN Last administered on 10:11; Start 03/14/17 at 01:15 Atorvastatin Calcium (Lipitor) 10 mg QHS PO ; Start 03/14/17 at 21:00 Nitroglycerin (Nitro-Bid Oint) 1 inch 1X ONCE TP Last administered on 03:06; Start 03/14/17 at 03:00; Stop 03/14/17 at 03:03; Status DC Sodium Chloride 1,000 ml @ 100 mls/hr Q10H IV Last administered on 03/15/17 05:49; Start 03/14/17 at 09:45; Stop 03/15/17 at 09:25; Status DC Amino Acids/ Glycerin/ Electrolytes 1,000 ml @ 80 mls/hr [id number] IV ; Start at 09:30 Active Scripts Active Reported Hysingla ER (Hydrocodone Bitartrate) 80 Mg Tab.er.24h 80 Mg PO DAILY Novolin 70-30 100 Unit/Ml Vial (Hum Insulin Nph/Reg Insulin Hm) 100 Unit/1 Ml Vial 8 Unit SQ PRN TID PRN for high blood sugar Stool Softener (Docusate Sodium) 100 Mg Capsule 100 Mg PO DAILY Famotidine 20 Mg Tablet 20 Mg PO HS Calcium 600 + Vit D 200 Tablet (Calcium Carbonate/Vitamin D3) 1 Each Tablet 1 Each PO BID Simvastatin 20 Mg Tablet 1 Tab PO QHS Daily Vitamin (Multivitamin) 1 Each Tablet 1 Each PO Cymbalta (Duloxetine Hcl) 30 Mg Capsule.dr 1 Cap PO DAILY Carvedilol 12.5 Mg Tablet 1 Tab PO BID Aspirin 81 Mg Tab.chew 1 Tab PO DAILY Vitals/I & O Vital Sign - Last 24 Hours 03/14/17 03/14/17 03/14/17 03/14/17 11:00 11:46 15:00 18:27 Temp 97.9 97.8 97.9 97.8 Pulse 75 80 85 Resp 16 B/P (MAP) 147/66 (93) 173/75 (107) 180/75 Pulse Ox 98 97 O2 Delivery Room Air Room Air Room Air 03/14/17 03/14/17 03/14/17 03/15/17 19:00 20:00 23:05 03:00 Temp 97.9 98.1 97.6 97.9 98.1 97.6 Pulse 86 94 96 Resp 16 18 17 B/P (MAP) 105/44 (64) 144/52 (82) 175/82 (113) Pulse Ox 94 94 94 O2 Delivery Room Air Room Air Room Air Room Air 9/29/03/15/17 03/15/17 03/15/17 07:00 07:25 09:50 09:50 Temp 98.4 98.4 Pulse 63 83 87 Resp 20 B/P (MAP) 182/88 (119) 181/72 181/72 Pulse Ox 97 O2 Delivery Room Air MING ALLISON MD Mar 15, 2017 10:55
[2017-03-15 11:00] VITALS: BP 185/71
[2017-03-15] MEDS ORDERED: BISACODYL 10 MG SUPP.RECT. PR PRN (11:15)
[2017-03-15] MEDS ORDERED: POLYETHYLENE GLYCOL 3350 17 GM PACKET. PO PRN (11:15)
[2017-03-15] MEDS ORDERED: METHYLNALTREXONE 12 MG/0.6 ML VIAL. SQ ONE (11:15)
[2017-03-15] MEDS ORDERED: DIGOXIN 250 MCG TABLET. PO ONE (12:45)
--- NOTE | 2017-03-15 12:53 | PDOC ---
CARDIO Progress Notes Date and Time Date of Service 03/15/2017 Time of Evaluation 1230 Subjective Subjective: No Chest Pain, No shortness of breath, No Palpitations, Other ( Feels cold and tired, laying flat in bed, comfortable) Vitals Vitals Vital Signs Date Time Temp Pulse Resp B/P (MAP) Pulse Ox O2 Delivery O2 Flow Rate FiO2 03/15/17 11:00 98.5 100 20 185/71 (109) 99 Room Air 98.5 Weight Weight [ ] Laboratory Labs Laboratory Tests Test 03/14/17 17:40 03/14/17 20:53 03/15/17 10:35 Glucose (Fingerstick) 182 mg/dL (70-99) 213 mg/dL (70-99) Hemoglobin 12.4 g/dL (12.0-15.5) Hematocrit 36.2 % (36.0-47.0) Mean Corpuscular Hemoglobin Concent 34 g/dL (31-37) Physical Exam HEENT: Neck Supple W Full Motion Chest: Symmetric LUNGS: Other (DIMINISHED BASES) Heart: S1S2, irregularly irregular (AFIB) Abdomen: Soft N/T Extremities: No Calf Tenderness Neurology: oriented, follow commands, other (drowsy but arousable) Assessment Assessment 1. Abdominal pain/esophagitis: GI following 2. Squamous lung CA. Noted outside DNR/DNI from past records. Hemonc following , no immediate treatment planned. 3. Accelerated HTN: labile 4. Elevated troponin: Peaked 0.226. TTE with normal wall motion and EF. Remains with no CP, Demand mediated 5. Hyponatremia: likely from malnutrition. Defer to PCP 6. DM2/HLP/CKD3 7. Hx of CVA/TIA 8. CAD: CABG in the past. She follows up with [facility] cardiology 9. Debility, Dementia features 10. Noncompliance 11. AFlutter/AFIB with RVR; NEW onset. Notable for paroxysmal episode overnight , presently AFIB with HR 110-120s Recommendations 1. Palliative meeting pending, 2. Will stay with conservative measures, given her significant noncompliance, dementia and debility. 3. Pt has pulled out her IV, no access at this time. Start on po cardizem. Will DC coreg and IV cardizem and start on lopressor 25 mg po q6 and x1 Dig PO. 4. Not an anticoagulation candidate given her noncompliance issues and fall risk. Continue with ASA for stroke prevention 5. Supportive care at this time. AYLIN MCCLURE CRATE REPAIRER Mar 15, 2017 12:53
--- NOTE | 2017-03-15 13:32 | PDOC2 ---
PALLIATIVE CARE Palliative Care Note Palliative Care Patient with periods and restlessness/pulling IV out alternating with periods of somnolence Met with Meng, son Jordin and grandson Reviewed medical condition and events of evening/night. Constipation--last BM prior to admission--family not sure --could have been day of admission.Creatnine elevated/GFR40's --would need Mucomyst prior to CT scan. dementia --symptoms prior to admission--aggressive, not eating for periods of time, sleeping more at times. blood pressure high--no IV access for medication/ NPO; patient not cooperating with PT/OT. Discussed options for care; current aggressive care with CT scan and other procedure to asses abdominal pain vs comfort care/home with hospice vs addressing constipation to see if this would help with abdominal pain then consider home with hospice. No treatment of Lung Ca unless symptomatic. Family would like less aggressive measure. Unsure if she would leave IV in unless restrained. Not sure if she would be cooperative with CT. Discussed Code Status: Family requests DNR/DNI including in the hospital DNR/ DNI. Family states she may eat/drink some of her favorite ethnic soups and Boost. They request No IV and let her eat and drink when awake and alert. Discussed Hospice. Family would be in favor of this when discharged. Discussed with RN who will page Dr. Bryan. Spoke with Dr. Bryan earlier. will d/c CT scan EDWIN PHILLIPS Mar 15, 2017 13:32
[2017-03-15] MEDS: METOPROLOL TART IMMED RELEASE 25 MG TABLET. PO SCH ×3 (14:07→23:51)
--- NOTE | 2017-03-15 14:09 | CONS ---
DATE OF CONSULTATION: 03/14/2017 REFERRING PHYSICIAN: Dr. Cari Cheatham. 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 She underwent biopsy of this on 11/27/2016. At that time, she presented with a fall at home resulting in a right hip fracture that required open reduction and internal fixation on 11/26/2016. Since that time in light of her general compromised health and performance status, her lung cancer was observed as it was asymptomatic. She now has been admitted for diffuse abdominal pain following initial evaluation at the [facility] Emergency Room. ICD 10 C34.12 HISTORY OF PRESENT ILLNESS: The patient is an 86-year-old woman who had a recent onset of generalized abdominal pain and some nausea. She cannot tell how long this has occurred. She has had no significant chest pain, shortness of breath or headaches. In the [facility] Emergency Room, she underwent evaluation with a chest x-ray on 03/13/2017. This revealed a 5.5 x 4.0 cm centrally located left upper lobe mass with no other findings. No distal lateral atelectatic changes or left lung volume loss was noted. Previous chest x-ray from 01/30/2017 was an upright film and revealed this mass measured 4.5 x 3.5 cm. Difference in technique could explain the size difference seen. She also underwent an abdominal CT scan, which revealed thickening of the distal esophagus, scattered diverticula, nonspecific stranding in the soft tissues of the left retroperitoneum around the distal pancreatic tail and left kidney and right intramedullary howard placement from correction of her previous right femur fracture. When seen in followup on 01/30/2017, at that time, she had persistent right hip pain with ambulation, improved from postoperative level. She had no chest-related symptoms. Her chest x-ray from 11/2016 to 01/2017 at that time showed modest progression in size of her primary lesion. At that time, she was noted to be sleeping more. She had memory difficulties and was hallucinating. Following a thorough discussion with her and her family in light of her declining overall status and likely dementia, we all agree to pursue conservative measures with no radiation at this time and readdressing radiation in the event she had symptomatic progression. At that time, the family and patient were comfortable with DNR/DNI status. PAST MEDICAL HISTORY: Remarkable for coronary artery disease, hypertension. She has had coronary artery bypass graft surgery in the past. She had previous cerebrovascular accident, bilateral carotid endarterectomies, appendectomy, cholecystectomy, left mastectomy followed by chemotherapy for primary breast carcinoma, hysterectomy, COPD, hypertension, hyperlipidemia, diabetes, hyperthyroidism, dementia. FAMILY HISTORY: Unremarkable for malignancy. 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 She smoked a pack a day for 30 years, quit many years ago. Worked at [employer]. PHYSICAL EXAMINATION: GENERAL: Revealed a somnolent woman in modest pain distress, unable to give much of a history of anything. HEENT: Revealed no scleral icterus. LYMPH NODES: She had no palpable cervical or supraclavicular adenopathy. LUNGS: Clear to auscultation. HEART: Regular. ABDOMEN: Mild diffuse tenderness with no localization, no distention, no rebound. EXTREMITIES: Reveal no clubbing, cyanosis or edema. NEUROLOGIC: No neurologic deficits were noted. LABORATORY STUDIES: Here from 03/14/2017, hemoglobin 11.7, white count 9700, platelet count 286,000. Chemistry panel revealed normal electrolytes, creatinine 1.2, glucose 240, normal liver function tests. Lipase 121, troponin mildly elevated at 0.15. ASSESSMENT AND PLAN: In summary, my impression is that of stage 1 squamous cell carcinoma of the left lung. She had stable or minimally progressive disease since January seen on chest x-ray, although the technique of previous upright and now portable x-ray may account for the change in tumor size. She has no distal atelectatic changes. She has no chest symptoms. She has had declining overall performance status: She now has abdominal pain, which is suggestive of diverticulitis. She may be placed on antibiotics for this diagnosis or observed depending on the GI consultation. At this time, it does not appear she has progression causing symptoms from her primary squamous cell carcinoma of the left lung. As such, I do not recommend palliative radiation therapy at this time, I do recommend addressing her resuscitative code status with the family. In addition, I would recommend counseling with the family regarding supportive care with hospice following discharge. I reviewed this with Dr. Shikha Page and the nursing staff and I will review my recommendations with the family when they are available. Thank you again for allowing us to participate in her reevaluation. ROMERO MORALEZ MD DR: BONNIE/danny JOB#: [id number] / [id number] LUCY Espino APRN
[2017-03-15 14:47] LABS: BILIRUBIN,URINE NEGATIVE (NEG); GLUCOSE,URINE NEGATIVE (NEG); NITRITE,URINE NEGATIVE (NEG); PH,URINE 5.5; PROTEIN,URINE >=300 mg/dL (NEG-TRACE); UROBILINOGEN,URINE 0.2 mg/dL (0.2 mg/dL)
[2017-03-15 14:58] LABS: BACTERIA,URINE MANY /HPF (0-FEW); WBC,URINE TNTC /HPF (0-4)
[2017-03-15 15:00] VITALS: BP 154/71
[2017-03-15 19:05] VITALS: BP 140/54
[2017-03-15] MEDS: ATORVASTATIN CALCIUM 10 MG TABLET. PO SCH (20:31)
[2017-03-15] MEDS: HYDROcodone/APAP 5/325MG 1 TAB TABLET PO PRN (20:32)
[2017-03-15 23:05] VITALS: BP 148/68
[2017-03-16 03:05] VITALS: BP 163/60
[2017-03-16 05:48] LABS: BASO # 0.1 x10^3/uL (0.0-0.2); BASO % 1 % (0-3); EOS % 1 % (0-3); HEMATOCRIT 30.7 % (36.0-47.0); HEMOGLOBIN 10.6 g/dL (12.0-15.5); LYMPH # 1.1 x10^3/uL (1.0-4.8); LYMPH % 13 % (24-48); MEAN CORPUSCULAR HEMOGLOBIN 33 pg (25-35); MEAN CORPUSCULAR HGB CONC 35 g/dL (31-37); MEAN CORPUSCULAR VOLUME 96 fL (79-100); MONO % 10 % (0-9); NEUT % 76 % (31-73); PLATELET COUNT 270 x10^3/uL (140-400); RED BLOOD COUNT 3.19 x10^6/uL (3.50-5.40); RED CELL DISTRIBUTION WIDTH 13.1 % (11.5-14.5); WHITE BLOOD COUNT 8.6 x10^3/uL (4.0-11.0)
[2017-03-16] MEDS: METOPROLOL TART IMMED RELEASE 25 MG TABLET. PO SCH ×4 (06:29→23:19)
[2017-03-16 07:00] VITALS: BP 143/57
[2017-03-16] MEDS: PANTOPRAZOLE 40 MG TABLET.DR. PO SCH (09:04)
[2017-03-16] MEDS: DULoxetine HCL 30 MG CAPSULE.DR PO SCH (09:04)
[2017-03-16] MEDS: DOCUSATE SODIUM 100 MG CAPSULE. PO SCH (09:04)
[2017-03-16] MEDS: ASPIRIN CHEWABLE 81 MG TABLET. PO SCH (09:04)
--- NOTE | 2017-03-16 10:25 | PDOC ---
PROGRESS NOTES Chief Complaint Chief Complaint 1/ Left sided abd pain, left sided perinephric stranding on CT near tail of pancreas and upper pole left kidney 2. LUng CA, squamous type, 5 CM LATOYA - not candidate for rad tx 3. Hx CABG, etc 4. 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 CONSTIPATION - resolved History of Present Illness History of Present Illness s/p relistor and had a decent sized BM ysterday Still claims abd pain but on exam way better than on admit NO IV Access and family leaning towards hospice and does not want any more iV access Apparently ate some of her soups UA shows UTI PLAN: Start PO cipro SW saturday arrange for hospice PT/OT if she allows while in house (refused couple times) Dr Bell,. Raphael, he concurrs with hospice Ok to have no IV access - took her PO AM pills Dw RN chaitanya Vitals Vitals Vital Signs Date Time Temp Pulse Resp B/P (MAP) Pulse Ox O2 Delivery O2 Flow Rate FiO2 03/16/17 09:04 62 143/57 03/16/17 07:00 99.0 18 96 Room Air 99.0 Physical Exam General: Oriented X3, Cooperative, No acute distress, Other (crying) Heart: Regular rate (SR), Normal S1, Normal S2, Other (2/6 systolic murmur to LLS border) Lungs: Crackles, Other Abdomen: Soft, Other (no guarding, tender to palpation on left side mostly, positive bS) Extremities: No clubbing, No cyanosis, No edema, Normal pulses, No tenderness/ swelling Skin: No rashes, No breakdown, No significant lesion Labs LABS Laboratory Tests Test 03/15/17 10:35 03/15/17 12:30 03/16/17 04:45 Hemoglobin 12.4 g/dL (12.0-15.5) 10.6 g/dL (12.0-15.5) Hematocrit 36.2 % (36.0-47.0) 30.7 % (36.0-47.0) Mean Corpuscular Hemoglobin Concent 34 g/dL (31-37) 35 g/dL (31-37) Urine Color Yellow Urine Clarity Turbid Urine pH 5.5 Urine Specific [place] 1.015 Urine Protein >=300 mg/dL (NEG-TRACE) Urine Glucose (UA) Negative mg/dL (NEG) Urine Ketones (Stick) Trace mg/dL (NEG) Urine Blood Moderate (NEG) Urine Nitrite Negative (NEG) Urine Bilirubin Negative (NEG) Urine Urobilinogen Dipstick 0.2 mg/dL (0.2 mg/dL) Urine Leukocyte Esterase Large (NEG) Urine RBC 11-20 /HPF (0-2) Urine WBC Tntc /HPF (0-4) Urine Bacteria Many /HPF (0-FEW) White Blood Count 8.6 x10^3/uL (4.0-11.0) Red Blood Count 3.19 x10^6/uL (3.50-5.40) Mean Corpuscular Volume 96 fL (79-100) Mean Corpuscular Hemoglobin 33 pg (25-35) Red Cell Distribution Width 13.1 % (11.5-14.5) Platelet Count 270 x10^3/uL (140-400) Neutrophils (%) (Auto) 76 % (31-73) Lymphocytes (%) (Auto) 13 % (24-48) Monocytes (%) (Auto) 10 % (0-9) Eosinophils (%) (Auto) 1 % (0-3) Basophils (%) (Auto) 1 % (0-3) Neutrophils # (Auto) 6.5 x10^3uL (1.8-7.7) Lymphocytes # (Auto) 1.1 x10^3/uL (1.0-4.8) Monocytes # (Auto) 0.8 x10^3/uL (0.0-1.1) Eosinophils # (Auto) 0.1 x10^3/uL (0.0-0.7) Basophils # (Auto) 0.1 x10^3/uL (0.0-0.2) Review of Systems Review of Systems abd pain Comment Review of Relevant I have reviewed the following items alysha (where applicable) has been applied. Labs Laboratory Tests Test 03/14/17 11:20 03/14/17 12:28 03/14/17 17:40 03/14/17 20:53 White Blood Count 9.7 x10^3/uL (4.0-11.0) Red Blood Count 3.53 x10^6/uL (3.50-5.40) Hemoglobin 11.7 g/dL (12.0-15.5) Hematocrit 34.0 % (36.0-47.0) Mean Corpuscular Volume 96 fL (79-100) Mean Corpuscular Hemoglobin 33 pg (25-35) Mean Corpuscular Hemoglobin Concent 34 g/dL (31-37) Red Cell Distribution Width 13.6 % (11.5-14.5) Platelet Count 286 x10^3/uL (140-400) Neutrophils (%) (Auto) 86 % (31-73) Lymphocytes (%) (Auto) 9 % (24-48) Monocytes (%) (Auto) 5 % (0-9) Eosinophils (%) (Auto) 0 % (0-3) Basophils (%) (Auto) 1 % (0-3) Neutrophils # (Auto) 8.4 x10^3uL (1.8-7.7) Lymphocytes # (Auto) 0.8 x10^3/uL (1.0-4.8) Monocytes # (Auto) 0.4 x10^3/uL (0.0-1.1) Eosinophils # (Auto) 0.0 x10^3/uL (0.0-0.7) Basophils # (Auto) 0.1 x10^3/uL (0.0-0.2) Segmented Neutrophils % 74 % (35-66) Band Neutrophils % 8 % (0-9) Lymphocytes % 9 % (24-48) Monocytes % 5 % (0-10) Eosinophils % 2 % (0-5) Basophils % 2 % (0-3) Toxic Granulation Mod Platelet Estimate Adequate (ADEQUATE) Erythrocyte Sedimentation Rate 38 (0-25) Prothrombin Time 12.5 SEC (11.7-14.0) Prothromb Time International Ratio 1.0 (0.8-1.1) Urine Collection Type Unknown Urine Color Yellow Urine Clarity Cloudy Urine pH 6.0 Urine Specific [place] 1.015 Urine Protein >=300 mg/dL (NEG-TRACE) Urine Glucose (UA) 500 mg/dL (NEG) Urine Ketones (Stick) Trace mg/dL (NEG) Urine Blood Trace (NEG) Urine Nitrite Negative (NEG) Urine Bilirubin Negative (NEG) Urine Urobilinogen Dipstick 0.2 mg/dL (0.2 mg/dL) Urine Leukocyte Esterase Negative (NEG) Urine RBC 3-5 /HPF (0-2) Urine WBC 11-20 /HPF (0-4) Urine Squamous Epithelial Cells Few /LPF Urine Bacteria Many /HPF (0-FEW) Urine Hyaline Casts Occasional /HPF Sodium Level 128 mmol/L (136-145) Potassium Level 3.7 mmol/L (3.5-5.1) Chloride Level 91 mmol/L (98-107) Carbon Dioxide Level 28 mmol/L (21-32) Anion Gap 9 (6-14) Blood Urea Nitrogen 25 mg/dL (7-20) Creatinine 1.2 mg/dL (0.6-1.0) Estimated GFR (Cockcroft-Gault) 42.8 BUN/Creatinine Ratio 21 (6-20) Glucose Level 240 mg/dL (70-99) Calcium Level 9.5 mg/dL (8.5-10.1) Magnesium Level 2.1 mg/dL (1.8-2.4) Total Bilirubin 0.4 mg/dL (0.2-1.0) Aspartate Amino Transf (AST/SGOT) 32 U/L (15-37) Alanine Aminotransferase (ALT/SGPT) 35 U/L (14-59) Alkaline Phosphatase 106 U/L (46-116) Total Protein 7.9 g/dL (6.4-8.2) Albumin 3.3 g/dL (3.4-5.0) Albumin/Globulin Ratio 0.7 (1.0-1.7) Lipase 121 U/L (73-393) Thyroid Stimulating Hormone (TSH) 0.860 uIU/mL (0.358-3.74) Free Triiodothyronine (T3) pg/mL 1.61 pg/mL (2.18-3.98) Glucose (Fingerstick) 227 mg/dL (70-99) 182 mg/dL (70-99) 213 mg/dL (70-99) Test 03/15/17 10:35 03/15/17 12:30 03/16/17 04:45 Hemoglobin 12.4 g/dL (12.0-15.5) 10.6 g/dL (12.0-15.5) Hematocrit 36.2 % (36.0-47.0) 30.7 % (36.0-47.0) Mean Corpuscular Hemoglobin Concent 34 g/dL (31-37) 35 g/dL (31-37) Urine Color Yellow Urine Clarity Turbid Urine pH 5.5 Urine Specific [place] 1.015 Urine Protein >=300 mg/dL (NEG-TRACE) Urine Glucose (UA) Negative mg/dL (NEG) Urine Ketones (Stick) Trace mg/dL (NEG) Urine Blood Moderate (NEG) Urine Nitrite Negative (NEG) Urine Bilirubin Negative (NEG) Urine Urobilinogen Dipstick 0.2 mg/dL (0.2 mg/dL) Urine Leukocyte Esterase Large (NEG) Urine RBC 11-20 /HPF (0-2) Urine WBC Tntc /HPF (0-4) Urine Bacteria Many /HPF (0-FEW) White Blood Count 8.6 x10^3/uL (4.0-11.0) Red Blood Count 3.19 x10^6/uL (3.50-5.40) Mean Corpuscular Volume 96 fL (79-100) Mean Corpuscular Hemoglobin 33 pg (25-35) Red Cell Distribution Width 13.1 % (11.5-14.5) Platelet Count 270 x10^3/uL (140-400) Neutrophils (%) (Auto) 76 % (31-73) Lymphocytes (%) (Auto) 13 % (24-48) Monocytes (%) (Auto) 10 % (0-9) Eosinophils (%) (Auto) 1 % (0-3) Basophils (%) (Auto) 1 % (0-3) Neutrophils # (Auto) 6.5 x10^3uL (1.8-7.7) Lymphocytes # (Auto) 1.1 x10^3/uL (1.0-4.8) Monocytes # (Auto) 0.8 x10^3/uL (0.0-1.1) Eosinophils # (Auto) 0.1 x10^3/uL (0.0-0.7) Basophils # (Auto) 0.1 x10^3/uL (0.0-0.2) Laboratory Tests Test 03/15/17 10:35 03/15/17 12:30 03/16/17 04:45 Hemoglobin 12.4 g/dL (12.0-15.5) 10.6 g/dL (12.0-15.5) Hematocrit 36.2 % (36.0-47.0) 30.7 % (36.0-47.0) Mean Corpuscular Hemoglobin Concent 34 g/dL (31-37) 35 g/dL (31-37) Urine Color Yellow Urine Clarity Turbid Urine pH 5.5 Urine Specific [place] 1.015 Urine Protein >=300 mg/dL (NEG-TRACE) Urine Glucose (UA) Negative mg/dL (NEG) Urine Ketones (Stick) Trace mg/dL (NEG) Urine Blood Moderate (NEG) Urine Nitrite Negative (NEG) Urine Bilirubin Negative (NEG) Urine Urobilinogen Dipstick 0.2 mg/dL (0.2 mg/dL) Urine Leukocyte Esterase Large (NEG) Urine RBC 11-20 /HPF (0-2) Urine WBC Tntc /HPF (0-4) Urine Bacteria Many /HPF (0-FEW) White Blood Count 8.6 x10^3/uL (4.0-11.0) Red Blood Count 3.19 x10^6/uL (3.50-5.40) Mean Corpuscular Volume 96 fL (79-100) Mean Corpuscular Hemoglobin 33 pg (25-35) Red Cell Distribution Width 13.1 % (11.5-14.5) Platelet Count 270 x10^3/uL (140-400) Neutrophils (%) (Auto) 76 % (31-73) Lymphocytes (%) (Auto) 13 % (24-48) Monocytes (%) (Auto) 10 % (0-9) Eosinophils (%) (Auto) 1 % (0-3) Basophils (%) (Auto) 1 % (0-3) Neutrophils # (Auto) 6.5 x10^3uL (1.8-7.7) Lymphocytes # (Auto) 1.1 x10^3/uL (1.0-4.8) Monocytes # (Auto) 0.8 x10^3/uL (0.0-1.1) Eosinophils # (Auto) 0.1 x10^3/uL (0.0-0.7) Basophils # (Auto) 0.1 x10^3/uL (0.0-0.2) Medications Current Medications Aspirin (Children'S Aspirin) 81 mg DAILY PO Last administered on 03/16/17t 09: 04; Start 03/14/17 at 09:00 Carvedilol (Coreg) 12.5 mg BIDWMEALS PO Last administered on 03/15/17 09:50; Start 03/13/17 at 17:00; Stop 03/15/17 at 12:52; Status DC Famotidine (Pepcid) 20 mg HS PO ; Start 03/13/17 at 21:00; Status UNV Simvastatin (Zocor) 20 mg QHS PO Last administered on 03/13/17 20:19; Start at 21:00; Stop 03/14/17 at 01:13; Status DC Pantoprazole Sodium (Protonix) 40 mg DAILYAC PO Last administered on 03/16/17 09:04; Start 03/14/17 at 07:30 Hydralazine HCl (Apresoline) 10 mg PRN Q4HRS PRN IVP ELEVATED BP, SEE COMMENTS Last administered on 03/15/17 09:50; Start 03/13/17 at 17:00 Docusate Sodium (Colace) 100 mg DAILY PO Last administered on 03/16/17 09:04; Start 03/14/17 at 09:00 Duloxetine HCl (Cymbalta) 30 mg DAILY PO Last administered on 03/16/17 09:04; Start 03/14/17 at 09:00 Acetaminophen/ Hydrocodone Bitart (Lortab 5/325) 1 tab PRN Q4HRS PRN PO PAIN Last administered on 03/15/17 20:32; Start 03/13/17 at 17:45 Insulin Aspart (NovoLOG) 0-5 UNITS TIDWMEALS SQ ; Start 03/14/17 at 08:00; Stop 03/14/17 at 09:48; Status DC Dextrose (Dextrose 50%-Water Syringe) 12.5 gm PRN Q15MIN PRN IV SEE COMMENTS; Start 03/13/17 at 18:00 Haloperidol Lactate (Haldol) 2 mg PRN Q12HR PRN IVP AGITATION; Start 03/13/17 at 22:15 Ondansetron HCl (Zofran) 4 mg PRN Q6HRS PRN IV NAUSEA/VOMITING Last administered on 03/14/17 00:27; Start 03/14/17 at 00:30 Diltiazem HCl 125 mg/Dextrose 125 ml @ 0 mls/hr CONT PRN IV SEE I/O RECORD Last administered on 03/14/17 20:12; Start 03/14/17 at 01:15; Stop 03/15/17 at 12:46; Status DC Morphine Sulfate 2 mg PRN Q2HR PRN IV SEVERE PAIN Last administered on 10:11; Start 03/14/17 at 01:15 Atorvastatin Calcium (Lipitor) 10 mg QHS PO Last administered on 03/15/17 20: 31; Start 03/14/17 at 21:00 Nitroglycerin (Nitro-Bid Oint) 1 inch 1X ONCE TP Last administered on 03:06; Start 03/14/17 at 03:00; Stop 03/14/17 at 03:03; Status DC Sodium Chloride 1,000 ml @ 100 mls/hr Q10H IV Last administered on 03/15/17 05:49; Start 03/14/17 at 09:45; Stop 03/15/17 at 09:25; Status DC Amino Acids/ Glycerin/ Electrolytes 1,000 ml @ 80 mls/hr [id number] IV ; Start at 09:30 Methylnaltrexone [place] (Relistor) 12 mg 1X ONCE SQ Last administered on 03/15 11:58; Start 03/15/17 at 11:15; Stop 03/15/17 at 11:19; Status DC Bisacodyl (Dulcolax Supp) 10 mg PRN DAILY PRN PA CONSTIPATION; Start 03/15/17 at 11:15 Polyethylene Glycol (miraLAX PACKET) 17 gm PRN DAILY PRN PO CONSTIPATION; Start 03/15/17 at 11:15 Metoprolol Tartrate (Lopressor) 25 mg Q6HRS PO Last administered on 03/16/17 06:29; Start 03/15/17 at 13:00 Digoxin (Lanoxin) 250 mcg 1X ONCE PO Last administered on 03/15/17 13:11; Start 03/15/17 at 12:45; Stop 03/15/17 at 12:50; Status DC Diltiazem HCl (Cardizem 24hr Cd) 180 mg DAILY PO Last administered on 09:04; Start 03/15/17 at 13:00 Active Scripts Active Reported Hysingla ER (Hydrocodone Bitartrate) 80 Mg Tab.er.24h 80 Mg PO DAILY Novolin 70-30 100 Unit/Ml Vial (Hum Insulin Nph/Reg Insulin Hm) 100 Unit/1 Ml Vial 8 Unit SQ PRN TID PRN for high blood sugar Stool Softener (Docusate Sodium) 100 Mg Capsule 100 Mg PO DAILY Famotidine 20 Mg Tablet 20 Mg PO HS Calcium 600 + Vit D 200 Tablet (Calcium Carbonate/Vitamin D3) 1 Each Tablet 1 Each PO BID Simvastatin 20 Mg Tablet 1 Tab PO QHS Daily Vitamin (Multivitamin) 1 Each Tablet 1 Each PO Cymbalta (Duloxetine Hcl) 30 Mg Capsule. 1 Cap PO DAILY Carvedilol 12.5 Mg Tablet 1 Tab PO BID Aspirin 81 Mg Tab.chew 1 Tab PO DAILY Vitals/I & O Vital Sign - Last 24 Hours 03/15/17 03/15/17 03/15/17 03/15/17 11:00 13:11 13:11 14:07 Temp 98.5 98.5 Pulse 100 93 93 86 Resp 20 B/P (MAP) 185/71 (109) 116/60 116/60 129/68 Pulse Ox 99 O2 Delivery Room Air 03/15/17 03/15/17 03/15/17 03/15/17 15:00 17:59 19:05 19:30 Temp 97.9 98.7 97.9 98.7 Pulse 94 68 71 Resp 18 17 B/P (MAP) 154/71 (98) 140/54 (82) Pulse Ox 98 96 O2 Delivery Room Air Room Air Room Air 03/15/17 03/15/17 03/15/17 03/15/17 20:32 21:32 23:05 23:51 Temp 98.0 98.0 Pulse 80 85 Resp 20 16 14 B/P (MAP) 148/68 (94) 148/68 Pulse Ox 96 O2 Delivery Room Air Room Air Room Air 03/16/17 03/16/17 03/16/17 03/16/17 03:05 06:29 07:00 09:04 Temp 98.3 99.0 98.3 99.0 Pulse 68 68 60 62 Resp 17 18 B/P (MAP) 163/60 (94) 163/60 143/57 (85) 143/57 Pulse Ox 95 96 O2 Delivery Room Air Room Air Intake and Output 903/16/17 03/17/17 14:59 22:59 06:59 Intake Total 150 ml Balance 150 ml MING ALLISON MD Mar 16, 2017 10:25
[2017-03-16 11:00] VITALS: BP 163/73
[2017-03-16] MEDS: ONDANSETRON ODT 4 MG TAB.RAPDIS. PO PRN ×2 (11:05→21:24)
[2017-03-16] MEDS: oxyCODONE/APAP 10/325 1 TAB TABLET PO PRN ×2 (11:06→19:07)
[2017-03-16] MEDS: CIPROFLOXACIN HCL 250 MG TABLET. PO SCH ×2 (11:07→21:22)
[2017-03-16] MEDS ORDERED: PROMETHAZINE IM 25 MG/ML VIAL IM ONE (12:30)
[2017-03-16 14:56] VITALS: BP 105/45
[2017-03-16 19:20] VITALS: BP 161/65
[2017-03-16] MEDS: ATORVASTATIN CALCIUM 10 MG TABLET. PO SCH (21:22)
[2017-03-16 22:55] VITALS: BP 199/108
[2017-03-17] VITALS (8 sets, daily range): BP systolic 80–201; BP diastolic 38–73
[2017-03-17] MEDS: METOPROLOL TART IMMED RELEASE 25 MG TABLET. PO SCH ×3 (05:56→18:00)
[2017-03-17] MEDS ORDERED: cloNIDine HCL 0.2 MG TABLET PO PRN (06:00)
[2017-03-17] MEDS: ASPIRIN CHEWABLE 81 MG TABLET. PO SCH (09:12)
[2017-03-17] MEDS: DOCUSATE SODIUM 100 MG CAPSULE. PO SCH (09:12)
[2017-03-17] MEDS: CIPROFLOXACIN HCL 250 MG TABLET. PO SCH ×2 (09:12→21:37)
[2017-03-17] MEDS: PANTOPRAZOLE 40 MG TABLET.DR. PO SCH (09:13)
[2017-03-17] MEDS: DULoxetine HCL 30 MG CAPSULE.DR PO SCH (09:13)
--- NOTE | 2017-03-17 11:45 | PDOC ---
PROGRESS NOTES Chief Complaint Chief Complaint 1/ Left sided abd pain, left sided perinephric stranding on CT near tail of pancreas and upper pole left kidney 2. LUng CA, squamous type, 5 CM LATOYA - not candidate for rad tx 3. Hx CABG, etc 4. 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 CONSTIPATION - resolved History of Present Illness History of Present Illness s/p relistor and had a decent sized BM saturday Still claims abd pain but on exam way better than on admit Looks good actually today saturday HAd soem emesis saturday - all pills were vomited NO IV Access and family leaning towards hospice and does not want any more iV access Apparently ate some of her soups UA shows UTI PLAN: StartCont SW saturday arrange for hospice Dr Bell,. Raphael, he concurrs with hospice Ok to have no IV access - took her PO AM pills Dw RN TArget dc Saturday with hospice Vitals Vitals Vital Signs Date Time Temp Pulse Resp B/P (MAP) Pulse Ox O2 Delivery O2 Flow Rate FiO2 03/17/17 10:12 98.2 56 16 91/38 (55) 92 Room Air 98.2 Physical Exam General: Oriented X3, Cooperative, No acute distress, Other (crying) Heart: Regular rate (SR), Normal S1, Normal S2, Other (2/6 systolic murmur to LLS border) Lungs: Crackles, Other Abdomen: Soft, Other (no guarding, tender to palpation on left side mostly, positive bS) Extremities: No clubbing, No cyanosis, No edema, Normal pulses, No tenderness/ swelling Skin: No rashes, No breakdown, No significant lesion Review of Systems Review of Systems abd pain Comment Review of Relevant I have reviewed the following items alysha (where applicable) has been applied. Labs Laboratory Tests Test 03/15/17 12:30 03/16/17 04:45 Urine Color Yellow Urine Clarity Turbid Urine pH 5.5 Urine Specific Esmond 1.015 Urine Protein >=300 mg/dL (NEG-TRACE) Urine Glucose (UA) Negative mg/dL (NEG) Urine Ketones (Stick) Trace mg/dL (NEG) Urine Blood Moderate (NEG) Urine Nitrite Negative (NEG) Urine Bilirubin Negative (NEG) Urine Urobilinogen Dipstick 0.2 mg/dL (0.2 mg/dL) Urine Leukocyte Esterase Large (NEG) Urine RBC 11-20 /HPF (0-2) Urine WBC Tntc /HPF (0-4) Urine Bacteria Many /HPF (0-FEW) White Blood Count 8.6 x10^3/uL (4.0-11.0) Red Blood Count 3.19 x10^6/uL (3.50-5.40) Hemoglobin 10.6 g/dL (12.0-15.5) Hematocrit 30.7 % (36.0-47.0) Mean Corpuscular Volume 96 fL (79-100) Mean Corpuscular Hemoglobin 33 pg (25-35) Mean Corpuscular Hemoglobin Concent 35 g/dL (31-37) Red Cell Distribution Width 13.1 % (11.5-14.5) Platelet Count 270 x10^3/uL (140-400) Neutrophils (%) (Auto) 76 % (31-73) Lymphocytes (%) (Auto) 13 % (24-48) Monocytes (%) (Auto) 10 % (0-9) Eosinophils (%) (Auto) 1 % (0-3) Basophils (%) (Auto) 1 % (0-3) Neutrophils # (Auto) 6.5 x10^3uL (1.8-7.7) Lymphocytes # (Auto) 1.1 x10^3/uL (1.0-4.8) Monocytes # (Auto) 0.8 x10^3/uL (0.0-1.1) Eosinophils # (Auto) 0.1 x10^3/uL (0.0-0.7) Basophils # (Auto) 0.1 x10^3/uL (0.0-0.2) Microbiology 03/15/17 Urine Culture - Preliminary, Resulted 03/15/17 Urine Culture Result 1 (BIJAN) - Preliminary, Resulted Medications Current Medications Aspirin (Children'S Aspirin) 81 mg DAILY PO Last administered on 03/17/17 09: 12; Start 03/14/17 at 09:00 Carvedilol (Coreg) 12.5 mg BIDWMEALS PO Last administered on 03/15/17 09:50; Start 03/13/17 at 17:00; Stop 03/15/17 at 12:52; Status DC Famotidine (Pepcid) 20 mg HS PO ; Start 03/13/17 at 21:00; Status UNV Simvastatin (Zocor) 20 mg QHS PO Last administered on 03/13/17 20:19; Start at 21:00; Stop 03/14/17 at 01:13; Status DC Pantoprazole Sodium (Protonix) 40 mg DAILYAC PO Last administered on 03/17/17 09:13; Start 03/14/17 at 07:30 Hydralazine HCl (Apresoline) 10 mg PRN Q4HRS PRN IVP ELEVATED BP, SEE COMMENTS Last administered on 03/15/17 09:50; Start 03/13/17 at 17:00 Docusate Sodium (Colace) 100 mg DAILY PO Last administered on 03/17/17 09:12; Start 03/14/17 at 09:00 Duloxetine HCl (Cymbalta) 30 mg DAILY PO Last administered on 03/17/17 09:13; Start 03/14/17 at 09:00 Acetaminophen/ Hydrocodone Bitart (Lortab 5/325) 1 tab PRN Q4HRS PRN PO MILD PAIN Last administered on 03/15/17 20:32; Start 03/13/17 at 17:45 Insulin Aspart (NovoLOG) 0-5 UNITS TIDWMEALS SQ ; Start 03/14/17 at 08:00; Stop 03/14/17 at 09:48; Status DC Dextrose (Dextrose 50%-Water Syringe) 12.5 gm PRN Q15MIN PRN IV SEE COMMENTS; Start 03/13/17 at 18:00 Haloperidol Lactate (Haldol) 2 mg PRN Q12HR PRN IVP AGITATION; Start 03/13/17 at 22:15 Ondansetron HCl (Zofran) 4 mg PRN Q6HRS PRN IV NAUSEA/VOMITING Last administered on 03/14/17 00:27; Start 03/14/17 at 00:30 Diltiazem HCl 125 mg/Dextrose 125 ml @ 0 mls/hr CONT PRN IV SEE I/O RECORD Last administered on 03/14/17 20:12; Start 03/14/17 at 01:15; Stop 03/15/17 at 12:46; Status DC Morphine Sulfate 2 mg PRN Q2HR PRN IV SEVERE PAIN Last administered on 10:11; Start 03/14/17 at 01:15 Atorvastatin Calcium (Lipitor) 10 mg QHS PO Last administered on 03/16/17 21: 22; Start 03/14/17 at 21:00 Nitroglycerin (Nitro-Bid Oint) 1 inch 1X ONCE TP Last administered on 03:06; Start 03/14/17 at 03:00; Stop 03/14/17 at 03:03; Status DC Sodium Chloride 1,000 ml @ 100 mls/hr Q10H IV Last administered on 03/15/17 05:49; Start 03/14/17 at 09:45; Stop 03/15/17 at 09:25; Status DC Amino Acids/ Glycerin/ Electrolytes 1,000 ml @ 80 mls/hr [id number] IV ; Start at 09:30; Stop 03/16/17 at 10:23; Status DC Methylnaltrexone [place] (Relistor) 12 mg 1X ONCE SQ Last administered on 03/15 11:58; Start 03/15/17 at 11:15; Stop 03/15/17 at 11:19; Status DC Bisacodyl (Dulcolax Supp) 10 mg PRN DAILY PRN [place] CONSTIPATION; Start 03/15/17 at 11:15 Polyethylene Glycol (miraLAX PACKET) 17 gm PRN DAILY PRN PO CONSTIPATION; Start 03/15/17 at 11:15 Metoprolol Tartrate (Lopressor) 25 mg Q6HRS PO Last administered on 03/17/17 05:56; Start 03/15/17 at 13:00 Digoxin (Lanoxin) 250 mcg 1X ONCE PO Last administered on 03/15/17 13:11; Start 03/15/17 at 12:45; Stop 03/15/17 at 12:50; Status DC Diltiazem HCl (Cardizem 24hr Cd) 180 mg DAILY PO Last administered on 09:04; Start 03/15/17 at 13:00 Ciprofloxacin (Cipro) 250 mg BID PO Last administered on 03/17/17 09:12; Start 03/16/17 at 11:00 Oxycodone/ Acetaminophen (Percocet 10/325) 1 tab PRN Q4HRS PRN PO MODERATE - SEVERE PAIN Last administered on 03/16/17 11:06; Start 03/16/17 at 10:30 Ondansetron HCl (Zofran Odt) 4 mg PRN Q6HRS PRN PO NAUSEA/VOMITING Last administered on 03/16/17 21:24; Start 03/16/17 at 10:30 Promethazine HCl (Phenergan Im) 25 mg 1X ONCE IM Last administered on 14:16; Start 03/16/17 at 12:30; Stop 03/16/17 at 12:31; Status DC Clonidine HCl (Catapres) 0.2 mg PRN Q4HRS PRN PO HYPERTENSION, SEE COMMENTS Last administered on 03/17/17 05:56; Start 03/17/17 at 06:00 Active Scripts Active Reported Hysingla ER (Hydrocodone Bitartrate) 80 Mg Tab.er.24h 80 Mg PO DAILY Novolin 70-30 100 Unit/Ml Vial (Hum Insulin Nph/Reg Insulin Hm) 100 Unit/1 Ml Vial 8 Unit SQ PRN TID PRN for high blood sugar Stool Softener (Docusate Sodium) 100 Mg Capsule 100 Mg PO DAILY Famotidine 20 Mg Tablet 20 Mg PO HS Calcium 600 + Vit D 200 Tablet (Calcium Carbonate/Vitamin D3) 1 Each Tablet 1 Each PO BID Simvastatin 20 Mg Tablet 1 Tab PO QHS Daily Vitamin (Multivitamin) 1 Each Tablet 1 Each PO Cymbalta (Duloxetine Hcl) 30 Mg Capsule. 1 Cap PO DAILY Carvedilol 12.5 Mg Tablet 1 Tab PO BID Aspirin 81 Mg Tab.chew 1 Tab PO DAILY Vitals/I & O Vital Sign - Last 24 Hours 03/16/17 03/16/17 03/16/17 03/16/17 12:00 12:30 14:56 18:00 Temp 97.7 97.7 Pulse 55 55 55 Resp 16 B/P (MAP) 105/45 105/45 (65) 105/45 Pulse Ox 96 O2 Delivery Room Air Room Air 03/16/17 03/16/17 03/16/17 03/16/17 19:20 20:00 22:55 23:19 Temp 97.4 97.8 97.4 97.8 Pulse 70 80 80 Resp 16 18 B/P (MAP) 161/65 (97) 199/108 (138) 199/108 Pulse Ox 96 96 O2 Delivery Room Air Room Air Room Air 03/17/17 03/17/17 03/17/17 03/17/17 00:11 03:36 05:48 05:56 Temp 97.9 97.9 Pulse 70 63 70 70 Resp 18 B/P (MAP) 183/73 (109) 175/67 (103) 201/70 (113) 201/70 Pulse Ox 96 O2 Delivery Room Air 03/17/17 03/17/17 03/17/17 05:56 07:00 10:12 Temp 98.5 98.2 98.5 98.2 Pulse 70 68 56 Resp 16 16 B/P (MAP) 201/70 129/52 (77) 91/38 (55) Pulse Ox 94 92 O2 Delivery Room Air Room Air Intake and Output 03/17/17 03/17/17 03/18/17 15:00 23:00 07:00 Intake Total 150 ml Balance 150 ml MING ALLISON MD Mar 17, 2017 11:45
[2017-03-17] MEDS: ATORVASTATIN CALCIUM 10 MG TABLET. PO SCH (21:37)
[2017-03-18 02:47] VITALS: BP 134/57
[2017-03-18] MEDS: METOPROLOL TART IMMED RELEASE 25 MG TABLET. PO SCH ×3 (06:00→12:00)
[2017-03-18 07:00] VITALS: BP 119/46
[2017-03-18] MEDS ORDERED: CIPR250T30 PO (10:23)
--- NOTE | 2017-03-18 10:27 | PDOC3 ---
Discharge Summary Visit Information Date of Admission: Mar 13, 2017 Date of Discharge: Mar 18, 2017 Admitting Diagnosis Comment: 1/ Left sided abd pain, left sided perinephric stranding on CT near tail of pancreas and upper pole left kidney 2. LUng CA, squamous type, 5 CM LATOYA - not candidate for rad tx 3. Hx CABG, etc 4. 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 CONSTIPATION - resolved Brief Hospital Course Allergies Allergies Coded Allergies Type Severity Reaction Last Updated Verified fentanyl Allergy Intermediate 11/29/16 Yes Vital Signs Vital Signs Date Time Temp Pulse Resp B/P (MAP) Pulse Ox O2 Delivery O2 Flow Rate FiO2 03/18/17 07:00 90 18 119/46 (70) 03/18/17 07:00 100.8 95 Room Air 100.8 Lab Results Laboratory Tests Test 03/18/17 08:50 Glucose (Fingerstick) 196 mg/dL (70-99) Laboratory Tests Test 03/18/17 08:50 Glucose (Fingerstick) 196 mg/dL (70-99) Brief Hospital Course Ms. Serrano is a 86 old female with squamous cell lung CA, knonw to Dr. Lim admitted for sever over all generalized abd pain, but more concentrated on lefts abrahan,. CT abd showed some periphephric stranding tail of panc, lipase normal,. ESR normal, LAbs normal. Could havbe been constipation as relief of abd pain for the most part after BM after relistor. Mary nd examined Course; hypotension, needing IV access, hard stick, needed PICC or central line , Family opted for hospice and no IV access, I have stopped statin and bB and cardizem, Ptnow will go home hospice, Dr. Raphael concurrs with family decision of going hospice as radiatio tx was also not recommnded for her as she had very pool QOL and worsening dementia Discharge Information Condition at Discharge: Stable Disposition/Orders: D/C to Home w/ Hospice Scheduled Aspirin (Aspirin), 1 TAB PO DAILY, (Reported) Calcium Carbonate/Vitamin D3 (Calcium 600 + Vit D 200 Tablet), 1 EACH PO BID, ( Reported) Carvedilol (Carvedilol), 1 TAB PO BID, (Reported) Docusate Sodium (Stool Softener), 100 MG PO DAILY, (Reported) Duloxetine Hcl (Cymbalta), 1 CAP PO DAILY, (Reported) Famotidine (Famotidine), 20 MG PO HS, (Reported) Hum Insulin Nph/Reg Insulin Hm (Novolin 70-30 100 Unit/Ml Vial), 8 UNIT SQ PRN TID, (Reported) Hydrocodone Bitartrate (Hysingla ER), 80 MG PO DAILY, (Reported) Simvastatin (Simvastatin), 1 TAB PO QHS, (Reported) Miscellaneous Medications Multivitamin (Daily Vitamin), 1 EACH PO, (Reported) Discontinued Medications Hydrocodone Bit/Acetaminophen (Hydrocodone-Apap 5-325 ), 1 TAB PO PRN Q6HRS PRN for PAIN, (Reported) Insulin Glargine,Hum.rec.anlog (Lantus), 12 UNIT SQ HS, (Reported) Ondansetron Hcl (Zofran), 4 MG PO q4hrs prn PRN for NAUSEA/VOMITING, (Reported) MING ALLISON MD Mar 18, 2017 10:27
[2017-03-18] MEDS: DOCUSATE SODIUM 100 MG CAPSULE. PO SCH (10:44)
[2017-03-18] MEDS: DULoxetine HCL 30 MG CAPSULE.DR PO SCH (10:45)
[2017-03-18] MEDS: PANTOPRAZOLE 40 MG TABLET.DR. PO SCH (10:45)
[2017-03-18] MEDS: ASPIRIN CHEWABLE 81 MG TABLET. PO SCH (10:45)
[2017-03-18] MEDS: CIPROFLOXACIN HCL 250 MG TABLET. PO SCH (10:53)
[2017-03-18 11:00] VITALS: BP 139/53
--- NOTE | 2017-03-18 11:01 | PDOC ---
Objective: Objective: Reviewed w/ RN. Vital Signs: Vital Signs Date Time Temp Pulse Resp B/P (MAP) Pulse Ox O2 Delivery O2 Flow Rate FiO2 03/18/17 08:00 Room Air 03/18/17 07:00 90 18 119/46 (70) 03/18/17 07:00 100.8 95 100.8 Labs: Laboratory Tests Test 03/18/17 08:50 Glucose (Fingerstick) 196 mg/dL PE: GEN: NAD ABD: NABS, S/ND/NT NEURO/PSYCH: awake/alert A/P: CAD Lung cancer - observation Abd pain, constipation - resolved Dementia -- Plans for home w/ Hospice. No additional GI recs. MATTI TOLENTINO Mar 18, 2017 11:01
[2017-03-18] MEDS: oxyCODONE/APAP 10/325 1 TAB TABLET PO PRN (12:37)
--- NOTE | 2017-03-18 12:50 | PDOC2 ---
PALLIATIVE CARE Palliative Care Note Palliative Care Patient alert. Good appetite. Spoke with Meng/. No preference in hospice agency. No DME can take patient home Spoke with Juan PINO who will assist with discharge. Discharge orders written and communicated with Dr. Bryan. EDWIN PHILLIPS Mar 18, 2017 12:50
[2017-03-18 15:00] VITALS: BP 170/88
== END 2017-03-18 15:10 | disposition hospice, home (50) | DRG 392 ==
LOC: 2 NORTH 13:34
PROVIDERS: ADMIT Internal Medicine Hematology & Oncology; ATTEND Internal Medicine Hematology & Oncology
DX: K59.00 Constipation, unspecified (principal); N17.9 Acute kidney failure, unspecified; E46 Unspecified protein-calorie malnutrition; I12.0 Hypertensive chronic kidney disease with stage 5 chronic kidney disease or end stage renal disease; N18.5 Chronic kidney disease, stage 5; I95.9 Hypotension, unspecified; E11.22 Type 2 diabetes mellitus with diabetic chronic kidney disease; I48.92 Unspecified atrial flutter; F03.90 Unspecified dementia, unspecified severity, without behavioral disturbance, psychotic disturbance, mood disturbance, and anxiety; E87.1 Hypo-osmolality and hyponatremia; C34.12 Malignant neoplasm of upper lobe, left bronchus or lung; N39.0 Urinary tract infection, site not specified; E11.51 Type 2 diabetes mellitus with diabetic peripheral angiopathy without gangrene; N28.89 Other specified disorders of kidney and ureter; K20.9 Esophagitis, unspecified; J44.9 Chronic obstructive pulmonary disease, unspecified; I48.0 Paroxysmal atrial fibrillation; I12.9 Hypertensive chronic kidney disease with stage 1 through stage 4 chronic kidney disease, or unspecified chronic kidney disease; N18.3 Chronic kidney disease, stage 3 (moderate); C50.919 Malignant neoplasm of unspecified site of unspecified female breast; E03.9 Hypothyroidism, unspecified; Z88.8 Allergy status to other drugs, medicaments and biological substances; E78.5 Hyperlipidemia, unspecified; E83.42 Hypomagnesemia; F32.9 Major depressive disorder, single episode, unspecified; F41.9 Anxiety disorder, unspecified; I25.10 Atherosclerotic heart disease of native coronary artery without angina pectoris; G89.29 Other chronic pain; R29.6 Repeated falls; M54.5 Low back pain; R74.8 Abnormal levels of other serum enzymes; Z66 Do not resuscitate; Z51.5 Encounter for palliative care; Z68.20 Body mass index [BMI] 20.0-20.9, adult; Z79.4 Long term (current) use of insulin; Z79.82 Long term (current) use of aspirin; Z82.49 Family history of ischemic heart disease and other diseases of the circulatory system; Z85.118 Personal history of other malignant neoplasm of bronchus and lung; Z85.3 Personal history of malignant neoplasm of breast; Z86.73 Personal history of transient ischemic attack (TIA), and cerebral infarction without residual deficits; Z87.891 Personal history of nicotine dependence; Z91.14 Patient's other noncompliance with medication regimen; Z91.19 Patient's noncompliance with other medical treatment and regimen; Z95.1 Presence of aortocoronary bypass graft; Z90.49 Acquired absence of other specified parts of digestive tract; Z90.12 Acquired absence of left breast and nipple
CPT/HCPCS: 36415; 80053; 81001; 82962; 83690; 83735; 84443; 84481; 85007; 85014; 85018; 85025; 85610; 85651; 87086; 87186; 93306; J0360; J1815; J2212; J2270; J2405; J2550; J3490; Q0162

== ENCOUNTER → 2017-04-30 | Outpatient (CLI) | payer MEDICARE, OTHER ==
[~2017-04-30] MED LIST changes: +CIPR250T30 PO; +FAMO-63 PO; +HYDR-971 PO
--- NOTE | 2017-04-30 18:18 | RAD ---
Chest, 2 views, 04/30/2017: History: Follow-up lung cancer Comparison is made to a study from 01/30/2017. The heart size is normal. There is a 5 cm left suprahilar pulmonary mass compatible with the history of lung cancer. It appears to have increased in size since the previous exam. There is bilateral apical scarring. No right lung mass or significant infiltrate is seen. There is no evidence of pleural fluid. There has been a previous median sternotomy. There is evidence of a previous left mastectomy with surgical clips in the left axilla. There are surgical clips in the upper abdomen. Numerous vertebral compression fractures are again noted with vertebroplasty changes at multiple levels in the upper lumbar and thoracic spine. IMPRESSION: Enlarging left upper lobe mass compatible with the history of lung cancer.
== END | disposition home or self-care (01) ==
LOC: RAD 12:30
PROVIDERS: ATTEND Radiology Radiation Oncology
DX: C34.90 Malignant neoplasm of unspecified part of unspecified bronchus or lung (principal); Z90.12 Acquired absence of left breast and nipple
CPT/HCPCS: 71020

== ENCOUNTER → 2017-07-02 | Outpatient (CLI) | payer MEDICARE, OTHER | END | disposition home or self-care (01) | LOC: RAD 11:56 | DX: C34.12 Malignant neoplasm of upper lobe, left bronchus or lung (principal) | CPT/HCPCS: 71046 ==

== ENCOUNTER 2017-08-29 22:13 | Emergency (ER) | payer MEDICARE, OTHER ==
[2017-08-29 22:37] LABS: BILIRUBIN,URINE NEGATIVE (NEG); CLARITY,URINE CLEAR; COLOR,URINE YELLOW; GLUCOSE,URINE 100 mg/dL (NEG); NITRITE,URINE NEGATIVE (NEG); PROTEIN,URINE 100 mg/dL (NEG-TRACE); UROBILINOGEN,URINE 0.2 mg/dL (0.2 mg/dL)
[2017-08-29 22:43] LABS: BACTERIA,URINE 0 /HPF (0-FEW); RBC,URINE 0 /HPF (0-2); SQUAMOUS EPITHELIAL CELL,UR OCC /LPF
[2017-08-29 23:29] LABS: ADD MAN DIFF? NO
[2017-08-29 23:32] LABS: BASO # 0.1 x10^3/uL (0.0-0.2); BASO % 1 % (0-3); EOS # 0.2 x10^3/uL (0.0-0.7); EOS % 3 % (0-3); HEMATOCRIT 27.2 % (36.0-47.0); LYMPH # 1.5 x10^3/uL (1.0-4.8); LYMPH % 23 % (24-48); MEAN CORPUSCULAR HEMOGLOBIN 32 pg (25-35); MEAN CORPUSCULAR HGB CONC 33 g/dL (31-37); MEAN CORPUSCULAR VOLUME 96 fL (79-100); MONO # 0.8 x10^3/uL (0.0-1.1); MONO % 13 % (0-9); NEUT # 3.8 x10^3uL (1.8-7.7); NEUT % 60 % (31-73); PLATELET COUNT 200 x10^3/uL (140-400); RED BLOOD COUNT 2.84 x10^6/uL (3.50-5.40); RED CELL DISTRIBUTION WIDTH 14.4 % (11.5-14.5); WHITE BLOOD COUNT 6.3 x10^3/uL (4.0-11.0)
[2017-08-29 23:44] LABS: ANION GAP 3 (6-14); BLOOD UREA NITROGEN 15 mg/dL (7-20); BUN/CREATININE RATIO 17 (6-20); CALCIUM 8.7 mg/dL (8.5-10.1); CARBON DIOXIDE 30 mmol/L (21-32); CHLORIDE 103 mmol/L (98-107); CREATININE 0.9 mg/dL (0.6-1.0); GFR 59.5; GLUCOSE 180 mg/dL (70-99); POTASSIUM 3.3 mmol/L (3.5-5.1); SODIUM 136 mmol/L (136-145)
[2017-08-29 23:49] LABS: ALBUMIN 2.4 g/dL (3.4-5.0); ALBUMIN/GLOBULIN RATIO 0.6 (1.0-1.7); ALK PHOS 88 U/L (46-116); ALT (SGPT) 12 U/L (14-59); AST (SGOT) 17 U/L (15-37); LIPASE 60 U/L (73-393); TOTAL BILIRUBIN 0.2 mg/dL (0.2-1.0); TOTAL PROTEIN 6.1 g/dL (6.4-8.2)
[2017-08-29 23:51] LABS: LACTIC ACID 0.8 mmol/L (0.4-2.0)
[2017-08-29 23:53] LABS: TROPONINI 0.188 ng/mL (0.000-0.055)
[2017-08-30 00:02] LABS: INFLUENZA A PATIENT NEGATIVE (NEGATIVE); INFLUENZA B PATIENT NEGATIVE (NEGATIVE); OBC FLU VALID
[2017-08-30] MEDS: ASPIRIN CHEWABLE 81 MG TABLET. PO (00:03)
== END 2017-08-30 01:07 | disposition home or self-care (01) ==
LOC: ER 08-30 01:07
DX: I63.9 Cerebral infarction, unspecified (principal); E11.9 Type 2 diabetes mellitus without complications; E78.00 Pure hypercholesterolemia, unspecified; I11.0 Hypertensive heart disease with heart failure; I50.9 Heart failure, unspecified; Z86.73 Personal history of transient ischemic attack (TIA), and cerebral infarction without residual deficits; Z85.3 Personal history of malignant neoplasm of breast; I25.2 Old myocardial infarction; Z95.1 Presence of aortocoronary bypass graft; Z90.49 Acquired absence of other specified parts of digestive tract; Z79.82 Long term (current) use of aspirin; Z88.4 Allergy status to anesthetic agent
CPT/HCPCS: 36415; 51701; 70450; 71045; 80053; 81001; 83605; 83690; 84484; 85025; 87040; 87804; 87804-59; 93005; 99285-25